=== PATIENT | male | born 1945 | race Caucasian/White ===

== ENCOUNTER 2023-03-10 12:08 | Outpatient (RCR) | payer MEDICARE, SELFPAY | END 2023-03-10 23:59 | disposition home or self-care (01) | LOC: RPT 12:08 | PROVIDERS: ATTENDING PHYSICIAN Psychiatry & Neurology Neurology; PRIMARYCARE PHYSICIAN Family Medicine | DX: R26.2 Difficulty in walking, not elsewhere classified (principal); E11.42 Type 2 diabetes mellitus with diabetic polyneuropathy; G95.9 Disease of spinal cord, unspecified | CPT/HCPCS: 97010; 97110; 97112; 97530 ==

== ENCOUNTER 2023-04-14 12:55 | Outpatient (RCR) | payer OTHER, SELFPAY | END 2023-04-14 23:59 | disposition home or self-care (01) | LOC: RPT 12:55 | PROVIDERS: ATTENDING PHYSICIAN Psychiatry & Neurology Neurology; PRIMARYCARE PHYSICIAN Family Medicine | DX: E11.42 Type 2 diabetes mellitus with diabetic polyneuropathy (principal); G95.9 Disease of spinal cord, unspecified; R26.2 Difficulty in walking, not elsewhere classified | CPT/HCPCS: 97110; 97112; 97162 ==

== ENCOUNTER 2023-05-05 12:49 | Outpatient (RCR) | payer OTHER, SELFPAY | END 2023-05-05 23:59 | disposition home or self-care (01) | LOC: RPT 12:49 | PROVIDERS: ATTENDING PHYSICIAN Psychiatry & Neurology Neurology; PRIMARYCARE PHYSICIAN Family Medicine | DX: E11.42 Type 2 diabetes mellitus with diabetic polyneuropathy (principal); G95.9 Disease of spinal cord, unspecified; R26.2 Difficulty in walking, not elsewhere classified; Z73.6 Limitation of activities due to disability; M62.81 Muscle weakness (generalized) | CPT/HCPCS: 97110; 97112 ==

== ENCOUNTER 2023-06-09 13:04 | Outpatient (RCR) | payer OTHER, SELFPAY | END 2023-06-09 23:59 | disposition home or self-care (01) | LOC: RPT 13:04 | PROVIDERS: ATTENDING PHYSICIAN Psychiatry & Neurology Neurology; PRIMARYCARE PHYSICIAN Family Medicine | DX: R26.2 Difficulty in walking, not elsewhere classified (principal); G95.9 Disease of spinal cord, unspecified; E11.42 Type 2 diabetes mellitus with diabetic polyneuropathy; Z73.6 Limitation of activities due to disability; M62.81 Muscle weakness (generalized) | CPT/HCPCS: 97010; 97110; 97112; 97530 ==

== ENCOUNTER 2023-07-07 13:05 | Outpatient (RCR) | payer OTHER, SELFPAY | END 2023-07-07 23:59 | disposition home or self-care (01) | LOC: RPT 13:05 | PROVIDERS: ATTENDING PHYSICIAN Psychiatry & Neurology Neurology; PRIMARYCARE PHYSICIAN Family Medicine | DX: R26.2 Difficulty in walking, not elsewhere classified (principal); G95.9 Disease of spinal cord, unspecified; E11.42 Type 2 diabetes mellitus with diabetic polyneuropathy; Z73.6 Limitation of activities due to disability; M62.81 Muscle weakness (generalized) | CPT/HCPCS: 97110; 97112 ==

== ENCOUNTER 2023-08-11 12:57 | Outpatient (RCR) | payer OTHER, SELFPAY | END 2023-08-11 23:59 | disposition home or self-care (01) | LOC: RPT 12:57 | PROVIDERS: ATTENDING PHYSICIAN Psychiatry & Neurology Neurology; PRIMARYCARE PHYSICIAN Family Medicine | DX: R26.2 Difficulty in walking, not elsewhere classified (principal); G95.9 Disease of spinal cord, unspecified; E11.42 Type 2 diabetes mellitus with diabetic polyneuropathy; Z73.6 Limitation of activities due to disability | CPT/HCPCS: 97110; 97112 ==

== ENCOUNTER 2023-09-10 11:55 | Outpatient (RCR) | payer OTHER, SELFPAY | END 2023-09-10 23:59 | disposition home or self-care (01) | LOC: RPT 11:55 | PROVIDERS: ATTENDING PHYSICIAN Psychiatry & Neurology Neurology; PRIMARYCARE PHYSICIAN Family Medicine | DX: R26.2 Difficulty in walking, not elsewhere classified (principal); G95.9 Disease of spinal cord, unspecified; E11.42 Type 2 diabetes mellitus with diabetic polyneuropathy; Z73.6 Limitation of activities due to disability | CPT/HCPCS: 97110; 97112; 97530 ==

== ENCOUNTER 2023-09-22 13:07 | Outpatient (RCR) | payer OTHER, SELFPAY | END 2023-09-22 23:59 | disposition home or self-care (01) | LOC: RPT 13:07 | PROVIDERS: ATTENDING PHYSICIAN Psychiatry & Neurology Neurology; PRIMARYCARE PHYSICIAN Family Medicine | DX: R26.2 Difficulty in walking, not elsewhere classified (principal); G95.9 Disease of spinal cord, unspecified; E11.42 Type 2 diabetes mellitus with diabetic polyneuropathy; Z73.6 Limitation of activities due to disability | CPT/HCPCS: 97110; 97530 ==

== ENCOUNTER 2023-12-11 05:09 | Inpatient (IN) | payer MEDICARE, SELFPAY ==
[2023-12-11] VITALS (38 sets, daily range): BP systolic 99–190; BP diastolic 51–101; BMI 29.5
[2023-12-11 01:28] LABS: Glucose - Point of Care 118 mg/dl (70-99)
[2023-12-11 01:58] LABS: % Basophils 0.2 % (0-2); % Eosinophils 0.5 % (0-6); % Immature Granulocytes 0.5 % (0-0.5); % Lymphocytes 17.3 % (20.5-51.1); % Monocytes 6.3 % (1.7-9.3); % Neutrophils 75.2 % (42.2-75.2); Absolute Lymphocytes 1.5 10^3/uL (1.2-3.4); Absolute Monocytes 0.6 10^3/uL (0.1-0.6); Absolute Neutrophils 6.5 10^3/uL (1.4-6.5); Hematocrit 41.8 % (39.0-52.0); Hemoglobin 15.2 g/dL (13.0-18.0); Mean Corp Hgb Conc. 36.4 g/dL (33.0-37.0); Mean Corpuscular Hgb 31.7 pg (27.0-31.0); Mean Corpuscular Volume 87.3 fL (80.0-94.0); Nucleated Red Blood Cells % 0 % (-); Platelet Count 241 10^3/uL (130-400); Red Blood Cell Count 4.79 10^6/uL (4.70-6.10); Red Cell Dist. Width 13.5 % (11.5-14.5); White Blood Cell Count 8.7 10^3/uL (4.8-10.8)
[2023-12-11 02:07] LABS: Glucose - Point of Care 30 mg/dl (70-99)
--- NOTE | 2023-12-11 02:10 | ED.GENMED ---
History of Present Illness
General
Chief Complaint: Weakness
Source: patient
Exam Limitations: none
Time Seen by Provider: 12/11/23 02:04
Nursing documentation reviewed up to this point in time: agreed with
History of Present Illness
History of Present Illness:
Pleasant 78-year-old male presents with confusion, weakness, and fatigue. Patient is diabetic and has a [employer] morales monitor that has been reading low all day. Patient took his usual dose of insulin today. He feels that he ate normally today.
He is accompanied by his who is present at the bedside. states that he is hard of hearing.
Past History
Past History
ED Past Medical History: GERD, Hypercholesterolemia, IDDM and Other (MS)
ED Past Surgical History: Appendectomy, Orthopedic and Urological
Social History
Tobacco: Non-smoker
Alcohol: Occasional
Drug: None
Personal:
Living: with family
Employment: Retired
Family History
Family History: Other (Noncontributory)
Review of Systems
Review of Systems
Allergies reviewed?: Yes
Other source history: family
Constitutional: Reports fatigue and sleep disturbance
Neurological: Reports dizzy and weakness
Psychiatric: Reports anxiety
Phy Exam
General Physical Exam
General Presentation: well appearing and mild distress
General age: appears stated age
General Habitus: elderly and frail
General Mental: alert, anxious and confused
General Hydration: appears well hydrated
Cardiovascular Exam
Cardiovascular Exam: regular rate/rhythm
Pulmonary Exam
Pulmonary Exam: lungs clear and no respiratory distress
Neurological Exam
Neurological Exam: confused
Musculoskeletal Exam
Musculoskeletal Exam: full ROM and no edema
Skin Exam
Skin Exam: normal color
Psychiatric Exam
Psychiatric Exam: normal mood/affect
Course
Orders/Labs/Results
Orders:
Orders
12/11/23 01:32
Electrocardiogram (*1) Urgent
Reason for Study: Fatigue / Weakness
EKG- Treatment ONCE
12/11/23 01:52
Complete Blood Count/With Diff Urgent
Comprehensive Metabolic Panel Urgent
12/11/23 02:02
Dextrose 50%-Water [Dextrose 50% Syringe] 25 grams .ROUTE .STK-MED ONE
12/11/23 02:21
Dextrose 50%-Water [Dextrose 50% Syringe] 25 grams IV NOW STA
12/11/23 03:00
Dextrose 5%/0.45%Sodchl 500 ml [D5/0.45%NaCl] 500 ml IV 250 mls/hr
12/11/23 03:28
UA Reflex to Culture [Urinalysis Reflex To Culture] Urgent
Date Specimen was Collected: 12/11/23
Time Specimen was Collected: 03:21
12/11/23 03:36
Dextrose 50%-Water [Dextrose 50% Syringe] 25 grams IV NOW STA
Abnormal Lab Results
12/11/23 12/11/23 12/11/23
01:27 01:52 02:01
MCH 31.7 H pg
(27.0-31.0)
Lymphocytes % 17.3 L %
(20.5-51.1)
BUN 21 H mg/dl
(9-20)
Glucose 34 L* mg/dl
(70-99)
POC Glucose 118 H mg/dl 30 L* mg/dl
(70-99) (70-99)
12/11/23 12/11/23
02:45 03:30
MCH
Lymphocytes %
BUN
Glucose
POC Glucose 64 L mg/dl 37 L* mg/dl
(70-99) (70-99)
12/11/23 01:52
12/11/23 01:52
Vital Signs
Initial and Last Documented VS:
Initial Vital Signs
Pulse Resp BP Pulse Ox
94 30 190/101 99
12/11/23 01:29 12/11/23 01:29 12/11/23 01:29 12/11/23 01:29
Last Documented Vital Signs
Temp Pulse Resp BP Pulse Ox
94.9 F L 72 15 160/77 100
12/11/23 01:40 12/11/23 03:30 12/11/23 03:30 12/11/23 03:00 12/11/23 03:30
*Critical Care Note
Total Time (30-74mins, 75-104mins- exclusive of procedures): 30 (Critical care statement: A total of 30 minutes of critical care time was provided for this patient. This time is separate from time utilized to perform the aforementioned documented
procedures. Aggregate critical care time includes only time during which I was engaged in work directl)
ED Attending Note
-
Portions of this chart may have been created with voice recognition software.� Occasional wrong word or��sound alike� substitutions may have occurred due to the inherent limitations of voice recognition software.
Discharge Plan
Departure
Patient Disposition: Admit
Date of Disposition: 12/11/23
Time of Disposition: 03:53
Admit to: ICU
Presentation/result/management discussed w/ accepting MD/DO: Hospitalist
Condition: Fair
Discharge Problem:
Persistent hypoglycemia, Generalized weakness
Prescriptions:
No Action
finasteride 5 MG tablet
5 mg PO DAILY
bupropion HCl 150 MG tablet extended release 24 hr
150 mg PO DAILY
Insulin Pump
0 units SC .CONTINUOUS
Patient Comments:
06/08/18: insulin pump with Humalog
continuous rate. Patient uses between 50-60 units daily
omeprazole 40 MG capsule,delayed release(DR/EC)
40 mg PO DAILY
cholecalciferol (vitamin D3) 1,000 UNITS tablet
6,000 units PO DAILY
atorvastatin 80 MG tablet
80 mg PO QPM
citalopram 20 MG tablet
20 mg PO DAILY
oxycodone-acetaminophen 5 MG/325 MG tablet
1 tab PO PRN PRN (Reason: pain)
losartan 50 MG tablet
50 mg PO DAILY 0RF
Referrals:
Patrick Kc MD [Family Provider] -
Interventions
Interventions:
*Risk Screen - Suicide Last Done: 12/11/23 01:29
*General Assessment Last Done: 12/11/23 01:29
*Neglect/Abuse Screening Last Done: 12/11/23 01:29
ED- Fall Risk Assessment Last Done: 12/11/23 03:38
*ED COVID-19 Vaccine History Last Done: 12/11/23 02:24
ED- Cardiac Assessment Last Done: 12/11/23 02:15
ED- Neurological Assessment Last Done: 12/11/23 02:15
ED- Pulmonary Assessment Last Done: 12/11/23 02:15
Discharge Date and Time
Print Language: MALTESE
[2023-12-11 02:20] LABS: ALT (SGPT) 20 U/L (0-50); AST (SGOT) 26 U/L (17-59); Albumin 4.4 g/dl (3.5-5.0); Alkaline Phosphatase 86 U/L (38-126); Blood Urea Nitrogen 21 mg/dl (9-20); Calcium 9.1 mg/dl (8.4-10.2); Carbon Dioxide 22 mmol/L (22-30); Chloride 104 mmol/L (98-107); Glucose 34 mg/dl (70-99); Potassium 3.6 mmol/L (3.5-5.1); Sodium 142 mmol/L (135-145); Total Bilirubin 0.7 mg/dl (0.2-1.3); Total Protein 7.6 g/dl (6.3-8.2); eGFR > 60.00
[2023-12-11] MEDS: DEXTROSE 50% SYRINGE 25 GRAMS IV ×2 (02:22→03:37)
[2023-12-11 02:47] LABS: Glucose - Point of Care 64 mg/dl (70-99)
[2023-12-11] MEDS: D5/0.45%NACL 500 IV (02:53)
[2023-12-11 03:31] LABS: Glucose - Point of Care 37 mg/dl (70-99)
[2023-12-11 03:52] LABS: Urine Albumin 2+ (Neg - Trace); Urine Bilirubin Negative (Negative); Urine Character Clear (Clear); Urine Color Yellow; Urine Glucose Trace (Negative); Urine Ketone Negative (Negative); Urine Leukocyte Negative (Negative); Urine Nitrite Negative (Negative); Urine Occult Blood Trace (Negative); Urine Urobilinogen Negative (Neg - 1+)
--- NOTE | 2023-12-11 04:33 | HPS.HSE ---
Family Physician
-
Family Physician: Patrick Kc
Chief Complaint
-
Hypoglycemia
History of Present Illness
This is a 78-year-old male with past medical history of insulin-dependent diabetes, prostate cancer status post TURP, hypertension, hyperlipidemia, chronic generalized weakness, KIM who presents to the emergency department with a hypoglycemic
episode where he was found to have a blood glucose of 34.
Patient reports that he has been having low glucose for over 1 week. He states that his glucose ranges from 50s to 60s at home. He denies any recent changes in diabetic medications. He reports about a 15 pound weight loss. Denies any other
changes in medications. Reports that his appetite is the same and his food intake is unchanged. He states that occasionally when he has low glucose if he takes glucose tabs.
He reports that today when he awoke his glucose was in the mid 50s. He did take 3 to 4 tablets of glucose and only had about 3 point increased. Despite this patient at regularly today. He stated that at around 5 PM he gave himself 40 units of
Humalog. He stated that before given himself Humalog his glucose was still in the 50s. He reports that he sometimes gives himself Humalog when the sugar is low. Patient appears to be confused about when and how much insulin to take. He was
previously on insulin pump but this was discontinued and returned. He denies fevers or chills. He denies any other symptoms.
In the emergency department he was hypothermic to 94, blood pressure was 133/80 with a pulse of 75. 100% on room air. His ECG shows atrial fibrillation at a rate of 107. Telemetry consistent with rate controlled A-fib in the 70s. His CBC was
unremarkable. Chemistries were notable for a glucose of 34. Despite boluses of dextrose and a D5 drip the patient continued to drop to the 30s. LFTs were within normal limits. UA showed trace blood but was otherwise unremarkable.
Medical History
Past Medical History
Past Medical History: Reports GERD, HTN and IDDM
Additional Past Medical History:
CKD
Past Surgical History: Reports Other
Additional Past Surgical History:
TURP
Social History
Tobacco: Non-smoker
Alcohol: Occasional
Drug: None
Personal:
Living: With Family
Employment: Retired
Family History
Family History: Not pertinent
Allergies / Home Medications
Allergies reflects when Allergies were last updated in [facility].
Home Medications with original date entered in [facility]
Allergy/Medication List:
Allergies
Allergy/AdvReac Type Severity Reaction Status Date / Time
pollen extracts Allergy Unknown Unknown Verified 08/02/20 01:05
environmental (pollen) Allergy rhinitis Uncoded 08/02/20 01:05
Home Medications
Citalopram Hydrobromide 20 MG TAKE 1 TABLET BY MOUTH ONCE DAILY for 90 days Nov, Active
Pantoprazole Sodium 40 MG TAKE ONE TABLET BY MOUTH TWICE A DAY for 90 days Nov, Active
HumaLOG 100 UNIT/ML to be used in the insulin pump 100 units daily Subcutaneous for 60 days Nov, Active
Lisinopril 30 MG 1 tablet Orally Once a day Nov, Active
Losartan Potassium 50 MG TAKE 1 TABLET BY MOUTH ONCE DAILY for 90 days Nov, Active
Myrbetriq 25 MG 1 tablet Orally Once a day for 90 days Begin Myrbetriq 25mg every other day x 1 week, then once daily while traveling away from home Nov, Active
Atorvastatin Calcium 80 MG 1 tablet Orally Once a day for 90 days Nov, Active
Finasteride 5 MG take 1 tablet by oral route every day Oral Once a day for 90 days Nov, Active
LORazepam 0.5 MG 1 tablet as needed for anxiety Orally up to Three Times a Day for 14 days Nov, Active
Review of Systems
-
History Source: Patient
Constitutional: Reports Fatigue
Respiratory: Reports No Symptoms
Abdomen/GI: Reports No Symptoms
: Reports No Symptoms
Musculoskeletal: Reports No Symptoms
Skin: Reports No Symptoms
Neurological: Reports No Symptoms
Endocrine: Reports No Symptoms
Hematologic/Lymphatic: Reports No Symptoms
Psych: Reports No Symptoms
Physical Exam
Vital Signs
Vital Signs
Temp Pulse Resp BP Pulse Ox
94.9 F L 72 15 160/77 100
12/11/23 01:40 12/11/23 03:30 12/11/23 03:30 12/11/23 03:00 12/11/23 03:30
Physical Exam
General: No Apparent Distress, Comfortable and Conversant
HEENT: NormoCephalic, Anicteric, Moist mucous membranes, Atraumatic and PERRLA
Respiratory: Clear
Cardiac: S1/S2 and Irregular Rhythm
Breast: Deferred by me
GI: Soft, Non Tender, Non Distended and Normal Bowel Sounds
Rectal: Deferred by Provider
Genito-urinary: Clear Urine
Musculoskeletal: No Clubbing, No Cyanosis, Edema, Left Lower Extremity (2+ pitting + non-pitting) and Edema, Right Lower Extremity (2+ pitting + non-pitting)
Skin: Warm
Neuro: AO x 3
Hematologic/Lymphatic: No Lymphadenopathy
Psych: Calm
Laboratory Results
-
12/11/23 01:52
12/11/23 01:52
Laboratory Results
Total Bilirubin 0.7 mg/dl (0.2-1.3) 12/11/23 01:52
AST 26 U/L (17-59) 12/11/23 01:52
ALT 20 U/L (0-50) 12/11/23 01:52
Alkaline Phosphatase 86 U/L (38-126) 12/11/23 01:52
Data Reviewed
-
Medical Tests (Nuc Med, Echo, EKG etc): Image Personally Visualized and interpreted
Lab Data: Labs Reviewed by me
Old Records: Reviewed
Impression/Plan
-
IMPRESSION:
Patient with type II insulin presenting with recurrent hyperglycemia
PLAN:
1. Hypoglycemia -patient has a Dexcom and was previously on insulin drip. Now he gives himself corrective Humalog dosing. He is unable to explain his regimen to me clearly. He appears to be mistakenly giving himself additional insulin when
glucose normal or low. For instance today with a glucose in the 50s is to give himself 40 units of Humalog. This will explain the persistent hypoglycemia to the 30s. His mental status is intact at this time. He is on D5 1/2 NS insulin drip.
Suspect iatrogenic hyperinsulinemia.
- admit to icu
- d10 gtt for now
- obtain serum c-peptide and pro-insulin to eval endogenous insulin though unlikley
- a1c in am
- holding off any insulin for now
- repeat glucose q 1 hour
- diet as tolerated.
2. AFIB - ECG with rate controlled atrial fibrillation. Patient denies h/o afib. No acute symptoms.
- check tsh, cortisol
- telemetry for now
- will parris need AC given age but to discuss further in am
- echo
3. HTN - Stable.
- continue losartan (records indicate lisinopril as well which I will hold)
4. Prostate Ca
- continue finesteride
5. Hypothermia - Likely secondary to hypoglycemia
- warming measures
- no signs of active infection
6. GERD -
- continue ppi bid
DVT PPX - lovenox sq for now
Full Code
[2023-12-11 04:37] LABS: Urine Amorphous Seen; Urine Bacteria Few (Negative); Urine White Cell 0-2 /HPF (0-5)
[2023-12-11 05:16] LABS: Glucose - Point of Care 76 mg/dl (70-99)
[2023-12-11] MEDS: D5/0.45%NACL IV (05:39)
[2023-12-11] MEDS: D10W 1000 IV (06:13)
[2023-12-11 06:19] LABS: Glucose - Point of Care 149 mg/dl (70-99)
[2023-12-11] MEDS: PROSCAR 5 MG PO (07:36)
[2023-12-11] MEDS: CELEXA 20 MG PO (07:36)
[2023-12-11] MEDS: COZAAR 50 MG PO (07:36)
[2023-12-11 07:37] LABS: Glucose - Point of Care 78 mg/dl (70-99)
[2023-12-11] MEDS: D5W 1000 IV (07:47)
--- NOTE | 2023-12-11 08:20 | CON.INTV ---
Consultation
Consultation Request
Date/Time Consultation Requested: 12/11/2023
Date/Time Consultation Performed: 12/11/2023
Requesting Provider: Dr. Jean Baptiste
Performing Provider: Dr. Garsia
Reason for Consultation: Hypoglycemia
Medical History
-
Chief Complaint: Disorientation and low blood sugar
History of Present Illness:
78-year-old male with a past medical history of DM type II, prostate cancer (Dx in 02/2006) s/p IMRT, anxiety, hypertension, GERD, KIM not on CPAP, MS and history of Vergara's esophagus who presents with altered mental status and having low blood
glucose levels at home. Fingerstick on arrival in the ER was 118. He reports that he has been having low sugars over the last week ranging from 50s to 60s. He denies any recent changes in his diabetic medications and he has continued to eat
normally. He says that yesterday before he had dinner that his sugars were in the 40s�50s and he took 10 units of aspart as prescribed, ate his dinner as usual and then went to bed. He also took his 25 units of degludec with sleep. He then woke
up in the middle of the night feeling confused and disoriented and called for his and then was brought here to the hospital. In the ER he was hypothermic to 94.9 �F (via rectal temperature), pulse rate 94, breathing at 30 breaths/min, BP
hypertensive to 190/101 and saturating 99% on room air. Initial labs showed normal WBC at 8.7, initial blood glucose 34, and UA negative for UTI. He was started on D5-1/2NS gtt after given a amp of D50, and admitted to the ICU where he required
D10W with q1hr fingersticks. Cylinder Sander Operator services consulted for additional management/recommendations.
Patient seen and evaluated this morning. He ate breakfast this morning. Currently on D5W at 75 cc an hour. Currently heart rate 90, saturating 98% on room air with BP 127/66. No insulin pump is found on the patient, although he previously was
using a pump. He is awake, alert and oriented x 3. He was found to be in A-fib this morning during rounds, with rate controlled in the 80s. He currently feels much better and is no longer confused. He denies chest pain, SOB, [place], abdominal pain,
nausea, fevers or chills.
Of note the patient had previously followed with us in the [facility] office with last visit on 07/17/2021 with KENJI King. At that time patient had a left-sided pleural effusion requiring thoracentesis x 2. He did have a left-sided rib
fracture after falling in June 2020 at [place]. Spirometry performed on 08/23/2020 showed severe restrictive lung disease (post-bronchodilator FVC: 46%). He had a history of sleep apnea but was recommended positional therapy and was not on
CPAP.
PMHx: Anxiety, hypertension, hyperlipidemia, GERD, KIM, MS, history of gallstones, Vergara's esophagus, diverticulosis, prostate cancer (diagnosed in February 2006) s/p IMRT, DM type II
PSHx: Hernia repair, appendectomy, TURP, left hip ORIF (June 2017)
Past Medical History
Past Medical History: Other (Negative unless mentioned above)
Past Surgical History: Other (Above as per HPI)
Social History
Tobacco: Non-smoker
Alcohol: Occasional
Drug: None
Family History
Family History: Cancer (Mother: Ovarian cancer) and Other (Father: Ruptured aortic aneurysm; Brother: IBS)
Allergies / Home Medications
Allergies
Allergy/AdvReac Type Severity Reaction Status Date / Time
pollen extracts Allergy Unknown Unknown Verified 08/02/20 01:05
environmental (pollen) Allergy rhinitis Uncoded 08/02/20 01:05
Home Medications
�Medication �Instructions �Recorded �Confirmed �Last Taken �Type
Insulin Pump 0 units SC .CONTINUOUS Diabetes 06/25/17 08/27/20 06/08/18 History
bupropion HCl 150 mg 24 hr tablet, 150 mg PO DAILY Depression 06/25/17 08/27/20 08/27/20 History
extended release
finasteride 5 mg tablet 5 mg PO DAILY prostate 06/25/17 08/27/20 08/27/20 History
losartan 50 mg tablet 50 mg PO DAILY 07/15/17 08/27/20 08/27/20 Rx
cholecalciferol (vitamin D3) 25 6,000 units PO DAILY Supplement 06/08/18 08/27/20 08/27/20 History
mcg (1,000 unit) tablet
omeprazole 40 mg capsule,delayed 40 mg PO DAILY Gastrointestinal 06/08/18 08/27/20 08/27/20 History
release issue
atorvastatin 80 mg tablet 80 mg PO QPM High cholesterol 08/02/20 08/27/20 08/26/20 History
citalopram 20 mg tablet 20 mg PO DAILY Depression 08/02/20 08/27/20 08/27/20 History
oxycodone-acetaminophen 5 mg-325 1 tab PO PRN PRN pain 08/27/20 08/27/20 Unknown History
mg tablet
Review of Systems
-
History Source: Patient
All other systems: Negative unless noted
Vitals / Labs / Diagnostic Testing
Vital Signs
Temp Pulse Resp BP Pulse Ox
97.9 F 92 12 127/66 97
12/11/23 08:15 12/11/23 08:45 12/11/23 08:45 12/11/23 08:45 12/11/23 09:21
Lab Data
12/11/23 01:52
12/11/23 07:45
Diagnostic Testing:
Physical Exam
-
HEENT: Normocephalic and Anicteric
Cardiovascular: Irregular Rhythm, Peripheral Edema (negative) and Other (normal rate)
Respiratory: Wheeze (negative), Rales (negative) and Rhonchi (negative)
GI: Soft, Non Distended, Non Tender and Normal Bowel Sounds
Neurology: AO x 3 and Tremors (negative)
Skin: Warm and Dry
General: Respiratory Distress (negative), Comfortable, Chills (negative) and Sweats (negative)
Assessment
-
Assessment: 78-year-old male with a past medical history of DM type II, prostate cancer (Dx in 02/2006) s/p IMRT, anxiety, hypertension, GERD, KIM not on CPAP, MS and history of Vergara's esophagus who presents with altered mental status and having
low blood glucose levels at home. Fingerstick on arrival in the ER was 118. He reports that he has been having low sugars over the last week ranging from 50s to 60s. He denies any recent changes in his diabetic medications and he has continued to
eat normally. He says that yesterday before he had dinner that his sugars were in the 40s�50s and he took 10 units of aspart as prescribed, ate his dinner as usual and then went to bed. He also took his 25 units of degludec with sleep. He then
woke up in the middle of the night feeling confused and disoriented and called for his and then was brought here to the hospital. In the ER he was hypothermic to 94.9 �F (via rectal temperature), pulse rate 94, breathing at 30 breaths/min, BP
hypertensive to 190/101 and saturating 99% on room air. Initial labs showed normal WBC at 8.7, initial blood glucose 34, and UA negative for UTI. He was started on D5-1/2NS gtt after given a amp of D50, and admitted to the ICU where he required
D10W with q1hr fingersticks. Cylinder Sander Operator services consulted for additional management/recommendations.
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
Impression:
#DM type II (A1C: 6.8 from 12/11/2023) dependent on insulin complicated by hypoglycemia
#New onset atrial fibrillation
#History of KIM (not currently on CPAP)
#History of prostate cancer (Dx 02/2006) s/p IMRT
#Hypertension
#Hyperlipidemia
Plan:
- Patient already transitioned off of D10W to D5W
- Given that blood sugars are now >120 with last value of 208, we can stop his dextrose containing IV fluids
- Maintain goal BG 140-180
- Encourage PO intake with ADA, and ensure he is eating >50-75% of his meals
- prn glucagon
- Change q1hr fingersticks --> q2hr until BG remains >140 for few more hours, then will confirm his home dosing of insulin and start AC/HS fingersticks
- Consult cardiology for recs and management about A-fib
- Given new onset A-fib and history of KIM, I will arrange for outpatient follow-up with our office to discuss sleep disordered breathing as he may require PAP therapy now
- HR control with goal HR<110
- Defer to cardiology about starting NOAC vs heparin gtt
- Continue with home statin + antihypertensives and antidepressants
- Maintain SpO2 >90-94%
- Maintain MAP>65
- Replete electrolytes with K>4, Mg>2
- prn nebulized bronchodilators - not currently bronchospastic
- Incentive spirometer encouraged 10x per hour for at least 4 hrs a day
- PT/OT
- DVT ppx: LMWH --> will likely be changed to Eliquis now that pt is in A-fib (defer to cardiology)
Patient's blood sugars are now >140, with his home insulin regimen confirmed and restarted with the assistance of the diabetic nurse practitioner. Patient is stable for downgrade out of ICU to telemetry. Cylinder Sander Operator/Pulmonary service will now sign
off. Thank you for allowing us to be involved in the care of this patient. Please reconsult if there are any additional questions/concerns, or if patient's respiratory status deteriorates.
Total time spent today was 75 minutes for this encounter. Time includes reviewing laboratory test/imaging results, reviewing pertinent medical records, obtaining and reviewing medical history, performing an appropriate exam, ordering medications,
tests and procedures. Time also includes documentation of this encounter, coordinating patient care and communicating with other healthcare professionals. Total time does not include separately billed tests performed on this date of service.
--- NOTE | 2023-12-11 08:30 | PTCARENOTE ---
Received report from night RN, pt AAO and makes his needs known, new onset of AFIB rate in the 80's, + radials doppler pedals, LLE edema +1, lungs clear on RA SATs 97%, BSx4 round soft non-tender, 16 F draining yellow urine, LLE reddened with
scabbed wounds one toes, pt has MS and is wheelchair bound @ baseline, OOB to the chair for breakfast assist x2 stand and pivot, Q1H blood sugars per order, call yuan within reach, otherwise refer to documentation.
[2023-12-11 08:43] LABS: Blood Urea Nitrogen 18 mg/dl (9-20); Calcium 8.2 mg/dl (8.4-10.2); Carbon Dioxide 27 mmol/L (22-30); Chloride 101 mmol/L (98-107); Estimated Creatinine Clearance 74 ml/min; Glucose 211 mg/dl (70-99); HDL Cholesterol 55 mg/dl; LDL Cholesterol, Calculated 77 mg/dl; Potassium 4.2 mmol/L (3.5-5.1); Sodium 139 mmol/L (135-145); Total Cholesterol 150 mg/dl (50-199); Triglyceride 91 mg/dl (10-149); Very Low Density Lipoprotein 18 mg/dl (0-30); eGFR > 60.00
[2023-12-11 08:46] LABS: Glucose - Point of Care 128 mg/dl (70-99)
[2023-12-11 08:51] LABS: Glycohemoglobin (HgbA1c) 6.8 % (4.0-5.6)
[2023-12-11 09:15] LABS: Cortisol, Random 6.3 ug/dl; TSH Reflex To Free T4 1.47 uIU/ml (0.47-4.68)
[2023-12-11 09:41] LABS: Glucose - Point of Care 208 mg/dl (70-99)
--- NOTE | 2023-12-11 11:11 | CM ---
Cm reviewed medical records. CM met with patient in room. Patient was pleasant and conversant during IA. Patient confirmed demographics. Patient stated that he lives with his and son Mata. Patient has been to [facility], and stated that he had a
good experience there. Patient uses a walker and wheelchair. Patient is active with his PCP. Patient stated he uses [facility] for medication services.
CM discussed home care options to assist with medication management. CM confirmed choice. [facility] power generation plant operator made aware of new referral.
PLAN: home with [facility].
--- NOTE | 2023-12-11 11:34 | CON.CAR ---
Addendum entered and electronically signed by Apollo Machado MD 12/11/23 15:26:
I saw and examined the patient.
The Cash Manager's note was reviewed and I agree with the note.
Comment:
GEN: No distress, awake, Ox3
HEENT: supple, anicteric, mmm
LUNGS: scatt rhonchi
CV: Irreg, S1/S2, 1/6 syst LSB, no gallop
ABD: soft, BS+, NT/ND
EXT: No edema
NEURO: Gross non-focal
SKIN: No rash
plan:
78-year-old male with past medical history of type 2 diabetes, hypertension, and hyperlipidemia with multiple sclerosis presented to [facility] with change in mental status and hypoglycemia. He was found have a blood sugar in the 30s but it
was also found to be in new onset atrial fibrillation. He had no previous A-fib history. He has no chest pains, shortness of breath, orthopnea or PND. He has no history of bleeding.
His atrial fibrillation remains rate controlled. [id number] score is 4. Start Eliquis 5 mg p.o. twice daily. We discussed the importance of avoiding falls.
Check echocardiogram. TSH is normal.
His current heart rates are minimally elevated. Will add low-dose Toprol 12.5 mg daily. Continue to follow his blood pressure.
Continue losartan.
Continue high-dose atorvastatin and sugar control.
For now I will continue a rate control strategy. Once he returns to see us as an outpatient we would then consider cardioversion and rhythm control if remains in A-fib.
Original Note:
Consultation
Consultation Request
Date/Time Consultation Performed: 12/11/23
Requesting Provider: Dr. Negrete
Performing Provider: Keke Olvera PA-C for Dr. Machado
Reason for Consultation: new afib
Medical History
-
Chief Complaint: altered mental status
History of Present Illness:
Patient is a 78-year-old male with past medical history of type 2 diabetes, hypertension, hyperlipidemia, Vergara's esophagus, multiple sclerosis who presented to [facility] due to altered mental status and disorientation noted by patient's
. He reports he follows his sugars pretty closely at home, however they have been up and down. Upon arrival to emergency room blood sugar was noted to be in 30s. He was also noted to be in new A-fib with heart rates initially in the 100s, now
well-controlled. He denies history of cardiac issues including A-fib to his knowledge in the past. He denies chest pain, shortness of breath, palpitations, lightheadedness. Denies thyroid dysfunction. Reports he had a fall over Labor Day,
however feels this was due to dehydration as his legs gave out on him on a hot day, otherwise states he has not had recent falls. Denies bleeding history. Cardiology consulted for evaluation.
PMH:
Type 2 diabetes
MS, mostly wheelchair bound
HLD
HTN
GERD/Vergara's esophagus
History of prostate cancer s/p TURP
Past Medical History
Past Medical History: Other (in HPI)
Social History
Tobacco: Non-Smoker
Alcohol: Occasional
Personal:
Living: With Family
Employment: Retired
Family History
Family History: Other (AAA)
Allergies / Home Medications
Allergy/AdvReac Type Severity Reaction Status Date / Time
pollen extracts Allergy Unknown Unknown Verified 08/02/20 01:05
environmental (pollen) Allergy rhinitis Uncoded 08/02/20 01:05
�Medication �Instructions �Recorded �Confirmed �Type
bupropion HCl 150 mg 24 hr tablet, 150 mg PO DAILY Depression 06/25/17 12/11/23 History
extended release
finasteride 5 mg tablet 5 mg PO DAILY prostate 06/25/17 12/11/23 History
losartan 50 mg tablet 50 mg PO DAILY 07/15/17 12/11/23 Rx
cholecalciferol (vitamin D3) 25 6,000 units PO DAILY Supplement 06/08/18 12/11/23 History
mcg (1,000 unit) tablet
omeprazole 40 mg capsule,delayed 40 mg PO DAILY Gastrointestinal 06/08/18 12/11/23 History
release issue
atorvastatin 80 mg tablet 80 mg PO QPM High cholesterol 08/02/20 12/11/23 History
citalopram 20 mg tablet 20 mg PO DAILY Depression 08/02/20 12/11/23 History
oxycodone-acetaminophen 5 mg-325 1 tab PO PRN PRN pain 08/27/20 12/11/23 History
mg tablet
Review of Systems
-
History Source: Patient
All other systems: Negative unless noted
Physical Exam
Vital Signs
Temp Pulse Resp BP Pulse Ox
98.7 F 92 12 127/66 97
12/11/23 11:13 12/11/23 08:45 12/11/23 08:45 12/11/23 08:45 12/11/23 09:21
Lab Results
12/11/23 01:52
12/11/23 07:45
Physical Exam
General: No Apparent Distress and Comfortable
HEENT: Normocephalic, Anicteric and Moist Mucous Membranes
Respiratory: Clear and Non Labored Respirations
Cardiac: S1/S2 and Irregular Rhythm
GI: Soft, Non Tender, Non Distended and Normal Bowel Sounds
Musculoskeletal: No Clubbing, No Cyanosis and No Edema
Skin: Warm and Dry
Neuro: AO x 3
Impression / Plan
-
Primary Credit Administrator: none prior to admission
Assessment:
Presentation with disorientation, AMS
Hypoglycemia
Atrial fibrillation, rate controlled, new diagnosis of unclear duration
Type 2 diabetes, hgbA1c 6.8%
MS, mostly wheelchair bound
HLD
HTN
GERD/Vergara's esophagus
History of prostate cancer s/p TURP
ECHO 12/11/23: pending
Plan:
-Patient presents with hypoglycemia, however found to have new diagnosis atrial fibrillation resulting in cardiology consultation
-He is asymptomatic
-Appears rate controlled on review of telemetry since admission
-[id number] score of 4 for age, HTN, DM. discussed OAC with patient. he denies history of bleeding issues. He does sit mostly in a wheelchair, however sometimes ambulates with a walker. He reports 1 recent fall episode which he believes was
provoked. He states he is normally very careful when ambulating. He is to continue PT as there is concern his ambulatory dysfunction is secondary to weak hip flexors which could be tied to his MS. He is agreeable to Eliquis, will start 5 mg twice
daily
-Echo pending
-TSH within normal limits
-No clear symptoms of underlying angina. EKG without acute ischemic changes
-Will arrange outpatient cardiac follow-up
-Continue management of blood sugar per primary team
-Discussed with nursing and hospitalist
Data Reviewed
-
EKG: Tracing Personally Visualized and interpreted
Labs: Labs Reviewed by me
Old Records: Reviewed
[2023-12-11 11:44] LABS: Glucose - Point of Care 315 mg/dl (70-99)
--- NOTE | 2023-12-11 12:03 | VNURNOTE ---
Home Health Liaison met with patient at bedside to discuss [facility] nurse/therapy, visits, schedule and homebound status. Patient is agreeable and understands that visits at home will be 2-3 x per week to assess and teach medical management. [facility]
brochure provided with contact information. Patient is aware that [facility] will contact them for start of care in 1-2 days after discharge from .
[facility] referral completed in [facility].
--- NOTE | 2023-12-11 12:06 | CM ---
CM called patient's pharmacy and confirmed that Eliquis is $47. CM updated provider.
--- NOTE | 2023-12-11 12:06 | PN.DE.MGMTRT ---
Insulin Management
- -
12/11/2023 Diabetes Management Consult
Patient admitted 12/10 with weakness and hypoglycemia, glucose 34 on admission. PMH GERD, HCL, diabetes, MS. Prior to admission patient states he was taking novolog 20 units AC and tresiba 25 units @ HS. A1C on admission 6.8%.
Patient is awake alert and oriented able to discuss diabetes management.
Patient received no long acting insulin last evening. Glucose trending up to 315. Will start lantus 20 units now and daily and AC novolog 6 units with moderate corrective insulin.
Instructed patient on reduced doses so that when he does home he does not resume high doses.
Discussed with nurse.
Diabetes History
- -
Type of Diabetes: 2 requiring insulin
Pre-Admission Diabetes Regimen
12/11/23 12/11/23
01:52 07:45
Creatinine 1.1 1.0
Lab Results
Hemoglobin A1c 6.8 % (4.0-5.6) H 12/11/23 07:45
Insulin Pump Settings
IP Diabetes Regimen
12/11/23 12/11/23 12/11/23
01:27 01:52 02:01
Glucose 34 L*
POC Glucose 118 H 30 L*
12/11/23 12/11/23 12/11/23
02:45 03:30 05:14
Glucose
POC Glucose 64 L 37 L* 76
12/11/23 12/11/23 12/11/23
06:08 07:26 07:45
Glucose 211 H
POC Glucose 149 H 78
12/11/23 12/11/23 12/11/23
08:34 09:30 11:33
Glucose
POC Glucose 128 H 208 H 315 H
Meal type: Breakfast
Amount consumed: 100%
Patient Education
--- NOTE | 2023-12-11 12:29 | PTCARENOTE ---
systems reviewed, pt spoke with diabetic management and insulin was ordered and given as documented, pt also spoke with cardiology about new onset AFIB and Eliquis was ordered and given as documented, olivia casanova'akil @ 1148 pt due to void, pt had a lg
BM on BSC, OOB to chair lunch ordered, otherwise refer to documentation.
[2023-12-11] MEDS: ELIQUIS 5 MG PO ×2 (12:38→22:17)
[2023-12-11] MEDS: LANTUS 0.2 UNITS SC (12:54)
[2023-12-11] MEDS: NOVOLOG FLEXPEN 6 UNITS SC ×2 (13:15→18:03)
[2023-12-11] MEDS: NOVOLOG FLEXPEN-MODERATE RESISTANCE 5 UNITS SC (13:20)
[2023-12-11 13:28] LABS: Glucose - Point of Care 278 mg/dl (70-99)
--- NOTE | 2023-12-11 13:31 | W.PN.HOSP.TC ---
Today's Communication/Plan
-
Monitor vital signs
see plan
Diabetes SEAM RUBBING MACHINE OPERATOR following
Started Eliquis
If sugars remain stable then likely can be transferred out of ICU
Nonbillable note
Assessment / Plan
Assessment / Plan
General: No Apparent Distress, Comfortable and Conversant
HEENT: NormoCephalic, Anicteric, Moist mucous membranes
Respiratory: Clear
Cardiac: S1/S2 and Irregular Rhythm
GI: Soft, Non Tender, Non Distended and Normal Bowel Sounds
Musculoskeletal: No Clubbing, No Cyanosis, Edema, Left Lower Extremity (2+ pitting + non-pitting) and Edema, Right Lower Extremity (2+ pitting + non-pitting)
Neuro: AO x 3
Psych: Calm
Hypoglycemia -patient has a Dexcom and was previously on insulin drip. Now he gives himself corrective Humalog dosing. He is unable to explain his regimen to me clearly. per patient he took 40units short acting 12/09 when his sugars was in 200s.
This explains his hyppglycemia. Suspect iatrogenic hyperinsulinemia.
Monitor in ICU
- a1c 6.8
Diabetes SEAM RUBBING MACHINE OPERATOR following, now started on Lantus, aspart
- diet as tolerated.
New onset AFIB - ECG with rate controlled atrial fibrillation. Patient denies h/o afib. No acute symptoms.
TSH normal, echo pending
[id number] 4, started Eliquis
Cardiology following
- telemetry for now
HTN - Stable.
- continue losartan
Prostate Ca
- continue finesteride
Hypothermia - Likely secondary to hypoglycemia
- warming measures
- no signs of active infection
GERD -
- continue ppi
DVT PPX - eliquis
Full Code
Anticipated Discharge: Within 24 hours
Subjective/Interval History
-
Date of Service: December 11, 2023
denies pain
Objective Data
-
Labs:
Laboratory Results
12/11/23 12/11/23
01:52 07:45
WBC 8.7
Hgb 15.2
Hct 41.8
Plt Count 241
Sodium 142 139
Potassium 3.6 4.2
Chloride 104 101
Carbon Dioxide 22 27
BUN 21 H 18
Creatinine 1.1 1.0
Glucose 34 L* 211 H
Calcium 9.1 8.2 L
Total Bilirubin 0.7
AST 26
ALT 20
Alkaline Phosphatase 86
Vital Signs:
Vital Signs
Temp Pulse Resp BP Pulse Ox
98.7 F 90 29 137/75 97
12/11/23 11:13 12/11/23 11:30 12/11/23 11:30 12/11/23 11:30 12/11/23 11:30
I&O
12/10/23 12/11/23 12/12/23
06:59 06:59 06:59
Output Total 500 / 500
Balance -500 / -500
[2023-12-11] MEDS: WELLBUTRIN XL (24 hour extended release) 150 MG PO (14:48)
[2023-12-11] MEDS: PROTONIX 40 MG PO (14:48)
--- NOTE | 2023-12-11 16:00 | PTCARENOTE ---
systems reviewed, AFIB info packet given to pt, pt called PCP and also received info for Eliquis, came to visit, pt OOB to chair for all meals, otherwise refer to documentation
--- NOTE | 2023-12-11 18:00 | PTCARENOTE ---
pt has not voided since dc'd baker, bladder scanned for 289, pt stood and used urinal x3 with only 50ml, post bladder scan 278 per protocol no straight cath, next bladder scan 1999
[2023-12-11] MEDS: NOVOLOG FLEXPEN-MODERATE RESISTANCE 7 UNITS SC (18:03)
[2023-12-11] MEDS: LIPITOR 80 MG PO (18:03)
[2023-12-11 18:13] LABS: Glucose - Point of Care 300 mg/dl (70-99)
[2023-12-11 21:48] LABS: Glucose - Point of Care 182 mg/dl (70-99)
[2023-12-12] VITALS (8 sets, daily range): BP systolic 116–148; BP diastolic 67–83; PULSE 75–81; BMI 29.4
[2023-12-12 04:14] LABS: % Basophils 0.4 % (0-2); % Eosinophils 1.2 % (0-6); % Immature Granulocytes 0.4 % (0-0.5); % Lymphocytes 30.4 % (20.5-51.1); % Monocytes 8.5 % (1.7-9.3); % Neutrophils 59.1 % (42.2-75.2); Absolute Eosinophils 0.1 10^3/uL (0-0.7); Absolute Lymphocytes 2.1 10^3/uL (1.2-3.4); Absolute Monocytes 0.6 10^3/uL (0.1-0.6); Hematocrit 36.5 % (39.0-52.0); Mean Corp Hgb Conc. 35.6 g/dL (33.0-37.0); Mean Corpuscular Hgb 33.2 pg (27.0-31.0); Mean Corpuscular Volume 93.4 fL (80.0-94.0); Mean Platelet Volume 9.6 fL (7.4-10.4); Nucleated Red Blood Cells % 0 % (-); Platelet Count 219 10^3/uL (130-400); Red Blood Cell Count 3.91 10^6/uL (4.70-6.10); Red Cell Dist. Width 14.3 % (11.5-14.5); White Blood Cell Count 6.7 10^3/uL (4.8-10.8)
[2023-12-12 04:39] LABS: Blood Urea Nitrogen 23 mg/dl (9-20); Calcium 8.1 mg/dl (8.4-10.2); Carbon Dioxide 26 mmol/L (22-30); Chloride 105 mmol/L (98-107); Estimated Creatinine Clearance 74 ml/min; Glucose 165 mg/dl (70-99); HDL Cholesterol 48 mg/dl; LDL Cholesterol, Calculated 81 mg/dl; Magnesium 2.2 mg/dl (1.6-2.3); Phosphorus 2.9 mg/dl (2.5-4.5); Potassium 4.4 mmol/L (3.5-5.1); Sodium 139 mmol/L (135-145); Total Cholesterol 149 mg/dl (50-199); Triglyceride 103 mg/dl (10-149); Very Low Density Lipoprotein 20 mg/dl (0-30); eGFR > 60.00
[2023-12-12 05:10] LABS: Cortisol, Random 3.7 ug/dl; TSH 2.14 uIU/ml (0.47-4.68)
[2023-12-12 07:47] LABS: Glucose - Point of Care 147 mg/dl (70-99)
[2023-12-12] MEDS: NOVOLOG FLEXPEN-MODERATE RESISTANCE SC (08:08)
[2023-12-12] MEDS: CELEXA 20 MG PO (08:09)
[2023-12-12] MEDS: COZAAR 50 MG PO (08:09)
[2023-12-12] MEDS: LANTUS 0.2 UNITS SC (08:09)
[2023-12-12] MEDS: PROSCAR 5 MG PO (08:09)
[2023-12-12] MEDS: WELLBUTRIN XL (24 hour extended release) 150 MG PO (08:09)
[2023-12-12] MEDS: TOPROL XL 12.5 MG PO (08:09)
[2023-12-12] MEDS: PROTONIX 40 MG PO (08:09)
[2023-12-12] MEDS: ELIQUIS 5 MG PO ×2 (08:10→20:29)
[2023-12-12] MEDS: NOVOLOG FLEXPEN 6 UNITS SC ×2 (08:18→13:10)
--- NOTE | 2023-12-12 12:21 | W.PN.HOSP.TC ---
Today's Communication/Plan
-
monitor vitals
see plan
titrate insulin
monitor urine output
eliquis
discussed with spouse over the phone
Assessment / Plan
Assessment / Plan
General: No Apparent Distress, Comfortable and Conversant
HEENT: NormoCephalic, Anicteric, Moist mucous membranes
Respiratory: Clear
Cardiac: S1/S2 and Irregular Rhythm
GI: Soft, Non Tender, Non Distended and Normal Bowel Sounds
Musculoskeletal: No Clubbing, No Cyanosis, Edema, Left Lower Extremity (2+ pitting + non-pitting) and Edema, Right Lower Extremity (2+ pitting + non-pitting)
Neuro: AO x 3
Psych: Calm
Hypoglycemia -patient has a Dexcom and was previously on insulin drip. Now he gives himself corrective Humalog dosing. He is unable to explain his regimen to me clearly. per patient he took 40units short acting 12/09 when his sugars was in 200s.
This explains his hypoglycemia. Suspect iatrogenic hyperinsulinemia.
- a1c 6.8
Diabetes BARREL TESTER AND DRAINER following, now started on Lantus, aspart. increase insulin. will dc on new regimen doses most likely tomorrow. Discussed with patient and spouse
- diet as tolerated.
New onset AFIB - ECG with rate controlled atrial fibrillation. Patient denies h/o afib. No acute symptoms.
TSH normal, echo with normal EF
[id number] 4, started Eliquis
Cardiology following
- telemetry for now
HTN - Stable.
- continue losartan
Prostate Ca
suspect BPH
- continue finasteride
Hypothermia - Likely secondary to hypoglycemia
- warming measures
- no signs of active infection
GERD -
- continue ppi
DVT PPX - eliquis
Full Code
Anticipated Discharge: Within 24 hours
Subjective/Interval History
-
Date of Service: December 12, 2023
denies pain
Objective Data
-
Labs:
Laboratory Results
12/12/23
03:42
WBC 6.7
Hgb 13.0
Hct 36.5 L
Plt Count 219
Sodium 139
Potassium 4.4
Chloride 105
Carbon Dioxide 26
BUN 23 H
Creatinine 1.0
Glucose 165 H
Calcium 8.1 L
Vital Signs:
Vital Signs
Temp Pulse Resp BP Pulse Ox
97.3 F 74 21 133/67 98
12/12/23 11:00 12/12/23 10:15 12/12/23 10:15 12/12/23 10:15 12/12/23 08:45
I&O
12/11/23 12/12/23 12/13/23
06:59 06:59 06:59
Output Total 700 / 700 125 / 125
Balance -700 / -700 -125 / -125
[2023-12-12 12:42] LABS: Glucose - Point of Care 369 mg/dl (70-99)
[2023-12-12] MEDS: NOVOLOG FLEXPEN-MODERATE RESISTANCE 9 UNITS SC (12:44)
[2023-12-12 18:02] LABS: Glucose - Point of Care 208 mg/dl (70-99)
[2023-12-12] MEDS: LIPITOR 80 MG PO (18:05)
[2023-12-12] MEDS: NOVOLOG FLEXPEN 7 UNITS SC (18:06)
[2023-12-12] MEDS: NOVOLOG FLEXPEN-MODERATE RESISTANCE 3 UNITS SC (18:06)
[2023-12-12 22:08] LABS: Glucose - Point of Care 167 mg/dl (70-99)
[2023-12-13 00:31] VITALS: BP 118/66
[2023-12-13] MEDS: TUMS EX (EXTRA STRENGTH) CHEWABLE TABLET 300 MG PO (00:47)
[2023-12-13 03:59] LABS: % Basophils 0.2 % (0-2); % Eosinophils 1.3 % (0-6); % Immature Granulocytes 0.6 % (0-0.5); % Lymphocytes 24.2 % (20.5-51.1); % Monocytes 10.2 % (1.7-9.3); % Neutrophils 63.5 % (42.2-75.2); Absolute Eosinophils 0.1 10^3/uL (0-0.7); Absolute Immature Granulocytes 0.1 10^3/uL (0-0.05); Absolute Monocytes 0.8 10^3/uL (0.1-0.6); Absolute Neutrophils 5.2 10^3/uL (1.4-6.5); Hematocrit 37.2 % (39.0-52.0); Hemoglobin 13.1 g/dL (13.0-18.0); Mean Corp Hgb Conc. 35.2 g/dL (33.0-37.0); Mean Corpuscular Volume 93.7 fL (80.0-94.0); Mean Platelet Volume 9.3 fL (7.4-10.4); Nucleated Red Blood Cells % 0 % (-); Platelet Count 204 10^3/uL (130-400); Red Blood Cell Count 3.97 10^6/uL (4.70-6.10); Red Cell Dist. Width 13.9 % (11.5-14.5); White Blood Cell Count 8.2 10^3/uL (4.8-10.8)
[2023-12-13 04:00] VITALS: BP 135/67
[2023-12-13 06:00] VITALS: BMI 29.6
[2023-12-13 07:47] VITALS: BP 130/90
[2023-12-13] MEDS: PROTONIX 40 MG PO (07:52)
[2023-12-13] MEDS: COZAAR 50 MG PO (07:52)
[2023-12-13] MEDS: TOPROL XL 12.5 MG PO (07:52)
[2023-12-13] MEDS: PROSCAR 5 MG PO (07:52)
[2023-12-13] MEDS: WELLBUTRIN XL (24 hour extended release) 150 MG PO (07:52)
[2023-12-13] MEDS: CELEXA 20 MG PO (07:52)
[2023-12-13] MEDS: ELIQUIS 5 MG PO (07:52)
[2023-12-13 07:54] LABS: Glucose - Point of Care 154 mg/dl (70-99)
[2023-12-13] MEDS: LANTUS 0.22 UNITS SC (07:54)
[2023-12-13 08:01] VITALS: BP 147/84
[2023-12-13] MEDS: NOVOLOG FLEXPEN-MODERATE RESISTANCE 1 UNITS SC (08:38)
[2023-12-13] MEDS: NOVOLOG FLEXPEN 7 UNITS SC (08:38)
--- NOTE | 2023-12-13 11:07 | W.PN.HOSP.TC ---
Today's Communication/Plan
-
Monitor vital signs see plan
Discharge today
cw insulin
cw eliquis
Time of discharge 37 minutes
Assessment / Plan
Assessment / Plan
General: No Apparent Distress, Comfortable and Conversant
HEENT: NormoCephalic, Anicteric, Moist mucous membranes
Respiratory: Clear
Cardiac: S1/S2 and Irregular Rhythm
GI: Soft, Non Tender, Non Distended and Normal Bowel Sounds
Musculoskeletal: No Clubbing, No Cyanosis, Edema, Left Lower Extremity (2+ pitting + non-pitting) and Edema, Right Lower Extremity (2+ pitting + non-pitting)
Neuro: AO x 3
Psych: Calm
Hypoglycemia -patient has a Dexcom and was previously on insulin drip. Now he gives himself corrective Humalog dosing. He is unable to explain his regimen to me clearly. per patient he took 40units short acting 12/09 when his sugars was in 200s.
This explains his hypoglycemia. Suspect iatrogenic hyperinsulinemia.
- a1c 6.8
Diabetes DIRECTOR CORRECTIONAL AGENCY following, now started on Lantus, aspart. increase insulin. dc today.. Discussed with patient
- diet as tolerated.
New onset AFIB - ECG with rate controlled atrial fibrillation. Patient denies h/o afib. No acute symptoms.
TSH normal, echo with normal EF
[id number] 4, started Eliquis
Cardiology following
- telemetry for now
HTN - Stable.
- continue losartan
Prostate Ca
suspect BPH
- continue finasteride
Hypothermia - Likely secondary to hypoglycemia
- warming measures
- no signs of active infection
GERD -
- continue ppi
DVT PPX - eliquis
Full Code
Anticipated Discharge: Today
Subjective/Interval History
-
Date of Service: December 13, 2023
denies pain
Objective Data
-
Labs:
Laboratory Results
12/13/23
03:48
WBC 8.2
Hgb 13.1
Hct 37.2 L
Plt Count 204
Vital Signs:
Vital Signs
Temp Pulse Resp BP Pulse Ox
97.6 F 65 10 147/84 98
12/13/23 08:24 12/13/23 09:00 12/13/23 09:00 12/13/23 08:01 12/13/23 08:18
I&O
12/12/23 12/13/23 12/14/23
06:59 06:59 06:59
Output Total 700 / 700 575 / 575
Balance -700 / -700 -575 / -575
--- NOTE | 2023-12-13 11:15 | W.DCSUMMARY ---
Discharge Summary
Discharge Data
Date of Admission: 12/11/23
Date of Discharge: 12/13/23
-
Pending Results: No
Hospital Course
78-year-old male with past medical history of prostate cancer, hypothermia, GERD, diabetes mellitus came to the hospital with hypoglycemia which was secondary to him taking higher dose of short acting insulin. Initially he was placed on D10 drip
along with dextrose infusions. He was admitted to ICU for further monitoring. Patient continues to start improving and then was eventually placed back on insulin with lower dosing. He was seen by diabetes nurse practitioner throughout
hospitalization. On this hospitalization he also had new onset atrial fibrillation for which he was started on Eliquis. Patient was seen by cardiology throughout hospitalization. Echocardiogram was done which showed normal EF. Once his symptoms
continue to improve he was then discharged home with instructions to follow-up with all the physicians outpatient.
Discharge Plan
-
Patient Disposition: Home (Routine Discharge)
Discharge Diagnosis/Procedures: Hypoglycemia secondary to higher Humalog dosing
New onset atrial fibrillation
Diet: As tolerated
Activity: As tolerated
Driving Restrictions: As prior to admission
Bathing Restrictions: None
Referrals:
Neal Garsia MD [Active] - in one to two months
Patrick Kc MD [Family Provider] - in less than 1 week
Kathleen Caro PA-C [Specified Professional Personl] - 01/07/24 10:40 am (You have a cardiology follow-up appointment at the [place] office with Dr. Machado's physician bilingual office assistant, Kathleen. Please call with questions)
Prescriptions:
New
Eliquis 5 mg Tablet
5 mg PO BID Qty: 60 0RF
metoprolol succinate 25 mg Tablet Extended Release 24 Hr
12.5 mg PO DAILY Qty: 30 0RF
Continued
finasteride 5 MG tablet
5 mg PO DAILY
bupropion HCl 150 MG tablet extended release 24 hr
150 mg PO DAILY
omeprazole 40 MG capsule,delayed release(DR/EC)
40 mg PO DAILY
cholecalciferol (vitamin D3) 1,000 UNITS tablet
6,000 units PO DAILY
atorvastatin 80 MG tablet
80 mg PO QPM
citalopram 20 MG tablet
20 mg PO DAILY
oxycodone-acetaminophen 5 MG/325 MG tablet
1 tab PO PRN PRN (Reason: pain)
losartan 50 MG tablet
50 mg PO DAILY 0RF
Changed
insulin aspart U-100 [Novolog FlexPen U-100 Insulin] 100 unit/mL (3 mL) Insulin Pen
7 unit SC AC Qty: 0 0RF
insulin degludec [Tresiba FlexTouch U-100] 100 unit/mL (3 mL) Insulin Pen
22 unit SC HS Qty: 0 0RF
Discharge Orders:
Discharge Patient (As Directed); Ordered 12/13/23
Ordered By: Mickey Negrete
Discharge Date and Time
Discharge Date/Time: 12/13/23 12:38
Print Language: [place] IRISH
[2023-12-13] MEDS: NOVOLOG FLEXPEN SC (12:20)
[2023-12-13] MEDS: NOVOLOG FLEXPEN-MODERATE RESISTANCE SC (12:20)
--- NOTE | 2023-12-13 12:31 | CM ---
Patient discharged with no needs. IMM signed. Copy given to patient. Original given to vulcanized fiber unit operator to sign.
[2023-12-13 12:36] VITALS: BP 136/74
== END 2023-12-13 12:38 | disposition home or self-care (01) | DRG 639 ==
LOC: ICU 05:09
PROVIDERS: ADMITTING PHYSICIAN Internal Medicine; ATTENDING PHYSICIAN Internal Medicine; CONSULT PHYSICIAN Internal Medicine Cardiovascular Disease; EMERGENCY PHYSICIAN Student in an Organized Health Care Education/Training Program; FAMILY PHYSICIAN Family Medicine; OTHER PHYSICIAN Internal Medicine Critical Care Medicine
DX: E11.649 Type 2 diabetes mellitus with hypoglycemia without coma (principal); E11.22 Type 2 diabetes mellitus with diabetic chronic kidney disease; E78.00 Pure hypercholesterolemia, unspecified; G35 Multiple sclerosis; T38.3X1A Poisoning by insulin and oral hypoglycemic [antidiabetic] drugs, accidental (unintentional), initial encounter; I12.9 Hypertensive chronic kidney disease with stage 1 through stage 4 chronic kidney disease, or unspecified chronic kidney disease; N18.9 Chronic kidney disease, unspecified; G47.33 Obstructive sleep apnea (adult) (pediatric); I48.91 Unspecified atrial fibrillation; R68.0 Hypothermia, not associated with low environmental temperature; K21.9 Gastro-esophageal reflux disease without esophagitis; Z79.4 Long term (current) use of insulin; Z79.899 Other long term (current) drug therapy; Z90.79 Acquired absence of other genital organ(s); Z85.46 Personal history of malignant neoplasm of prostate; Y92.009 Unspecified place in unspecified non-institutional (private) residence as the place of occurrence of the external cause
CPT/HCPCS: 80048; 80053; 80061; 81003; 81015; 82533; 82962; 83036; 83735; 84100; 84443; 85025; 93005; 93306; 96365; 96366; 97162; 97166; 99291

== ENCOUNTER → 2024-06-07 12:40 | Outpatient (REF) | payer OTHER, SELFPAY | LOC: WOUND 12:40 | PROVIDERS: ATTENDING PHYSICIAN Surgery; FAMILY PHYSICIAN Family Medicine | DX: L97.229 Non-pressure chronic ulcer of left calf with unspecified severity (principal); L97.519 Non-pressure chronic ulcer of other part of right foot with unspecified severity; L97.529 Non-pressure chronic ulcer of other part of left foot with unspecified severity; I73.9 Peripheral vascular disease, unspecified; I87.2 Venous insufficiency (chronic) (peripheral); E11.42 Type 2 diabetes mellitus with diabetic polyneuropathy; G35 Multiple sclerosis; K22.70 Barrett's esophagus without dysplasia; I70.0 Atherosclerosis of aorta; Z79.4 Long term (current) use of insulin | CPT/HCPCS: 99204 ==

== ENCOUNTER → 2024-06-07 13:29 | Outpatient (REF) | payer OTHER, SELFPAY | LOC: RAD 13:29 | PROVIDERS: ATTENDING PHYSICIAN Surgery; FAMILY PHYSICIAN Family Medicine | DX: L97.519 Non-pressure chronic ulcer of other part of right foot with unspecified severity (principal); L97.529 Non-pressure chronic ulcer of other part of left foot with unspecified severity | CPT/HCPCS: 73630 ==

== ENCOUNTER 2024-06-09 16:37 | Inpatient (IN) | payer OTHER, SELFPAY ==
[2024-06-09] VITALS (11 sets, daily range): BP systolic 111–160; BP diastolic 59–85; BMI 28.3; BMI 27.3
--- NOTE | 2024-06-09 14:21 | ED.GENMED ---
History of Present Illness
General
Chief Complaint: Skin Problem
Source: patient
Exam Limitations: none
Time Seen by Provider: 06/09/24 14:20
History of Present Illness
History of Present Illness:
See MDM
Past History
Past History
ED Past Medical History: GERD, Hypercholesterolemia, IDDM and Other (MS)
ED Past Surgical History: Appendectomy, Orthopedic and Urological
Social History
Tobacco: Non-smoker
Alcohol: Occasional
Drug: None
Personal:
Living: with family
Employment: Retired
Family History
Family History: Other (Noncontributory)
Phy Exam
Physical Exam
Physical Exam:
See MDM
Sepsis
Sepsis Screening
Sepsis Assessment: Sepsis Ruled Out
Sepsis Screen
Sepsis Screen: Sepsis Ruled Out
Date: 06/09/24
Time: 15:38
Course
Orders/Labs/Results
Orders:
Orders
06/09/24 14:20
Urinalysis Reflex To Culture Urgent
0.9% Sodium Chloride 1000 ml [Nss] 1,000 ml IV BOLUS
CeFAZolin 2 GRAM [Ancef] 2 grams in 10 ml IV NOW
06/09/24 14:23
B-Hydroxybutyrate Urgent
Complete Blood Count/With Diff Urgent
Comprehensive Metabolic Panel Urgent
Lactic Acid Q4H
Comment: CANCEL 2nd LACTIC ACID IF 1st LACTIC ACID IS LESS THAN 2
Venous Blood Gas Urgent
%Oxygen/Room Air: RA
Blood Culture Q30M
YORDAN Source: Blood/Venous
Specimen Description:
Blood Culture Q30M
YORDAN Source: Blood/Venous
Specimen Description:
06/09/24 15:20
Insulin Human Regular [Novolin R] 10 units IV NOW STA
06/09/24 15:38
Bedside Glucose- Treatment Q1H
IV Insert/Care/Rem.- Treatment PRN
Reg Insulin 100 Units/100 ml [Novolin R Insulin Infusion] 100 units in 100 ml IV NOW
06/09/24 15:45
Basic Metabolic Panel Q2H
06/09/24 17:45
Basic Metabolic Panel Q2H
06/09/24 19:45
Basic Metabolic Panel Q2H
Abnormal Lab Results
06/09/24
14:23
RBC 3.93 L 10^6/uL
(4.70-6.10)
Hgb 12.7 L g/dL
(13.0-18.0)
Hct 35.8 L %
(39.0-52.0)
MCH 32.3 H pg
(27.0-31.0)
RDW 15.1 H %
(11.5-14.5)
Neutrophils % 78.0 H %
(42.2-75.2)
Lymphocytes % 14.2 L %
(20.5-51.1)
VBG pCO2 54 H mmHg
(35-48)
VBG HCO3 29.1 H mmol/L
(22-27)
Sodium 130 L mmol/L
(135-145)
Potassium 5.2 H mmol/L
(3.5-5.1)
Chloride 93 L mmol/L
(98-107)
Carbon Dioxide 32 H mmol/L
(22-30)
Glucose 530 H* mg/dl
(70-99)
Total Bilirubin 1.7 H mg/dl
(0.2-1.3)
B-Hydroxybutyrate 1.68 H mmol/L
(0.02-0.27)
06/09/24 14:23
06/09/24 14:23
Vital Signs
Initial and Last Documented VS:
Initial Vital Signs
Temp Pulse Resp BP
97.9 F 95 28 160/84
06/09/24 14:19 06/09/24 14:19 06/09/24 14:19 06/09/24 14:19
Last Documented Vital Signs
Temp Pulse Resp BP Pulse Ox
97.9 F 91 15 158/85 98
06/09/24 14:19 06/09/24 15:04 06/09/24 14:45 06/09/24 15:00 06/09/24 15:15
MDM/Problems Addressed
Differential Diagnosis Includes:
HPI and MDM Narrative:
78-year-old male presenting by medics for evaluation of infections of his toes, infection of his penis and hyperglycemia. EMS were initially called out to his bed for shortness of breath. However, he is not short of breath. It ended up being a
lift assist. They helped him up and noted all of his abnormalities. Per EMS, blood sugar read 'high'. On exam, patient has cellulitic changes to all 10 toes. Patient states he goes to wound care was told he needs to use iodine and dressings.
Patient complains of infection of his penis. Patient has evidence of tinea in his inguinal area and on his penis consistent with balanoposthitis
Will rule out DKA, provide IV fluids and start IV antibiotics
Physical exam
General: Well appearing and non-toxic
HEENT: protecting airway. Dry mucous membranes
Neck: appears supple
CV: No evidence of cyanosis
Resp: No accessory muscle use
Abd: Non-distended
Extremities: Cellulitic changes to all 10 toes. Thready DP pulses bilaterally
: Balanoposthitis
Neuro: alert
Psych: Normal affect
Skin: Intact
Problems Addressed including Acute and Chronic Conditions affecting care:
1. Hyperglycemia
Acuity: acute
Prognosis: unstable
Details: Will rule out DKA
2. Dehydration
Acuity: acute
Prognosis: stable
Details: Will start IV fluids
3. Toe cellulitis
Acuity: acute
Prognosis: unstable
Details: Will start IV Ancef
4. Balanoposthitis
Acuity: acute
Prognosis: stable
Details: Will eventually need antifungal and better blood sugar control
Updates
Blood sugar in the 500s. Venous blood gas without evidence of acidosis but beta hydroxybutyrate is elevated. Will give IV bolus of insulin and admit
Case discussed with admitting hospitalist. Will start IV insulin infusion
Differential Diagnosis (but not limited to): Balanoposthitis, cellulitis, DKA, dehydration
Testing considered: Foot x-ray
Drug therapy (if applicable): OTC meds, please see d/c instruction regarding Rx drugs
Amount and/or Complexity of Data Reviewed
Clinical info obtained from: Patient
External data reviewed: N/A
Labs I independently reviewed (but not limited to): Hyperglycemia, hyperkalemia
Radiology: N/A
Pulse Ox: not hypoxic
EKG independently reviewed: N/A
Beef Ribber: N/A
Critical Care: The high probability of a clinically significant, sudden or life threatening deterioration of the endocrine system(s) required my full and direct attention, intervention and personal management. The aggregate critical care time was 33
minutes. This time is in addition to time spent performing reported procedures but includes the following:
[x] Data Review and interpretation
[x] Patient assessment and monitoring of vital signs
[x] Documentation
[x] Medication orders and management
Risk of Complication:
Social Determinants of health: Good social support
Discussed with other providers: Hospitalist
Escalation of Care includes Admit/Obs: Given the controlled blood sugar and current cellulitis, will admit
Occasional wrong word or 'sound a like' substitutions may have occurred due to the inherent limitations of voice recognition software. Read the chart carefully and recognize, using context, where substitutions have occurred.
*Critical Care Note
Total Time (30-74mins, 75-104mins- exclusive of procedures): 33 min
ED Attending Note
-
Portions of this chart may have been created with voice recognition software.� Occasional wrong word or��sound alike� substitutions may have occurred due to the inherent limitations of voice recognition software.
Discharge Plan
Departure
Patient Disposition: Admit
Date of Disposition: 06/09/24
Time of Disposition: 15:25
Admit to: Telemetry
Presentation/result/management discussed w/ accepting MD/DO: Hospitalist
Discharge Problem:
Acute hyperglycemia, Balanoposthitis, Acute hyperkalemia, Cellulitis
Prescriptions:
No Action
finasteride 5 MG tablet
5 mg PO DAILY
bupropion HCl 150 MG tablet extended release 24 hr
150 mg PO DAILY
atorvastatin 80 MG tablet
80 mg PO QPM
citalopram 20 MG tablet
20 mg PO DAILY
metoprolol succinate 25 mg Tablet Extended Release 24 Hr
12.5 mg PO DAILY Qty: 30 0RF
lorazepam 0.5 mg Tablet
0.5 mg PO DAILY
calcium carbonate [Tums] 200 mg calcium (500 mg) Tablet,Chewable
400 mg PO TIDPRN PRN (Reason: gerd)
insulin degludec [Tresiba FlexTouch U-100] 100 unit/mL (3 mL) insulin pen
25 unit SC HS
losartan 50 MG tablet
50 mg PO DAILY 0RF
Referrals:
Patrick Kc MD [Primary Care Provider] -
Interventions
Interventions:
*Risk Screen - Suicide Last Done: 06/09/24 14:19
*General Assessment Last Done: 06/09/24 14:19
*Neglect/Abuse Screening Last Done: 06/09/24 14:19
*ED- Fall Risk Assessment Last Done: 06/09/24 14:19
*ED COVID-19 Vaccine History Last Done: 06/09/24 14:19
ED-Skin Assessment Last Done: 06/09/24 14:19
Discharge Date and Time
Print Language: POLISH
[2024-06-09 14:38] LABS: Venous Blood Gas B.E. 2.2 mmol/L (-4 to +4); Venous Blood Gas HCO3 29.1 mmol/L (22-27); Venous Blood Gas O2 Sat % 56.3 %; Venous Blood Gas pCO2 54 mmHg (35-48); Venous Blood Gas pH 7.34 (7.32-7.43); Venous Blood Gas pO2 32 mmHg (30-50)
[2024-06-09 14:41] LABS: % Basophils 0.1 % (0-2); % Eosinophils 0.6 % (0-6); % Immature Granulocytes 0.4 % (0-0.5); % Lymphocytes 14.2 % (20.5-51.1); % Monocytes 6.7 % (1.7-9.3); Absolute Eosinophils 0.1 10^3/uL (0-0.7); Absolute Lymphocytes 1.2 10^3/uL (1.2-3.4); Absolute Monocytes 0.6 10^3/uL (0.1-0.6); Absolute Neutrophils 6.4 10^3/uL (1.4-6.5); Hematocrit 35.8 % (39.0-52.0); Hemoglobin 12.7 g/dL (13.0-18.0); Mean Corp Hgb Conc. 35.5 g/dL (33.0-37.0); Mean Corpuscular Hgb 32.3 pg (27.0-31.0); Mean Corpuscular Volume 91.1 fL (80.0-94.0); Mean Platelet Volume 9.5 fL (7.4-10.4); Nucleated Red Blood Cells % 0 % (-); Platelet Count 229 10^3/uL (130-400); Red Blood Cell Count 3.93 10^6/uL (4.70-6.10); Red Cell Dist. Width 15.1 % (11.5-14.5); White Blood Cell Count 8.2 10^3/uL (4.8-10.8)
[2024-06-09] MEDS: ANCEF 10 IV ×2 (14:45→21:18)
[2024-06-09] MEDS: NSS 1000 IV (14:45)
[2024-06-09 14:49] LABS: Lactic Acid 1.5 mmol/L (0.7-2.0)
[2024-06-09 14:59] LABS: ALT (SGPT) 21 U/L (0-50); AST (SGOT) 24 U/L (17-59); Albumin 3.5 g/dl (3.5-5.0); Alkaline Phosphatase 124 U/L (38-126); B-Hydroxybutyrate 1.68 mmol/L (0.02-0.27); Blood Urea Nitrogen 14 mg/dl (9-20); Calcium 8.9 mg/dl (8.4-10.2); Carbon Dioxide 32 mmol/L (22-30); Chloride 93 mmol/L (98-107); Estimated Creatinine Clearance 91 ml/min; Glucose 530 mg/dl (70-99); Potassium 5.2 mmol/L (3.5-5.1); Sodium 130 mmol/L (135-145); Total Bilirubin 1.7 mg/dl (0.2-1.3); Total Protein 6.7 g/dl (6.3-8.2); eGFR > 60.00
[2024-06-09] MEDS: NOVOLIN R 10 UNITS IV (15:29)
--- NOTE | 2024-06-09 15:53 | HPS.HSE ---
Family Physician
-
Family Physician: Patrick Kc
Chief Complaint
-
Per EMS -
- EMS were initially called out to his bed for shortness of breath.
History of Present Illness
HPI
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
toes, infection of his penis and hyperglycemia.
Per EMS -
- EMS were initially called out to his bed for shortness of breath. However, per EMS he is not short of breath.
- he is a lift assist. They helped him up and noted all of his abnormalities.
- blood sugar read 'high'.
- noted cellulitic changes to all 10 toes.
- Patient goes to wound care was told he needs to use iodine and dressings.
- Patient complains of infection of his penis.
- Patient has evidence of tinea in his inguinal area and on his penis consistent with balanoposthitis
Medical History
Past Medical History
Past Medical History: Reports GERD, HTN and IDDM
Additional Past Medical History:
CKD
Past Surgical History: Reports Other
Additional Past Surgical History:
TURP
Social History
Tobacco: Non-smoker
Alcohol: Occasional
Drug: None
Personal:
Living: With Family
Employment: Retired
Family History
Family History: Not pertinent
Allergies / Home Medications
Allergies reflects when Allergies were last updated in [facility].
Home Medications with original date entered in [facility]
Allergy/Medication List:
Allergies
Allergy/AdvReac Type Severity Reaction Status Date / Time
pollen extracts Allergy Unknown Unknown Verified 08/02/20 01:05
environmental (pollen) Allergy rhinitis Uncoded 08/02/20 01:05
Home Medications
Citalopram Hydrobromide 20 MG TAKE 1 TABLET BY MOUTH ONCE DAILY for 90 days Nov, Active
Pantoprazole Sodium 40 MG TAKE ONE TABLET BY MOUTH TWICE A DAY for 90 days Nov, Active
HumaLOG 100 UNIT/ML to be used in the insulin pump 100 units daily Subcutaneous for 60 days Nov, Active
Lisinopril 30 MG 1 tablet Orally Once a day Nov, Active
Losartan Potassium 50 MG TAKE 1 TABLET BY MOUTH ONCE DAILY for 90 days Nov, Active
Myrbetriq 25 MG 1 tablet Orally Once a day for 90 days Begin Myrbetriq 25mg every other day x 1 week, then once daily while traveling away from home Nov, Active
Atorvastatin Calcium 80 MG 1 tablet Orally Once a day for 90 days Nov, Active
Finasteride 5 MG take 1 tablet by oral route every day Oral Once a day for 90 days Nov, Active
LORazepam 0.5 MG 1 tablet as needed for anxiety Orally up to Three Times a Day for 14 days Nov, Active
Review of Systems
-
Constitutional: Reports No Symptoms
EENT: Reports No Symptoms
Respiratory: Reports See HPI
Cardiac: Reports No Symptoms
Abdomen/GI: Reports No Symptoms
: Reports No Symptoms
Musculoskeletal: Reports No Symptoms
Skin: Reports See HPI
Neurological: Reports No Symptoms
Endocrine: Reports See HPI
Hematologic/Lymphatic: Reports No Symptoms
Psych: Reports No Symptoms
Physical Exam
Vital Signs
Vital Signs
Temp Pulse Resp BP Pulse Ox
97.9 F 91 15 158/85 98
06/09/24 14:19 06/09/24 15:04 06/09/24 14:45 06/09/24 15:00 06/09/24 15:33
Physical Exam
General: No Apparent Distress, Comfortable and Conversant
HEENT: NormoCephalic, Anicteric, Moist mucous membranes, Atraumatic and PERRLA
Respiratory: Clear
Cardiac: S1/S2 and Irregular Rhythm
Breast: Deferred by me
GI: Soft, Non Tender, Non Distended and Normal Bowel Sounds
Rectal: Deferred by Provider
Genito-urinary: Clear Urine and Other ( Balanoposthitis )
Musculoskeletal: No Clubbing, No Cyanosis, Edema, Left Lower Extremity (2+ pitting + non-pitting) and Edema, Right Lower Extremity (2+ pitting + non-pitting)
Skin: Other (Cellulitic changes to all 10 toes. Thready DP pulses bilaterally)
Neuro: AO x 3
Hematologic/Lymphatic: No Lymphadenopathy
Psych: Calm
Laboratory Results
-
06/09/24 14:23
Laboratory Results
Lactic Acid Cancelled 06/09/24 18:30
Total Bilirubin 1.7 mg/dl (0.2-1.3) H 06/09/24 14:23
AST 24 U/L (17-59) 06/09/24 14:23
ALT 21 U/L (0-50) 06/09/24 14:23
Alkaline Phosphatase 124 U/L (38-126) 06/09/24 14:23
Data Reviewed
-
Medical Tests (Nuc Med, Echo, EKG etc): Report Reviewed by me
Lab Data: Labs Reviewed by me
Old Records: Reviewed
Impression/Plan
-
Selected Entries
06/09/24
14:18 06/09/24
14:19 06/09/24
15:15
Temp 97.9 F
Temp route: Oral
Pulse 95
Resp Rate 28
Blood pressure 160/84
SaO2 98
Actual Weight 102.8 kg
Body Mass Index (BMI) 28.3
Laboratory Tests
12/13/23 06/09/24
03:48 14:23
WBC 8.2
Hgb 13.1 12.7 L
MCV 91.1
Plt Count 229
VBG pH 7.34
VBG pCO2 54 H
VBG pO2 32
VBG HCO3 29.1 H
Sodium 130 L
Potassium 5.2 H
Chloride 93 L
Carbon Dioxide 32 H
Creatinine 0.8
eGFR > 60.00
Glucose 530 H*
Lactic Acid 1.5
Total Bilirubin 1.7 H
B-Hydroxybutyrate 1.68 H
Last hospitalist admission: 12/11/23 - 12/13/23
P DXs: Hypoglycemia secondary to higher Humalog dosing. New onset atrial fibrillation
ASSESSMENT & PLAN
DKA with POS BHB precipitated by sepsis due to infected toes and balanoposthitis
Hyperglycemia with BS 500
Hyperkalemia : mild
NAG MA 6.5 due to secondary metabolic alkalosis vs. contraction alkalosis plus compensated primary chr compensated Resp acidosis
Suspect FTT due to unable to care for himself and non adherence to OP Rx
- Per DKA protocol
- IV bolus of insulin follow by Insulin gtt
- IV NS @160/H
- Empiric IV Cefazolin for infected toes.
- Empiric PO Diflucan
- ID consult for ABx and antifungal Tx
- ICU consult
HX Prox AF
- on Metoprolol XL
Benign HTN
- Stable.
- c/w losartan
- c/w Metoprolol XL
HX Prostate Ca
- c/w finasteride
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
DVT PPX - LMWH
Full Code
ICU
Total Critical Care Time__60___ minutes.
I was immediately available to the patient and staff. I personally examined, reviewed labs, diagnostic images/reports, interpretations, treatment plans, discussed patient care with other providers and family or caregivers (if patient is unable to
make decisions), entered orders as appropriate and documented the medical record.
--- NOTE | 2024-06-09 16:01 | PHANOTE ---
med rec note- patient stated he has not been good with taking his insulin and yesterday he sugar was high and did not take his insulin even knowing if blood sugar levels.
[2024-06-09] MEDS: NOVOLIN R INSULIN INFUSION 100 IV (16:05)
[2024-06-09 16:42] LABS: Glucose - Point of Care 445 mg/dl (70-99)
[2024-06-09 17:11] LABS: Glucose 356 mg/dl (70-99)
[2024-06-09 18:15] LABS: Blood Urea Nitrogen 14 mg/dl (9-20); Calcium 8.5 mg/dl (8.4-10.2); Carbon Dioxide 31 mmol/L (22-30); Chloride 97 mmol/L (98-107); Estimated Creatinine Clearance 91 ml/min; Glucose 277 mg/dl (70-99); Potassium 3.8 mmol/L (3.5-5.1); Sodium 133 mmol/L (135-145); eGFR > 60.00
[2024-06-09 18:23] LABS: Glucose - Point of Care 260 mg/dl (70-99)
--- NOTE | 2024-06-09 18:50 | PTCARENOTE ---
Patient received from the ED, transferred to and admitted to ICU bed 3363. Received on Insulin gtt at 5Units/hr via Left AC #18, IV site WDL. Right AC SL #20 with good blood return, flushed. See admission assessment on worklist/flowsheet. He is
awake, alert and oriented. His in currently in [place] visiting her sister who has pancreatic cancer. Patient lives on ground floor of 3 story house and he says his son lives downstairs. Patient is wheelchair bound and has issues with
chronic incontinence and dribbling from past surgery from Prostate CA. He has significant MASD with yeast infection present on entirety of scrotum as well as bilateral inner thighs. Some mild MASD bilateral lower abdominal folds at groin. Skin care
given. ABD pads placed between scrotum and thighs. Left lateral calf wound cleansed with NS, placed Xeroform dressing and wrapped in Kerlix. Border foam dressings placed on Left buttock wounds x 2. BBS clear except left lung diminished. Afebrile.
VSS. S1 S2 irregular with positive murmur, Afib on CM. Abdomen soft with positive bowel sounds. Reports BM this morning. BLE very red, LLE from knee down and RLE foot. Pulses palpable x 4 extremities, BLE edema 2+. Bed in low and locked position,
call light within reach.
[2024-06-09 18:57] LABS: Glucose - Point of Care 313 mg/dl (70-99)
[2024-06-09 20:03] LABS: Glucose - Point of Care 166 mg/dl (70-99)
[2024-06-09] MEDS: D5/0.45%NSS with KCL 20 MEQ 1000 IV (20:25)
[2024-06-09] MEDS: DIFLUCAN 100 MG PO (20:26)
[2024-06-09] MEDS: LIPITOR 80 MG PO (20:26)
[2024-06-09] MEDS: MYCOSTATIN CREAM 1 APPLIC TOPICAL (20:26)
[2024-06-09] MEDS: LOVENOX 40 MG SC (20:26)
[2024-06-09 21:01] LABS: Glucose - Point of Care 169 mg/dl (70-99)
[2024-06-09 21:49] LABS: Blood Urea Nitrogen 13 mg/dl (9-20); Calcium 8.7 mg/dl (8.4-10.2); Carbon Dioxide 29 mmol/L (22-30); Chloride 98 mmol/L (98-107); Estimated Creatinine Clearance 91 ml/min; Glucose 188 mg/dl (70-99); Potassium 4.2 mmol/L (3.5-5.1); Sodium 134 mmol/L (135-145); eGFR > 60.00
[2024-06-09 22:08] LABS: Glucose - Point of Care 174 mg/dl (70-99)
[2024-06-09 22:57] LABS: Glucose - Point of Care 140 mg/dl (70-99)
[2024-06-09 23:53] LABS: Glucose - Point of Care 162 mg/dl (70-99)
[2024-06-10] VITALS (21 sets, daily range): BP systolic 94–153; BP diastolic 51–89; BMI 27.6
--- NOTE | 2024-06-10 | PTCARENOTE ---
Essentially no change in patient assessment. Stable blood sugars on Insulin gtt at 2Units/hr. C/o dry eyes and restless legs. Ativan and artificial tears given per order. VSS.
[2024-06-10 01:01] LABS: Glucose - Point of Care 162 mg/dl (70-99)
[2024-06-10] MEDS: TUMS EX (EXTRA STRENGTH) CHEWABLE TABLET 300 MG PO (01:31)
[2024-06-10] MEDS: ATIVAN 0.5 MG PO ×2 (01:31→07:34)
[2024-06-10 02:06] LABS: Glucose - Point of Care 170 mg/dl (70-99)
[2024-06-10] MEDS: REFRESH EYE DROPS (PF) 1 DROPS BOTH EYES (02:06)
[2024-06-10 03:01] LABS: Glucose - Point of Care 174 mg/dl (70-99)
[2024-06-10] MEDS: D5/0.45%NSS with KCL 20 MEQ 1000 IV (03:02)
[2024-06-10 03:21] LABS: Hematocrit 31.3 % (39.0-52.0); Hemoglobin 11.3 g/dL (13.0-18.0); Mean Corp Hgb Conc. 36.1 g/dL (33.0-37.0); Mean Corpuscular Hgb 32.2 pg (27.0-31.0); Mean Corpuscular Volume 89.2 fL (80.0-94.0); Mean Platelet Volume 9.5 fL (7.4-10.4); Platelet Count 195 10^3/uL (130-400); Red Blood Cell Count 3.51 10^6/uL (4.70-6.10); White Blood Cell Count 7.5 10^3/uL (4.8-10.8)
[2024-06-10 03:32] LABS: INR 1.08; PT 14.6 Sec (11.4-14.6)
[2024-06-10 03:33] LABS: APTT 34.4 Sec (23.4-35.0)
[2024-06-10 04:09] LABS: Glucose - Point of Care 150 mg/dl (70-99)
[2024-06-10 04:40] LABS: Blood Urea Nitrogen 12 mg/dl (9-20); Calcium 8.3 mg/dl (8.4-10.2); Carbon Dioxide 28 mmol/L (22-30); Chloride 101 mmol/L (98-107); Estimated Creatinine Clearance 91 ml/min; Glucose 148 mg/dl (70-99); Potassium 3.9 mmol/L (3.5-5.1); Sodium 134 mmol/L (135-145); eGFR > 60.00
[2024-06-10 05:05] LABS: Glucose - Point of Care 166 mg/dl (70-99)
[2024-06-10 06:07] LABS: Glucose - Point of Care 230 mg/dl (70-99)
[2024-06-10] MEDS: ANCEF 10 IV ×3 (06:07→22:48)
[2024-06-10 06:31] LABS: Urine Albumin 3+ (Neg - Trace); Urine Bilirubin Negative (Negative); Urine Character Clear (Clear); Urine Color Yellow; Urine Glucose 4+ (Negative); Urine Ketone 2+ (Negative); Urine Leukocyte 3+ (Negative); Urine Nitrite Negative (Negative); Urine Occult Blood 3+ (Negative); Urine Specific Gravity 1.015 (<1.030); Urine Urobilinogen Negative (Neg - 1+); Urine pH 6.5 (5.0-9.0)
[2024-06-10 06:51] LABS: Urine Bacteria Few (Negative)
[2024-06-10 07:02] LABS: Glucose - Point of Care 145 mg/dl (70-99)
--- NOTE | 2024-06-10 07:16 | PTCARENOTE ---
Report given verbally to Diogenes pineda RN. Questions answered.
[2024-06-10] MEDS: WELLBUTRIN XL (24 hour extended release) 150 MG PO (07:34)
[2024-06-10] MEDS: MYCOSTATIN CREAM 1 APPLIC TOPICAL ×2 (07:34→20:07)
[2024-06-10] MEDS: PROSCAR 5 MG PO (07:34)
[2024-06-10] MEDS: DIFLUCAN 100 MG PO (07:34)
[2024-06-10] MEDS: CELEXA 20 MG PO (07:34)
[2024-06-10 07:55] LABS: Glucose - Point of Care 121 mg/dl (70-99)
--- NOTE | 2024-06-10 08:19 | CON.INTV ---
Consultation
Consultation Request
Date/Time Consultation Requested: 06/09/20241947
Date/Time Consultation Performed: 06/10/2024813
Requesting Provider: KENJI Hogan
Performing Provider: Dr. Garsia
Reason for Consultation: Hyperglycemia on insulin gtt
Medical History
-
Chief Complaint: Weakness
History of Present Illness:
78-year-old male non-smoker with a past medical history of chronic A-fib not on AC, chronic wounds on toes, chronic venous insufficiency, anxiety, hypertension, mixed hyperlipidemia, GERD, history of KIM advised to use positional therapy, multiple
sclerosis, Vergara's esophagus, diverticulosis and DM type II on insulin who presented with weakness. He was having trouble getting from the wheelchair to the sofa (he is chronically wheelchair-bound). Initially his blood glucose was elevated at
530 on chemistry, beta-hydroxybutyrate was elevated at 1.68, with Hb 12.7 and venous pH 7.34. Blood cultures were collected. CXR showed no acute cardiopulmonary process. In the ER, he was given 1 L NS 0.9%, started on Ancef as well as insulin
drip and admitted to the ICU for further care. [employer] S[employer] Tender services consulted for additional management/recommendations.
Pt was seen and evaluated this AM. This morning patient is sleeping in bed. He ate breakfast this morning. Currently on insulin drip at 4 units/hr. Prior to him eating breakfast he was on 1-2 units/h of insulin. Currently, heart rate 70, BP
130/81 saturating 98% on room air. He says that he currently feels well. He has been eating well prior to this admission, usually has hard-boiled eggs with thousand island dressing and bread for lunch, and a muffin with hot tea for breakfast.
Of note, patient previously saw us in the [facility] office in July 2021 (last office visit). He had seen us due to a left-sided pleural effusion with pleuritic chest pain, restrictive lung disease, and history of KIM. He was recommended to use
positional therapy for his KIM. His last thoracentesis on the left side was in August 2020 removing 2000 cc of blood-tinged pleural exudative fluid (fluid cultures: NGTD; cytopathology: Negative for malignancy). He was told to follow-up with us in 3
weeks but he never had followed up with us again.
PMHx: Chronic atrial fibrillation not on AC, chronic wounds on toes, chronic venous insufficiency, anxiety, hypertension, mixed hyperlipidemia, GERD, history of KIM, asymptomatic gallstones, history of MS, Vergara's esophagus, diverticulosis,
history of prostate cancer (diagnosed 02/2006) s/p TURP, DM type II on insulin
PSHx: Hernia repair, appendectomy, TURP, left hip ORIF (06/25/2017)
Past Medical History
Past Medical History: Other (Above as per HPI)
Past Surgical History: Other (Above as per HPI)
Social History
Tobacco: Non-smoker
Alcohol: None
Drug: None
Personal:
Living: With Family
Family History
Family History: Cancer (Mother: Ovarian cancer) and Other (Father: Ruptured aortic aneurysm; Brother: IBS)
Allergies / Home Medications
Allergies
Allergy/AdvReac Type Severity Reaction Status Date / Time
pollen extracts Allergy RHINITIS-EN Verified 06/09/24 18:54
VIRONMENTAL
Home Medications
�Medication �Instructions �Recorded �Confirmed �Last Taken �Type
bupropion HCl 150 mg 24 hr tablet, 150 mg PO DAILY Depression 06/25/17 06/09/24 06/08/24 History
extended release
finasteride 5 mg tablet 5 mg PO DAILY prostate 06/25/17 06/09/24 06/08/24 History
losartan 50 mg tablet 50 mg PO DAILY 07/15/17 06/09/24 06/08/24 Rx
atorvastatin 80 mg tablet 80 mg PO QPM High cholesterol 08/02/20 06/09/24 06/08/24 History
citalopram 20 mg tablet 20 mg PO DAILY Depression 08/02/20 06/09/24 06/08/24 History
metoprolol succinate 25 mg 12.5 mg (1/2 x 25 mg) PO DAILY #30 12/13/23 06/09/24 06/08/24 Rx
tablet,extended release 24 hr tabs
calcium carbonate (Tums) 400 mg PO TIDPRN PRN gerd 06/09/24 06/09/24 Unknown History
insulin degludec 100 unit/mL (3 25 unit SC DAILY 06/09/24 06/09/24 06/08/24 History
mL) subcutaneous pen (Tresiba
FlexTouch U-100 insulin)
lorazepam 0.5 mg tablet 0.5 mg PO DAILY 06/09/24 06/09/24 06/08/24 History
Review of Systems
-
History Source: Patient
All other systems: Negative unless noted
Vitals / Labs / Diagnostic Testing
Vital Signs
Temp Pulse Resp BP Pulse Ox
98.5 F 85 16 106/54 97
06/10/24 08:00 06/10/24 09:00 06/10/24 09:00 06/10/24 09:00 06/10/24 08:00
Lab Data
06/10/24 03:12
Laboratory Results
06/10/24
03:12
PT 14.6
INR 1.08
APTT 34.4
Diagnostic Testing:
Physical Exam
-
HEENT: Normocephalic and Anicteric
Cardiovascular: Irregular Rhythm (Irregularly irregular) and Peripheral Edema (+2 lower extremity edema bilaterally)
Respiratory: Clear, Wheeze (negative), Rales (negative), Rhonchi (negative) and Non-Labored Respirations
GI: Soft, Non Distended, Non Tender and Normal Bowel Sounds
Neurology: AO x 3 and Tremors (negative)
Skin: Warm, Dry and Other (Chronic wounds on toes bilaterally)
General: Respiratory Distress (negative), Comfortable, Chills (negative) and Sweats (negative)
Assessment
-
Assessment: 78-year-old male non-smoker with a past medical history of chronic A-fib not on AC, chronic wounds on toes, chronic venous insufficiency, anxiety, hypertension, mixed hyperlipidemia, GERD, history of KIM advised to use positional
therapy, multiple sclerosis, Vergara's esophagus, diverticulosis and DM type II on insulin who presented with weakness. He was having trouble getting from the wheelchair to the sofa (he is chronically wheelchair-bound). Initially his blood glucose
was elevated at 530 on chemistry, beta-hydroxybutyrate was elevated at 1.68, with Hb 12.7 and venous pH 7.34. Blood cultures were collected. CXR showed no acute cardiopulmonary process. In the ER, he was given 1 L NS 0.9%, started on Ancef as
well as insulin drip and admitted to the ICU for further care. [employer] Tender services consulted for additional management/recommendations.
Chronic conditions SENIOR HRIS ANALYST: Chronic atrial fibrillation not on AC, chronic wounds on toes, chronic venous insufficiency, anxiety, hypertension, mixed hyperlipidemia, GERD, history of KIM, asymptomatic gallstones, history of MS, Vergara's esophagus,
diverticulosis, history of prostate cancer (diagnosed 02/2006) s/p TURP, DM type II on insulin
Impression:
#DM type II (uncontrolled: HbA1c 11.1 on 06/10/2024) complicated by hyperglycemia with impending DKA
#Penile infection with balanoposthitis + fungal groin breath rash
#Acute anemia
#Hyponatremia
#Abnormal urinalysis with +3 leukocyte esterase and 11�15 urine WBC concerning for UTI (although he is asymptomatic)
#Ambulatory dysfunction (partially wheelchair-bound)
#Chronic A fib (previously intolerant to Eliquis)
#Chronic venous insufficiency with chronic venous stasis dermatitis
#Chronic wounds on toes (goes to wound care center)
#History of prostate cancer s/p TURP
Plan:
- Pt had hyperglycemia with normal AG and elevated ketones in the UA --> this is not consistent with DKA although it could have been impending
- He is currently on an insulin gtt and we will wean this off --> will give his long-acting insulin now and stop insulin drip as well as dextrose fluids
- Diabetic CONFERENCE CENTER MANAGER consulted
- No need for q4hr BMP given that he is not in DKA
- Continue ADA
- Check A1C --> 11.1
- Regarding his groin rash + suspected penile infection --> ID consulted. Already on Ancef, and Diflucan added by ID
- Follow-up blood cultures + urine culture
- Defer ABx to ID
- Maintain SpO2 >90-94% with aspiration precaution
- Maintain MAP>65
- Replete electrolytes with K>4, Mg>2
- Maintain euglycemia with goal BG 140-180
- Trend H/H and transfuse if needed to keep Hb>7g/dL; keep plt>20k, unless there is concern for bleeding then keep plt>50k
- prn nebulized bronchodilators - not currently bronchospastic
- Incentive spirometer encouraged 10x per hour for at least 4 hrs a day
- PT/OT
- DVT ppx: LMWH
Patient should follow-up with us in the office as last visit was in July 2021 with Jessica Dupont.
Patient being weaned off insulin drip. No longer requires ICU level care. Downgrade to telemetry. No additional recommendations at this time. [employer] Tender/Pulmonary service will now sign off. Thank you for allowing us to be involved in the care
of this patient. Please reconsult if there are any additional questions/concerns, or if patient's respiratory status deteriorates.
Total time spent today was 58 minutes for this encounter. Time includes reviewing laboratory test/imaging results, reviewing pertinent medical records, obtaining and reviewing medical history, performing an appropriate exam, ordering medications,
tests and procedures. Time also includes documentation of this encounter, coordinating patient care and communicating with other healthcare professionals. Total time does not include separately billed tests performed on this date of service.
--- NOTE | 2024-06-10 09:15 | PTCARENOTE ---
Assumed care. VSS with rate controlled afib. A&O, MAR with BLE weakness. Room air, SpO2 97%. Tolerating diet while on insulin gtt and IVF as ordered. Incontinent urine with considerable leakage from condom cath, removed, skin cleaned around
groin and new coating of antifungal cream applied. ABD pads to significant MAST at groin. Chux pad with hole for genitalia applied to protect from urine dribbling. Wound RN consulted for skin issues. AM meds given without issue. No complaints of
pain. Call yuan within reach.
[2024-06-10 09:16] LABS: Glucose - Point of Care 189 mg/dl (70-99)
[2024-06-10 10:02] LABS: Glucose - Point of Care 268 mg/dl (70-99)
--- NOTE | 2024-06-10 10:35 | W.PN.HOSP.TC ---
Today's Communication/Plan
-
see outlined plan
Assessment / Plan
Assessment / Plan
Assessment:
Sepsis evaluated - ruled out
balanoposthitis
fungal groin rash
- appears fungal in origin, moist environment beneath foreskin
- air out to dry
- Desenex
- PO Diflucan
- ID to evaluate
Possible bilateral LE cellulitis vs venous insufficiency
- on empiric Ancef pending ID review; low threshold to stop Abx given chronic changes
- ID to evaluate
- follows with wound care center
- venous Doppler pending
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
Ketosis without acidosis
- s/p insulin drip
- continue SSI
- consult DM HIGHWAY PATROL COMMANDER for insulin management recs
- A1c: pending
Pseudohyponatremia in setting of hyperglycemia
Hyperkalemia - resolved
Hx of Parox A. Fib
- continue rate control with Metoprolol
- not on AC; will review with patient nearer to discharge; per previously intolerant to Eliquis
Essential HTN
- continue BB/ARB
Hx of prostate cancer s/p Finasteride
Functional status; partially wheelchair bound to due to chronic contractures with hip flexion
- PT/OT
DVT ppx: Lovenox
Code: Full
Anticipated Discharge: 24 - 48 hours
Subjective/Interval History
-
Date of Service: June 10, 2024
feels better, more energy
denies pain
no cp or sob
no fevers
Objective Data
-
Labs:
Laboratory Results
06/10/24 06/10/24 06/10/24
03:12 08:00 12:00
WBC 7.5
Hgb 11.3 L
Hct 31.3 L
Plt Count 195
PT 14.6
INR 1.08
APTT 34.4
Sodium 134 L Cancelled Cancelled
Potassium 3.9 Cancelled Cancelled
Chloride 101 Cancelled Cancelled
Carbon Dioxide 28 Cancelled Cancelled
BUN 12 Cancelled Cancelled
Creatinine 0.8 Cancelled Cancelled
Glucose 148 H Cancelled Cancelled
Calcium 8.3 L Cancelled Cancelled
Vital Signs:
Vital Signs
Temp Pulse Resp BP Pulse Ox
98.5 F 87 23 130/82 100
06/10/24 08:00 06/10/24 10:00 06/10/24 10:00 06/10/24 10:00 06/10/24 10:00
I&O
06/09/24 06/10/24 06/11/24
06:59 06:59 06:59
Intake Total 1696 / 1847 845 / 845
Output Total 200 / 200
Balance 1496 / 1647 845 / 845
Physical Exam
-
General: No Apparent Distress
HEENT: Normocephalic and Atraumatic
Respiratory: Negative Wheezes
Cardiac: Regular Rhythm and S1/S2
GI: Soft
Genito-urinary: No Costovertebral Tender
Skin: Other (fungal infection glans penis and groin. bilateral foot redness tracking to mcnamara)
Neuro: AO x 3
Psych: Calm
Data Reviewed
-
Total Time Spent with Patient (in minutes): 45
Labs: Labs Reviewed by me
[2024-06-10 10:59] LABS: Glucose - Point of Care 258 mg/dl (70-99)
--- NOTE | 2024-06-10 11:07 | PN.DE.MGMTRT ---
Insulin Management
- -
06/10/2024 Diabetes Management Consult
Patient admitted 06/09 with SOB, elevated glucose, metabolic alkalosis, no DKA. PMH wheelchair bound due to hip contracture, prostate CA, HTN, HLD, KIM. Prior to admission was taking tresiba 25 units daily. No current A1C available, ordered, last
vaailable 6.8% from November 2023.
Patient is sleeping soundly, nurse reports he had a difficult night. All information obtained from chart and nurse.
Was started on DKA insulin infusion required 2 to 4 units of insulin per hour. Patient to transition to 25 units lantus now (placed by Associate Professor Plant Pathology) will add 3 units novolog AC with low corrective.
Discussed with nurse and Associate Professor Plant Pathology team.
Diabetes History
- -
Type of Diabetes: 2 requiring insulin
Pre-Admission Diabetes Regimen
06/09/24 06/09/24 06/09/24
14:23 15:45 17:48
Creatinine 0.8 Cancelled 0.8
06/09/24 06/10/24 06/10/24
21:16 03:12 08:00
Creatinine 0.8 0.8 Cancelled
06/10/24
12:00
Creatinine Cancelled
Insulin Pump Settings
IP Diabetes Regimen
06/09/24 06/09/24 06/09/24
14:23 15:45 16:40
Glucose 530 H* Cancelled
POC Glucose 445 H
06/09/24 06/09/24 06/09/24
16:47 17:48 18:22
Glucose 356 H 277 H
POC Glucose 260 H
06/09/24 06/09/24 06/09/24
18:56 20:01 21:00
Glucose
POC Glucose 313 H 166 H 169 H
06/09/24 06/09/24 06/09/24
21:16 22:07 22:56
Glucose 188 H
POC Glucose 174 H 140 H
06/09/24 06/10/24 06/10/24
23:52 00:59 02:04
Glucose
POC Glucose 162 H 162 H 170 H
06/10/24 06/10/24 06/10/24
03:00 03:12 04:08
Glucose 148 H
POC Glucose 174 H 150 H
06/10/24 06/10/24 06/10/24
05:04 06:06 07:02
Glucose
POC Glucose 166 H 230 H 145 H
06/10/24 06/10/24 06/10/24
07:53 08:00 09:10
Glucose Cancelled
POC Glucose 121 H 189 H
06/10/24 06/10/24 06/10/24
10:01 10:58 12:00
Glucose Cancelled
POC Glucose 268 H 258 H
Meal type: Breakfast
Amount consumed: 90%
Patient Education
--- NOTE | 2024-06-10 11:16 | CON.ID ---
Consultation
-
Date/Time Consultation Requested: June 09, 2024 2210
Date/Time Consultation Performed: June 10, 2024 1115
Requesting Provider: Dr. Danilo Hinds
Performing Provider: Dr. Rahda Calderon
Reason for Consultation: Infected toes and balanitis
Chief Complaint / Past History
Chief Complaint
Weakness
History of Present Illness
78-year-old male with history of diabetes, hypertension who was brought to ED yesterday due to generalized weakness. Patient noted to be in DKA with glucose 530. He was also noted to have significant fungal rash bilateral groin and crown of the
penis as well as the wounds on his toes. Patient goes to wound care center for the chronic wounds. Patient reports wounds are stable. No new erythema of his legs. He denies itching on his groin or penis. He reports he is incontinent of urine.
No fevers or chills.
Past History
Additional Past Medical History:
Hypertension
Diabetes mellitus
Paroxysmal atrial fibrillation
HLD
Chronic BLE toe wounds - goes to [facility]
History of prostate cancer status post TURP
Allergy History:
pollen extracts Allergy (Verified 06/09/24 18:54)
RHINITIS-ENVIRONMENTAL
Medications Reviewed: Yes
Current Antibiotics:
Cefazolin
Social History
Tobacco: Non-Smoker
Alcohol: Occasional
Personal:
Living: With Family ()
Family History
Family History: Not Pertinent
Review of Systems
Review of Systems
General: Change in Appetite; Negative Fever or Chills
HEENT: Negative Sinus Problems, Headache or Pharyngitis
Cardiovascular: Negative Chest Pain or Dyspnea
Respiratory: Negative Dyspnea or Cough
Gasteroenterology: Negative Nausea, Vomiting or Diarrhea
Genital / Urological: Negative Dysuria or Flank Pain
Endocrine: Weakness
All systems: All other systems were reviewed and were negative
Vital Signs
Temp Pulse Resp BP Pulse Ox
98.5 F 77 16 105/62 96
06/10/24 08:00 06/10/24 11:00 06/10/24 11:00 06/10/24 11:00 06/10/24 11:00
Physical Exam
Physical Exam
Constitutional: Non-toxic
Eyes: Sclera Anicteric
Cardiovascular: Irregular Rate and S1/S2
Pulmonary: Clear
Gastrointestinal: Soft, Non Tender, Non Distended and Normal Bowel Sounds
Extremities: Edema (BLE), Erythema (BLE erythema resolves with leg elevation), Pulses (weak dorsal pulses) and Venous Insufficiency (BLE)
Skin: Rash (Extensive erythematous rash with satellite lesion bilateral groin to medial thighs)
Wound: Other (Scattered black scabs, excoriation on bilateral shins; Dorsal toes with dry necrotic wounds)
Neurological: AO x 3
Lab / Diagnostic Study Results
06/10/24 03:12
06/10/24 12:00
Abs Immat Gran (auto) 0.0 10^3/uL (0-0.05) 06/09/24 14:23
Absolute Neuts (auto) 6.4 10^3/uL (1.4-6.5) 06/09/24 14:23
Absolute Lymphs (auto) 1.2 10^3/uL (1.2-3.4) 06/09/24 14:23
Absolute Monos (auto) 0.6 10^3/uL (0.1-0.6) 06/09/24 14:23
Absolute Basos (auto) 0.0 10^3/uL (0-0.2) 06/09/24 14:23
Immature Gran % 0.4 % (0-0.5) 06/09/24 14:23
Neutrophils % 78.0 % (42.2-75.2) H 06/09/24 14:23
Lymphocytes % 14.2 % (20.5-51.1) L 06/09/24 14:23
Monocytes % 6.7 % (1.7-9.3) 06/09/24 14:23
Eosinophils % 0.6 % (0-6) 06/09/24 14:23
Basophils % 0.1 % (0-2) 06/09/24 14:23
PT 14.6 Sec (11.4-14.6) 06/10/24 03:12
INR 1.08 06/10/24 03:12
Lactic Acid Cancelled 06/09/24 18:30
Ur Squamous Epith Cells 3-5 /LPF (Few) 06/10/24 06:17
Microbiology Results
Micro:
06/10/24 06:17 Urine Culture - Pending
Urine
06/09/24 21:08 MRSA Screen - Pending
Nose
06/09/24 14:23 Blood Culture - Pending
Blood/Venous
06/09/24 14:23 Blood Culture - Pending
Blood/Venous
06/10/24 CXR: Pulmonary emphysema. No acute radiographic abnormality in the chest.
06/07/24 L Foot XRAY: Soft tissue swelling. No radiographically demonstrable acute osseous or articular abnormality. Specifically, no definite radiographic evidence of osteomyelitis.
06/07/24 R Foot XRAY: Moderate diffuse soft tissue swelling throughout the right foot suggesting SEVERE CELLULITIS. No radiographic evidence for acute osteomyelitis.
Assessment / Plan
# Extensive madelaine intertrigo of bilateral groin
- Appreciate wound care recs - topical antifungal. keep area dry.
- Will treat with po fluconazole 200mg daily x 7d.
# Chronic bilateral necrotic toe wounds
-no cellulitis. DC cefazolin.
- Ordered arterial duplex with BAMBI
# DM with DKA
Care Review
Plan reviewed with: Nurse (ICU nurse and elementary secretary)
[2024-06-10] MEDS: D5/0.45%NSS with KCL 20 MEQ IV (11:24)
[2024-06-10 11:43] LABS: Glycohemoglobin (HgbA1c) 11.1 % (4.0-5.6)
[2024-06-10] MEDS: LANTUS 0.25 UNITS SC (12:24)
[2024-06-10] MEDS: TOPROL XL 12.5 MG PO (12:28)
[2024-06-10] MEDS: COZAAR 50 MG PO (12:29)
--- NOTE | 2024-06-10 13:20 | WOUNDNOTE ---
RIGHT SECOND TOE
[2024-06-10] MEDS: NOVOLOG FLEXPEN 3 UNITS SC ×2 (13:21→17:23)
[2024-06-10] MEDS: DESENEX/MITRAZOL/ZEASORB 1 APPLIC TOPICAL ×2 (13:21→20:07)
--- NOTE | 2024-06-10 13:21 | WOUNDNOTE ---
RIGHT DORSAL FOOT
[2024-06-10] MEDS: NOVOLOG FLEXPEN-LOW RESISTANCE 2 UNITS SC (13:22)
--- NOTE | 2024-06-10 13:22 | WOUNDNOTE ---
LEFT LATERAL LEG
--- NOTE | 2024-06-10 13:22 | WOUNDNOTE ---
LEFT LATERAL LEG AND LEFT LATERAL FOOT
--- NOTE | 2024-06-10 13:22 | WOUNDNOTE ---
RIGHT HEEL SCAB
--- NOTE | 2024-06-10 13:23 | WOUNDNOTE ---
LEFT POSTERIOR THIGH
--- NOTE | 2024-06-10 13:23 | WOUNDNOTE ---
LEFT POSTERIOR THIGH
--- NOTE | 2024-06-10 13:23 | WOUNDNOTE ---
RIGHT UPPER BACK
--- NOTE | 2024-06-10 13:35 | WOUNDNOTE ---
[facility] RN note: Patient admitted with weakness, sepsis r/o
See H&P for complete history.
PMH: MS, HTN, diabetes, BPH, dribbling/incontinence, tight bilateral hip flexors and difficulty with ambulation, prostate CA, diabetes (A1c 11.1).
Wound Location and type/assessment: Patient admitted with multiple scabbed traumatic wounds of bilateral toes, left lateral leg and left lateral foot. Patient follows at [facility] and per Physician notes these wound occurred several months ago when he
was crawling on the ground to transfer. He was also admitted with a healed stage 2 PI of left buttock and unstageable vs full thickness wound of left posterior thigh. Patient reports that he has had the posterior thigh wound for 'years' and was told
he would need surgery to allow healing. On assessment this wound is tender to touch and covered with adherent slough. Also noted upon assessment is a blister to the right anterior foot. Heels intact with some scatted scabs bilaterally. Patient has
MASD of groin related to his frequent urinary incontinence. Sacrum is intact. Patient can turn in bed with assistance.
Appetite: Fair
Pressure redistribution devices in place: Centrella Max Air, heels off-loaded on pillows, turning schedule
Plan: Local wound care with Betadine to scabbed areas on LE toes and legs. Antifungal powder and ointment have already been ordered for groin. Penis is retracted and patient is not a candidate for a condom cath. Will try Honey Gel to posterior
thigh wound. No-sting barrier and adhesive foam applied to heels.
Will confirm orders with hospitalist and update nurse.
Updated care plan and will follow as needed.
Note to case management of equipment requested for discharge:
Recommend follow up at wound care center upon discharge.
[2024-06-10 13:40] LABS: Glucose - Point of Care 216 mg/dl (70-99)
[2024-06-10 17:07] LABS: Glucose - Point of Care 343 mg/dl (70-99)
[2024-06-10] MEDS: NOVOLOG FLEXPEN-LOW RESISTANCE 4 UNITS SC (17:22)
[2024-06-10] MEDS: LIPITOR 80 MG PO (17:23)
[2024-06-10] MEDS: LOVENOX 40 MG SC (17:23)
--- NOTE | 2024-06-10 18:21 | PTCARENOTE ---
Report given to CORY Henry. Pt pulled to new bed and escorted to [id number] with in-person handoff.
[2024-06-10 21:54] LABS: Glucose - Point of Care 337 mg/dl (70-99)
[2024-06-11 00:58] LABS: Glucose - Point of Care 311 mg/dl (70-99)
[2024-06-11 03:29] VITALS: BP 121/74
[2024-06-11] MEDS: ANCEF 10 IV (05:36)
[2024-06-11 06:59] LABS: Hematocrit 30.5 % (39.0-52.0); Hemoglobin 10.8 g/dL (13.0-18.0); Mean Corp Hgb Conc. 35.4 g/dL (33.0-37.0); Mean Corpuscular Hgb 32.4 pg (27.0-31.0); Mean Corpuscular Volume 91.6 fL (80.0-94.0); Mean Platelet Volume 9.9 fL (7.4-10.4); Platelet Count 178 10^3/uL (130-400); Red Blood Cell Count 3.33 10^6/uL (4.70-6.10); Red Cell Dist. Width 15.3 % (11.5-14.5); White Blood Cell Count 7.2 10^3/uL (4.8-10.8)
[2024-06-11 07:00] VITALS: BP 158/76
[2024-06-11 07:15] LABS: Blood Urea Nitrogen 13 mg/dl (9-20); Carbon Dioxide 27 mmol/L (22-30); Chloride 101 mmol/L (98-107); Estimated Creatinine Clearance 91 ml/min; Glucose 267 mg/dl (70-99); Potassium 4.4 mmol/L (3.5-5.1); Sodium 133 mmol/L (135-145); eGFR > 60.00
[2024-06-11 07:59] LABS: Glucose - Point of Care 316 mg/dl (70-99)
[2024-06-11] MEDS: NOVOLOG FLEXPEN-LOW RESISTANCE 4 UNITS SC (08:24)
[2024-06-11] MEDS: NOVOLOG FLEXPEN 3 UNITS SC ×3 (08:25→18:40)
[2024-06-11] MEDS: DIFLUCAN 200 MG PO (08:26)
[2024-06-11] MEDS: WELLBUTRIN XL (24 hour extended release) 150 MG PO (08:26)
[2024-06-11] MEDS: TOPROL XL 12.5 MG PO (08:26)
[2024-06-11] MEDS: CELEXA 20 MG PO (08:27)
[2024-06-11] MEDS: COZAAR 50 MG PO (08:27)
[2024-06-11] MEDS: ATIVAN 0.5 MG PO (08:28)
[2024-06-11] MEDS: PROSCAR 5 MG PO (08:28)
[2024-06-11] MEDS: LANTUS 0.25 UNITS SC (08:29)
--- NOTE | 2024-06-11 09:16 | W.PN.ID1 ---
Date of Service
Date of Service: June 11, 2024
Today's Communication
Continue fluconazole through 06/17.
ID will sign off.
Assessment / Plan
# Extensive madelaine intertrigo of bilateral groin
- Appreciate wound care recs - topical antifungal. keep area dry.
- Continue po fluconazole 200mg daily x 7d. through 06/17
# Chronic bilateral necrotic toe wounds
-No need for abx; no cellulitis.
- Arterial duplex with BAMBI: RLE normal; LLE BAMBI mild decreased, no stenosis
# DM s/p DKA
ID will sign off.
Chief Complaint
-: Other (Candidiasis)
Subjective / Review of Systems
No complaints today.
Vital Signs / Physical Exam
Vital Signs
Vital Signs
Temp Pulse Resp BP Pulse Ox
97.2 F 81 18 158/76 98
06/11/24 07:00 06/11/24 07:00 06/11/24 07:00 06/11/24 07:00 06/11/24 07:00
Physical Exam
Constitutional: No Acute Distress
Pulmonary: Clear
Gastrointestinal: Soft, Non Tender, Non Distended and Normal Bowel Sounds
Extremities: Edema (BLE)
Skin: Rash (bilateral groin to medial thigh erythema)
Objective Data
Lab Data
Lab Results
06/11/24 06:26
06/11/24 06:26
PT 14.6 Sec (11.4-14.6) 06/10/24 03:12
INR 1.08 06/10/24 03:12
APTT 34.4 Sec (23.4-35.0) 06/10/24 03:12
Estimated Creat Clear 91 ml/min 06/11/24 06:26
Lactic Acid Cancelled 06/09/24 18:30
Total Bilirubin 1.7 mg/dl (0.2-1.3) H 06/09/24 14:23
AST 24 U/L (17-59) 06/09/24 14:23
ALT 21 U/L (0-50) 06/09/24 14:23
Alkaline Phosphatase 124 U/L (38-126) 06/09/24 14:23
Most recent labs reviewed.
Micro Results:
06/10/24 06:17 Urine Culture - Final
Urine NO GROWTH
06/09/24 21:08 MRSA Screen - Final
Nose Staph aureus MRSA
06/09/24 14:23 Blood Culture - Preliminary
Blood/Venous No Growth in 24 hours- Final report to follow
06/09/24 14:23 Blood Culture - Preliminary
Blood/Venous No Growth in 24 hours- Final report to follow
06/10/24 CXR: Pulmonary emphysema. No acute radiographic abnormality in the chest.
06/07/24 L Foot XRAY: Soft tissue swelling. No radiographically demonstrable acute osseous or articular abnormality. Specifically, no definite radiographic evidence of osteomyelitis.
06/07/24 R Foot XRAY: Moderate diffuse soft tissue swelling throughout the right foot suggesting SEVERE CELLULITIS. No radiographic evidence for acute osteomyelitis.
[2024-06-11 10:50] VITALS: BP 155/72; PULSE 80; O2SAT 98
[2024-06-11] MEDS: MYCOSTATIN CREAM 1 APPLIC TOPICAL ×2 (11:06→19:56)
[2024-06-11] MEDS: DESENEX/MITRAZOL/ZEASORB 1 APPLIC TOPICAL ×2 (11:07→19:56)
[2024-06-11 11:25] LABS: Glucose - Point of Care 393 mg/dl (70-99)
[2024-06-11] MEDS: NOVOLOG FLEXPEN-LOW RESISTANCE 5 UNITS SC (12:00)
--- NOTE | 2024-06-11 12:58 | W.PN.HOSP.TC ---
Today's Communication/Plan
-
Physical therapy recommending rehab
Wound consult
Assessment / Plan
Assessment / Plan
Assessment/plan
balanoposthitis
fungal groin rash
- appears fungal in origin, moist environment beneath foreskin
- air out to dry
- Desenex
- PO Diflucan
- ID to evaluate
06/11
Infectious disease signed off, continue Diflucan.Infectious disease signed off.
Patient had MRSA screen positive, discussed with infectious disease, no change on treatment plan.
Bilateral venous insufficiency (cellulitis ruled out)
-Initially was on empiric Ancef seen by infectious disease, recommended to stop antibiotic
Currently no leukocytosis or fever
Wound care consult
- venous Doppler 06/10
No evidence for deep venous thrombosis in either lower extremity
Arterial study bilateral lower extremity done on 06/10 showed
Right leg: BAMBI within normal limits measuring 1.14. TBI 0.64. Multiphasic flow throughout the leg with no focal or flow-limiting stenosis appreciated.
Left leg: BAMBI mildly decreased measuring 0.89. TBI 0.71. Multiphasic flow within the common femoral to popliteal arteries with no focal stenosis appreciated. Pedal flow also appears to multiphasic.
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
Ketosis without acidosis
Insulin sliding scale
Diabetic diet
Hemoglobin A1c 11.1
Initially started on insulin drip
Appreciate DM STREAMING MEDIA SPECIALIST for insulin management recs
Pseudohyponatremia in setting of hyperglycemia
Hyperkalemia
resolved
Hx of Parox A. Fib
- continue rate control with Metoprolol
- not on AC; will review with patient nearer to discharge; per previously intolerant to Eliquis
Essential HTN
- continue BB/ARB
Hx of prostate cancer
Finasteride
Functional status; partially wheelchair bound to due to chronic contractures with hip flexion
- PT/OT recommended rehab
CODE STATUS: Full code
DVT prophylaxis: Lovenox
Diet: Diabetic diet
Anticipated Discharge: 24 - 48 hours
Subjective/Interval History
-
Date of Service: June 11, 2024
Patient seen and examined at bedside, denies any chest pain or shortness of breath, overall feeling better.
Infectious disease signed off.
Patient had MRSA screen positive, discussed with infectious disease, no change on treatment plan.
Isolation room ordered.
Patient denies abdominal pain, no nausea, no vomiting, no diarrhea or constipation.
Patient was seen by physical therapy recommended this SNF.
Objective Data
-
Labs:
Laboratory Results
06/11/24
06:26
WBC 7.2
Hgb 10.8 L
Hct 30.5 L
Plt Count 178
Sodium 133 L
Potassium 4.4
Chloride 101
Carbon Dioxide 27
BUN 13
Creatinine 0.8
Glucose 267 H
Calcium 8.0 L
Vital Signs:
Vital Signs
Temp Pulse Resp BP Pulse Ox
97.2 F 81 18 158/76 98
06/11/24 07:00 06/11/24 07:00 06/11/24 07:00 06/11/24 07:00 06/11/24 07:00
I&O
06/10/24 06/11/24 06/12/24
06:59 06:59 06:59
Intake Total 1696 / 1847 1155 / 1155
Output Total 200 / 200
Balance 1496 / 1647 1155 / 1155
Physical Exam
-
General: Well Developed, Well Nourished, No Apparent Distress and Comfortable
HEENT: Normocephalic, Atraumatic, Moist Mucous Membranes, No Ptosis, PERRLA and Nose Appears Normal
Respiratory: Clear to Auscultation and Non Labored Respirations
Cardiac: Regular Rhythm and S1/S2
Breast: Deferred by me
GI: Soft, Nontender, Nondistended and Normal Bowel Sounds
Genito-urinary: No Costovertebral Tender
Musculoskeletal: No Clubbing, No Cyanosis and No Edema
Skin: Other (Bilateral groin rash, bilateral lower extremity wounds)
Neuro: Awake, Alert, Oriented, AO x 3 and No Motor Deficits
Psych: Calm
Data Reviewed
-
Diagnostic Radiology: Image personally visualized and interpreted and Report Reviewed by me
CT Scan: Image personally visualized and interpreted and Report Reviewed by me
Ultrasound: Image personally visualized and interpreted and Report Reviewed by me
MRI: Image personally visualized and interpreted and Report Reviewed by me
Medical Tests (Nuc Med, Echo etc): Image personally visualized and interpreted and Report Reviewed by me
Labs: Labs Reviewed by me
Old Records: Reviewed
[2024-06-11 15:00] VITALS: BP 104/63
--- NOTE | 2024-06-11 16:04 | CM ---
plant maintenance manager reviewed patient's chart and met with patient, and patient states he lives with his spouse and son, in a 2 story town home with 1 step to enter, patient was able to walk a little, has walker and cane along with w/c in home. case repairer
reviewed with patient possible discharge options at first patient was only agreeable to home with [facility] but patient is also agreeable to skilled placement at [facility]. Referrals sent to both in [facility].
Plan; Home with [facility] or skilled placement at [facility].
[2024-06-11 16:23] VITALS: BMI 27.6
[2024-06-11 17:53] LABS: Glucose - Point of Care 401 mg/dl (70-99)
[2024-06-11 18:29] LABS: Glucose 405 mg/dl (70-99)
[2024-06-11] MEDS: NOVOLOG FLEXPEN-LOW RESISTANCE 6 UNITS SC (18:39)
[2024-06-11] MEDS: LOVENOX 40 MG SC (18:41)
[2024-06-11] MEDS: LIPITOR 80 MG PO (18:41)
[2024-06-11 20:09] VITALS: BP 119/59
[2024-06-11 20:55] LABS: Glucose - Point of Care 456 mg/dl (70-99)
[2024-06-11 21:39] LABS: Glucose 417 mg/dl (70-99)
[2024-06-11] MEDS: NOVOLOG FLEXPEN 10 UNITS SC (22:02)
--- NOTE | 2024-06-11 22:09 | W.PN.UPDATE ---
Update Note
Progress Note Update
HS accucheck RR high, stat venous glucose result 417. Ordered Novolog 10 units SC x 1, repeat glucose in 2 hours.
Repeat glucose at midnight result 323. Ordered additional Novolog 5 units SC x 1, repeat glucose in 2 hours.
(Total additional 15 units Novolog given)
Repeat glucose at 3 am result 239. Repeat am labs ordered. Continue w/protocol.
[2024-06-11 23:44] VITALS: BP 135/73
[2024-06-12 00:02] LABS: Glucose - Point of Care 323 mg/dl (70-99)
[2024-06-12] MEDS: NOVOLOG FLEXPEN 5 UNITS SC (00:30)
[2024-06-12 02:48] LABS: Glucose - Point of Care 239 mg/dl (70-99)
[2024-06-12 03:29] VITALS: BP 102/68
[2024-06-12 03:30] VITALS: BMI 28.3
[2024-06-12 06:00] VITALS: BMI 28.3
[2024-06-12 07:20] VITALS: BP 147/76
[2024-06-12 07:47] LABS: Glucose - Point of Care 292 mg/dl (70-99)
[2024-06-12 07:49] LABS: Hemoglobin 10.7 g/dL (13.0-18.0); Mean Corp Hgb Conc. 35.7 g/dL (33.0-37.0); Mean Corpuscular Hgb 32.6 pg (27.0-31.0); Mean Corpuscular Volume 91.5 fL (80.0-94.0); Mean Platelet Volume 9.9 fL (7.4-10.4); Platelet Count 169 10^3/uL (130-400); Red Blood Cell Count 3.28 10^6/uL (4.70-6.10); Red Cell Dist. Width 15.2 % (11.5-14.5); White Blood Cell Count 5.9 10^3/uL (4.8-10.8)
[2024-06-12] MEDS: NOVOLOG FLEXPEN 3 UNITS SC (07:55)
[2024-06-12] MEDS: NOVOLOG FLEXPEN-MODERATE RESISTANCE 5 UNITS SC (07:56)
[2024-06-12] MEDS: TOPROL XL 12.5 MG PO (07:58)
[2024-06-12] MEDS: DIFLUCAN 200 MG PO (07:59)
[2024-06-12] MEDS: CELEXA 20 MG PO (07:59)
[2024-06-12] MEDS: ATIVAN 0.5 MG PO (07:59)
[2024-06-12] MEDS: WELLBUTRIN XL (24 hour extended release) 150 MG PO (07:59)
[2024-06-12] MEDS: PROSCAR 5 MG PO (07:59)
[2024-06-12] MEDS: COZAAR 50 MG PO (07:59)
[2024-06-12] MEDS: LANTUS 0.25 UNITS SC (08:05)
[2024-06-12] MEDS: MYCOSTATIN CREAM TOPICAL (08:06)
[2024-06-12] MEDS: DESENEX/MITRAZOL/ZEASORB TOPICAL (08:06)
[2024-06-12 08:07] LABS: Blood Urea Nitrogen 15 mg/dl (9-20); Carbon Dioxide 27 mmol/L (22-30); Chloride 102 mmol/L (98-107); Estimated Creatinine Clearance 91 ml/min; Glucose 222 mg/dl (70-99); Potassium 4.2 mmol/L (3.5-5.1); Sodium 133 mmol/L (135-145); eGFR > 60.00
[2024-06-12 11:24] LABS: Glucose - Point of Care 320 mg/dl (70-99)
[2024-06-12] MEDS: NOVOLOG FLEXPEN 7 UNITS SC ×2 (11:27→17:03)
[2024-06-12] MEDS: NEURONTIN 300 MG PO ×3 (11:27→21:17)
[2024-06-12] MEDS: NOVOLOG FLEXPEN-MODERATE RESISTANCE 7 UNITS SC (11:28)
[2024-06-12 11:58] VITALS: BP 115/64
--- NOTE | 2024-06-12 12:50 | W.PN.HOSP.TC ---
Today's Communication/Plan
-
Adjust insulin and add gabapentin
Assessment / Plan
Assessment / Plan
Assessment/plan
balanoposthitis
fungal groin rash
- appears fungal in origin, moist environment beneath foreskin
- air out to dry
- Desenex
- PO Diflucan
- ID to evaluate
06/11
Infectious disease signed off, continue Diflucan.Infectious disease signed off.
Patient had MRSA screen positive, discussed with infectious disease, no change on treatment plan.
Bilateral venous insufficiency (cellulitis ruled out)
-Initially was on empiric Ancef seen by infectious disease, recommended to stop antibiotic
Currently no leukocytosis or fever
Wound care consult
- venous Doppler 06/10
No evidence for deep venous thrombosis in either lower extremity
Arterial study bilateral lower extremity done on 06/10 showed
Right leg: BAMBI within normal limits measuring 1.14. TBI 0.64. Multiphasic flow throughout the leg with no focal or flow-limiting stenosis appreciated.
Left leg: BAMBI mildly decreased measuring 0.89. TBI 0.71. Multiphasic flow within the common femoral to popliteal arteries with no focal stenosis appreciated. Pedal flow also appears to multiphasic.
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
Ketosis without acidosis
Insulin sliding scale
Diabetic diet
Hemoglobin A1c 11.1
Initially started on insulin drip
Appreciate DM BACK SEWER for insulin management recs
06/12
Hyperglycemia overnight
Increased Lantus to 30 units at night and NovoLog to 7 units before addition of sliding scale
Pseudohyponatremia in setting of hyperglycemia
Hyperkalemia
resolved
Hx of Parox A. Fib
- continue rate control with Metoprolol
- not on AC; will review with patient nearer to discharge; per previously intolerant to Eliquis
Essential HTN
- continue BB/ARB
Hx of prostate cancer
Finasteride
Functional status; partially wheelchair bound to due to chronic contractures with hip flexion
- PT/OT recommended rehab
CODE STATUS: Full code
DVT prophylaxis: Lovenox
Diet: Diabetic diet
Total time spent on today's encounter was 55 minutes which included time spent in counseling the patient/family regarding diagnosis and treatment plan as listed above, goals of care, and symptom management. Case was discussed with nursing staff,
specialists, and care coordinators/case management. All labs and imaging personally reviewed by me. Remainder the time spent in detailed review of previous records, lab data, imaging, and other medical provider documentation.
Anticipated Discharge: Within 24 hours
Subjective/Interval History
-
Date of Service: June 12, 2024
Patient seen and examined at bedside, patient had issues with elevated blood sugar overnight.
Increased bolus Lantus and Premeal insulin.
Was complaining of left leg pain, added gabapentin.
Otherwise denies any chest pain or shortness of breath, no abdominal pain, no nausea, no vomiting, no diarrhea or constipation.
Objective Data
-
Labs:
Laboratory Results
06/12/24
07:19
WBC 5.9
Hgb 10.7 L
Hct 30.0 L
Plt Count 169
Sodium 133 L
Potassium 4.2
Chloride 102
Carbon Dioxide 27
BUN 15
Creatinine 0.8
Glucose 222 H
Calcium 8.0 L
Vital Signs:
Vital Signs
Temp Pulse Resp BP Pulse Ox
99.3 F 76 20 115/64 96
06/12/24 11:58 06/12/24 11:58 06/12/24 11:58 06/12/24 11:58 06/12/24 11:58
I&O
06/11/24 06/12/24 06/13/24
06:59 06:59 06:59
Intake Total 1155 / 1155 1440 / 1440
Output Total 400 / 400
Balance 1155 / 1155 1040 / 1040
Physical Exam
-
General: Well Developed, Well Nourished, No Apparent Distress and Comfortable
HEENT: Normocephalic, Atraumatic, Moist Mucous Membranes, No Ptosis, PERRLA and Nose Appears Normal
Respiratory: Clear to Auscultation and Non Labored Respirations
Cardiac: Regular Rhythm and S1/S2
Breast: Deferred by me
GI: Soft, Nontender, Nondistended and Normal Bowel Sounds
Genito-urinary: No Costovertebral Tender
Musculoskeletal: No Clubbing, No Cyanosis and No Edema
Skin: Other (Bilateral groin rash, bilateral lower extremity wounds)
Neuro: Awake, Alert, Oriented, AO x 3 and No Motor Deficits
Psych: Calm
[2024-06-12 15:00] VITALS: BP 116/56
[2024-06-12 16:44] LABS: Glucose - Point of Care 123 mg/dl (70-99)
[2024-06-12] MEDS: NOVOLOG FLEXPEN-MODERATE RESISTANCE SC (16:45)
[2024-06-12] MEDS: LOVENOX 40 MG SC (17:02)
[2024-06-12] MEDS: LIPITOR 80 MG PO (17:02)
[2024-06-12 19:55] VITALS: BP 129/67
[2024-06-12] MEDS: DESENEX/MITRAZOL/ZEASORB 1 APPLIC TOPICAL (21:18)
[2024-06-12] MEDS: MYCOSTATIN CREAM 1 APPLIC TOPICAL (21:18)
[2024-06-12 22:58] LABS: Glucose - Point of Care 215 mg/dl (70-99)
[2024-06-12 23:45] VITALS: BP 141/69
[2024-06-13] VITALS (7 sets, daily range): BP systolic 105–142; BP diastolic 57–81; BMI 28.3
[2024-06-13 04:17] LABS: Glucose - Point of Care 299 mg/dl (70-99)
--- NOTE | 2024-06-13 05:32 | W.PN.UPDATE ---
Update Note
Progress Note Update
~HS accu�check 215.��Repeated accucheck @ 3 am, result 299
~23:00 Notified by RN that IV in left AC was removed. Red above insertion site and hard to touch. Concern for DVT? Ordered U/S to rule out DVT.�
[2024-06-13 07:28] LABS: Glucose - Point of Care 255 mg/dl (70-99)
[2024-06-13 08:04] LABS: Hematocrit 29.8 % (39.0-52.0); Hemoglobin 10.3 g/dL (13.0-18.0); Mean Corp Hgb Conc. 34.6 g/dL (33.0-37.0); Mean Corpuscular Hgb 32.7 pg (27.0-31.0); Mean Corpuscular Volume 94.6 fL (80.0-94.0); Mean Platelet Volume 10.1 fL (7.4-10.4); Platelet Count 149 10^3/uL (130-400); Red Blood Cell Count 3.15 10^6/uL (4.70-6.10); Red Cell Dist. Width 15.6 % (11.5-14.5); White Blood Cell Count 6.1 10^3/uL (4.8-10.8)
[2024-06-13] MEDS: LANTUS 0.3 UNITS SC (08:05)
[2024-06-13] MEDS: NOVOLOG FLEXPEN-MODERATE RESISTANCE 5 UNITS SC (08:06)
[2024-06-13] MEDS: CELEXA 20 MG PO (08:07)
[2024-06-13] MEDS: ATIVAN 0.5 MG PO (08:07)
[2024-06-13] MEDS: NOVOLOG FLEXPEN 7 UNITS SC (08:07)
[2024-06-13] MEDS: DESENEX/MITRAZOL/ZEASORB 1 APPLIC TOPICAL ×2 (08:08→20:28)
[2024-06-13] MEDS: COZAAR 50 MG PO (08:08)
[2024-06-13] MEDS: DIFLUCAN 200 MG PO (08:09)
[2024-06-13] MEDS: TOPROL XL 12.5 MG PO (08:09)
[2024-06-13] MEDS: NEURONTIN 300 MG PO ×3 (08:09→21:59)
[2024-06-13] MEDS: MYCOSTATIN CREAM 1 APPLIC TOPICAL ×2 (08:09→20:30)
[2024-06-13] MEDS: PROSCAR 5 MG PO (08:09)
[2024-06-13] MEDS: WELLBUTRIN XL (24 hour extended release) 150 MG PO (08:10)
[2024-06-13 08:45] LABS: Blood Urea Nitrogen 18 mg/dl (9-20); Carbon Dioxide 28 mmol/L (22-30); Chloride 103 mmol/L (98-107); Estimated Creatinine Clearance 73 ml/min; Glucose 195 mg/dl (70-99); Potassium 4.7 mmol/L (3.5-5.1); Sodium 136 mmol/L (135-145); eGFR > 60.00
--- NOTE | 2024-06-13 10:40 | PN.DE.MGMTRT ---
Insulin Management
- -
06/13/2024 Diabetes Management follow up
Patient admitted 06/09 with SOB, elevated glucose, metabolic alkalosis, no DKA. PMH: wheelchair bound due to hip contracture, prostate CA, HTN, HLD, KIM. Prior to admission was taking Tresiba 25 units daily, current A1C 11.1%, last was 6.8% in
November 2023. Cr 1.0, eGFR >60
Patient was started on DKA insulin infusion and transitioned off on 06/12 to Lantus 25 units and AC NovoLog
Pt awake, alert, sitting up in chair, offers no complaints, able to discuss diabetes care plan. States he routinely see Endocrine Dr. Rogres for diabetes care.
He reports taking 10-12 units of Humalog with meals at home
06/12 premeal glucose range 123 to 320, requiring 5-7 additional corrective insulin
Will increase AC NovoLog to 10 units. FBG 299(V), 255 POC this AM, will increase Lantus to 35 units
Discussed with nurse. Will cont to follow and make further insulin adjustments if necessary
Pt has CGM- Meghan in place.
Diabetes History
- -
Type of Diabetes: 2 requiring insulin
Pre-Admission Diabetes Regimen
06/13/24
07:22
Creatinine 1.0
Lab Results
Hemoglobin A1c 11.1 % (4.0-5.6) H 06/10/24 03:12
Insulin Pump Settings
IP Diabetes Regimen
06/12/24 06/12/24 06/12/24
11:24 16:43 22:57
Glucose
POC Glucose 320 H 123 H 215 H
06/13/24 06/13/24 06/13/24
04:16 07:22 07:27
Glucose 195 H
POC Glucose 299 H 255 H
Meal type: Dinner
Meal type: Lunch
Meal type: Breakfast
Amount consumed: 100%
Amount consumed: 100%
Amount consumed: 100%
Patient Education
--- NOTE | 2024-06-13 10:52 | WOUNDNOTE ---
MIGUELANGEL RAY NOTE: Confirmed with nurse Jeannette, no new wounds on sacrum. Patient last seen by wound care last Thursday, no changes with other wounds. Continue same wound care and will follow as needed.
[2024-06-13 11:33] LABS: Glucose - Point of Care 230 mg/dl (70-99)
--- NOTE | 2024-06-13 11:36 | PN.CDI ---
CDI
- -
CDI:
Physician Documentation Request
Admit Date: 06/09/24 16:37
Dear Doctor Mahesh,
Please review the following and provide your response in the progress notes.
Clinical Indicators:
Pt admitted with diabetes with Ketosis without acidosis
Documented per [facility] note 06/10, ' He was also admitted with a healed stage 2 PI of left buttock and unstageable vs full thickness wound of left posterior thigh. ...'
Physician documentation of the type and location of wounds is required for compliant documentation. Based on the above clinical findings and your assessment, please provide the following in your progress note:
1. Location of the ulcer/wound, including laterality.
2. Type (etiology) of ulcer/wound:
- Pressure (decubitus) ulcer
- Non-pressure ulcer
- Other ( please specify)
Use of terms such as suspected, likely, concern for, or probable (associated with a specific diagnosis that is being evaluated, monitored, or treated as if it exists) are acceptable and can be coded in the inpatient setting, when documented at the
time of discharge.
Thank you,
Luz Elena Aquino RN
CDI Specialist
[facility]
Please use your independent medical judgment in providing your response.
*Source: National Pressure Ulcer Advisory Panel (NPUAP)
[2024-06-13] MEDS: NOVOLOG FLEXPEN-MODERATE RESISTANCE 3 UNITS SC ×2 (11:41→17:02)
[2024-06-13] MEDS: NOVOLOG FLEXPEN 10 UNITS SC ×2 (11:41→17:03)
--- NOTE | 2024-06-13 11:43 | CM ---
Addendum entered by Benita Blanchard 06/13/24 14:43:
[facility] out of network, no beds at [place], patient seen bedside, agreeable to referral to [facility].
Original Note:
CM reviewed chart, patient seen in chair, discussed PT recommendations of STR. Patient agreeable, requesting referral to [facility], discussed [facility] does not accept patients insurance. Patient agreeable to referral to [facility] and [facility].
Patient will require insurance auth. CM will continue to follow for all discharge planning needs.
Plan; SNF pending accepting facility, additional referrals placed. Will need auth.
--- NOTE | 2024-06-13 13:03 | W.PN.HOSP.TC ---
Today's Communication/Plan
-
Discharge to SNF today
Assessment / Plan
Assessment / Plan
Assessment/plan
balanoposthitis
fungal groin rash
- appears fungal in origin, moist environment beneath foreskin
- air out to dry
- Desenex
- PO Diflucan
- ID to evaluate
06/11
Infectious disease signed off, continue Diflucan.Infectious disease signed off.
Patient had MRSA screen positive, discussed with infectious disease, no change on treatment plan.
Bilateral venous insufficiency (cellulitis ruled out)
-Initially was on empiric Ancef seen by infectious disease, recommended to stop antibiotic
Currently no leukocytosis or fever
Wound care consult
- venous Doppler 06/10
No evidence for deep venous thrombosis in either lower extremity
Arterial study bilateral lower extremity done on 06/10 showed
Right leg: BAMBI within normal limits measuring 1.14. TBI 0.64. Multiphasic flow throughout the leg with no focal or flow-limiting stenosis appreciated.
Left leg: BAMBI mildly decreased measuring 0.89. TBI 0.71. Multiphasic flow within the common femoral to popliteal arteries with no focal stenosis appreciated. Pedal flow also appears to multiphasic.
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
Ketosis without acidosis
Insulin sliding scale
Diabetic diet
Hemoglobin A1c 11.1
Initially started on insulin drip
Appreciate DM INDUSTRY SEGMENT SPECIALIST for insulin management recs
06/12
Hyperglycemia overnight
Increased Lantus to 30 units at night and NovoLog to 7 units before addition of sliding scale
06/13
Improved blood sugar
Nonocclusive superficial left basilic vein thrombosis
Ultrasound showed small volume nonocclusive thrombus in the left basilic vein (superficial venous system).
No findings to suggest deep venous thrombosis of the left upper extremit
No need for anticoagulation, will give NSAIDs as needed
Pseudohyponatremia in setting of hyperglycemia
Hyperkalemia
resolved
Hx of Parox A. Fib
- continue rate control with Metoprolol
- not on AC; will review with patient nearer to discharge; per previously intolerant to Eliquis
Essential HTN
- continue BB/ARB
Hx of prostate cancer
Finasteride
Functional status; partially wheelchair bound to due to chronic contractures with hip flexion
- PT/OT recommended rehab : patient cleared for discharge
CODE STATUS: Full code
DVT prophylaxis: Lovenox
Diet: Diabetic diet
Total time spent on today's encounter was 55 minutes which included time spent in counseling the patient/family regarding diagnosis and treatment plan as listed above, goals of care, and symptom management. Case was discussed with nursing staff,
specialists, and care coordinators/case management. All labs and imaging personally reviewed by me. Remainder the time spent in detailed review of previous records, lab data, imaging, and other medical provider documentation.
Anticipated Discharge: Today
Subjective/Interval History
-
Date of Service: June 13, 2024
Patient seen and examined at bedside, denies any chest pain or shortness of breath, no abdominal pain, no nausea, no vomiting, no diarrhea or constipation.
Left upper extremity ultrasound done showed:
Small volume nonocclusive thrombus in the left basilic vein (superficial venous system).
No findings to suggest deep venous thrombosis of the left upper extremit
Objective Data
-
Labs:
Laboratory Results
06/13/24
07:22
WBC 6.1
Hgb 10.3 L
Hct 29.8 L
Plt Count 149
Sodium 136
Potassium 4.7
Chloride 103
Carbon Dioxide 28
BUN 18
Creatinine 1.0
Glucose 195 H
Calcium 8.0 L
Vital Signs:
Vital Signs
Temp Pulse Resp BP Pulse Ox
97.3 F 69 20 120/66 95
03/31/25 11:00 06/13/24 11:00 06/13/24 11:00 06/13/24 11:00 06/13/24 11:00
I&O
06/12/24 06/13/24 06/14/24
06:59 06:59 06:59
Intake Total 1440 / 1440 690 / 690
Output Total 400 / 400 800 / 800
Balance 1040 / 1040 -110 / -110
Physical Exam
-
General: Well Developed, Well Nourished, No Apparent Distress and Comfortable
HEENT: Normocephalic, Atraumatic, Moist Mucous Membranes, No Ptosis, PERRLA and Nose Appears Normal
Respiratory: Clear to Auscultation and Non Labored Respirations
Cardiac: Regular Rhythm and S1/S2
Breast: Deferred by me
GI: Soft, Nontender, Nondistended and Normal Bowel Sounds
Genito-urinary: No Costovertebral Tender
Musculoskeletal: No Clubbing, No Cyanosis and No Edema
Skin: Other (Bilateral groin rash, bilateral lower extremity wounds)
Neuro: Awake, Alert, Oriented, AO x 3 and No Motor Deficits
Psych: Calm
Data Reviewed
-
Diagnostic Radiology: Image personally visualized and interpreted and Report Reviewed by me
CT Scan: Image personally visualized and interpreted and Report Reviewed by me
Ultrasound: Image personally visualized and interpreted and Report Reviewed by me
MRI: Image personally visualized and interpreted and Report Reviewed by me
Medical Tests (Nuc Med, Echo etc): Image personally visualized and interpreted and Report Reviewed by me
Labs: Labs Reviewed by me
Old Records: Reviewed
--- NOTE | 2024-06-13 14:10 | W.DCSUMMARY ---
Addendum entered and electronically signed by Miguel Aragon MD 06/16/24 10:47:
Patient was cleared for discharge on June 13, 2024.
Was bending SNF bed availability.
Patient will be discharged today June 16, 2024.
Original Note:
Discharge Summary
Discharge Data
Date of Admission: 06/09/24
Date of Discharge: 06/13/24
-
Pending Results: No
Hospital Course
Assessment/plan
balanoposthitis
fungal groin rash
- appears fungal in origin, moist environment beneath foreskin
- air out to dry
- Desenex
- PO Diflucan
- ID to evaluate
06/11
Infectious disease signed off, continue Diflucan.Infectious disease signed off.
Patient had MRSA screen positive, discussed with infectious disease, no change on treatment plan.
Bilateral venous insufficiency (cellulitis ruled out)
-Initially was on empiric Ancef seen by infectious disease, recommended to stop antibiotic
Currently no leukocytosis or fever
Wound care consult
- venous Doppler 06/10
No evidence for deep venous thrombosis in either lower extremity
Arterial study bilateral lower extremity done on 06/10 showed
Right leg: BAMBI within normal limits measuring 1.14. TBI 0.64. Multiphasic flow throughout the leg with no focal or flow-limiting stenosis appreciated.
Left leg: BAMBI mildly decreased measuring 0.89. TBI 0.71. Multiphasic flow within the common femoral to popliteal arteries with no focal stenosis appreciated. Pedal flow also appears to multiphasic.
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
Ketosis without acidosis
Insulin sliding scale
Diabetic diet
Hemoglobin A1c 11.1
Initially started on insulin drip
Appreciate DM SUPERVISOR GROVE for insulin management recs
06/12
Hyperglycemia overnight
Increased Lantus to 30 units at night and NovoLog to 7 units before addition of sliding scale
06/13
Improved blood sugar
Nonocclusive superficial left basilic vein thrombosis
Ultrasound showed small volume nonocclusive thrombus in the left basilic vein (superficial venous system).
No findings to suggest deep venous thrombosis of the left upper extremit
No need for anticoagulation, will give NSAIDs as needed
Pseudohyponatremia in setting of hyperglycemia
Hyperkalemia
resolved
Hx of Parox A. Fib
- continue rate control with Metoprolol
- not on AC; will review with patient nearer to discharge; per previously intolerant to Eliquis
Essential HTN
- continue BB/ARB
Hx of prostate cancer
Finasteride
Stage II pressure ulcer
Patient admitted with a healed stage 2 PI of left buttock and unstageable vs full thickness wound of left posterior thigh.
1. Location of the ulcer/wound, left buttocks
2. Type (etiology) of ulcer/wound: Pressure (decubitus) ulcer
Functional status;
partially wheelchair bound to due to chronic contractures with hip flexion
- PT/OT recommended rehab : patient cleared for discharge
CODE STATUS: Full code
DVT prophylaxis: Lovenox
Diet: Diabetic diet
Total time spent on today's encounter was 40 minutes which included time spent in counseling the patient/family regarding diagnosis and treatment plan as listed above, goals of care, and symptom management. Case was discussed with nursing staff,
specialists, and care coordinators/case management. All labs and imaging personally reviewed by me. Remainder the time spent in detailed review of previous records, lab data, imaging, and other medical provider documentation.
Anticipated Discharge: Today
Discharge Plan
-
Patient Disposition: Half-Way/SNF
Discharge Diagnosis/Procedures: Fungal groin rash, uncontrolled diabetes, superficial venous thrombosis
Diet: Diabetic, Carb Controlled
Activity: With assistance
Driving Restrictions: As prior to admission
Other Services: PT and OT
Wound Care: Back wound and bilateral lower extremity wound
Activity Restrictions/Additional Instructions:
Wound Care Instructions Multiple traumatic scabbed wound on toes, left lateral leg and foot- Clean gently daily with saline or soap and water and apply Betadine to scabbed areas. Cover any draining areas with non-adherent dressing and art
or silicone border foam. Change daily.
Bilateral Heels- No sting barrier and silicone border foam. Change Q 72 hours and PRN.
Left posterior thigh- Clean daily with soap and water or saline an apply small amount of Honey Gel and cover with silicone border foam. Change daily and PRN if soiled.
Left Buttock- Apply barrier cream BID. May cover with silicone border foam daily and PRN for drainage.
Right anterior foot (blister) apply no-sting barrier and cover with silicone border foam. Change Q 72 hours and PRN if soiled.
MASD to groin/thighs- Apply Barrier ointment and powder as ordered by your Physician.
Follow up at wound care center call for an appointment.
Referrals:
Apollo Machado MD [Active] - in three to four weeks
Patrick Kc MD [Primary Care Provider] -
Jessica Dupont CRNP [Specified Professional Personl] - in four to six weeks
Prescriptions:
New
fluconazole 200 mg Tablet
200 mg PO DAILY Qty: 4 0RF
miconazole nitrate [Miconazorb AF] 2 % Powder
1 applic topical BID Qty: 0 0RF
nystatin 100,000 unit/gram Cream
1 applic topical BID Qty: 0 0RF
gabapentin 300 mg Capsule
300 mg PO TID Qty: 0 0RF
insulin aspart U-100 100 unit/mL (3 mL) Insulin Pen
10 unit SC AC Qty: 0 0RF
insulin lispro [Humalog U-100 Insulin] 100 unit/mL solution
1 sliding scale dose SC DIRECTED Qty: 0 0RF
Continued
finasteride 5 MG tablet
5 mg PO DAILY
bupropion HCl 150 MG tablet extended release 24 hr
150 mg PO DAILY
atorvastatin 80 MG tablet
80 mg PO QPM
citalopram 20 MG tablet
20 mg PO DAILY
metoprolol succinate 25 mg Tablet Extended Release 24 Hr
12.5 mg PO DAILY Qty: 30 0RF
lorazepam 0.5 mg Tablet
0.5 mg PO DAILY
calcium carbonate [Tums] 200 mg calcium (500 mg) Tablet,Chewable
400 mg PO TIDPRN PRN (Reason: gerd)
losartan 50 MG tablet
50 mg PO DAILY 0RF
Changed
insulin degludec [Tresiba FlexTouch U-100] 100 unit/mL (3 mL) insulin pen
35 unit SC DAILY Qty: 0 0RF
Discharge Orders:
Discharge Patient (As Directed); Ordered 06/13/24
Ordered By: Miguel Aragon
Discharge Date and Time
Print Language: MAURITIAN
[2024-06-13 16:40] LABS: Glucose - Point of Care 243 mg/dl (70-99)
[2024-06-13] MEDS: LOVENOX 40 MG SC (17:07)
[2024-06-13] MEDS: LIPITOR 80 MG PO (17:07)
[2024-06-13] MEDS: ULTRAM 50 MG PO (17:34)
[2024-06-13] MEDS: FLEXERIL 5 MG PO (17:34)
[2024-06-13 22:04] LABS: Glucose - Point of Care 261 mg/dl (70-99)
[2024-06-14 03:34] VITALS: BP 129/72
[2024-06-14 06:00] VITALS: BMI 28.5
[2024-06-14 07:57] VITALS: BP 147/79
[2024-06-14] MEDS: TOPROL XL 12.5 MG PO (08:03)
[2024-06-14] MEDS: DIFLUCAN 200 MG PO (08:03)
[2024-06-14] MEDS: COZAAR 50 MG PO (08:03)
[2024-06-14] MEDS: NEURONTIN 300 MG PO ×3 (08:03→21:05)
[2024-06-14] MEDS: WELLBUTRIN XL (24 hour extended release) 150 MG PO (08:03)
[2024-06-14] MEDS: PROSCAR 5 MG PO (08:03)
[2024-06-14] MEDS: CELEXA 20 MG PO (08:03)
[2024-06-14] MEDS: ATIVAN 0.5 MG PO (08:03)
[2024-06-14] MEDS: DESENEX/MITRAZOL/ZEASORB 1 APPLIC TOPICAL ×2 (08:04→19:58)
[2024-06-14 08:11] LABS: Glucose - Point of Care 151 mg/dl (70-99)
[2024-06-14 08:13] LABS: Hemoglobin 10.5 g/dL (13.0-18.0); Mean Corp Hgb Conc. 33.9 g/dL (33.0-37.0); Mean Corpuscular Hgb 32.3 pg (27.0-31.0); Mean Corpuscular Volume 95.4 fL (80.0-94.0); Mean Platelet Volume 9.9 fL (7.4-10.4); Platelet Count 153 10^3/uL (130-400); Red Blood Cell Count 3.25 10^6/uL (4.70-6.10); Red Cell Dist. Width 15.9 % (11.5-14.5); White Blood Cell Count 5.3 10^3/uL (4.8-10.8)
[2024-06-14] MEDS: MYCOSTATIN CREAM 1 APPLIC TOPICAL ×2 (08:13→19:58)
[2024-06-14] MEDS: LANTUS 0.35 UNITS SC (08:13)
[2024-06-14] MEDS: NOVOLOG FLEXPEN 10 UNITS SC (08:14)
[2024-06-14] MEDS: NOVOLOG FLEXPEN-MODERATE RESISTANCE 1 UNITS SC (08:14)
--- NOTE | 2024-06-14 08:14 | PN.DE.MGMTRT ---
Insulin Management
- -
06/14/2024 Diabetes Management follow up
Patient admitted 06/09 with SOB, elevated glucose, metabolic alkalosis, no DKA. PMH: wheelchair bound due to hip contracture, prostate CA, HTN, HLD, KIM. Prior to admission was taking Tresiba 25 units daily, current A1C 11.1%, last was 6.8% in
November 2023. Cr 1.0, eGFR >60
Patient was started on DKA insulin infusion and transitioned off on 06/12 to Lantus 25 units and AC NovoLog
Pt awake, alert, sitting up in chair, offers no complaints, able to discuss diabetes care plan. States he routinely see Endocrine Dr. Rogers for diabetes care.
He reports taking 10-12 units of Humalog with meals at home
06/13 premeal glucose range 195 to 261, requiring 3 units additional corrective insulin
06/14 Will increase AC NovoLog to 12 units. FBG 151 this AM, first dose increased lantus 35 units for this AM.
Discussed with nurse. Will cont to follow and make further insulin adjustments if necessary
Pt has CGM- Meghan in place.
Diabetes History
- -
Type of Diabetes: 2 requiring insulin
Pre-Admission Diabetes Regimen
06/13/24
07:22
Creatinine 1.0
Lab Results
Hemoglobin A1c 11.1 % (4.0-5.6) H 06/10/24 03:12
Insulin Pump Settings
IP Diabetes Regimen
06/13/24 06/13/24 06/13/24
07:22 11:32 16:39
Glucose 195 H
POC Glucose 230 H 243 H
06/13/24 06/14/24
22:03 08:10
Glucose
POC Glucose 261 H 151 H
Meal type: Lunch
Amount consumed: 100%
Patient Education
[2024-06-14 08:45] LABS: Blood Urea Nitrogen 20 mg/dl (9-20); Carbon Dioxide 30 mmol/L (22-30); Chloride 102 mmol/L (98-107); Estimated Creatinine Clearance 81 ml/min; Glucose 149 mg/dl (70-99); Potassium 4.2 mmol/L (3.5-5.1); Sodium 136 mmol/L (135-145); eGFR > 60.00
[2024-06-14 11:50] LABS: Glucose - Point of Care 241 mg/dl (70-99)
[2024-06-14] MEDS: NOVOLOG FLEXPEN 12 UNITS SC ×2 (11:54→16:48)
[2024-06-14] MEDS: NOVOLOG FLEXPEN-MODERATE RESISTANCE 3 UNITS SC (11:57)
--- NOTE | 2024-06-14 12:33 | W.PN.HOSP.TC ---
Today's Communication/Plan
-
Pending placement
Assessment / Plan
Assessment / Plan
Assessment/plan
balanoposthitis
fungal groin rash
- appears fungal in origin, moist environment beneath foreskin
- air out to dry
- Desenex
- PO Diflucan
- ID to evaluate
06/11
Infectious disease signed off, continue Diflucan.Infectious disease signed off.
Patient had MRSA screen positive, discussed with infectious disease, no change on treatment plan.
Bilateral venous insufficiency (cellulitis ruled out)
-Initially was on empiric Ancef seen by infectious disease, recommended to stop antibiotic
Currently no leukocytosis or fever
Wound care consult
- venous Doppler 06/10
No evidence for deep venous thrombosis in either lower extremity
Arterial study bilateral lower extremity done on 06/10 showed
Right leg: BAMBI within normal limits measuring 1.14. TBI 0.64. Multiphasic flow throughout the leg with no focal or flow-limiting stenosis appreciated.
Left leg: BAMBI mildly decreased measuring 0.89. TBI 0.71. Multiphasic flow within the common femoral to popliteal arteries with no focal stenosis appreciated. Pedal flow also appears to multiphasic.
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
Ketosis without acidosis
Insulin sliding scale
Diabetic diet
Hemoglobin A1c 11.1
Initially started on insulin drip
Appreciate DM CUT OFF SAWYER for insulin management recs
06/12
Hyperglycemia overnight
Increased Lantus to 30 units at night and NovoLog to 7 units before addition of sliding scale
06/13
Improved blood sugar
06/14
Blood sugar improved, adjusted Premeal insulin to 12 units AC
Nonocclusive superficial left basilic vein thrombosis
Ultrasound showed small volume nonocclusive thrombus in the left basilic vein (superficial venous system).
No findings to suggest deep venous thrombosis of the left upper extremit
No need for anticoagulation, will give NSAIDs as needed
Pseudohyponatremia in setting of hyperglycemia
Hyperkalemia
resolved
Hx of Parox A. Fib
- continue rate control with Metoprolol
- not on AC; will review with patient nearer to discharge; per previously intolerant to Eliquis
Essential HTN
- continue BB/ARB
Hx of prostate cancer
Finasteride
Functional status; partially wheelchair bound to due to chronic contractures with hip flexion
- PT/OT recommended rehab : patient cleared for discharge
CODE STATUS: Full code
DVT prophylaxis: Lovenox
Diet: Diabetic diet
Total time spent on today's encounter was 55 minutes which included time spent in counseling the patient/family regarding diagnosis and treatment plan as listed above, goals of care, and symptom management. Case was discussed with nursing staff,
specialists, and care coordinators/case management. All labs and imaging personally reviewed by me. Remainder the time spent in detailed review of previous records, lab data, imaging, and other medical provider documentation.
Anticipated Discharge: Today
Subjective/Interval History
-
Date of Service: June 14, 2024
Patient seen and examined at bedside, denies any chest pain or shortness of breath, no abdominal pain, no nausea, no vomiting, no diarrhea or constipation.
Feeling much better after muscle relaxant, still pending placement.
Objective Data
-
Labs:
Laboratory Results
06/14/24
06:32
WBC 5.3
Hgb 10.5 L
Hct 31.0 L
Plt Count 153
Sodium 136
Potassium 4.2
Chloride 102
Carbon Dioxide 30
BUN 20
Creatinine 0.9
Glucose 149 H
Calcium 8.0 L
Vital Signs:
Vital Signs
Temp Pulse Resp BP Pulse Ox
97.4 F 71 18 147/79 95
06/14/24 07:57 06/14/24 08:03 06/14/24 07:57 06/14/24 08:03 06/14/24 07:57
I&O
06/13/24 06/14/24 06/15/24
06:59 06:59 06:59
Intake Total 690 / 690 1260 / 1260
Output Total 800 / 800 1800 / 1800 150 / 150
Balance -110 / -110 -540 / -540 -150 / -150
Physical Exam
-
General: Well Developed, Well Nourished, No Apparent Distress and Comfortable
HEENT: Normocephalic, Atraumatic, Moist Mucous Membranes, No Ptosis, PERRLA and Nose Appears Normal
Respiratory: Clear to Auscultation and Non Labored Respirations
Cardiac: Regular Rhythm and S1/S2
Breast: Deferred by me
GI: Soft, Nontender, Nondistended and Normal Bowel Sounds
Genito-urinary: No Costovertebral Tender
Musculoskeletal: No Clubbing, No Cyanosis and No Edema
Skin: Other (Bilateral groin rash, bilateral lower extremity wounds)
Neuro: Awake, Alert, Oriented, AO x 3 and No Motor Deficits
Psych: Calm
Data Reviewed
-
Diagnostic Radiology: Image personally visualized and interpreted and Report Reviewed by me
CT Scan: Image personally visualized and interpreted and Report Reviewed by me
Ultrasound: Image personally visualized and interpreted and Report Reviewed by me
MRI: Image personally visualized and interpreted and Report Reviewed by me
Medical Tests (Nuc Med, Echo etc): Image personally visualized and interpreted and Report Reviewed by me
Labs: Labs Reviewed by me
Old Records: Reviewed
--- NOTE | 2024-06-14 13:25 | CM ---
CM reviewed chart, patient seen bedside with liaison from [facility], able to offer patient a bed. Patient agreeable, referral faxed to [facility], reference number [id number]. Patient will require ambulance transport, forms on chart. CM will
continue to follow for all discharge planing needs.
Plan; await auth from [facility] for [facility]
[2024-06-14 15:36] VITALS: BP 124/57
[2024-06-14 16:45] LABS: Glucose - Point of Care 336 mg/dl (70-99)
[2024-06-14] MEDS: NOVOLOG FLEXPEN-MODERATE RESISTANCE 7 UNITS SC (16:50)
[2024-06-14] MEDS: LOVENOX 40 MG SC (17:02)
[2024-06-14] MEDS: LIPITOR 80 MG PO (17:02)
[2024-06-14 21:26] LABS: Glucose - Point of Care 103 mg/dl (70-99)
[2024-06-14 23:51] VITALS: BP 123/63
[2024-06-15 04:44] VITALS: BMI 29.0
[2024-06-15 06:00] VITALS: BMI 29.0
[2024-06-15 07:16] LABS: Glucose - Point of Care 70 mg/dl (70-99)
[2024-06-15 07:30] VITALS: BP 148/84
[2024-06-15] MEDS: NOVOLOG FLEXPEN-MODERATE RESISTANCE SC (07:36)
[2024-06-15] MEDS: ATIVAN 0.5 MG PO (07:41)
[2024-06-15] MEDS: WELLBUTRIN XL (24 hour extended release) 150 MG PO (07:41)
[2024-06-15] MEDS: NEURONTIN 300 MG PO ×3 (07:41→21:00)
[2024-06-15] MEDS: COZAAR 50 MG PO (07:41)
[2024-06-15] MEDS: DIFLUCAN 200 MG PO (07:42)
[2024-06-15] MEDS: TOPROL XL 12.5 MG PO (07:42)
[2024-06-15] MEDS: PROSCAR 5 MG PO (07:42)
[2024-06-15] MEDS: CELEXA 20 MG PO (07:42)
[2024-06-15] MEDS: DESENEX/MITRAZOL/ZEASORB 1 APPLIC TOPICAL ×2 (07:43→19:46)
[2024-06-15] MEDS: MYCOSTATIN CREAM 1 APPLIC TOPICAL ×2 (07:44→19:47)
--- NOTE | 2024-06-15 08:02 | PN.DE.MGMTRT ---
Insulin Management
- -
06/15/2024 Diabetes Management follow up
Patient admitted 06/09 with SOB, elevated glucose, metabolic alkalosis, no DKA. PMH: wheelchair bound due to hip contracture, prostate CA, HTN, HLD, KIM. Prior to admission was taking Tresiba 25 units daily, current A1C 11.1%, last was 6.8% in
November 2023. Cr 1.0, eGFR >60
Patient was started on DKA insulin infusion and transitioned off on 06/12 to Lantus 25 units and AC NovoLog
Pt awake, alert, sitting up in chair, offers no complaints, able to discuss diabetes care plan. States he routinely see Endocrine Dr. Rogers for diabetes care.
He reports taking 10-12 units of Humalog with meals at home
06/14 premeal glucose range 151 to 336 pre dinner. Lantus dose was increased to 35 units in AM and novolog AC was increased to 12. Received 7 units additional insulin with dinner. HS glucose 103
06/15 FBG 70 this AM. Will reduce AM lantus to home dose 25 units, and for AM meal AC novolog to 7 units with moderate corrective.
Pre lunch glucose 205, will increase ac novolog from 7 to 10 units.
Discussed with nurse. Will cont to follow and make further insulin adjustments if necessary
Pt has CGM- Meghan in place.
Diabetes History
- -
Type of Diabetes: 2 requiring insulin
Pre-Admission Diabetes Regimen
06/14/24
06:32
Creatinine 0.9
Lab Results
Hemoglobin A1c 11.1 % (4.0-5.6) H 06/10/24 03:12
Insulin Pump Settings
IP Diabetes Regimen
06/14/24 06/14/24 06/14/24
06:32 08:10 11:49
Glucose 149 H
POC Glucose 151 H 241 H
06/14/24 06/14/24 06/15/24
16:43 21:25 07:08
Glucose
POC Glucose 336 H 103 H 70
Patient Education
[2024-06-15] MEDS: LANTUS 0.25 UNITS SC (08:58)
[2024-06-15] MEDS: NOVOLOG FLEXPEN 7 UNITS SC ×3 (08:59→14:03)
[2024-06-15] MEDS: NOVOLOG FLEXPEN SC (09:01)
[2024-06-15] MEDS: LANTUS SC (09:02)
[2024-06-15 11:07] VITALS: BP 121/58
--- NOTE | 2024-06-15 11:26 | CM ---
CM reviewed chart, call to [facility] to check julia altamirano ([phone]), spoke with Blayne, informed auth is pending, confirmed clinicals have been received. CM will continue to follow for all discharge planning needs.
Plan; awaiting auth, discharge to [facility] once approved, will require ambulance transport.
[2024-06-15 11:38] LABS: Glucose - Point of Care 205 mg/dl (70-99)
--- NOTE | 2024-06-15 13:26 | W.PN.HOSP.TC ---
Today's Communication/Plan
-
Cleared for discharge
Assessment / Plan
Assessment / Plan
Impression:
Patient admitted to the hospital with elevated blood sugar and groin rash, adjusted insulin regimen and started on Diflucan by infectious disease.
No evidence of cellulitis, currently off antibiotic.
Seen by physical therapy recommended rehab.
Assessment/plan
balanoposthitis fungal groin rash
- appears fungal in origin, moist environment beneath foreskin
- air out to dry
- Desenex
- PO Diflucan
- ID to evaluate
06/11
Infectious disease signed off, continue Diflucan.Infectious disease signed off.
Patient had MRSA screen positive, discussed with infectious disease, no change on treatment plan.
Bilateral venous insufficiency (cellulitis ruled out)
-Initially was on empiric Ancef seen by infectious disease, recommended to stop antibiotic
Currently no leukocytosis or fever
Wound care consult
- venous Doppler 06/10
No evidence for deep venous thrombosis in either lower extremity
Arterial study bilateral lower extremity done on 06/10 showed
Right leg: BAMBI within normal limits measuring 1.14. TBI 0.64. Multiphasic flow throughout the leg with no focal or flow-limiting stenosis appreciated.
Left leg: BAMBI mildly decreased measuring 0.89. TBI 0.71. Multiphasic flow within the common femoral to popliteal arteries with no focal stenosis appreciated. Pedal flow also appears to multiphasic.
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
Ketosis without acidosis
Insulin sliding scale
Diabetic diet
Hemoglobin A1c 11.1
Initially started on insulin drip
Appreciate DM MARBLE CARVER for insulin management recs
06/12
Hyperglycemia overnight
Increased Lantus to 30 units at night and NovoLog to 7 units before addition of sliding scale
06/13
Improved blood sugar
06/14
Blood sugar improved, adjusted Premeal insulin to 12 units AC
06/15
Episode of hypoglycemia, insulin regimen adjusted.
Nonocclusive superficial left basilic vein thrombosis
Ultrasound showed small volume nonocclusive thrombus in the left basilic vein (superficial venous system).
No findings to suggest deep venous thrombosis of the left upper extremit
No need for anticoagulation, will give NSAIDs as needed
Pseudohyponatremia in setting of hyperglycemia
Hyperkalemia
resolved
Hx of Parox A. Fib
- continue rate control with Metoprolol
- not on AC; will review with patient nearer to discharge; per previously intolerant to Eliquis
Essential HTN
- continue BB/ARB
Hx of prostate cancer
Finasteride
Functional status; partially wheelchair bound to due to chronic contractures with hip flexion
- PT/OT recommended rehab : patient cleared for discharge
CODE STATUS: Full code
DVT prophylaxis: Lovenox
Diet: Diabetic diet
Total time spent on today's encounter was 55 minutes which included time spent in counseling the patient/family regarding diagnosis and treatment plan as listed above, goals of care, and symptom management. Case was discussed with nursing staff,
specialists, and care coordinators/case management. All labs and imaging personally reviewed by me. Remainder the time spent in detailed review of previous records, lab data, imaging, and other medical provider documentation.
Anticipated Discharge: Today
Subjective/Interval History
-
Date of Service: June 15, 2024
Patient seen and examined at bedside, denies any chest pain or shortness of breath, no abdominal pain, no nausea, no vomiting, no diarrhea or constipation.
Still pending placement.
Objective Data
-
Vital Signs:
Vital Signs
Temp Pulse Resp BP Pulse Ox
97.5 F 63 22 121/58 98
06/15/24 11:07 06/15/24 11:07 06/15/24 11:07 06/15/24 11:07 06/15/24 11:07
I&O
06/14/24 06/15/24 06/16/24
06:59 06:59 06:59
Intake Total 1260 / 1260 480 / 480
Output Total 1800 / 1800 150 / 150
Balance -540 / -540 330 / 330
Physical Exam
-
General: Well Developed, Well Nourished, No Apparent Distress and Comfortable
HEENT: Normocephalic, Atraumatic, Moist Mucous Membranes, No Ptosis, PERRLA and Nose Appears Normal
Respiratory: Clear to Auscultation and Non Labored Respirations
Cardiac: Regular Rhythm and S1/S2
Breast: Deferred by me
GI: Soft, Nontender, Nondistended and Normal Bowel Sounds
Genito-urinary: No Costovertebral Tender
Musculoskeletal: No Clubbing, No Cyanosis and No Edema
Skin: Other (Bilateral groin rash, bilateral lower extremity wounds)
Neuro: Awake, Alert, Oriented, AO x 3 and No Motor Deficits
Psych: Calm
Data Reviewed
-
Diagnostic Radiology: Image personally visualized and interpreted and Report Reviewed by me
CT Scan: Image personally visualized and interpreted and Report Reviewed by me
Ultrasound: Image personally visualized and interpreted and Report Reviewed by me
MRI: Image personally visualized and interpreted and Report Reviewed by me
Medical Tests (Nuc Med, Echo etc): Image personally visualized and interpreted and Report Reviewed by me
Labs: Labs Reviewed by me
Old Records: Reviewed
[2024-06-15] MEDS: NOVOLOG FLEXPEN-MODERATE RESISTANCE 3 UNITS SC (13:51)
[2024-06-15 15:00] VITALS: BP 122/71
[2024-06-15 17:08] LABS: Glucose - Point of Care 291 mg/dl (70-99)
[2024-06-15] MEDS: LIPITOR 80 MG PO (17:24)
[2024-06-15] MEDS: NOVOLOG FLEXPEN 10 UNITS SC (17:24)
[2024-06-15] MEDS: NOVOLOG FLEXPEN-MODERATE RESISTANCE 5 UNITS SC (17:25)
[2024-06-15] MEDS: LOVENOX 40 MG SC (17:25)
[2024-06-15 22:05] LABS: Glucose - Point of Care 257 mg/dl (70-99)
[2024-06-15 23:54] VITALS: BP 142/77
[2024-06-16 06:00] VITALS: BMI 28.5
[2024-06-16 07:30] VITALS: BP 149/74
[2024-06-16 07:39] LABS: Glucose - Point of Care 208 mg/dl (70-99)
[2024-06-16] MEDS: NOVOLOG FLEXPEN 10 UNITS SC (07:58)
[2024-06-16] MEDS: LANTUS 0.25 UNITS SC (07:59)
[2024-06-16] MEDS: NOVOLOG FLEXPEN-MODERATE RESISTANCE 3 UNITS SC (07:59)
[2024-06-16] MEDS: PROSCAR 5 MG PO (08:26)
[2024-06-16] MEDS: CELEXA 20 MG PO (08:26)
[2024-06-16] MEDS: ATIVAN 0.5 MG PO (08:26)
[2024-06-16] MEDS: NEURONTIN 300 MG PO (08:26)
[2024-06-16] MEDS: WELLBUTRIN XL (24 hour extended release) 150 MG PO (08:27)
[2024-06-16] MEDS: DIFLUCAN 200 MG PO (08:27)
[2024-06-16] MEDS: COZAAR 50 MG PO (08:28)
[2024-06-16] MEDS: TOPROL XL 12.5 MG PO (08:28)
--- NOTE | 2024-06-16 09:02 | PN.DE.MGMTRT ---
Insulin Management
- -
06/16/2024 Diabetes Management follow up
Patient admitted 06/09 with SOB, elevated glucose, metabolic alkalosis, no DKA. PMH: wheelchair bound due to hip contracture, prostate CA, HTN, HLD, KIM. Prior to admission was taking Tresiba 25 units daily, current A1C 11.1%, last was 6.8% in
November 2023. Cr 1.0, eGFR >60
Patient was started on DKA insulin infusion and transitioned off on 06/12 to Lantus 25 units and AC NovoLog
Pt awake, alert, sitting up in chair, offers no complaints, able to discuss diabetes care plan. States he routinely see Endocrine Dr. Rogers for diabetes care.
He reports taking 10-12 units of Humalog with meals at home
06/15 premeal glucose range 70 fasting to 291 pre dinner. Lantus dose was decreased to 25 units in AM and novolog AC was decreased to 10. Received 7 units additional insulin with dinner. HS glucose 257.
06/16 FBG 208 this AM. Will increase AM lantus to 35 units, (25 units already given, will give one time dose of 10 units now), and increase AC novolog to 12 units with low corrective.
Discussed with nurse. Will cont to follow and make further insulin adjustments if necessary
Pt has CGM- Meghan in place.
Diabetes History
- -
Type of Diabetes: 2 requiring insulin
Pre-Admission Diabetes Regimen
Lab Results
Hemoglobin A1c 11.1 % (4.0-5.6) H 06/10/24 03:12
Insulin Pump Settings
IP Diabetes Regimen
06/15/24 06/15/24 06/15/24
11:36 17:05 22:04
POC Glucose 205 H 291 H 257 H
06/16/24
07:29
POC Glucose 208 H
Meal type: Lunch
Amount consumed: 45%
Patient Education
[2024-06-16] MEDS: LANTUS 0.1 UNITS SC (09:58)
[2024-06-16] MEDS: MYCOSTATIN CREAM 1 APPLIC TOPICAL (09:59)
[2024-06-16] MEDS: DESENEX/MITRAZOL/ZEASORB 1 APPLIC TOPICAL (09:59)
--- NOTE | 2024-06-16 10:33 | CM ---
Patient has been approved by insurance 5 days Auth [id number], for 5 days skilled level 1. Auth provided to admissions at [facility], and patient's spouse made aware of cost of w/c transport to [facility], physician also made aware.
[facility]
Report [phone]

Plan; Patient to transfer to [facility] to at 2pm.
--- NOTE | 2024-06-16 10:44 | W.PN.HOSP.TC ---
Today's Communication/Plan
-
Discharge to SNF
Assessment / Plan
Assessment / Plan
Impression:
Patient admitted to the hospital with elevated blood sugar and groin rash, adjusted insulin regimen and started on Diflucan by infectious disease.
No evidence of cellulitis, currently off antibiotic.
Seen by physical therapy recommended rehab.
Assessment/plan
balanoposthitis fungal groin rash
- appears fungal in origin, moist environment beneath foreskin
- air out to dry
- Desenex
- PO Diflucan
- ID to evaluate
06/11
Infectious disease signed off, continue Diflucan.Infectious disease signed off.
Patient had MRSA screen positive, discussed with infectious disease, no change on treatment plan.
06/16
Discharge to SNF today
Bilateral venous insufficiency (cellulitis ruled out)
-Initially was on empiric Ancef seen by infectious disease, recommended to stop antibiotic
Currently no leukocytosis or fever
Wound care consult
- venous Doppler 06/10
No evidence for deep venous thrombosis in either lower extremity
Arterial study bilateral lower extremity done on 06/10 showed
Right leg: BAMBI within normal limits measuring 1.14. TBI 0.64. Multiphasic flow throughout the leg with no focal or flow-limiting stenosis appreciated.
Left leg: BAMBI mildly decreased measuring 0.89. TBI 0.71. Multiphasic flow within the common femoral to popliteal arteries with no focal stenosis appreciated. Pedal flow also appears to multiphasic.
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
Ketosis without acidosis
Insulin sliding scale
Diabetic diet
Hemoglobin A1c 11.1
Initially started on insulin drip
Appreciate DM [employer]PER[employer] for insulin management recs
06/12
Hyperglycemia overnight
Increased Lantus to 30 units at night and NovoLog to 7 units before addition of sliding scale
06/13
Improved blood sugar
06/14
Blood sugar improved, adjusted Premeal insulin to 12 units AC
4/2
Episode of hypoglycemia, insulin regimen adjusted.
4/3
Discharge to SNF today
Nonocclusive superficial left basilic vein thrombosis
Ultrasound showed small volume nonocclusive thrombus in the left basilic vein (superficial venous system).
No findings to suggest deep venous thrombosis of the left upper extremit
No need for anticoagulation, will give NSAIDs as needed
Pseudohyponatremia in setting of hyperglycemia
Hyperkalemia
resolved
Hx of Parox A. Fib
- continue rate control with Metoprolol
- not on AC; will review with patient nearer to discharge; per previously intolerant to Eliquis
Essential HTN
- continue BB/ARB
Hx of prostate cancer
Finasteride
Functional status; partially wheelchair bound to due to chronic contractures with hip flexion
- PT/OT recommended rehab : patient cleared for discharge
CODE STATUS: Full code
DVT prophylaxis: Lovenox
Diet: Diabetic diet
Total time spent on today's encounter was 55 minutes which included time spent in counseling the patient/family regarding diagnosis and treatment plan as listed above, goals of care, and symptom management. Case was discussed with nursing staff,
specialists, and care coordinators/case management. All labs and imaging personally reviewed by me. Remainder the time spent in detailed review of previous records, lab data, imaging, and other medical provider documentation.
Anticipated Discharge: Today
Subjective/Interval History
-
Date of Service: June 16, 2024
Patient seen and examined at bedside, denies any chest pain or shortness of breath, no abdominal pain, no nausea, no vomiting, no diarrhea or constipation.
For discharge to SNF today.
Objective Data
-
Vital Signs:
Vital Signs
Temp Pulse Resp BP Pulse Ox
97.5 F 76 20 149/74 97
06/16/24 07:30 06/16/24 08:28 06/16/24 07:30 06/16/24 08:28 06/16/24 07:30
I&O
06/15/24 06/16/24 06/17/24
06:59 06:59 06:59
Intake Total 480 / 480 1200 / 1200
Output Total 150 / 150 200 / 200
Balance 330 / 330 1000 / 1000
Physical Exam
-
General: Well Developed, Well Nourished, No Apparent Distress and Comfortable
HEENT: Normocephalic, Atraumatic, Moist Mucous Membranes, No Ptosis, PERRLA and Nose Appears Normal
Respiratory: Clear to Auscultation and Non Labored Respirations
Cardiac: Regular Rhythm and S1/S2
Breast: Deferred by me
GI: Soft, Nontender, Nondistended and Normal Bowel Sounds
Genito-urinary: No Costovertebral Tender
Musculoskeletal: No Clubbing, No Cyanosis and No Edema
Skin: Other (Bilateral groin rash, bilateral lower extremity wounds)
Neuro: Awake, Alert, Oriented, AO x 3 and No Motor Deficits
Psych: Calm
Data Reviewed
-
Diagnostic Radiology: Image personally visualized and interpreted and Report Reviewed by me
CT Scan: Image personally visualized and interpreted and Report Reviewed by me
Ultrasound: Image personally visualized and interpreted and Report Reviewed by me
MRI: Image personally visualized and interpreted and Report Reviewed by me
Medical Tests (Nuc Med, Echo etc): Image personally visualized and interpreted and Report Reviewed by me
Labs: Labs Reviewed by me
Old Records: Reviewed
[2024-06-16 12:00] VITALS: BP 145/81
[2024-06-16 12:01] LABS: Glucose - Point of Care 222 mg/dl (70-99)
[2024-06-16] MEDS: NOVOLOG FLEXPEN 12 UNITS SC (12:57)
[2024-06-16] MEDS: NOVOLOG FLEXPEN-LOW RESISTANCE 2 UNITS SC (12:58)
== END 2024-06-16 15:18 | DRG 638 ==
LOC: 4 WEST ACU 16:37
PROVIDERS: Internal Medicine; Nurse Practitioner Primary Care; ADMITTING PHYSICIAN Internal Medicine; ATTENDING PHYSICIAN General Practice; CONSULT PHYSICIAN Internal Medicine Critical Care Medicine; EMERGENCY PHYSICIAN Student in an Organized Health Care Education/Training Program; OTHER PHYSICIAN Internal Medicine Infectious Disease; PRIMARYCARE PHYSICIAN Family Medicine
DX: E11.65 Type 2 diabetes mellitus with hyperglycemia (principal); I82.612 Acute embolism and thrombosis of superficial veins of left upper extremity; N47.6 Balanoposthitis; G47.33 Obstructive sleep apnea (adult) (pediatric); G35 Multiple sclerosis; F41.9 Anxiety disorder, unspecified; E87.5 Hyperkalemia; E86.0 Dehydration; E78.2 Mixed hyperlipidemia; I87.2 Venous insufficiency (chronic) (peripheral); B35.6 Tinea cruris; L89.42 Pressure ulcer of contiguous site of back, buttock and hip, stage 2; I48.0 Paroxysmal atrial fibrillation; I10 Essential (primary) hypertension; K21.9 Gastro-esophageal reflux disease without esophagitis; Z79.4 Long term (current) use of insulin; Z99.3 Dependence on wheelchair; Z90.79 Acquired absence of other genital organ(s); Z85.46 Personal history of malignant neoplasm of prostate
CPT/HCPCS: 71045; 80048; 80053; 81003; 81015; 82010; 82805; 82947; 82962; 83036; 83605; 85025; 85027; 85610; 85730; 87040; 87070; 87086; 87147; 93005; 93922; 93925; 93970; 93971; 96361; 96374; 96375; 97163; 97167; 97530; 97535; 99291

== ENCOUNTER 2024-08-03 10:17 | Emergency (ER) | payer OTHER, SELFPAY ==
[2024-08-03 10:20] VITALS: BP 152/80; BMI 27.9
[2024-08-03 10:21] VITALS: BP 152/80
[2024-08-03 10:24] LABS: Glucose - Point of Care 120 mg/dl (70-99)
[2024-08-03 10:36] LABS: % Basophils 0.3 % (0-2); % Eosinophils 0.7 % (0-6); % Immature Granulocytes 0.5 % (0-0.5); % Lymphocytes 7.7 % (20.5-51.1); % Monocytes 8.9 % (1.7-9.3); % Neutrophils 81.9 % (42.2-75.2); Absolute Eosinophils 0.1 10^3/uL (0-0.7); Absolute Immature Granulocytes 0.1 10^3/uL (0-0.05); Absolute Lymphocytes 0.8 10^3/uL (1.2-3.4); Absolute Monocytes 0.9 10^3/uL (0.1-0.6); Hematocrit 35.6 % (39.0-52.0); Hemoglobin 12.2 g/dL (13.0-18.0); Mean Corp Hgb Conc. 34.3 g/dL (33.0-37.0); Mean Corpuscular Hgb 31.9 pg (27.0-31.0); Mean Corpuscular Volume 93.2 fL (80.0-94.0); Mean Platelet Volume 9.2 fL (7.4-10.4); Nucleated Red Blood Cells % 0 % (-); Platelet Count 295 10^3/uL (130-400); Red Blood Cell Count 3.82 10^6/uL (4.70-6.10); Red Cell Dist. Width 13.7 % (11.5-14.5); White Blood Cell Count 9.8 10^3/uL (4.8-10.8)
--- NOTE | 2024-08-03 10:44 | ED.GENMED ---
History of Present Illness
General
Chief Complaint: Blood Sugar Problem
Source: patient and ambulance crew
Time Seen by Provider: 08/03/24 10:19
History of Present Illness
History of Present Illness:
78-year-old male presents to the emergency room [facility] where he was noted to be confused. Patient found to be hypoglycemic by paramedics. He was given D10 with improvement of his mental status. His Accu-Chek here is 120s.
It was apparently in the 30s prehospital. Patient states he did eat breakfast but it was not to his liking and probably did not eat much of it. Currently patient has no complaints.
Past History
Past History
ED Past Medical History: GERD, Hypercholesterolemia, IDDM and Other (MS)
ED Past Surgical History: Appendectomy, Orthopedic and Urological
Social History
Tobacco: Non-smoker
Alcohol: Occasional
Drug: None
Personal:
Living: with family
Employment: Retired
Family History
Family History: Other (Noncontributory)
Phy Exam
Physical Exam
Physical Exam:
General: Awake, Alert, Oriented X3. No acute distress. Appears stated age
Vitals: unremarkable
Head: Atraumatic
Eyes: Pupils equal, EOMI
Throat: Airway intact, no exudates
Neck: Trachea midline
Lungs: Clear and equal b/l
Heart: Regular rate, no murmurs
Abd: Soft, Nontender, No pulsatile mass
Neuro: Nonfocal
Skin: Warm, dry, no rash
Extremities: pulses equal b/l, no edema
Course
Orders/Labs/Results
Orders:
Orders
08/03/24 10:18
IV Insert/Care/Rem.- Treatment PRN
08/03/24 10:25
Complete Blood Count/With Diff Urgent
Comprehensive Metabolic Panel Urgent
08/03/24 14:08
Acetaminophen [Tylenol] 1,000 mg .ROUTE .STK-MED ONE
08/03/24 14:10
Acetaminophen [Tylenol] 1,000 mg PO NOW STA
Abnormal Lab Results
08/03/24 08/03/24 08/03/24
10:22 10: 11:22
RBC 3.82 L 10^6/uL
(4.70-6.10)
Hgb 12.2 L g/dL
(13.0-18.0)
Hct 35.6 L %
(39.0-52.0)
MCH 31.9 H pg
(27.0-31.0)
Abs Immat Gran (auto) 0.1 H 10^3/uL
(0-0.05)
Absolute Neuts (auto) 8.0 H 10^3/uL
(1.4-6.5)
Absolute Lymphs (auto) 0.8 L 10^3/uL
(1.2-3.4)
Absolute Monos (auto) 0.9 H 10^3/uL
(0.1-0.6)
Neutrophils % 81.9 H %
(42.2-75.2)
Lymphocytes % 7.7 L %
(20.5-51.1)
BUN 29 H mg/dl
(9-20)
Glucose 144 H mg/dl
(70-99)
Albumin 3.2 L g/dl
(3.5-5.0)
POC Glucose 120 H mg/dl 116 H mg/dl
(70-99) (70-99)
08/03/24
12:23
RBC
Hgb
Hct
MCH
Abs Immat Gran (auto)
Absolute Neuts (auto)
Absolute Lymphs (auto)
Absolute Monos (auto)
Neutrophils %
Lymphocytes %
BUN
Glucose
Albumin
POC Glucose 132 H mg/dl
(70-99)
08/03/24 10:25
08/03/24 10:25
Vital Signs
Initial and Last Documented VS:
Initial Vital Signs
Temp Pulse Resp BP Pulse Ox
97.5 F 72 24 152/80 95
08/03/24 10:20 08/03/24 10:20 08/03/24 10:20 08/03/24 10:20 08/03/24 10:20
Last Documented Vital Signs
Temp Pulse Resp BP Pulse Ox
97.5 F 71 22 152/77 98
08/03/24 10:20 08/03/24 14:00 08/03/24 14:00 08/03/24 14:00 08/03/24 11:00
MDM/Problems Addressed
Differential Diagnosis Includes:
Hypoglycemia from inadequate calorie intake, hypoglycemia from therapeutic misadventure,
MDM/Problems Addressed:
Patient presents after being found with an altered mental status at his facility. Glucose measurement was quite low. He improved with D10 provided by paramedics. Patient arrives to the emergency room here awake and alert. He was given a meal and
his glucose was measured several times and found to be stable. Patient did develop some low back pain from laying in bed for which she was given Tylenol. Patient stable for discharge back to his facility
*Pulse Oximetry
Patient hypoxic: no
*Critical Care Note
Total Time (30-74mins, 75-104mins- exclusive of procedures): Not Applicable
ED Attending Note
-
Portions of this chart may have been created with voice recognition software.� Occasional wrong word or��sound alike� substitutions may have occurred due to the inherent limitations of voice recognition software.
Discharge Plan
Departure
Patient Disposition: Fdc/SNF
Date of Disposition: 08/03/24
Time of Disposition: 12:18
Patient with high blood pressure during this ER visit?: No
Condition: Good
Discharge Problem:
Hypoglycemia
Instructions: Low Blood Sugar, Adult (DC)
Prescriptions:
No Action
finasteride 5 MG tablet
5 mg PO DAILY
bupropion HCl 150 MG tablet extended release 24 hr
150 mg PO DAILY
atorvastatin 80 MG tablet
80 mg PO QPM
citalopram 20 MG tablet
20 mg PO DAILY
metoprolol succinate 25 mg Tablet Extended Release 24 Hr
12.5 mg PO DAILY Qty: 30 0RF
lorazepam 0.5 mg Tablet
0.5 mg PO DAILY
calcium carbonate [Tums] 200 mg calcium (500 mg) Tablet,Chewable
400 mg PO TIDPRN PRN (Reason: gerd)
fluconazole 200 mg Tablet
200 mg PO DAILY Qty: 4 0RF
miconazole nitrate [Miconazorb AF] 2 % Powder
1 applic topical BID Qty: 0 0RF
nystatin 100,000 unit/gram Cream
1 applic topical BID Qty: 0 0RF
gabapentin 300 mg Capsule
300 mg PO TID Qty: 0 0RF
insulin lispro [Humalog U-100 Insulin] 100 unit/mL solution
1 sliding scale dose SC DIRECTED Qty: 0 0RF
insulin degludec [Tresiba FlexTouch U-100] 100 unit/mL (3 mL) insulin pen
35 unit SC DAILY Qty: 0 0RF
cyclobenzaprine 10 mg Tablet
5 mg PO Q8HPRN PRN (Reason: muscle spasm) Qty: 0 0RF
insulin aspart U-100 100 unit/mL (3 mL) Insulin Pen
12 unit SC AC Qty: 0 0RF
losartan 50 MG tablet
50 mg PO DAILY 0RF
Referrals:
Daren Durant DO [Family Provider] -
Interventions
Interventions:
*Risk Screen - Suicide Last Done: 08/03/24 10:20
*General Assessment Last Done: 08/03/24 10:20
*Neglect/Abuse Screening Last Done: 08/03/24 10:20
*ED- Fall Risk Assessment Last Done: 08/03/24 10:20
*ED COVID-19 Vaccine History Last Done: 08/03/24 10:20
*Nursing Disposition Last Done: 08/03/24 14:49
ED- Neurological Assessment Last Done: 08/03/24 11:06
Discharge Date and Time
Discharge Date/Time: 08/03/24 14:49
Print Language: EAST [place]
[2024-08-03 10:49] LABS: ALT (SGPT) 13 U/L (0-50); AST (SGOT) 23 U/L (17-59); Albumin 3.2 g/dl (3.5-5.0); Alkaline Phosphatase 83 U/L (38-126); Blood Urea Nitrogen 29 mg/dl (9-20); Calcium 8.6 mg/dl (8.4-10.2); Carbon Dioxide 29 mmol/L (22-30); Chloride 105 mmol/L (98-107); Estimated Creatinine Clearance 75 ml/min; Glucose 144 mg/dl (70-99); Potassium 4.3 mmol/L (3.5-5.1); Sodium 138 mmol/L (135-145); Total Bilirubin 0.8 mg/dl (0.2-1.3); Total Protein 6.9 g/dl (6.3-8.2); eGFR > 60.00
[2024-08-03 11:00] VITALS: BP 127/74
--- NOTE | 2024-08-03 11:06 | EDRN ---
Patient is eating animal crackers and orange juice, will re-check blood sugar in a bit
[2024-08-03 11:23] LABS: Glucose - Point of Care 116 mg/dl (70-99)
[2024-08-03 12:00] VITALS: BP 112/60
[2024-08-03 12:24] LABS: Glucose - Point of Care 132 mg/dl (70-99)
[2024-08-03 13:00] VITALS: BP 142/83
[2024-08-03 14:00] VITALS: BP 152/77
--- NOTE | 2024-08-03 14:00 | EDRN ---
Transport ready to pick patient up, patient states his back is sore, spoke with Dr. Sher, Tylenol ordered to be given prior to being transport
[2024-08-03] MEDS: TYLENOL 1000 MG PO (14:10)
== END 2024-08-03 14:49 ==
LOC: EMR 10:17
PROVIDERS: EMERGENCY PHYSICIAN Emergency Medicine; FAMILY PHYSICIAN Internal Medicine
DX: E11.649 Type 2 diabetes mellitus with hypoglycemia without coma (principal); M54.50 Low back pain, unspecified; G35 Multiple sclerosis; E78.00 Pure hypercholesterolemia, unspecified; K21.9 Gastro-esophageal reflux disease without esophagitis; Z91.048 Other nonmedicinal substance allergy status
CPT/HCPCS: 99283; 80053; 82962; 85025

== ENCOUNTER 2024-08-25 17:07 | Inpatient (IN) | payer MEDICARE, SELFPAY ==
[2024-08-25] VITALS (18 sets, daily range): BP systolic 86–121; BP diastolic 49–98; BMI 25.5; BMI 24.1
[2024-08-25 14:02] LABS: Glucose - Point of Care 164 mg/dl (70-99)
[2024-08-25 14:29] LABS: % Basophils 0.3 % (0-2); % Eosinophils 0.3 % (0-6); % Immature Granulocytes 0.6 % (0-0.5); % Lymphocytes 11.1 % (20.5-51.1); % Monocytes 7.6 % (1.7-9.3); % Neutrophils 80.1 % (42.2-75.2); Absolute Immature Granulocytes 0.1 10^3/uL (0-0.05); Absolute Lymphocytes 1.7 10^3/uL (1.2-3.4); Absolute Monocytes 1.2 10^3/uL (0.1-0.6); Absolute Neutrophils 12.5 10^3/uL (1.4-6.5); Hematocrit 33.1 % (39.0-52.0); Hemoglobin 11.6 g/dL (13.0-18.0); Lactic Acid 1.6 mmol/L (0.7-2.0); Mean Corpuscular Hgb 30.3 pg (27.0-31.0); Mean Corpuscular Volume 86.4 fL (80.0-94.0); Mean Platelet Volume 10.2 fL (7.4-10.4); Nucleated Red Blood Cells % 0 % (-); Platelet Count 260 10^3/uL (130-400); Red Blood Cell Count 3.83 10^6/uL (4.70-6.10); Red Cell Dist. Width 14.3 % (11.5-14.5); White Blood Cell Count 15.6 10^3/uL (4.8-10.8)
[2024-08-25 14:33] LABS: INR 1.03
[2024-08-25 14:47] LABS: ALT (SGPT) 16 U/L (0-50); AST (SGOT) 28 U/L (17-59); Albumin 2.7 g/dl (3.5-5.0); Alkaline Phosphatase 130 U/L (38-126); Blood Urea Nitrogen 37 mg/dl (9-20); Calcium 8.6 mg/dl (8.4-10.2); Carbon Dioxide 30 mmol/L (22-30); Chloride 103 mmol/L (98-107); Estimated Creatinine Clearance 57 ml/min; Glucose 148 mg/dl (70-99); Potassium 3.6 mmol/L (3.5-5.1); Sodium 137 mmol/L (135-145); Total Bilirubin 0.8 mg/dl (0.2-1.3); Total Protein 6.2 g/dl (6.3-8.2); eGFR 55.88
--- NOTE | 2024-08-25 14:48 | ED.GENMED ---
History of Present Illness
General
Chief Complaint: Change in Mental Status
Time Seen by Provider: 08/25/24 14:36
History of Present Illness
History of Present Illness:
79-year-old male sent to the emergency room from [facility] for evaluation of of decreased mental status. Patient found to be febrile here 1-1.3. He admits to being forgetful recently and in fact does not really appear to know why
he is here. He denies any chest pain, shortness of breath, nausea.
Past History
Past History
ED Past Medical History: GERD, Hypercholesterolemia, IDDM and Other (MS)
ED Past Surgical History: Appendectomy, Orthopedic and Urological
Social History
Tobacco: Non-smoker
Alcohol: Occasional
Drug: None
Personal:
Living: with family
Employment: Retired
Family History
Family History: Other (Noncontributory)
Phy Exam
Physical Exam
Physical Exam:
General: Awake, Alert, confused, appears chronically ill
Vitals: Febrile
Head: Atraumatic
Eyes: Pupils equal, EOMI
Throat: Airway intact, no exudates, dry mucosa
Neck: Trachea midline
Lungs: Clear and equal b/l
Heart: Regular rate, no murmurs
Abd: Soft, Nontender, No pulsatile mass
Neuro: Cranial nerves intact, muscle strength equal bilaterally, cerebellar exam normal
Skin: Warm, dry, no rash
Extremities: pulses equal b/l, no edema, cold somewhat cyanotic digits bilateral upper extremities
Sepsis
Sepsis Screening
Sepsis Assessment: Sepsis
Sepsis Screen
Sepsis Screen: Sepsis
Date: 08/25/24
Time: 16:03
Course
Orders/Labs/Results
Orders:
Orders
08/25/24 14:08
Comprehensive Metabolic Panel Urgent
Prothrombin Time Urgent
Blood Culture Q20M
YORDAN Source: Blood/Venous
Specimen Description:
Comment: Urgent from separate sites. If patient screens positive for possible sepsis
08/25/24 14:09
Complete Blood Count/With Diff Urgent
Lactic Acid Q4H
Comment: ON ICE, CANCEL 2ND ORDER IF FIRST LACTIC ACID LEVEL <2
08/25/24 14:10
Blood Culture Q20M
YORDAN Source: Blood/Venous
Specimen Description:
Comment: Urgent from separate sites. If patient screens positive for possible sepsis
08/25/24 14:25
Urinalysis Reflex To Culture Urgent
Date Specimen was Collected: 08/25/24
Time Specimen was Collected: 14:12
Urine Microscopic Reflex Cult Urgent
Urine Culture Urgent
YORDAN Source: U
Specimen Description:
Date Specimen was Collected: 08/25/24
Time Specimen was Collected: 14:12
08/25/24 14:43
CR Chest - 2 Views Urgent
Comment:
Reason For Exam: fever
08/25/24 14:44
Acetaminophen [Tylenol] 650 mg PO NOW STA
08/25/24 14:50
0.9% Sodium Chloride 1000 ml [Nss] 1,000 ml IV BOLUS
08/25/24 15:10
COVID-19 Antigen Urgent
Source: Nasal Swab
08/25/24 15:54
CT Abd/pel Without Iv Or Oral Urgent
Comment:
Reason For Exam: eval for stone/hydronephrosis
CefTRIAXone [Rocephin] 1,000 mg IV NOW STA
08/25/24 18:15
Lactic Acid Q4H
Comment: ON ICE, CANCEL 2ND ORDER IF FIRST LACTIC ACID LEVEL <2
Abnormal Lab Results
08/25/24 08/25/24 08/25/24
14:00 14:08 14:09
WBC 15.6 H 10^3/uL
(4.8-10.8)
RBC 3.83 L 10^6/uL
(4.70-6.10)
Hgb 11.6 L g/dL
(13.0-18.0)
Hct 33.1 L %
(39.0-52.0)
Abs Immat Gran (auto) 0.1 H 10^3/uL
(0-0.05)
Absolute Neuts (auto) 12.5 H 10^3/uL
(1.4-6.5)
Absolute Monos (auto) 1.2 H 10^3/uL
(0.1-0.6)
Immature Gran % 0.6 H %
(0-0.5)
Neutrophils % 80.1 H %
(42.2-75.2)
Lymphocytes % 11.1 L %
(20.5-51.1)
BUN 37 H mg/dl
(9-20)
Glucose 148 H mg/dl
(70-99)
Alkaline Phosphatase 130 H U/L
(38-126)
Total Protein 6.2 L g/dl
(6.3-8.2)
Albumin 2.7 L g/dl
(3.5-5.0)
Ur Occult Blood Reflex
Leukocyte Esterase Rfl
Urine RBC
Urine WBC (Reflex)
Urine Bacteria (Reflex)
Urine Glucose
Urine Albumin (Reflex)
POC Glucose 164 H mg/dl
(70-99)
08/25/24
14:25
WBC
RBC
Hgb
Hct
Abs Immat Gran (auto)
Absolute Neuts (auto)
Absolute Monos (auto)
Immature Gran %
Neutrophils %
Lymphocytes %
BUN
Glucose
Alkaline Phosphatase
Total Protein
Albumin
Ur Occult Blood Reflex 4+ A
(Negative)
Leukocyte Esterase Rfl 3+ A
(Negative)
Urine RBC 30-40 A /HPF
(0-2)
Urine WBC (Reflex) 60-70 A /HPF
(0-5)
Urine Bacteria (Reflex) Many A
(Negative)
Urine Glucose 2+ A
(Negative)
Urine Albumin (Reflex) 2+ A
(Neg - Trace)
POC Glucose
08/25/24 14:09
08/25/24 14:08
Vital Signs
Initial and Last Documented VS:
Initial Vital Signs
Pulse Resp BP
90 25 120/58
08/25/24 13:54 08/25/24 13:54 08/25/24 13:54
Last Documented Vital Signs
Temp Pulse Resp BP Pulse Ox
101.3 F H 84 21 101/60 93
08/25/24 13:57 08/25/24 15:00 08/25/24 15:00 08/25/24 15:00 08/25/24 15:00
MDM/Problems Addressed
Differential Diagnosis Includes:
UTI, influenza, pneumonia, COVID
MDM/Problems Addressed:
Patient presents with fever, confusion, generalized weakness. Patient found have a temperature here 1-1.3. Labs show a elevated white count at 15.6. His BUN is a bit elevated. Creatinine appears to be at baseline. Patient's urinalysis is
concerning for urinary tract infection. He has 3+ leukocyte esterase, 6-70 WBCs per high-power field. There are also RBCs 30-40 per high-power field. Chest x-ray pending but clinically seems to be at low risk for pneumonia.
*Pulse Oximetry
Patient hypoxic: no
Comment: 98
*Critical Care Note
Total Time (30-74mins, 75-104mins- exclusive of procedures): Not Applicable
ED Attending Note
-
Portions of this chart may have been created with voice recognition software.� Occasional wrong word or��sound alike� substitutions may have occurred due to the inherent limitations of voice recognition software.
Discharge Plan
Departure
Patient Disposition: Admit
Date of Disposition: 08/25/24
Time of Disposition: 16:00
Admit to: Med/Surg
Presentation/result/management discussed w/ accepting MD/DO: Hospitalist
Condition: Fair
Discharge Problem:
Fever, Acute UTI, Sepsis
Prescriptions:
No Action
finasteride 5 MG tablet
5 mg PO DAILY
bupropion HCl 150 MG tablet extended release 24 hr
150 mg PO DAILY
atorvastatin 80 MG tablet
80 mg PO QPM
citalopram 20 MG tablet
20 mg PO DAILY
metoprolol succinate 25 mg Tablet Extended Release 24 Hr
12.5 mg PO DAILY Qty: 30 0RF
lorazepam 0.5 mg Tablet
0.5 mg PO DAILY
calcium carbonate [Tums] 200 mg calcium (500 mg) Tablet,Chewable
400 mg PO TIDPRN PRN (Reason: gerd)
fluconazole 200 mg Tablet
200 mg PO DAILY Qty: 4 0RF
miconazole nitrate [Miconazorb AF] 2 % Powder
1 applic topical BID Qty: 0 0RF
nystatin 100,000 unit/gram Cream
1 applic topical BID Qty: 0 0RF
gabapentin 300 mg Capsule
300 mg PO TID Qty: 0 0RF
insulin lispro [Humalog U-100 Insulin] 100 unit/mL solution
1 sliding scale dose SC DIRECTED Qty: 0 0RF
insulin degludec [Tresiba FlexTouch U-100] 100 unit/mL (3 mL) insulin pen
35 unit SC DAILY Qty: 0 0RF
cyclobenzaprine 10 mg Tablet
5 mg PO Q8HPRN PRN (Reason: muscle spasm) Qty: 0 0RF
insulin aspart U-100 100 unit/mL (3 mL) Insulin Pen
12 unit SC AC Qty: 0 0RF
losartan 50 MG tablet
50 mg PO DAILY 0RF
Referrals:
Daren Durant I., DO [Family Provider, Internal Medicine]
Interventions
Interventions:
*Risk Screen - Suicide Last Done: 08/25/24 13:57
*General Assessment Last Done: 08/25/24 13:57
*Neglect/Abuse Screening Last Done: 08/25/24 14:08
*ED- Fall Risk Assessment Last Done: 08/25/24 14:08
*ED COVID-19 Vaccine History Last Done: 08/25/24 14:08
ED- Pulmonary Assessment Last Done: 08/25/24 14:09
ED- Neurological Assessment Last Done: 08/25/24 14:09
ED- Cardiac Assessment Last Done: 08/25/24 14:09
ED Swallowing Screen Last Done: 08/25/24 15:00
Discharge Date and Time
Print Language: MALTESE
[2024-08-25 14:52] LABS: Urine Albumin 2+ (Neg - Trace); Urine Bilirubin Negative (Negative); Urine Character Clear (Clear); Urine Color Yellow; Urine Glucose 2+ (Negative); Urine Ketone Negative (Negative); Urine Leukocyte 3+ (Negative); Urine Nitrite Negative (Negative); Urine Occult Blood 4+ (Negative); Urine Specific Gravity 1.025 (<1.030); Urine Urobilinogen Negative (Neg - 1+)
[2024-08-25] MEDS: NSS 1000 IV ×3 (15:03→20:57)
[2024-08-25] MEDS: TYLENOL 650 MG PO (15:03)
[2024-08-25 15:13] LABS: Urine Squamous Cell 0-2 /LPF (Few)
[2024-08-25 15:14] LABS: Urine Mucus Few; Urine Red Blood Cell 30-40 /HPF (0-2); Urine White Cell 60-70 /HPF (0-5)
[2024-08-25 15:15] LABS: Urine Bacteria Many (Negative)
[2024-08-25 15:40] LABS: COVID-19 Antigen Negative (Negative)
[2024-08-25] MEDS: ROCEPHIN 1000 MG IV (16:06)
--- NOTE | 2024-08-25 16:24 | HPS.HSE ---
Family Physician
-
Family Physician: Daren Durant
Chief Complaint
-
Fever and vomiting
History of Present Illness
79-year-old male with past medical history for hypertension, hyperlipidemia, type 2 diabetes, GERD, prostate cancer, restrictive lung disease A-fib sent to the emergency room from [facility] for evaluation of of decreased mental
status. Patient was noted to have a fever of 101.3. Patient stated he vomited multiple times and had an episode of diarrhea. Patient denied any abdominal pain. Patient denied dysuria hematuria. Patient denied chest pain or short of breath.
Patient denied headache or dizzy. Patient denied congestion, cough.
Upon arrival he was noted to have a temp of 101, WBC 15. Positive UA.. Patient received a dose of ceftriaxone in ER. Admitting for further management
Medical History
Past Medical History
Past Medical History: Reports Other
Additional Past Medical History:
Multiple sclerosis
Hyperlipidemia
Hypertension
Type 2 diabetes
Atherosclerosis of aorta
GERD
Vergara's esophagus
Prostate cancer
Lumbar radiculopathy
Obstructive sleep apnea
Restrictive lung disease
A-fib
Depression
Past Surgical History: Reports Other
Additional Past Surgical History:
Hernia repair
Date appendectomy
TURP
Left hip ORIF
Social History
Tobacco: Non-smoker
Alcohol: None
Drug: None
Living: Jail
Family History
Family History: Not pertinent
Allergies / Home Medications
Allergies reflects when Allergies were last updated in [employer].
Home Medications with original date entered in [employer]
Allergy/Medication List:
Allergies
Allergy/AdvReac Type Severity Reaction Status Date / Time
pollen extracts Allergy RHINITIS-EN Verified 08/25/24 14:03
VIRONMENTAL
Home Medications
bupropion HCl 150 mg 24 hr tablet, extended release 150 mg PO DAILY Depression 06/25/17
finasteride 5 mg tablet 5 mg PO DAILY prostate 06/25/17
losartan 50 mg tablet 50 mg PO DAILY 07/15/17
atorvastatin 80 mg tablet 80 mg PO QPM High cholesterol 08/02/20
citalopram 20 mg tablet 20 mg PO DAILY Depression 08/02/20
metoprolol succinate 25 mg tablet,extended release 24 hr 12.5 mg (1/2 x 25 mg) PO DAILY #30 tabs 12/13/23
lorazepam 0.5 mg tablet 0.5 mg PO DAILY ANXIETY 06/09/24
acetaminophen 325 mg tablet (Tylenol) 650 mg PO Q4H PRN PAIN 08/25/24
gabapentin 300 mg capsule 300 mg PO TID NEUROPATHIC PAIN 08/25/24
insulin degludec 100 unit/mL (3 mL) subcutaneous pen (Tresiba FlexTouch U-100 insulin) 35 unit SC QHS 08/25/24
insulin lispro 100 unit/mL subcutaneous solution (Humalog U-100 Insulin) 12 unit SC TID 08/25/24
multivitamin 1 tab PO DAILY 08/25/24
Review of Systems
-
Constitutional: Reports Fever
EENT: Reports No Symptoms
Respiratory: Reports No Symptoms
Cardiac: Reports No Symptoms
Abdomen/GI: Reports Nausea, Vomiting and Diarrhea
: Reports No Symptoms
Musculoskeletal: Reports No Symptoms
Skin: Reports No Symptoms
Neurological: Reports No Symptoms
Endocrine: Reports No Symptoms
Hematologic/Lymphatic: Reports No Symptoms
Psych: Reports No Symptoms
Physical Exam
Vital Signs
Vital Signs
Temp Pulse Resp BP Pulse Ox
101.3 F H 84 21 101/60 93
08/25/24 13:57 08/25/24 15:00 08/25/24 15:00 08/25/24 15:00 08/25/24 15:00
Physical Exam
General: Well Developed, Well Nourished and No Apparent Distress
HEENT: NormoCephalic, Moist mucous membranes and Atraumatic
Respiratory: Clear
Cardiac: S1/S2 and Regular Rhythm; No Murmur or Rub
GI: Soft, Non Tender, Non Distended and Normal Bowel Sounds; No Organomegaly
Rectal: Deferred by Provider
Musculoskeletal: No Clubbing, No Cyanosis and No Edema
Skin: No Rash
Neuro: AO x 3 and Nonfocal/grossly intact
Psych: Calm
Laboratory Results
-
08/25/24 14:09
08/25/24 14:08
Laboratory Results
PT 14.0 Sec (11.4-14.6) 08/25/24 14:08
INR 1.03 08/25/24 14:08
Lactic Acid 1.6 mmol/L (0.7-2.0) 08/25/24 14:09
Total Bilirubin 0.8 mg/dl (0.2-1.3) 08/25/24 14:08
AST 28 U/L (17-59) 08/25/24 14:08
ALT 16 U/L (0-50) 08/25/24 14:08
Alkaline Phosphatase 130 U/L (38-126) H 08/25/24 14:08
Data Reviewed
-
Lab Data: Labs Reviewed by me
Impression/Plan
-
# Sepsis secondary to urinary tract infection
- WBC 15.7, temp 101.3
- Blood culture sent from ER
- CT abdomen pelvis pending
- Chest x-ray pending
- Ceftriaxone continued
- Tylenol as needed for fever or pain
# Nausea/vomiting/diarrhea likely gastroenteritis
- Zofran as needed for nausea
- Clear liquid diet advance as tolerated
- Obtain stool cultures continue to have diarrhea
-CT abdomen pelvis pending
# Anemia of chronic disease
- Hemoglobin stable at 11.6
- Not active bleeding
- Continue to monitor
#Hx of Parox A. Fib
- continue rate control with Metoprolol
-EKG with atrial fib with controlled rate
#Essential HTN
- continue BB
-hold losartan due to hypotension
#Hx of prostate cancer
Finasteride
# History of hyperlipidemia
- Atorvastatin continued
# Depression
- Bupropion, citalopram and lorazepam continued
# Type 2 diabetes
- tresiba 17units at hs
- Sliding scale
# Essential hypertension
- Losartan with hold parameters
# DVT prophylaxis
- Lovenox
#CODE STATUS
- Full code
[2024-08-25] MEDS: ZOFRAN 4 MG IV (17:05)
--- NOTE | 2024-08-25 17:15 | W.PN.UPDATE ---
Update Note
Progress Note Update
This is an addendum to H&P written by Priscila Pearson on 08/25/2024. �Patient seen and examined independently with DOUGHNUT ICER.
79-year-old male past medical history of atrial fibrillation, hypertension, prostate cancer, hyperlipidemia, depression, anxiety, type 2 diabetes, here with fever, multiple episodes of vomiting and diarrhea today.
Patient with fever of 101.3. �Labs show leukocytosis.
Urinalysis shows 60-70 WBC, +3 leukocyte esterase, urine bacteria.
CT abdomen pelvis pending.
Patient with sepsis likely secondary to acute gastroenteritis.
NPO. �IV fluids. �Blood cultures. �Check stool studies. �Doubt UTI but will treat with ceftriaxone for now.
Reduce insulin dosage while NPO.
--- NOTE | 2024-08-25 20:02 | PTCARENOTE ---
Pt arrived 1945 from ED. 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 Pt only oriented to time and self. VSS. no complaints of pain. IVF initiated. oriented to room and call yuan. bed locked and in lowest position. care ongoing.
[2024-08-25] MEDS: LOVENOX 40 MG SC (20:57)
[2024-08-25] MEDS: LIPITOR 80 MG PO (20:57)
[2024-08-25] MEDS: NEURONTIN 300 MG PO (21:30)
[2024-08-25 21:34] LABS: Glucose - Point of Care 16 mg/dl (70-99)
[2024-08-25 21:34] LABS: Glucose - Point of Care 16 mg/dl (70-99)
[2024-08-25 21:42] LABS: Glucose - Point of Care 30 mg/dl (70-99)
[2024-08-25] MEDS: GlucaGen 1 MG IM (21:47)
[2024-08-25 22:04] LABS: Glucose - Point of Care 28 mg/dl (70-99)
[2024-08-25] MEDS: DEXTROSE 50% SYRINGE 12.5 GRAMS IV (22:05)
--- NOTE | 2024-08-25 22:17 | W.PN.UPDATE ---
Update Note
Progress Note Update
-Patient is hypoglycemic BS is 16, and was confirmed by the staff with a different glucometer.
-Patient asymptomatic and was able to drink some juice. Repeated bs is 30.
-Glycogen and IV dextrose given
-Will Change IVF to D5% in NSS @ rate 80cc/hr, and hold Lantus tonight. Discussed with the admitting physician
[2024-08-25] MEDS: LANTUS SC (22:18)
--- NOTE | 2024-08-25 22:30 | PTCARENOTE ---
2129 Pt Blood sugar 16. Pt asymptomatic. House HAND STONECUTTER notified. Ordered to give IV glucagen. Rechecked 15 mins BS 28. Ordered to give IV dextrose. Pt BS 10. Ordered to draw stat glucose and IVF fluids switched to D5 NSS. Pt continuing to be
asymptomatic. result 215. Accu check at 0100 211. Care ongoing at this time.
[2024-08-25 22:31] LABS: Glucose - Point of Care 10 mg/dl (70-99)
[2024-08-25 22:31] LABS: Glucose - Point of Care < 10 mg/dl (70-99)
[2024-08-25] MEDS: D5/0.9% SODIUM CHLORIDE 1000 IV (22:31)
[2024-08-25 22:59] LABS: Glucose 215 mg/dl (70-99)
[2024-08-25 23:03] LABS: Glucose - Point of Care 240 mg/dl (70-99)
[2024-08-26] VITALS (7 sets, daily range): BP systolic 111–131; BP diastolic 55–72
[2024-08-26 01:00] LABS: Glucose - Point of Care 211 mg/dl (70-99)
[2024-08-26 03:07] LABS: Glucose - Point of Care 196 mg/dl (70-99)
[2024-08-26 07:50] LABS: Glucose - Point of Care 262 mg/dl (70-99)
--- NOTE | 2024-08-26 08:33 | W.PN.HOSP.TC ---
Today's Communication/Plan
-
Assessment
79-year-old male with past medical history for hypertension, hyperlipidemia, type 2 diabetes, GERD, prostate cancer, restrictive lung disease A-fib sent to the emergency room from [facility] for evaluation of of decreased mental
status. Patient was noted to have a fever of 101.3.
Plan
#Acute metabolic encephalopathy
Likely secondary to sepsis from UTI
WBC 15.6, temp 101.3 at admission
WBC trended up 17.1
CT abdomen pelvis�mild pancolitis, intravesical gas suggesting acute cystitis VS recent instrumentation
Moderate to severe T12 compression fracture.
Chest x-ray�no evidence of pneumonia
Blood culture pending
U/A�evidence of UTI
Started on ceftriaxone�continue
Continue IV fluids
Monitor fever curve, monitor WBC
#Nausea/vomiting/diarrhea
Stool culture pending
IV fluids
CT evidence of pancolitis, moderate diffuse colonic stool burden
Bisacodyl suppository
Zofran as needed
Diet advance as tolerated after cleared by speech
#DM type II
Fluctuating blood sugars overnight
Lantus reduced to 17 units, patient n.p.o. until now
SSI
Diabetic consult
#Paroxysmal A-fib
Rate controlled with metoprolol
#Essential hypertension
Continue metoprolol
# History of prostate cancer
Finasteride
# Hyperlipidemia
Atorvastatin
# Depression
Bupropion, citalopram and lorazepam
# DVT prophylaxis
Lovenox
CODE STATUS
Full code
Assessment / Plan
Assessment / Plan
Anticipated Discharge: 24 - 48 hours
Subjective/Interval History
-
Date of Service: August 26, 2024
Cannot elicit any history from the patient. He is AO X2
Objective Data
-
Labs:
Laboratory Results
06/12/25 06/13/25
22:34 06:52
WBC Pending
Hgb Pending
Hct Pending
Plt Count Pending
Sodium Pending
Potassium Pending
Chloride Pending
Carbon Dioxide Pending
BUN Pending
Creatinine Pending
Glucose 215 H Pending
Calcium Pending
Vital Signs:
Vital Signs
Temp Pulse Resp BP Pulse Ox
99.6 F 78 20 131/65 95
08/26/24 07:00 08/26/24 07:00 08/26/24 07:00 08/26/24 07:00 08/26/24 07:00
I&O
08/25/24 08/26/24 08/27/24
06:59 06:59 06:59
Intake Total 1460 / 1460
Balance 1460 / 1460
Physical Exam
-
General: Well Developed and Well Nourished
HEENT: Normocephalic and Atraumatic
Respiratory: Clear to Auscultation
Cardiac: Regular Rhythm and S1/S2
GI: Soft, Nontender, Nondistended and Normal Bowel Sounds
Skin: Warm and Dry
Neuro: Awake and Alert
Psych: Calm
[2024-08-26 08:57] LABS: Hematocrit 29.7 % (39.0-52.0); Hemoglobin 10.1 g/dL (13.0-18.0); Mean Corpuscular Hgb 30.1 pg (27.0-31.0); Mean Corpuscular Volume 88.4 fL (80.0-94.0); Mean Platelet Volume 10.9 fL (7.4-10.4); Platelet Count 185 10^3/uL (130-400); Red Blood Cell Count 3.36 10^6/uL (4.70-6.10); Red Cell Dist. Width 14.5 % (11.5-14.5); White Blood Cell Count 17.1 10^3/uL (4.8-10.8)
[2024-08-26] MEDS: NOVOLOG FLEXPEN-LOW RESISTANCE SC ×2 (08:59→17:45)
[2024-08-26 09:01] LABS: Blood Urea Nitrogen 42 mg/dl (9-20); Calcium 7.6 mg/dl (8.4-10.2); Carbon Dioxide 24 mmol/L (22-30); Chloride 105 mmol/L (98-107); Estimated Creatinine Clearance 53 ml/min; Glucose 266 mg/dl (70-99); Potassium 4.2 mmol/L (3.5-5.1); Sodium 134 mmol/L (135-145); eGFR 51.13
[2024-08-26] MEDS: CELEXA 20 MG PO (09:01)
[2024-08-26] MEDS: TOPROL XL 12.5 MG PO (09:01)
[2024-08-26] MEDS: WELLBUTRIN XL (24 hour extended release) 150 MG PO (09:01)
[2024-08-26] MEDS: NEURONTIN 300 MG PO ×3 (09:01→21:40)
[2024-08-26] MEDS: ATIVAN 0.5 MG PO (09:01)
[2024-08-26] MEDS: PROSCAR 5 MG PO (09:01)
[2024-08-26 09:22] LABS: Glycohemoglobin (HgbA1c) 6.5 % (4.0-5.6)
--- NOTE | 2024-08-26 10:35 | CM ---
Pio was admitted last night from ED. Chart reviewed and met with Pio to complete IA. He advised that he lives with his spouse and son in a 2 story town home with 1 entry step, patient has walker and cane as well as a w/c in the home.
Pt has been at [facility] in the past for SNF. Pt has traditional Medicare; previously had a [employer] Plan which did not cover facilities that pt/family preferred. [facility] [place], [facility], and [place] [facility] are facilities of choice for SNF. No Prior
authorization required if pt meets 3 day inpatient stay.
Plan: CM to follow for discharge, likely to SNF; [facility] [place], [facility], and [place] [facility] are facilities of choice for SNF; Referrals not entered due to new admission and need for PT/OT evals when pt is medically ready for same.
[2024-08-26] MEDS: D5/0.9% SODIUM CHLORIDE 1000 IV (11:02)
[2024-08-26 12:35] LABS: Glucose - Point of Care 285 mg/dl (70-99)
[2024-08-26] MEDS: NSS 1000 IV (13:41)
[2024-08-26] MEDS: NOVOLOG FLEXPEN-LOW RESISTANCE 3 UNITS SC (13:42)
--- NOTE | 2024-08-26 14:15 | PTOTSP ---
Speech Language Pathology
Pt seen for clinical bedside swallow evaluation. P.O. trials of puree, regular solids, and thin liquids provided. Adequate mastication, bolus formation, and A-P transit noted with no oral residue. No overt signs of aspiration. Pt noted to have L
lean, slight L facial droop, and 2 episodes of expressive aphasia (jargon) during evaluation. Resident and RN notified.
Recommend:
(1) Regular solids/thin liquids
(2) General aspiration precautions
(3) Meds as tolerated
(4) Consider neuro workup
(5) PUPPY SITTER to continue to follow pending POC
--- NOTE | 2024-08-26 14:30 | PTCARENOTE ---
pt aaxox2 for this RN.pt able to state name, , and the year. unable to state place, thinks he is in [place]. bed bath complete, sacral foam and b/l heel foams applied. static air overlay placed for skin breakdown prevention. pt receiving 100ml/hr
of NSS. speech to follow pt today. currently npo. calazine cream applied to buttocks an sacral area. pt inc of urine and stool, large soft bm this afternoon for RN during bed bath. documentation in worklist.
--- NOTE | 2024-08-26 14:50 | WOUNDNOTE ---
SACRUM (photo taken by CORY Stark).
--- NOTE | 2024-08-26 15:16 | WOUNDNOTE ---
WO RN NOTE: Reviewed chart and met with patient. WO RN consulted for toe wounds. At time of assessment no open wounds noted. Patient resides at [place] and is a poor historian. Will recommend patient sees bath design sales consultant at [place]. Per CORY Frances stage 1 to
sacrum. Static air overlay ordered as patient demonstrates poor mobility. Heels intact and off-loaded with pillow under calves. Will sign off.
[2024-08-26] MEDS: ROCEPHIN 1000 MG IV (16:21)
[2024-08-26] MEDS: STERILE WATER FOR INJECTION 10 ML IV (16:21)
--- NOTE | 2024-08-26 17:43 | PN.DE.MGMTRT ---
Insulin Management
- -
Patient admitted 08/25 with change in mental status. PMH GERD, HCL diabetes, frequent falls. Prior to admission was in [facility]. Received 35 units Tresiba @ HS with 12 units humalog AC. A1C is 6.5%.
Patient is not on the unit at the time of my visit, in radiology for MRI of brain. I did speak to the nurse who states his mental status is improved and he is quite anxious to eat. He has been cleared by speech.
Low cholesterol diet has been ordered, added 2000 calorie.
08/25 @ 2131 patient glucose was 16, @ 22:23 glucose was 10, patient was treated and glucose did go up to 215. He received no lantus @ hs last evening.
08/26 Fasting glucose 262.
Will start AC novolog 4 units with dinner with low corrective. Lantus has been reduced to 17 units for tonight. I did order a 3AM glucose.
Discussed with nurse.
Diabetes History
- -
Type of Diabetes: 2 requiring insulin
Pre-Admission Diabetes Regimen
08/26/24
06:52
Creatinine 1.4 H
Lab Results
Hemoglobin A1c 6.5 % (4.0-5.6) H 08/26/24 06:52
Insulin Pump Settings
IP Diabetes Regimen
08/25/24 08/25/24 08/25/24
21:31 21:33 21:39
Glucose
POC Glucose 16 L* 16 L* 30 L*
08/25/24 08/25/24 08/25/24
22:02 22:23 22:25
Glucose
POC Glucose 28 L* < 10 L* 10 L*
08/25/24 08/25/24 08/26/24
22:34 23:02 00:59
Glucose 215 H
POC Glucose 240 H 211 H
08/26/24 08/26/24 08/26/24
03:03 06:52 07:49
Glucose 266 H
POC Glucose 196 H 262 H
08/26/24
12:34
Glucose
POC Glucose 285 H
Patient Education
[2024-08-26] MEDS: LIPITOR 80 MG PO (18:48)
[2024-08-26] MEDS: NOVOLOG FLEXPEN-LOW RESISTANCE 1 UNITS SC (18:48)
[2024-08-26] MEDS: NOVOLOG FLEXPEN 4 UNITS SC (18:48)
[2024-08-26] MEDS: LOVENOX 40 MG SC (18:48)
[2024-08-26 18:49] LABS: Glucose - Point of Care 168 mg/dl (70-99)
[2024-08-26] MEDS: D5/0.9% SODIUM CHLORIDE IV (19:03)
[2024-08-26 21:02] LABS: Glucose - Point of Care 303 mg/dl (70-99)
[2024-08-26] MEDS: LANTUS 0.17 UNITS SC (21:40)
--- NOTE | 2024-08-26 22:53 | PTCARENOTE ---
Addendum entered by Kit Ace RN 08/26/24 23:00:
MRI was completed and no results have been reported to this RN as a concern.
Original Note:
Patient has no facial droop and is speaking clearly without aphasia and has no apparent lean. He is at baseline. CT was competed. Amador RN said the Attending physician did not want to start NIH protocol. Will only initiate NIH if a change is
perceived.
--- NOTE | 2024-08-26 23:45 | PTCARENOTE ---
Patient had pulled all linens off and was cold. Placed warm blankets on patient.
[2024-08-27 00:04] LABS: Glucose - Point of Care 365 mg/dl (70-99)
[2024-08-27] MEDS: NOVOLOG FLEXPEN 10 UNITS SC (01:00)
[2024-08-27] MEDS: NSS 1000 IV ×3 (01:04→22:18)
[2024-08-27 03:02] LABS: Glucose - Point of Care 249 mg/dl (70-99)
[2024-08-27 03:04] VITALS: BP 105/56
[2024-08-27 06:55] LABS: Hematocrit 27.8 % (39.0-52.0); Hemoglobin 9.4 g/dL (13.0-18.0); Mean Corp Hgb Conc. 33.8 g/dL (33.0-37.0); Mean Corpuscular Hgb 30.2 pg (27.0-31.0); Mean Corpuscular Volume 89.4 fL (80.0-94.0); Platelet Count 134 10^3/uL (130-400); Red Blood Cell Count 3.11 10^6/uL (4.70-6.10); Red Cell Dist. Width 14.8 % (11.5-14.5); White Blood Cell Count 11.3 10^3/uL (4.8-10.8)
[2024-08-27 07:02] LABS: ALT (SGPT) 13 U/L (0-50); AST (SGOT) 20 U/L (17-59); Albumin 2.2 g/dl (3.5-5.0); Alkaline Phosphatase 136 U/L (38-126); Blood Urea Nitrogen 41 mg/dl (9-20); Calcium 7.7 mg/dl (8.4-10.2); Carbon Dioxide 26 mmol/L (22-30); Chloride 108 mmol/L (98-107); Estimated Creatinine Clearance 67 ml/min; Glucose 168 mg/dl (70-99); Potassium 3.9 mmol/L (3.5-5.1); Sodium 137 mmol/L (135-145); Total Bilirubin 0.5 mg/dl (0.2-1.3); Total Protein 5.3 g/dl (6.3-8.2); eGFR > 60.00
[2024-08-27 07:27] VITALS: BP 132/75
[2024-08-27 08:05] LABS: Glucose - Point of Care 144 mg/dl (70-99)
[2024-08-27] MEDS: NOVOLOG FLEXPEN-LOW RESISTANCE SC ×2 (08:41→12:54)
[2024-08-27] MEDS: WELLBUTRIN XL (24 hour extended release) 150 MG PO (08:42)
[2024-08-27] MEDS: NEURONTIN 300 MG PO ×3 (08:42→22:19)
[2024-08-27] MEDS: NOVOLOG FLEXPEN 4 UNITS SC ×3 (08:42→18:03)
[2024-08-27] MEDS: PROSCAR 5 MG PO (08:42)
[2024-08-27] MEDS: CELEXA 20 MG PO (08:42)
[2024-08-27] MEDS: TOPROL XL 12.5 MG PO (08:49)
[2024-08-27] MEDS: ATIVAN 0.5 MG PO (08:49)
--- NOTE | 2024-08-27 09:54 | W.PN.HOSP.TC ---
Today's Communication/Plan
-
Continue ceftriaxone
Assessment / Plan
Assessment / Plan
Assessment
79-year-old male with past medical history for hypertension, hyperlipidemia, type 2 diabetes, GERD, prostate cancer, restrictive lung disease A-fib sent to the emergency room from [facility] for evaluation of of decreased mental
status. Patient was noted to have a fever of 101.3.
Plan
#Acute metabolic encephalopathy
Likely secondary to sepsis from UTI versus delirium
WBC 15.6, temp 101.3 at admission
WBC trended down to 11.3
CT abdomen pelvis�mild pancolitis, intravesical gas suggesting acute cystitis VS recent instrumentation
Moderate to severe T12 compression fracture.
Chest x-ray�no evidence of pneumonia
Blood culture NGTD
U/A�evidence of UTI, urine culture�no growth
Continue ceftriaxone
Continue IV fluids
Monitor fever curve, monitor WBC
Frequent reorientation
Delirium precautions
#Nausea/vomiting/diarrhea
Stool culture pending
CT evidence of pancolitis, moderate diffuse colonic stool burden
Bisacodyl suppository
Zofran as needed
Regular diet
#DM type II
Fluctuating blood sugars overnight
Lantus reduced to 17 units
Diabetic consult�4 units aspart, AC
SSI low resistance
#Paroxysmal A-fib
Rate controlled with metoprolol
#Essential hypertension
Continue metoprolol
# History of prostate cancer
Finasteride
# Hyperlipidemia
Atorvastatin
# Depression
Bupropion, citalopram and lorazepam
# DVT prophylaxis
Lovenox
CODE STATUS
Full code
Anticipated Discharge: 24 - 48 hours
Subjective/Interval History
-
Date of Service: August 27, 2024
Patient is sleepy, but arousable and responds to questions. As per nursing patient has been eating only 50% of his meals.
Yesterday�received a text from speech eval�symptoms concerning for stroke�since slight left facial droop, episodes of expressive aphasia. Ordered CT, MRI�negative for stroke.
Patient's at bedside yesterday. Updated her. She reports that the patient's mental status is not at baseline. Patient was diagnosed with UTI a week earlier, was started on antibiotics. Also happened to have a Cantor placed for 2 days.
Patient is scheduled for cystoscopy during the last week of August.
Also called [facility] point-nurse reports that the patient was not at his baseline mental status from the past 2 days.
Objective Data
-
Labs:
Laboratory Results
08/27/24
05:34
WBC 11.3 H
Hgb 9.4 L
Hct 27.8 L
Plt Count 134 D
Sodium 137
Potassium 3.9
Chloride 108 H
Carbon Dioxide 26
BUN 41 H
Creatinine 1.1
Glucose 168 H
Calcium 7.7 L
Total Bilirubin 0.5
AST 20
ALT 13
Alkaline Phosphatase 136 H
Vital Signs:
Vital Signs
Temp Pulse Resp BP Pulse Ox
98.6 F 85 18 132/75 100
08/27/24 07:27 08/27/24 07:27 08/27/24 07:27 08/27/24 07:27 08/27/24 07:27
I&O
08/26/24 08/27/24 08/28/24
06:59 06:59 06:59
Intake Total 1460 / 1460 2340 / 2340
Balance 1460 / 1460 2340 / 2340
Physical Exam
-
General: No Apparent Distress and Other (Is sleepy, but arousable)
HEENT: Normocephalic and Atraumatic
Respiratory: Clear to Auscultation
Cardiac: Regular Rhythm and S1/S2
GI: Soft, Nontender, Nondistended and Normal Bowel Sounds
Skin: Warm and Dry
Neuro: Other (Patient is sleepy)
[2024-08-27 11:24] VITALS: BP 142/75
[2024-08-27 12:11] LABS: Glucose - Point of Care 133 mg/dl (70-99)
[2024-08-27 15:36] VITALS: BP 136/66
--- NOTE | 2024-08-27 16:25 | W.PN.UPDATE ---
Update Note
Progress Note Update
Called and updated his spouse about the plan today, his imaging and blood work.
[2024-08-27] MEDS: STERILE WATER FOR INJECTION 10 ML IV (16:27)
[2024-08-27] MEDS: ROCEPHIN 1000 MG IV (16:27)
[2024-08-27] MEDS: LIPITOR 80 MG PO (16:27)
[2024-08-27] MEDS: LOVENOX 40 MG SC (16:28)
[2024-08-27 17:41] LABS: Glucose - Point of Care 214 mg/dl (70-99)
[2024-08-27] MEDS: NOVOLOG FLEXPEN-LOW RESISTANCE 2 UNITS SC (18:03)
[2024-08-27 19:22] VITALS: BP 114/75
--- NOTE | 2024-08-27 22:11 | PTCARENOTE ---
patient crying in pain and wanted the OCCUPATIONAL THERAPIST AIDE to consider a medication. One time dose of dilaudid given.
[2024-08-27] MEDS: LANTUS 0.17 UNITS SC (22:20)
[2024-08-27 22:24] LABS: Glucose - Point of Care 275 mg/dl (70-99)
[2024-08-27 23:25] VITALS: BP 116/55
[2024-08-28] VITALS (7 sets, daily range): BP systolic 130–156; BP diastolic 69–85
[2024-08-28 06:10] LABS: Hematocrit 25.5 % (39.0-52.0); Hemoglobin 8.8 g/dL (13.0-18.0); Mean Corp Hgb Conc. 34.5 g/dL (33.0-37.0); Mean Corpuscular Hgb 30.3 pg (27.0-31.0); Mean Corpuscular Volume 87.9 fL (80.0-94.0); Mean Platelet Volume 11.2 fL (7.4-10.4); Platelet Count 120 10^3/uL (130-400); Red Cell Dist. Width 14.6 % (11.5-14.5); White Blood Cell Count 9.4 10^3/uL (4.8-10.8)
[2024-08-28 07:20] LABS: Glucose - Point of Care 173 mg/dl (70-99)
[2024-08-28] MEDS: ATIVAN 0.5 MG PO (08:36)
[2024-08-28] MEDS: NEURONTIN 300 MG PO ×3 (08:36→22:11)
[2024-08-28] MEDS: PROSCAR 5 MG PO (08:36)
[2024-08-28] MEDS: WELLBUTRIN XL (24 hour extended release) 150 MG PO (08:36)
[2024-08-28] MEDS: TOPROL XL 12.5 MG PO (08:36)
[2024-08-28] MEDS: CELEXA 20 MG PO (08:36)
[2024-08-28] MEDS: NOVOLOG FLEXPEN-LOW RESISTANCE 1 UNITS SC ×3 (08:37→17:45)
[2024-08-28] MEDS: NOVOLOG FLEXPEN 4 UNITS SC ×3 (08:37→17:45)
[2024-08-28 08:56] LABS: ALT (SGPT) 14 U/L (0-50); AST (SGOT) 22 U/L (17-59); Alkaline Phosphatase 145 U/L (38-126); Blood Urea Nitrogen 25 mg/dl (9-20); Calcium 7.3 mg/dl (8.4-10.2); Carbon Dioxide 24 mmol/L (22-30); Chloride 110 mmol/L (98-107); Direct Bilirubin 0.4 mg/dl (0.0-0.4); Estimated Creatinine Clearance 92 ml/min; Glucose 187 mg/dl (70-99); Phosphorus 2.7 mg/dl (2.5-4.5); Potassium 3.7 mmol/L (3.5-5.1); Sodium 135 mmol/L (135-145); Total Bilirubin 0.5 mg/dl (0.2-1.3); Total Protein 5.1 g/dl (6.3-8.2); eGFR > 60.00
[2024-08-28 12:07] LABS: Glucose - Point of Care 166 mg/dl (70-99)
--- NOTE | 2024-08-28 12:44 | W.PN.HOSP.TC ---
Today's Communication/Plan
-
Escalate antibiotics
Check RUQ US
Trend LFTs
Monitor MSE
Assessment / Plan
Assessment / Plan
#Sepsis secondary to cholecystitis (?)
#Acute metabolic encephalopathy
#Nausea and vomiting
-Presented with SIRS positivity, AMS; initial concern for UTI was enterocolitis
-Initial CT A/P did show calcified gallbladder stones though no signs of cholecystitis at that time
-Initially was started on IV ceftriaxone; blood cultures NGTD, urine culture negative, stool studies negative
-Encephalopathy improved, as of morning 08/28 he mentions RUQ abdomen pain with positive More
-Leukocytosis has resolved, as mentioned encephalopathy improving as well
-Will escalate antibiotics to IV Zosyn for improved intra-abdominal coverage
-Check RUQ ultrasound to assess for cholecystitis
-Trend CBC, temperature curve, LFTs
-Consider HIDA
-Consider surgical consult if testing (+)
#IDDM 2 with hyperglycemia
-Well-controlled with A1c 6.5%; presented with hyperglycemia BG as low as 16
-Lantus reduced to 17 units in diabetes team started 4 units aspart with meals
-Continue with insulin per DM team and ISS with Accu-Cheks
-Avoid hypoglycemia, BG goal 140-180
#Paroxysmal AF
-Home regimen includes metoprolol succinate, not currently on AC
-Heart rate here in NSR as of this morning
-Continue to monitor
#Essential hypertension
-No known history of hypertensive systemic disease
-Home meds include metoprolol succinate and losartan
-Losartan initially held with sepsis on arrival, likely BP
-BP is improved, will resume losartan tomorrow
#Hyperlipidemia
-No known history of ASCVD
-Home meds include atorvastatin 80 mg due to IDDM 2
#Multiple sclerosis
-Not currently on any maintenance regimen per our records
-No signs of FND or other acute neurologic findings
#History of prostate cancer s/p TURP
-Remains on finasteride
#Dementia
-Per family, not formally diagnosed patient know presumed with recent forgetfulness
-Mental status has improved since admission
-Delirium precautions
#Depression
-Bupropion, citalopram and lorazepam
Diet: Carbohydrate controlled, NPO @ MN for RUQ US
CODE STATUS: Full code
Anticipated Discharge: > 48 hours
Subjective/Interval History
-
Date of Service: August 28, 2024
Seen and examined at the bedside. No acute events reported overnight. AFVSS this morning, blood pressure improved
Leukocytosis resolved, likely mildly low today
Patient able to answer questions, complains of some RUQ abdomen pain
Objective Data
-
Labs:
Laboratory Results
08/28/24
04:43
WBC 9.4
Hgb 8.8 L
Hct 25.5 L
Plt Count 120 L
Sodium 135
Potassium 3.7
Chloride 110 H
Carbon Dioxide 24
BUN 25 H
Creatinine 0.8
Glucose 187 H
Calcium 7.3 L
Total Bilirubin 0.5
AST 22
ALT 14
Alkaline Phosphatase 145 H
Vital Signs:
Vital Signs
Temp Pulse Resp BP Pulse Ox
97.6 F 84 18 152/81 100
08/28/24 11:00 08/28/24 11:00 08/28/24 11:00 08/28/24 11:00 08/28/24 11:00
I&O
08/27/24 08/28/24 08/29/24
06:59 06:59 06:59
Intake Total 2340 / 2340 3260 / 3260
Balance 2340 / 2340 3260 / 3260
Review of Systems
-
History Source: Patient
All other systems: Reviewed and negative
Physical Exam
-
General: Well Developed, Well Nourished, No Apparent Distress and Appears Chronically Ill
HEENT: Normocephalic, Atraumatic, Moist Mucous Membranes and Anicteric
Respiratory: Clear to Auscultation and Non Labored Respirations; Negative Accessory Resp Muscle Use
Cardiac: Regular Rhythm and S1/S2; Negative Murmur, Rub, Gallop or Tachycardic
GI: Soft, Nondistended, Normal Bowel Sounds and Tender (RUQ, More's sign (+))
Musculoskeletal: No Clubbing, No Cyanosis and No Edema
Skin: Warm and Dry; Negative Rash or Jaundice
Neuro: Awake, Alert, Oriented, Nonfocal/Grossly Intact and Central Nerve's Intact; Negative Tremors
Psych: Calm
Data Reviewed
-
Labs: Labs Reviewed by me, Discussed with Nurse and Discussed with Patient
[2024-08-28] MEDS: ZOSYN 50 IV ×2 (13:23→20:59)
[2024-08-28 17:05] LABS: Glucose - Point of Care 182 mg/dl (70-99)
[2024-08-28] MEDS: LOVENOX 40 MG SC (17:44)
[2024-08-28] MEDS: LIPITOR 80 MG PO (17:44)
[2024-08-28 21:51] LABS: Glucose - Point of Care 223 mg/dl (70-99)
[2024-08-28] MEDS: LANTUS 0.08 UNITS SC (22:08)
[2024-08-29] MEDS: ZOSYN 50 IV ×4 (01:39→19:58)
[2024-08-29 03:17] VITALS: BP 131/77
[2024-08-29 05:33] LABS: Glucose - Point of Care 178 mg/dl (70-99)
[2024-08-29 05:51] LABS: % Basophils 0.1 % (0-2); % Immature Granulocytes 0.4 % (0-0.5); % Lymphocytes 20.4 % (20.5-51.1); % Monocytes 7.4 % (1.7-9.3); % Neutrophils 68.7 % (42.2-75.2); Absolute Eosinophils 0.2 10^3/uL (0-0.7); Absolute Lymphocytes 1.5 10^3/uL (1.2-3.4); Absolute Monocytes 0.6 10^3/uL (0.1-0.6); Absolute Neutrophils 5.1 10^3/uL (1.4-6.5); Hematocrit 29.1 % (39.0-52.0); Mean Corp Hgb Conc. 34.4 g/dL (33.0-37.0); Mean Corpuscular Hgb 30.1 pg (27.0-31.0); Mean Corpuscular Volume 87.7 fL (80.0-94.0); Mean Platelet Volume 10.4 fL (7.4-10.4); Nucleated Red Blood Cells % 0 % (-); Platelet Count 168 10^3/uL (130-400); Red Blood Cell Count 3.32 10^6/uL (4.70-6.10); Red Cell Dist. Width 14.6 % (11.5-14.5); White Blood Cell Count 7.4 10^3/uL (4.8-10.8)
[2024-08-29 06:11] LABS: ALT (SGPT) 14 U/L (0-50); AST (SGOT) 22 U/L (17-59); Albumin 2.3 g/dl (3.5-5.0); Alkaline Phosphatase 158 U/L (38-126); Blood Urea Nitrogen 19 mg/dl (9-20); Calcium 7.7 mg/dl (8.4-10.2); Carbon Dioxide 26 mmol/L (22-30); Chloride 108 mmol/L (98-107); Direct Bilirubin 0.3 mg/dl (0.0-0.4); Estimated Creatinine Clearance 92 ml/min; Glucose 187 mg/dl (70-99); Potassium 3.7 mmol/L (3.5-5.1); Sodium 137 mmol/L (135-145); Total Bilirubin 0.6 mg/dl (0.2-1.3); Total Protein 5.5 g/dl (6.3-8.2); eGFR > 60.00
--- NOTE | 2024-08-29 07:26 | PN.DE.MGMTRT ---
Insulin Management
- -
08/29/2024 Diabetes Management Consult Follow up
Patient admitted 08/25 with change in mental status. PMH GERD, HCL diabetes, frequent falls. Prior to admission was in [facility]. Received 35 units Tresiba @ HS with 12 units humalog AC. A1C is 6.5%.
Patient is awake alert and oriented able to discuss diabetes care.
Has been tolerating diet. CR .8, eGFR > 60.
08/28 Due to significant hypoglycemia insulin doses had been reduced. Glucose range 166 to 223. 3AM glucose 249. Lantus dose changed by overnight TAX ECONOMIST to 8 units.
08/29 Fasting glucose 183. Patient is NPO for testing.
When diet resumes will continue AC novolog 4 units with low corrective. Will reduce Lantus from 17 units to 12 units for tonight.
Discussed with nurse.
Will follow
Diabetes History
- -
Type of Diabetes: 2 requiring insulin
Pre-Admission Diabetes Regimen
08/28/24 08/29/24
04:43 05:21
Creatinine 0.8 0.8
Lab Results
Hemoglobin A1c 6.5 % (4.0-5.6) H 08/26/24 06:52
Insulin Pump Settings
IP Diabetes Regimen
08/28/24 08/28/24 08/28/24
04:43 12:06 17:04
Glucose 187 H
POC Glucose 166 H 182 H
08/28/24 08/29/24 08/29/24
21:50 05:21 05:30
Glucose 187 H
POC Glucose 223 H 178 H
Meal type: Dinner
Meal type: Lunch
Meal type: Breakfast
Amount consumed: 50%
Amount consumed: 100%
Amount consumed: 90%
Patient Education
[2024-08-29 07:46] VITALS: BP 149/87
[2024-08-29] MEDS: NOVOLOG FLEXPEN-LOW RESISTANCE SC ×2 (09:19→12:26)
[2024-08-29] MEDS: NEURONTIN 300 MG PO ×2 (09:29→17:45)
[2024-08-29] MEDS: WELLBUTRIN XL (24 hour extended release) 150 MG PO (09:29)
[2024-08-29] MEDS: COZAAR 50 MG PO (09:29)
[2024-08-29] MEDS: TOPROL XL 12.5 MG PO (09:29)
[2024-08-29] MEDS: ATIVAN 0.5 MG PO (09:30)
[2024-08-29] MEDS: CELEXA 20 MG PO (09:30)
[2024-08-29] MEDS: PROSCAR 5 MG PO (09:30)
[2024-08-29] MEDS: NOVOLOG FLEXPEN SC ×3 (09:32→18:04)
[2024-08-29 11:16] VITALS: BP 135/77
[2024-08-29 12:24] LABS: Glucose - Point of Care 146 mg/dl (70-99)
--- NOTE | 2024-08-29 14:03 | W.PN.HOSP.TC ---
Addendum entered and electronically signed by Steph Alejandro MD 08/29/24 16:19:
I saw and evaluated the patient independently. I reviewed the resident�s note and agree with findings and plan as documented by Dr. Pandya.
GENERAL: well developed, well nourished, male in no apparent distress
HEENT: NC/AT
HEART: regular rate and rhythm, +S1, +S2
LUNGS : clear to auscultation bilaterally
ABDOM: soft, right upper quadrant tenderness, nondistended, + bowel sounds
EXT: no cyanosis, clubbing, or edema
NEUROLOGIC: grossly intact
Acute metabolic encephalopathy due to sepsis--likely from gallbladder issue--urine culture and blood cultures negative--improved WBC count--Initial CT showed calcified gallbladder with stones, no signs of cholecystitis--cont IV zosyn--await
abdominal US--may need MRCP vs surgical consult
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
Nausea/vomiting/diarrhea--Resolved--Stool culture negative--CT evidence of pancolitis (perhaps that is sight of infection?), moderate diffuse colonic stool burden
Paroxysmal A-fib--Rate controlled with metoprolol--Not currently on anticoagulants
Essential hypertension--Continue metoprolol--Restart losartan
History of prostate cancer--S/p TURP--Continue finasteride
Hyperlipidemia--Atorvastatin
Depression--Bupropion, citalopram and lorazepam
DVT prophylaxis-- Lovenox
CODE STATUS-- Full code
Original Note:
Today's Communication/Plan
-
Ultrasound of right upper quadrant
Continue IV Zosyn
Assessment / Plan
Assessment / Plan
Assessment
79-year-old male with past medical history for hypertension, hyperlipidemia, type 2 diabetes, GERD, prostate cancer, restrictive lung disease A-fib sent to the emergency room from [facility] for evaluation of of decreased mental
status. Patient was noted to have a fever of 101.3.
Plan
#Acute metabolic encephalopathy
#Sepsis
Mental status improved
Likely secondary to cholecystitis
WBC 15.6, temp 101.3 at admission
WBC trended down to 7.4
Earlier concern was for UTI causing sepsis, but urine culture negative
Initial CT showed calcified gallbladder with stones, no signs of cholecystitis
Over the weekend patient complained of right upper quadrant pain, positive More
Blood culture NGTD
ALT, AST�WNL, ALP mildly elevated at 158
Antibiotics escalated to IV Zosyn
Check right upper quadrant ultrasound for cholecystitis
Consult surgery if positive for cholecystitis
If negative ultrasound, consider HIDA
Monitor fever curve, monitor WBC
#DM type II
Fluctuating blood sugars
Diabetic consult in place
Lantus reduced to 12 units
Patient is n.p.o. for ultrasound, when diet resumes continue NovoLog 4 units
SSI low resistance
Blood glucose goal 140�180
#Nausea/vomiting/diarrhea
Resolved
Stool culture negative
CT evidence of pancolitis, moderate diffuse colonic stool burden
Bisacodyl suppository
Zofran as needed
Regular diet (n.p.o. for RUQ ultrasound)
#Paroxysmal A-fib
Rate controlled with metoprolol
Not currently on anticoagulants
#Essential hypertension
Continue metoprolol
Restart losartan
# History of prostate cancer
S/p TURP
Continue finasteride
# Hyperlipidemia
Atorvastatin
# Depression
Bupropion, citalopram and lorazepam
# DVT prophylaxis
Lovenox
CODE STATUS
Full code
Anticipated Discharge: 24 - 48 hours
Subjective/Interval History
-
Date of Service: August 29, 2024
Patient reports having right upper quadrant pain.
Objective Data
-
Labs:
Laboratory Results
08/29/24
05:21
WBC 7.4
Hgb 10.0 L
Hct 29.1 L
Plt Count 168 D
Sodium 137
Potassium 3.7
Chloride 108 H
Carbon Dioxide 26
BUN 19
Creatinine 0.8
Glucose 187 H
Calcium 7.7 L
Total Bilirubin 0.6
AST 22
ALT 14
Alkaline Phosphatase 158 H
Vital Signs:
Vital Signs
Temp Pulse Resp BP Pulse Ox
97.9 F 90 16 135/77 100
08/29/24 11:16 08/29/24 11:16 08/29/24 11:16 08/29/24 11:16 08/29/24 11:16
I&O
08/28/24 08/29/24 08/30/24
06:59 06:59 06:59
Intake Total 3260 / 3260 770 / 770
Balance 3260 / 3260 770 / 770
Physical Exam
-
General: Well Developed, Well Nourished and No Apparent Distress
HEENT: Normocephalic and Atraumatic
Respiratory: Clear to Auscultation
Cardiac: Regular Rhythm and S1/S2
GI: Soft, Nondistended, Normal Bowel Sounds, Tender (Right upper quadrant with positive More sign.) and Other (No CVAT, suprapubic tenderness)
Skin: Warm and Dry
Neuro: Awake, Alert, Oriented and AO x 3
Psych: Calm
[2024-08-29 15:58] VITALS: BP 141/80
--- NOTE | 2024-08-29 16:38 | CM ---
Patient seen at bedside. Patient is from [facility] and CM left requesting updated confirmation about LTC status with SNF. Patient stated that he he was LTC at facility. CM will continue to follow for discharge planning needs.
PLan;return to SNF; [facility]
[2024-08-29] MEDS: LIPITOR 80 MG PO (17:45)
[2024-08-29] MEDS: LOVENOX 40 MG SC (17:45)
[2024-08-29 18:04] LABS: Glucose - Point of Care 201 mg/dl (70-99)
[2024-08-29] MEDS: NOVOLOG FLEXPEN-LOW RESISTANCE 2 UNITS SC (18:04)
[2024-08-29] MEDS: D5/0.9% SODIUM CHLORIDE 1000 IV (18:42)
[2024-08-29 22:23] LABS: Glucose - Point of Care 249 mg/dl (70-99)
[2024-08-29] MEDS: NEURONTIN PO (22:23)
[2024-08-29] MEDS: LANTUS 0.08 UNITS SC (23:03)
[2024-08-29 23:30] VITALS: BP 119/71
[2024-08-30] VITALS (10 sets, daily range): BP systolic 141–172; BP diastolic 81–92
[2024-08-30 00:32] LABS: Glucose - Point of Care 255 mg/dl (70-99)
[2024-08-30] MEDS: ZOSYN 50 IV ×3 (01:28→20:37)
[2024-08-30] MEDS: D5/0.9% SODIUM CHLORIDE 1000 IV (04:54)
[2024-08-30 05:55] LABS: % Basophils 0.2 % (0-2); % Eosinophils 2.9 % (0-6); % Immature Granulocytes 0.4 % (0-0.5); % Lymphocytes 24.3 % (20.5-51.1); % Monocytes 6.8 % (1.7-9.3); % Neutrophils 65.4 % (42.2-75.2); Absolute Eosinophils 0.2 10^3/uL (0-0.7); Absolute Lymphocytes 1.3 10^3/uL (1.2-3.4); Absolute Monocytes 0.4 10^3/uL (0.1-0.6); Absolute Neutrophils 3.6 10^3/uL (1.4-6.5); Hematocrit 27.7 % (39.0-52.0); Hemoglobin 9.3 g/dL (13.0-18.0); Mean Corp Hgb Conc. 33.6 g/dL (33.0-37.0); Mean Corpuscular Hgb 29.2 pg (27.0-31.0); Mean Corpuscular Volume 86.8 fL (80.0-94.0); Mean Platelet Volume 10.3 fL (7.4-10.4); Nucleated Red Blood Cells % 0 % (-); Platelet Count 162 10^3/uL (130-400); Red Blood Cell Count 3.19 10^6/uL (4.70-6.10); Red Cell Dist. Width 14.3 % (11.5-14.5); White Blood Cell Count 5.5 10^3/uL (4.8-10.8)
[2024-08-30 06:17] LABS: ALT (SGPT) 12 U/L (0-50); AST (SGOT) 18 U/L (17-59); Albumin 2.1 g/dl (3.5-5.0); Alkaline Phosphatase 147 U/L (38-126); Blood Urea Nitrogen 12 mg/dl (9-20); Calcium 7.5 mg/dl (8.4-10.2); Carbon Dioxide 24 mmol/L (22-30); Chloride 110 mmol/L (98-107); Estimated Creatinine Clearance 92 ml/min; Glucose 251 mg/dl (70-99); Potassium 3.4 mmol/L (3.5-5.1); Sodium 136 mmol/L (135-145); Total Bilirubin 0.6 mg/dl (0.2-1.3); eGFR > 60.00
--- NOTE | 2024-08-30 07:00 | W.PN.HOSP.TC ---
Addendum entered and electronically signed by Steph Alejandro MD 08/30/24 14:49:
I saw and evaluated the patient independently. I reviewed the resident�s note and agree with findings and plan as documented by Dr. Pandya.
GENERAL: well developed, well nourished, male in no apparent distress-- at bedside
HEENT: NC/AT
HEART: regular rate and rhythm, +S1, +S2
LUNGS : clear to auscultation bilaterally
ABDOM: soft, right upper quadrant tenderness, nondistended, + bowel sounds
EXT: no cyanosis, clubbing, or edema
NEUROLOGIC: grossly intact
Acute metabolic encephalopathy (resolved) due to sepsis--likely from gallbladder issue--urine culture and blood cultures negative--improved WBC count--Initial CT showed calcified gallbladder with stones, no signs of cholecystitis--cont IV
zosyn--abdominal US consistent with acute cholecystitis--apprec surgery--for lap merle today
JUDITH--likely due to sepsis/infection--creat peaked at 1.4 improved to 0.8 with IVF
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
Nausea/vomiting/diarrhea--Resolved--Stool culture negative--CT evidence of pancolitis-- moderate diffuse colonic stool burden
Paroxysmal A-fib--Rate controlled with metoprolol--Not currently on anticoagulants
Essential hypertension--Continue metoprolol--Restart losartan
History of prostate cancer--S/p TURP--Continue finasteride
wound--POA--sacrum pressure injury stage 1
Hyperlipidemia--Atorvastatin
Depression--Bupropion, citalopram and lorazepam
DVT prophylaxis-- Lovenox
CODE STATUS-- Full code
Original Note:
Today's Communication/Plan
-
Laparoscopic cholecystectomy
Assessment / Plan
Assessment / Plan
Assessment
79-year-old male with past medical history for hypertension, hyperlipidemia, type 2 diabetes, GERD, prostate cancer, restrictive lung disease A-fib sent to the emergency room from [facility] for evaluation of of decreased mental
status. Patient was noted to have a fever of 101.3.
Plan
#Acute metabolic encephalopathy
#Sepsis (on admission)
Mental status improved
AFVSS
Sepsis secondary to cholecystitis
WBC improved, 5.5 today
Earlier concern was for UTI causing sepsis, but urine culture negative
Initial CT showed calcified gallbladder with stones, no signs of cholecystitis
Over the weekend patient complained of right upper quadrant pain, positive More
Blood culture negative
ALT, AST�WNL, ALP mildly elevated
Antibiotics escalated to IV Zosyn, continue
Right upper quadrant ultrasound -evidence of cholecystitis
Surgery consulted
Plan for laparoscopic cholecystectomy today
NPO since midnight
Continue IV fluids
#Hypokalemia
Potassium�3.4
Repleted
Monitor BMP
#DM type II
Fluctuating blood sugars
Diabetic consult in place, adjust insulin as per the recommendation
SSI low resistance
Blood glucose goal 140�180
#Nausea/vomiting/diarrhea
Resolved
Stool culture negative
CT evidence of pancolitis, moderate diffuse colonic stool burden
Bisacodyl suppository
Zofran as needed
Regular diet (n.p.o. for RUQ ultrasound)
#Paroxysmal A-fib
Rate controlled with metoprolol
Not currently on anticoagulants
#Essential hypertension
Continue metoprolol
Restart losartan
# History of prostate cancer
S/p TURP
Continue finasteride
# Hyperlipidemia
Atorvastatin
# Depression
Bupropion, citalopram and lorazepam
# DVT prophylaxis
Lovenox
CODE STATUS
Full code
Anticipated Discharge: 24 - 48 hours
Subjective/Interval History
-
Date of Service: August 30, 2024
Patient reports having ongoing mild abdominal pain.
Objective Data
-
Labs:
Laboratory Results
08/30/24
05:24
WBC 5.5
Hgb 9.3 L
Hct 27.7 L
Plt Count 162
Sodium 136
Potassium 3.4 L
Chloride 110 H
Carbon Dioxide 24
BUN 12
Creatinine 0.8
Glucose 251 H
Calcium 7.5 L
Total Bilirubin 0.6
AST 18
ALT 12
Alkaline Phosphatase 147 H
Vital Signs:
Vital Signs
Temp Pulse Resp BP Pulse Ox
98.2 F 88 16 119/71 99
08/29/24 23:30 08/29/24 23:30 08/29/24 23:30 08/29/24 23:30 08/29/24 23:30
I&O
08/29/24 08/30/24 08/31/24
06:59 06:59 06:59
Intake Total 770 / 770 120 / 120
Balance 770 / 770 120 / 120
Physical Exam
-
General: Well Developed, Well Nourished and No Apparent Distress
HEENT: Normocephalic and Atraumatic
Respiratory: Clear to Auscultation
Cardiac: Regular Rhythm and S1/S2
GI: Soft, Nondistended and Tender (Right upper quadrant with positive More sign.)
Skin: Warm and Dry
Neuro: Awake, Alert, Oriented, AO x 3 and Nonfocal/Grossly Intact
Psych: Calm
--- NOTE | 2024-08-30 07:10 | CON.GS ---
Consultation
-
Date/Time Consultation Requested: 08/29
Date/Time Consultation Performed: 08/30
Medical History
-
History of Present Illness:
Patient is a 79 yo M with a PMH of GERD c/b Vergara's esophagus, HTN, HLD, A-fib (no anticoagulation) IDDM, KIM, prostate cancer s/p TURP and XRT, s/p appendectomy, s/p RIGHT inguinal hernia repair, and s/p LEFT hip ORIF. Mr. Damon presented to
on 08/25/2004 from his group home at [facility] with reports of fevers and decreased mental status. Multiple episodes of nausea and vomiting as well as an episode of diarrhea. Per report, he had no abdominal pain or discomfort. Over the
course of his hospitalization he has been managed with antibiotics and bowel rest. During the course of his workup and management he reported RUQ abdominal pain prompting a RUQ ultrasound which demonstrated gallbladder wall distention, wall
thickening, and a positive sonographic More sign. Mr. Damon states that he has had a constant RUQ discomfort for weeks now. No clear association with oral intake. Of note, he is currently oriented and able to answer questions appropriately.
Past Medical History
Past Medical History: Arrhythmias (Afib), Cancer (Prostate s/p XRT), GERD, HTN, Hypercholesterolemia, IDDM and Other (KIM)
Past Surgical History: Appendectomy, Hernia Repair (Open RIH), Orthopedic (LEFT hip ORIF) and Urological (TURP)
Social History
Tobacco: Non-Smoker
Alcohol: None
Drug: None
Living: Fpc
Family History
Family History: Reviewed & Noncontributory
Allergies / Home Medications
Allergy/AdvReac Type Severity Reaction Status Date / Time
pollen extracts Allergy RHINITIS-EN Verified 08/25/24 14:03
VIRONMENTAL
�Medication �Instructions �Recorded �Confirmed �Type
bupropion HCl 150 mg 24 hr tablet, 150 mg PO DAILY Depression 06/25/17 08/25/24 History
extended release
finasteride 5 mg tablet 5 mg PO DAILY prostate 06/25/17 08/25/24 History
losartan 50 mg tablet 50 mg PO DAILY 07/15/17 08/25/24 Rx
atorvastatin 80 mg tablet 80 mg PO QPM High cholesterol 08/02/20 08/25/24 History
citalopram 20 mg tablet 20 mg PO DAILY Depression 08/02/20 08/25/24 History
metoprolol succinate 25 mg 12.5 mg (1/2 x 25 mg) PO DAILY #30 12/13/23 08/25/24 Rx
tablet,extended release 24 hr tabs
lorazepam 0.5 mg tablet 0.5 mg PO DAILY ANXIETY 06/09/24 08/25/24 History
acetaminophen 325 mg tablet 650 mg PO Q4H PRN PAIN 08/25/24 08/25/24 History
(Tylenol)
gabapentin 300 mg capsule 300 mg PO TID NEUROPATHIC PAIN 08/25/24 08/25/24 History
insulin degludec 100 unit/mL (3 35 unit SC QHS Diabetes 08/25/24 08/25/24 History
mL) subcutaneous pen (Tresiba
FlexTouch U-100 insulin)
insulin lispro 100 unit/mL 12 unit SC TID Diabetes 08/25/24 08/25/24 History
subcutaneous solution (Humalog
U-100 Insulin)
multivitamin 1 tab PO DAILY Supplement 08/25/24 08/25/24 History
Review of Systems
-
A 10 point review of systems was completed, and was negative except as per HPI.
Physical Exam
Vital Signs
Temp Pulse Resp BP Pulse Ox
98.2 F 88 16 119/71 99
08/29/24 23:30 08/29/24 23:30 08/29/24 23:30 08/29/24 23:30 08/29/24 23:30
Body Mass Index (BMI) 24.1
Lab Results
08/30/24 05:24
08/30/24 05:24
WBC 5.5 10^3/uL (4.8-10.8) 08/30/24 05:24
Hgb 9.3 g/dL (13.0-18.0) L 08/30/24 05:24
Hct 27.7 % (39.0-52.0) L 08/30/24 05:24
Plt Count 162 10^3/uL (130-400) 08/30/24 05:24
Abs Immat Gran (auto) 0.0 10^3/uL (0-0.05) 08/30/24 05:24
Neutrophils % 65.4 % (42.2-75.2) 08/30/24 05:24
Physical Exam
General: Well Developed, Well Nourished and No Apparent Distress
HEENT: Normocephalic and Anicteric
Respiratory: Non Labored Respirations
Cardiac: Irregular Rhythm
GI: Soft, Non Distended, Tender (Mild RUQ > supra-pubic (Lovenox shot overlying area of discomfort)), Incisions (Well healed) and Other (Non-peritoneal)
Skin: Warm and Dry
Neuro: AO x 3
Data Reviewed
-
CT Scan: Image Personally Visualized and interpreted and Report Reviewed by me
Ultrasound: Image Personally Visualized and interpreted and Report Reviewed by me
Labs: Labs Reviewed by me
Assessment / Plan
-
Patient is a 79 yo M p/w fevers and altered mental status
During the course of his workup, and as his mental status has cleared, he has been able to report a longstanding history of RUQ discomfort. Ultrasound demonstrates signs of cholecystitis including gallbladder wall thickening, pericholecystic edema,
and positive sonographic More sign. Labs notable for a normalized WBC, normal bilirubin, LFTs and a mildly elevated ALP (lipase added on for completeness). Currently most of his discomfort is in the RUQ consistent with a diagnosis of
cholecystitis. We did discuss his CT scan findings of colitis, which on review of imaging does appear to be real with thickening, diverticuli, and mild standing. His colon is in close approximation to his bladder with some air rasing the question
of fistulization. Currently his symptoms are more in line with GB pathology, however, his colonic issues should be monitored closely and would recommend at the very least GI follow-up and possible colonoscopy.
The natural history and pathophysiology of biliary and stone disease was briefly reviewed. Options for management including medical management with antibiotics and a low-fat diet as well as further workup with a HIDA scan versus surgical management
with cholecystectomy were considered and discussed. The pros and cons of all approaches was discussed.
Plan for a laparoscopic cholecystectomy with possible cholangiogram. The procedure itself, as well as the risks, benefits, and alternatives was discussed. Specifically, we discussed the risk of bleeding, infection, injury to surrounding structures
(bowel, bile ducts), CBD injury, need for procedure. Typical postprocedural recovery including activity restrictions and the 10 to 20% risks of fluctuations in GI function was discussed. All questions answered. Consent signed. Of note, patient
appears oriented and able to make medical decisions. His was updated by phone and agrees with proceeding with surgery as well.
-- Laparoscopic cholecystectomy with IOC
-- NPO, IVF
-- Abx: Zosyn
[2024-08-30 07:11] LABS: Glucose - Point of Care 265 mg/dl (70-99)
--- NOTE | 2024-08-30 07:47 | W.SUR.PREOP ---
Pre-Operative Surgical Note
-
I have examined this patient prior to the performance of the scheduled procedure.
The patient's condition is unchanged from the time of the current History and
Physical and the patient is able to undergo the scheduled procedure.
[2024-08-30] MEDS: CELEXA PO (07:50)
[2024-08-30] MEDS: ATIVAN PO (07:50)
[2024-08-30] MEDS: NOVOLOG FLEXPEN SC ×3 (07:50→18:05)
[2024-08-30] MEDS: KCL 270 MEQ IV (07:50)
[2024-08-30] MEDS: NOVOLOG FLEXPEN-LOW RESISTANCE 3 UNITS SC ×2 (07:50→18:13)
[2024-08-30] MEDS: WELLBUTRIN XL (24 hour extended release) PO (07:51)
[2024-08-30] MEDS: TOPROL XL PO (07:51)
[2024-08-30] MEDS: NEURONTIN PO (07:51)
[2024-08-30] MEDS: PROSCAR PO (07:51)
[2024-08-30] MEDS: COZAAR PO (07:51)
--- NOTE | 2024-08-30 08:00 | PN.DE.MGMTRT ---
Insulin Management
- -
08/30/2024 Diabetes Management Consult Follow up
Patient admitted 08/25 with change in mental status. PMH GERD, HCL diabetes, frequent falls. Prior to admission was in [facility]. Received 35 units Tresiba @ HS with 12 units humalog AC. A1C is 6.5%.
Patient is awake alert and oriented able to discuss diabetes care.
Has been tolerating diet, now NPO. CR .8, eGFR > 60.
08/29 Glucose range 146 to 255. Lantus dose again changed by overnight MANUFACTURER AGENT to 8 units.
08/29 Fasting glucose 265. Patient is NPO for OR today for lap/merle.
When diet resumes will continue AC novolog 4 units with low corrective. With Lantus from 12 units.
Discussed with nurse.
Will follow
Diabetes History
- -
Type of Diabetes: 2 requiring insulin
Pre-Admission Diabetes Regimen
08/30/24
05:24
Creatinine 0.8
Lab Results
Hemoglobin A1c 6.5 % (4.0-5.6) H 08/26/24 06:52
Insulin Pump Settings
IP Diabetes Regimen
08/29/24 08/29/24 08/29/24
12:23 18:02 22:22
Glucose
POC Glucose 146 H 201 H 249 H
08/30/24 08/30/24 08/30/24
00:29 05:24 07:09
Glucose 251 H
POC Glucose 255 H 265 H
Meal type: Breakfast
Patient Education
[2024-08-30 08:02] LABS: Lipase 20 U/L (23-300)
--- NOTE | 2024-08-30 10:49 | PTCARENOTE ---
Patient strict NPO for lap merle this AM per general surgery, PO AM meds held. IVF, scheduled Zosyn, and K-rider administered and infusing - see MAR. CHG bath and hygiene provided.
--- NOTE | 2024-08-30 11:42 | PN.CDI ---
CDI
- -
CDI:
Physician Documentation Request
Admit Date: 08/25/24 17:07
Dear Doctor Flavia/Resident,
Please review the following and provide your response in the progress notes.
Clinical Indicators:
Pt admitted with Sepsis possibly now due to cholecystitis
Documented per WOCN note 08/26 Present on admission sacrum pressure injury stage 1 ...silicone border placed...'
Physician documentation of the type and location of wounds is required for compliant documentation. Based on the above clinical findings and your assessment, please provide the following in your progress note:
1. Location of the ulcer/wound, including laterality.
2. Type (etiology) of ulcer/wound:
- Pressure (decubitus) ulcer
- Non-pressure ulcer
- Other ( please specify)
Use of terms such as suspected, likely, concern for, or probable (associated with a specific diagnosis that is being evaluated, monitored, or treated as if it exists) are acceptable and can be coded in the inpatient setting, when documented at the
time of discharge.
Thank you,
Luz Elena Aquino RN
CDI Specialist
[place] [facility]
Please use your independent medical judgment in providing your response.
*Source: National Pressure Ulcer Advisory Panel (NPUAP)
--- NOTE | 2024-08-30 11:49 | PN.CDI ---
CDI
- -
CDI:
Physician Documentation Request
Admit Date: 08/25/24 17:07
Dear Doctor Flavia/Resident,
Please review the following and provide your response in the progress notes.
Clinical Indicators:
Pt admitted with Sepsis possibly now due to cholecystitis
Renal functions are as below/ Pt did get IVFs
08/25/24 08/26/24 08/27/24
14:08 06:52 05:34
Creatinine 1.3 1.4 H 1.1
08/30/24
05:24
Creatinine 0.8
Clarify which of the following accurately represents the patient's renal status:
JUDITH -resolved
Elevated creatinine only
Other ( please specify)
Criteria for JUDITH*
1 Increase in serum creatinine by > or = to 0.3 mg/dL (> or = to 26.5 micromol/L) within 48 hours, OR
2 Increase in serum creatinine to > or = to 1.5 times baseline, which is known or presumed to have occurred within 7 days, OR
3 Urine volume < 0.5 nL/kg/hour for six hours
Use of terms such as suspected, likely, concern for, or probable (associated with a specific diagnosis that is being evaluated, monitored, or treated as if it exists) are acceptable and can be coded in the inpatient setting, when documented at the
time of discharge.
Thank you,
Luz Elena Aquino RN
CDI Specialist
[place] [facility]
Please use your independent medical judgment in providing your response.
*Source: Kidney Disease: Improving Global Outcomes (KDIGO) 2012
[2024-08-30 12:14] LABS: Glucose - Point of Care 241 mg/dl (70-99)
[2024-08-30] MEDS: NOVOLOG FLEXPEN-LOW RESISTANCE 2 UNITS SC (12:15)
--- NOTE | 2024-08-30 13:55 | PTCARENOTE ---
Patient to OR for lap merle, report given to Marcia in OR. Patient transported in bed with chart. IVF capped, 1400 dose of Zosyn tubed to OR. Patient changed, second CHG bath given prior to transport.
--- NOTE | 2024-08-30 17:08 | W.IMMPOSTOP ---
Surgical Immed Post Op Note
-
Primary Surgeon: Clau
Assisting Surgeon: BILLY Villalobos
Pre-op Diagnosis: Acute on chronic cholecystitis
Post-op Diagnosis: Acute on chronic cholecystitis
Procedure Performed: Laparoscopic cholecystectomy
Anesthesia Type: General
Specimen / Cultures:
1. Gallbladder
Estimated Blood Loss: 199 cc
Complications: None
Operative Findings:
1. Chronically inflamed GB, thickened wall, omental adhesions, cyst aspiration needle used
2. Artery identified and firmly adherent to GB wall
3. Critical view with duct identified and inferior 50% of GB taken off the liver
4. Duct and artery taken with montesinos load stapler
--- NOTE | 2024-08-30 17:11 | CM ---
Patient seen earlier today and plan is for return to [facility] when medically appropriate. CM will continue to follow for discharge planning needs.
Plan; return to [facility]
[2024-08-30 17:26] LABS: Glucose - Point of Care 269 mg/dl (70-99)
[2024-08-30] MEDS: D5/0.9% SODIUM CHLORIDE IV (17:29)
[2024-08-30] MEDS: ZOSYN IV (17:29)
[2024-08-30] MEDS: NEURONTIN 300 MG PO ×2 (18:05→22:08)
[2024-08-30] MEDS: LIPITOR 80 MG PO (18:05)
[2024-08-30 18:08] LABS: Glucose - Point of Care 290 mg/dl (70-99)
--- NOTE | 2024-08-30 18:15 | PTCARENOTE ---
Addendum entered by Benita Corado RN 08/30/24 18:21:
4 lap sites on abdomen intact, surgical glue present, patient denies pain and nausea at this time.
Original Note:
Received patient from PACU s/p gem bloom. Vitals taken by tech stable, patient AAOX3, drowsy, asking to sleep. Blood sugar 290, patient refusing clear liquid dinner, covered with sliding scale insulin. SCDs and IVF in place.
[2024-08-30 19:07] LABS: Hematocrit 29.7 % (39.0-52.0); Hemoglobin 10.3 g/dL (13.0-18.0); Mean Corp Hgb Conc. 34.7 g/dL (33.0-37.0); Mean Corpuscular Hgb 29.9 pg (27.0-31.0); Mean Corpuscular Volume 86.3 fL (80.0-94.0); Mean Platelet Volume 9.6 fL (7.4-10.4); Platelet Count 239 10^3/uL (130-400); Red Blood Cell Count 3.44 10^6/uL (4.70-6.10); Red Cell Dist. Width 14.4 % (11.5-14.5); White Blood Cell Count 10.4 10^3/uL (4.8-10.8)
[2024-08-30] MEDS: LANTUS 0.12 UNITS SC (22:08)
[2024-08-30 22:34] LABS: Glucose - Point of Care 319 mg/dl (70-99)
[2024-08-31] MEDS: NOVOLOG FLEXPEN 4 UNITS SC ×2 (00:26→07:50)
[2024-08-31] MEDS: D5/0.9% SODIUM CHLORIDE 1000 IV (00:29)
[2024-08-31] MEDS: ZOSYN 50 IV ×4 (02:45→19:44)
[2024-08-31 03:26] VITALS: BP 163/88
[2024-08-31] MEDS: NOVOLOG FLEXPEN-LOW RESISTANCE 4 UNITS SC ×3 (04:37→12:19)
--- NOTE | 2024-08-31 04:40 | DOWNTIME ---
Addendum entered by Narayan Landaverde RN 08/31/24 14:19:
Correction: There was a [employer] Client Field Marketer Downtime on 08/31/2024 from 0100 to 08/31/2024 at 0415.
Original Note:
There was a [employer] Client Field Marketer Downtime on 08/30/2024 from 0100 to 08/31/2024 at 0415. Downtime documentation of patient's care, including medication administrations, has been reconciled in the electronic record per guidelines. Refer to the
patient's paper chart under the miscellaneous tab to see printed paper medication records and downtime forms.
[2024-08-31 05:27] LABS: Glucose - Point of Care 274 mg/dl (70-99)
[2024-08-31] MEDS: TYLENOL 650 MG PO ×3 (05:29→21:35)
--- NOTE | 2024-08-31 06:00 | PTCARENOTE ---
HS Accucheck 319, INDUSTRIAL HYGIENE TECHNICIAN notified and orders for 4 units novolog, see MAR for administration. Recheck accucheck 339 during downtime hours, INDUSTRIAL HYGIENE TECHNICIAN notified and 4 units novolog ordered, see MAR for administration. D5NS d/c'd at this time. Follow up
accucheck 274 this AM.
--- NOTE | 2024-08-31 06:50 | W.PN.HOSP.TC ---
Addendum entered and electronically signed by Steph Alejandro MD 08/31/24 17:53:
I saw and evaluated the patient independently. I reviewed the resident�s note and agree with findings and plan as documented by Dr. Pandya.
GENERAL: well developed, well nourished, male in no apparent distress-- at bedside
HEENT: NC/AT
HEART: regular rate and rhythm, +S1, +S2
LUNGS : clear to auscultation bilaterally
ABDOM: soft, nontender, nondistended, + bowel sounds
EXT: no cyanosis, clubbing, or edema
NEUROLOGIC: grossly intact
Acute metabolic encephalopathy (resolved) due to sepsis--likely from gallbladder issue--urine and blood cultures negative--improved WBC count--Initial CT showed calcified gallbladder with stones, no signs of cholecystitis--cont IV zosyn, can stop at
d/c--abdominal US consistent with acute cholecystitis--apprec surgery--s/p lap merle 08/30/24 and tolerating diet advancement--likely d/c tomorrow
JUDITH--likely due to sepsis/infection--creat peaked at 1.4 improved to 0.8 with IVF which are now stopped
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
Nausea/vomiting/diarrhea--Resolved--Stool culture negative--CT evidence of pancolitis-- moderate diffuse colonic stool burden
Paroxysmal A-fib--Rate controlled with metoprolol--Not currently on anticoagulants
Essential hypertension--Continue metoprolol--Restart losartan
History of prostate cancer--S/p TURP--Continue finasteride
wound--POA--sacrum pressure injury stage 1
Hyperlipidemia--Atorvastatin
Depression--Bupropion, citalopram and lorazepam
DVT prophylaxis-- Lovenox
CODE STATUS-- Full code
Original Note:
Today's Communication/Plan
-
Advance diet as tolerated
DC IV fluids
Assessment / Plan
Assessment / Plan
Assessment
79-year-old male with past medical history for hypertension, hyperlipidemia, type 2 diabetes, GERD, prostate cancer, restrictive lung disease A-fib sent to the emergency room from [facility] for evaluation of of decreased mental
status. Patient was noted to have a fever of 101.3.
Plan
#Acute cholecystitis, status post laparoscopic cholecystectomy
#Postoperative day #1
#Sepsis (on admission)
Sepsis secondary to cholecystitis
Patient underwent laparoscopic cholecystectomy on 08/30/2024
No postoperative complications
Patient is tolerating clears well, advance diet as tolerated
Adequate pain control
DC IV fluids
Discharge as per surgery recommendation
No indication for antibiotics at discharge
WBC improved, monitor fever curve
Will plan on discharge once patient tolerates solid diet well
PT/OT consulted,�recommend skilled rehab
Discharge to [facility] when able
#Hypokalemia
Potassium�3.4 >>4.0
Resolved
Monitor BMP
#DM type II
Fluctuating blood sugars
Diabetic consult in place, adjust insulin as per the recommendation
SSI low resistance
Blood glucose goal 140�180
#Nausea/vomiting/diarrhea
Resolved
Stool culture negative
CT evidence of pancolitis, moderate diffuse colonic stool burden
Zofran as needed
#Paroxysmal A-fib
Rate controlled with metoprolol
Not currently on anticoagulants
#Essential hypertension
Continue metoprolol
Continue losartan
# History of prostate cancer
S/p TURP
Continue finasteride
# Hyperlipidemia
Atorvastatin
# Depression
Bupropion, citalopram and lorazepam
# DVT prophylaxis
Lovenox
CODE STATUS
Full code
Anticipated Discharge: Within 24 hours
Subjective/Interval History
-
Date of Service: August 31, 2024
Patient reports feeling better. No nausea/vomiting. No bowel movement, but passing flatus. Tolerating clears well.
Objective Data
-
Labs:
Laboratory Results
08/30/24 08/31/24
17:50 06:13
WBC 10.4 Pending
Hgb 10.3 L Pending
Hct 29.7 L Pending
Plt Count 239 D Pending
Sodium Pending
Potassium Pending
Chloride Pending
Carbon Dioxide Pending
BUN Pending
Creatinine Pending
Glucose Pending
Calcium Pending
Total Bilirubin Pending
AST Pending
ALT Pending
Alkaline Phosphatase Pending
Vital Signs:
Vital Signs
Temp Pulse Resp BP Pulse Ox
98.2 F 113 18 163/88 94
08/31/24 03:26 08/31/24 03:26 08/31/24 03:26 08/31/24 03:26 08/31/24 03:26
I&O
08/29/24 08/30/24 08/31/24
06:59 06:59 06:59
Intake Total 770 / 770 120 / 120 1050 / 1050
Balance 770 / 770 120 / 120 1050 / 1050
Review of Systems
-
All other systems: Reviewed and negative (Except as mentioned above)
Physical Exam
-
General: Well Developed, Well Nourished and No Apparent Distress
HEENT: Normocephalic and Atraumatic
Respiratory: Clear to Auscultation
Cardiac: Regular Rhythm and S1/S2
GI: Soft, Nontender, Normal Bowel Sounds and Tender (Mildly tender, laparoscopic port site incisions intact with glue.)
Skin: Warm and Dry
Neuro: Awake, Alert, Oriented, AO x 3 and Nonfocal/Grossly Intact
Psych: Calm
--- NOTE | 2024-08-31 07:11 | PN.DE.MGMTRT ---
Insulin Management
- -
08/31/2024 Diabetes Management Consult Follow up
Patient admitted 08/25 with change in mental status. PMH GERD, HCL diabetes, frequent falls. Prior to admission was in [facility]. Received 35 units Tresiba @ HS with 12 units humalog AC. A1C is 6.5%.
POD 1 s/p lap/merle. Patient is awake alert and oriented able to discuss diabetes care.
08/30 Patient NPO most of day for OR. Glucose range 241 to 319. Patient received lantus 12 units @ hs.
08/31 Fasting glucose 274. Will increase HS lantus to 16 units, diet has advanced, patient appetite excellent. Will increase AC novolog to 8 units with low corrective.
Discussed with nurse.
Will follow
Diabetes History
- -
Type of Diabetes: 2 requiring insulin
Pre-Admission Diabetes Regimen
Lab Results
Hemoglobin A1c 6.5 % (4.0-5.6) H 08/26/24 06:52
Insulin Pump Settings
IP Diabetes Regimen
08/30/24 08/30/24 08/30/24
07:09 12:12 17:23
POC Glucose 265 H 241 H 269 H
08/30/24 08/30/24 08/31/24
18:07 22:27 05:26
POC Glucose 290 H 319 H 274 H
Meal type: Breakfast
Meal type: Lunch
Meal type: Breakfast
Amount consumed: 85%
Patient Education
[2024-08-31 07:49] LABS: Glucose - Point of Care 310 mg/dl (70-99)
[2024-08-31] MEDS: ATIVAN 0.5 MG PO (07:49)
[2024-08-31] MEDS: TOPROL XL 12.5 MG PO (07:50)
[2024-08-31] MEDS: COZAAR 50 MG PO (07:50)
[2024-08-31] MEDS: WELLBUTRIN XL (24 hour extended release) 150 MG PO (07:50)
[2024-08-31] MEDS: CELEXA 20 MG PO (07:50)
[2024-08-31] MEDS: PROSCAR 5 MG PO (07:50)
[2024-08-31] MEDS: NEURONTIN 300 MG PO ×3 (07:50→21:36)
[2024-08-31 08:02] LABS: ALT (SGPT) 28 U/L (0-50); AST (SGOT) 51 U/L (17-59); Albumin 2.3 g/dl (3.5-5.0); Alkaline Phosphatase 162 U/L (38-126); Blood Urea Nitrogen 11 mg/dl (9-20); Calcium 7.6 mg/dl (8.4-10.2); Carbon Dioxide 25 mmol/L (22-30); Chloride 106 mmol/L (98-107); Estimated Creatinine Clearance 82 ml/min; Glucose 292 mg/dl (70-99); Sodium 136 mmol/L (135-145); Total Bilirubin 0.6 mg/dl (0.2-1.3); Total Protein 5.4 g/dl (6.3-8.2); eGFR > 60.00
[2024-08-31 08:19] LABS: Glucose - Point of Care 339 mg/dl (70-99)
--- NOTE | 2024-08-31 08:29 | W.PN.GS2 ---
Today's Communication / Plan
-
Dispo planning
Assessment / Plan
-
This is a 79-year-old male postoperative day 1 from a laparoscopic cholecystectomy for acute cholecystitis. Doing well, expected postoperative course.
Advance to a diabetic diet.
Discharge instructions updated, patient to follow-up with Dr. Olguin in 2 to 3 weeks.
Dispo per primary
Time Spent
Total Time Spent with Patient (in minutes): 20
Subjective Data
-
Date of Service: August 31, 2024
Interval Events:
No acute events overnight. Slept well. Pain Controlled. Denies Nausea/Vomiting, +bowel function. Tolerating diet.
Objective Data
-
Intake and Output
08/30/24 08/31/24 09/01/24
06:59 06:59 06:59
Intake Total 120 / 120 1050 / 1050
Balance 120 / 120 1050 / 1050
Intake:
Oral fluids 40 / 40 0 / 0
Amount of oral supplement(s) 50 / 50
consumed
IV fluids (Total) 30 / 30 950 / 950
Normosol 200 / 200
IV piggybacks 100 / 100
Other:
How many times incontinent 1
MODERATE amount urine
How many times incontinent 5 4
SATURATED amount urine
Vital Signs
Temp Pulse Resp BP Pulse Ox
98.2 F 102 18 135/80 94
08/31/24 03:26 08/31/24 07:50 08/31/24 03:26 08/31/24 07:50 08/31/24 03:26
Lab Results
08/31/24 06:13
Calcium 7.6 mg/dl (8.4-10.2) L 08/31/24 06:13
Phosphorus 2.7 mg/dl (2.5-4.5) 08/28/24 04:43
Magnesium 2.0 mg/dl (1.6-2.3) 08/28/24 04:43
Total Bilirubin 0.6 mg/dl (0.2-1.3) 08/31/24 06:13
Direct Bilirubin 0.3 mg/dl (0.0-0.4) 08/29/24 05:21
AST 51 U/L (17-59) 08/31/24 06:13
ALT 28 U/L (0-50) 08/31/24 06:13
Alkaline Phosphatase 162 U/L (38-126) H 08/31/24 06:13
Total Protein 5.4 g/dl (6.3-8.2) L 08/31/24 06:13
Albumin 2.3 g/dl (3.5-5.0) L 08/31/24 06:13
Physical Exam
-
GENERAL/NEURO: Awake, Alert, no distress
CHEST: Unlabored breathing on RA
ABDOMEN: Soft, Non-Tender, Non-Distended, incisions clean dry and intact
Patient has a baker catheter: No
Patient has a central line: No
[2024-08-31 08:35] LABS: % Basophils 0.1 % (0-2); % Immature Granulocytes 0.3 % (0-0.5); % Lymphocytes 13.4 % (20.5-51.1); % Monocytes 6.7 % (1.7-9.3); % Neutrophils 79.5 % (42.2-75.2); Absolute Lymphocytes 1.2 10^3/uL (1.2-3.4); Absolute Monocytes 0.6 10^3/uL (0.1-0.6); Absolute Neutrophils 7.2 10^3/uL (1.4-6.5); Hematocrit 29.6 % (39.0-52.0); Hemoglobin 9.9 g/dL (13.0-18.0); Mean Corp Hgb Conc. 33.4 g/dL (33.0-37.0); Mean Corpuscular Hgb 29.4 pg (27.0-31.0); Mean Corpuscular Volume 87.8 fL (80.0-94.0); Mean Platelet Volume 10.8 fL (7.4-10.4); Nucleated Red Blood Cells % 0 % (-); Platelet Count 167 10^3/uL (130-400); Red Blood Cell Count 3.37 10^6/uL (4.70-6.10); Red Cell Dist. Width 14.6 % (11.5-14.5); White Blood Cell Count 9.1 10^3/uL (4.8-10.8)
[2024-08-31 08:46] VITALS: BP 135/80
[2024-08-31 10:05] VITALS: BP 140/73; PULSE 101
[2024-08-31 11:05] VITALS: BP 115/68
[2024-08-31 12:00] LABS: Glucose - Point of Care 338 mg/dl (70-99)
[2024-08-31] MEDS: NOVOLOG FLEXPEN SC (12:18)
[2024-08-31] MEDS: NOVOLOG FLEXPEN 8 UNITS SC ×2 (12:19→16:51)
[2024-08-31 14:00] VITALS: BMI 24.1
[2024-08-31] MEDS: ULTRAM 25 MG PO (15:00)
[2024-08-31 15:09] VITALS: BP 117/65
[2024-08-31 16:46] LABS: Glucose - Point of Care 279 mg/dl (70-99)
[2024-08-31] MEDS: NOVOLOG FLEXPEN-LOW RESISTANCE 3 UNITS SC (16:52)
[2024-08-31] MEDS: LIPITOR 80 MG PO (17:00)
--- NOTE | 2024-08-31 17:13 | CM ---
Patient and seen at bedside with physicians on 2 north. Patient completed IMM and signed form placed on chart. Patient for transfer to [facility] pending physician assessment tomorrow. CM will continue to follow for discharge planning
needs.
Plan; return to [facility] for Short term care.
[2024-08-31] MEDS: LOVENOX 40 MG SC (18:02)
--- NOTE | 2024-08-31 19:40 | PTCARENOTE ---
Patient tolerating 2000 juani diabetic diet, + bowel sounds and large incontinent brown BM this shift. Patient states abd discomfort especially with deep breathing rated 4-5/10, MD and resident aware, patient states partial relief in pain after PRN PO
tramadol - see MAY. CAILIN stockings in place, patient ringing appropriately.
--- NOTE | 2024-08-31 20:44 | W.DCSUMMARY ---
Addendum entered and electronically signed by Steph Alejandro MD 09/01/24 20:20:
Read, reviewed, and agree. See same day progress note for additional details. Time spent coordinating care, DC planning, review of DC plan of care with resident, transition of care, review of records in EMR, med rec, consults, notes, d/w
consultants, nursing, family, and CM = 33 minutes
Original Note:
Discharge Summary
Discharge Data
Date of Admission: 08/25/24
Date of Discharge: 09/01/24
-
Pending Results: No
Hospital Course
Discharging Physician : Dr. Alejandro, Dr. Jansen
Disposition : SNF
Principal Discharge diagnosis : Acute cholecystitis
Hospital Course : 79-year-old male with past medical history for hypertension, hyperlipidemia, type 2 diabetes, GERD, prostate cancer, restrictive lung disease A-fib presented to the ER from [facility] for evaluation of of altered
mental status. Patient was noted to have a fever of 101.3. Report from the custodial�patient had UTI a week prior to admission for which she was on oral antibiotics. Patient stated he vomited multiple times and had an episode of diarrhea.
In the ER- temp of 101 point, WBC 15.6. UA�evidence of UTI. Patient meets sepsis criteria secondary to UTI, received a dose of ceftriaxone and admitted to [facility] for further management. Patient continued on IV ceftriaxone. CT abdomen pelvis with
evidence of�mild pancolitis, intravesical gas suggesting acute cystitis. Due to his AMS, diet advanced as tolerated after cleared by speech. Blood cultures and urine cultures came back negative. During evaluation by the speech, patient was noted
to have expressive aphasia and left facial droop. Head CT and brain MRI with no evidence of acute infarct. Patient's mental status has improved, was complaining of pain in the right upper quadrant. His antibiotics escalated to IV Zosyn. White
count and fever curve monitored regularly. Ultrasound of the right upper quadrant showed evidence of acute cholecystitis. Surgery was consulted. Patient underwent laparoscopic cholecystectomy without any complications. Patient's condition has
clinically improved, diet advanced as tolerated. Rest of his chronic medical conditions have been managed as below
Diabetes mellitus type 2�patient on home Lantus 35, Humalog 12. At admission his Lantus reduced to 17 due to his n.p.o. status. Patient had fluctuating blood glucose levels, Diabetic consult was placed and his insulin dose adjusted as
recommended. Patient was hemodynamically stable and clinically improved at the time of discharge.
Hypokalemia�repleted as needed, BMP monitored regularly.
Paroxysmal A-fib�rate controlled with metoprolol, not anticoagulated.
Essential hypertension�continued on metoprolol, losartan
History of prostate cancer�continued on finasteride
Hyperlipidemia�continued on atorvastatin
Depression�continued on bupropion, citalopram, lorazepam
Important imaging findings :
Chest x-ray�08/25/2024�no acute cardiopulmonary process.
CT abdomen pelvis�08/25/2024�
1. Intravesical gas suggesting acute cystitis versus recent instrumentation.
2. Suspect mild uncomplicated pancolitis, likely of infectious/inflammatory etiology.
3. Moderate diffuse colonic stool burden may reflect constipation.
4. Moderate to severe T12 compression fracture with mild osseous retropulsion, age indeterminate. Recommend correlation for any point tenderness in this region.
CT head�08/26/2024�no acute intracranial abnormalities, findings compatible with diffuse cortical atrophy with nonspecific white matter changes.
Brain MRI�08/26/2024. Moderate diffuse cerebral and cerebellar volume loss.
2. Severe white matter disease in the frontal and parietal lobes
Ultrasound abdomen�08/29/2024�sonographic findings consistent with acute cholecystitis.
Discharge Plan
-
Patient Disposition: Half-Way/SNF
Discharge Diagnosis/Procedures: Acute cholecystitis. Laparoscopic cholecystectomy
Type II DM
JUDITH
Condition: Good
Diet: Low Fat
Activity: No strenuous activity
Driving Restrictions: As prior to admission
Bathing Restrictions: OK to Shower
Other Services: PT and OT
Activity Restrictions/Additional Instructions:
Instructions following Laparoscopic Cholecystectomy
Please call [phone] if you have any questions or concerns after your surgery.
Wound Care:
Your incisions are covered with skin glue which will come off on its own in 5-10 days.
It is ok to shower the day after your surgery. Do not scrub the incisions, let soap and water wash over them and pat dry.
� Bruising around your incisions is normal.
� Using ice packs will help minimize this swelling.
� No swimming or soaking incisions for 1 week.
� Your stitches will dissolve and do not need to be removed.
Urinary retention:
If you are unable to urinate 6-8 hours after your surgery, please call [phone] to discuss further management.
Activity:
No heavy lifting more than 15 pounds for the next 3 weeks, then you may gradually lift heavier objects as tolerated by discomfort. Otherwise activity as tolerated by your comfort level.
Pain Management:
Use Tylenol, ibuprofen and ice packs to treat your pain.
� You may take 650 milligrams of Tylenol (Max 3 grams per day) every 6 hours, and 600 mg of ibuprofen also every 6 hours. (you can alternate them every 3 hours)
� You may use an ice pack to your incision as needed.
� If you still have pain not controlled by these measures, take your prescription pain medication as prescribed.
Medications:
You may resume your home medications.
Bowel Medications:
Prescription pain medication can make you constipated. If you take this medication, also take colace 100 mg twice daily (this is over the counter). If this is not sufficient, you may take Miralax (polyethylene glycol) to help move your bowels.
Diet:
After your procedure, there are no dietary restrictions. However, you may notice some loose stools with fatty meals for up to 4 weeks after surgery. If this is the case, please adjust to a low fat diet as needed.
Driving restrictions:
No driving if you are taking prescription pain medication or if you think your normal reaction time and attentiveness has been slowed by your surgery.
Things to Look out for:
Worsening Abdominal pain, fever, jaundice, redness or drainage from incision
Call Doctor for:
Please call if you notice worsening redness or drainage from incision(s) lasting longer than 5 days after your surgery, any foul-smelling drainage from the incision, pain not controlled by pain medications, persistent nausea and vomiting, or for any
fevers greater than 101.3 F. The number for questions/concerns is [phone]
Follow-up:
A follow-up appointment will be scheduled with your surgeon in 3-4 weeks. Please call prior to your appointment if you have any questions or concerns. [phone]
Referrals:
Daren Durant DO [Family Provider, Internal Medicine] - in one to two weeks
Neal Olguin MD [Active, Surgical] - in two to four weeks
Prescriptions:
Continued
finasteride 5 MG tablet
5 mg PO DAILY
bupropion HCl 150 MG tablet extended release 24 hr
150 mg PO DAILY
atorvastatin 80 MG tablet
80 mg PO QPM
citalopram 20 MG tablet
20 mg PO DAILY
metoprolol succinate 25 mg Tablet Extended Release 24 Hr
12.5 mg PO DAILY Qty: 30 0RF
lorazepam 0.5 mg Tablet
0.5 mg PO DAILY
multivitamin Tablet
1 tab PO DAILY
acetaminophen [Tylenol] 325 mg Tablet
650 mg PO Q4H PRN (Reason: PAIN)
gabapentin 300 mg capsule
300 mg PO TID
losartan 50 MG tablet
50 mg PO DAILY 0RF
Changed
insulin lispro [Humalog U-100 Insulin] 100 unit/mL solution
10 unit SC TID Qty: 0 0RF
insulin degludec [Tresiba FlexTouch U-100] 100 unit/mL (3 mL) insulin pen
18 unit SC QHS Qty: 0 0RF
Discharge Orders:
Discharge Patient (As Directed); Ordered 09/01/24
Ordered By: Inderjit Pandya
Discharge Date and Time
Discharge Date/Time: 09/01/24 16:56
Print Language: SALVADOREAN
[2024-08-31 21:53] LABS: Glucose - Point of Care 250 mg/dl (70-99)
[2024-08-31] MEDS: LANTUS 0.16 UNITS SC (21:59)
[2024-08-31 23:16] VITALS: BP 125/72
[2024-09-01] MEDS: ZOSYN 50 IV ×3 (01:57→15:50)
[2024-09-01 07:05] LABS: % Basophils 0.3 % (0-2); % Eosinophils 2.3 % (0-6); % Immature Granulocytes 0.3 % (0-0.5); % Lymphocytes 22.6 % (20.5-51.1); % Monocytes 6.9 % (1.7-9.3); % Neutrophils 67.6 % (42.2-75.2); Absolute Eosinophils 0.2 10^3/uL (0-0.7); Absolute Lymphocytes 1.6 10^3/uL (1.2-3.4); Absolute Monocytes 0.5 10^3/uL (0.1-0.6); Absolute Neutrophils 4.7 10^3/uL (1.4-6.5); Hematocrit 27.2 % (39.0-52.0); Hemoglobin 9.1 g/dL (13.0-18.0); Mean Corp Hgb Conc. 33.5 g/dL (33.0-37.0); Mean Corpuscular Hgb 29.4 pg (27.0-31.0); Mean Platelet Volume 10.3 fL (7.4-10.4); Nucleated Red Blood Cells % 0 % (-); Platelet Count 201 10^3/uL (130-400); Red Blood Cell Count 3.09 10^6/uL (4.70-6.10)
--- NOTE | 2024-09-01 07:13 | PN.DE.MGMTRT ---
Insulin Management
- -
09/01/2024 Diabetes Management Consult Follow up
Patient admitted 08/25 with change in mental status. PMH GERD, HCL diabetes, frequent falls. Prior to admission was in [facility]. Received 35 units Tresiba @ HS with 12 units humalog AC. A1C is 6.5%.
POD 2 s/p lap/merle. Patient is awake alert and oriented able to discuss diabetes care.
08/31 Fasting glucose 274. HS lantus increased to 16 units, diet has advanced to 2000 calorie, patient appetite excellent. AC novolog increased to 8 units with low corrective.
09/01 Fasting glucose 192. Will increase HS lantus to 18 units. Glucose range 250 to 338, AC novolog increased to 8 units yesterday at lunch, glucose remained > 200. Will further increase AC novolog to 10 units.
Discussed with nurse.
Will follow
Diabetes History
- -
Type of Diabetes: 2 requiring insulin
Pre-Admission Diabetes Regimen
08/31/24
06:13
Creatinine 0.9
Lab Results
Hemoglobin A1c 6.5 % (4.0-5.6) H 08/26/24 06:52
Insulin Pump Settings
IP Diabetes Regimen
08/31/24 08/31/24 08/31/24
03:01 06:13 07:48
Glucose 292 H
POC Glucose 339 H 310 H
08/31/24 08/31/24 08/31/24
11:59 16:45 21:52
Glucose
POC Glucose 338 H 279 H 250 H
Meal type: Dinner
Meal type: Lunch
Meal type: Dinner
Meal type: Breakfast
Amount consumed: 65%
Amount consumed: 50%
Amount consumed: 25%
Amount consumed: 100%
Patient Education
[2024-09-01 07:16] LABS: ALT (SGPT) 29 U/L (0-50); AST (SGOT) 46 U/L (17-59); Albumin 2.2 g/dl (3.5-5.0); Alkaline Phosphatase 150 U/L (38-126); Blood Urea Nitrogen 13 mg/dl (9-20); Calcium 7.6 mg/dl (8.4-10.2); Carbon Dioxide 26 mmol/L (22-30); Chloride 108 mmol/L (98-107); Estimated Creatinine Clearance 82 ml/min; Glucose 181 mg/dl (70-99); Potassium 3.5 mmol/L (3.5-5.1); Sodium 136 mmol/L (135-145); Total Bilirubin 0.6 mg/dl (0.2-1.3); Total Protein 5.3 g/dl (6.3-8.2); eGFR > 60.00
--- NOTE | 2024-09-01 07:26 | W.PN.HOSP.TC ---
Addendum entered and electronically signed by Steph Alejandro MD 09/01/24 16:29:
I saw and evaluated the patient independently. I reviewed the resident�s note and agree with findings and plan as documented by Dr. Pandya.
GENERAL: well developed, well nourished, male in no apparent distress-- at bedside
HEENT: NC/AT
HEART: regular rate and rhythm, +S1, +S2
LUNGS : clear to auscultation bilaterally
ABDOM: soft, nontender, nondistended, + bowel sounds
EXT: no cyanosis, clubbing, or edema
NEUROLOGIC: grossly intact
Acute metabolic encephalopathy (resolved) due to sepsis--likely from gallbladder issue--urine and blood cultures negative--improved WBC count--Initial CT showed calcified gallbladder with stones, no signs of cholecystitis--cont IV zosyn, can stop at
d/c--abdominal US consistent with acute cholecystitis--apprec surgery--s/p lap merle 08/30/24 and tolerating diet advancement--OK for D/C
JUDITH--likely due to sepsis/infection--creat peaked at 1.4 improved to 0.8 with IVF which are now stopped
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
Nausea/vomiting/diarrhea--Resolved--Stool culture negative--CT evidence of pancolitis-- moderate diffuse colonic stool burden
Paroxysmal A-fib--Rate controlled with metoprolol--Not currently on anticoagulants
Essential hypertension--Continue metoprolol--Restart losartan
History of prostate cancer--S/p TURP--Continue finasteride
wound--POA--sacrum pressure injury stage 1
Hyperlipidemia--Atorvastatin
Depression--Bupropion, citalopram and lorazepam
DVT prophylaxis-- Lovenox
CODE STATUS-- Full code
Original Note:
Today's Communication/Plan
-
Discharge to [facility]
Assessment / Plan
Assessment / Plan
Assessment
79-year-old male with past medical history for hypertension, hyperlipidemia, type 2 diabetes, GERD, prostate cancer, restrictive lung disease A-fib sent to the emergency room from [facility] for evaluation of of decreased mental
status. Patient was noted to have a fever of 101.3.
Plan
#Acute cholecystitis, status post laparoscopic cholecystectomy
#Postoperative day #2
#Sepsis (on admission)
Sepsis secondary to cholecystitis
Patient is tolerating solid diet well.
Pain adequately controlled
No indication for antibiotics at discharge
WBC improved, monitor fever curve
PT/OT consulted �recommend skilled rehab
Discharge to [facility] today
Follow-up with surgery in 2 to 3 weeks as outpatient
#DM type II
Fluctuating blood sugars
Diabetic consult in place, adjust insulin as per the recommendation
SSI low resistance
Blood glucose goal 140�180
#Hypokalemia
Resolved
Monitor BMP
#Nausea/vomiting/diarrhea
Resolved
Stool culture negative
CT evidence of pancolitis, moderate diffuse colonic stool burden
Zofran as needed
#Paroxysmal A-fib
Rate controlled with metoprolol
Not currently on anticoagulants
Follow-up with cardiology after discharge
#Essential hypertension
Continue metoprolol
Continue losartan
# History of prostate cancer
S/p TURP
Continue finasteride
# Hyperlipidemia
Atorvastatin
# Depression
Bupropion, citalopram and lorazepam
# DVT prophylaxis
Lovenox
CODE STATUS
Full code
Anticipated Discharge: Within 24 hours
Subjective/Interval History
-
Date of Service: September 01, 2024
Patient reports having intermittent mild abdominal pain, radiating to right shoulder. No nausea/vomiting. He is tolerating solids well. Patient is passing gas and having bowel movements.
Objective Data
-
Labs:
Laboratory Results
09/01/24
06:08
WBC 7.0
Hgb 9.1 L
Hct 27.2 L
Plt Count 201 D
Sodium 136
Potassium 3.5
Chloride 108 H
Carbon Dioxide 26
BUN 13
Creatinine 0.9
Glucose 181 H
Calcium 7.6 L
Total Bilirubin 0.6
AST 46
ALT 29
Alkaline Phosphatase 150 H
Vital Signs:
Vital Signs
Temp Pulse Resp BP Pulse Ox
98.1 F 104 18 125/72 98
08/31/24 23:16 08/31/24 23:16 08/31/24 23:16 08/31/24 23:16 08/31/24 23:16
I&O
08/31/24 09/01/24 09/02/24
06:59 06:59 06:59
Intake Total 1050 / 1050 1040 / 1040
Balance 1050 / 1050 1040 / 1040
Review of Systems
-
All other systems: Reviewed and negative (Except as mentioned)
Physical Exam
-
General: Well Developed, Well Nourished and No Apparent Distress
HEENT: Normocephalic and Atraumatic
Respiratory: Clear to Auscultation
Cardiac: Regular Rhythm and S1/S2
GI: Soft, Normal Bowel Sounds and Tender (Tenderness at incision site, laparoscopic port site incisions with intact glue.)
Skin: Warm and Dry
Neuro: Awake, Alert, Oriented, AO x 3 and Nonfocal/Grossly Intact
Psych: Calm
[2024-09-01 07:47] VITALS: BP 145/94
[2024-09-01] MEDS: PROSCAR 5 MG PO (08:18)
[2024-09-01] MEDS: CELEXA 20 MG PO (08:18)
[2024-09-01] MEDS: WELLBUTRIN XL (24 hour extended release) 150 MG PO (08:18)
[2024-09-01] MEDS: TOPROL XL 12.5 MG PO (08:18)
[2024-09-01] MEDS: ATIVAN 0.5 MG PO (08:18)
[2024-09-01] MEDS: NEURONTIN 300 MG PO ×2 (08:19→15:50)
[2024-09-01] MEDS: ULTRAM 25 MG PO (08:19)
[2024-09-01] MEDS: COZAAR 50 MG PO (08:19)
[2024-09-01 08:25] LABS: Glucose - Point of Care 192 mg/dl (70-99)
[2024-09-01] MEDS: NOVOLOG FLEXPEN 10 UNITS SC ×2 (09:12→11:58)
[2024-09-01] MEDS: NOVOLOG FLEXPEN-LOW RESISTANCE 1 UNITS SC (09:12)
--- NOTE | 2024-09-01 09:37 | W.PN.GS2 ---
Addendum entered and electronically signed by Tony Bhandari MD 09/01/24 09:45:
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 Agree with documented progress note.
Patient tolerating dietary advancement.
Postoperative incisional pain controlled.
AFVSS
ABD: Soft, nondistended, mild tenderness palpation at incision sites. Incisions with glue dressings.
A/P: POD #2 status post lap merle
Doing well postop
Discharge per primary service
Outpatient surgical follow-up with Dr. Olguin ~2 weeks
Signing off
Original Note:
Today's Communication / Plan
-
Dispo planning
Assessment / Plan
-
This is a 79-year-old male POD #2 laparoscopic cholecystectomy for acute cholecystitis.
Afebrile. VSS. Mild tachycardia
Doing well, expected postoperative course
Labs stable
Plan:
Continue diabetic diet
Ok for discharge from surgical standpoint when medically ready
Dispo per primary
Subjective Data
-
Date of Service: September 01, 2024
Patient seen and examined at bedside with Dr. Bhandari. Denies n/v. Toleraing diet. Denies pain.
Objective Data
-
Intake and Output
08/31/24 09/01/24 09/02/24
06:59 06:59 06:59
Intake Total 1050 / 1050 1040 / 1040
Balance 1050 / 1050 1040 / 1040
Intake:
Oral fluids 0 / 0 840 / 840
IV fluids (Total) 950 / 950
Normosol 200 / 200
IV piggybacks 100 / 100 200 / 200
Other:
How many times incontinent 1
MODERATE amount urine
How many times incontinent 4 2
SATURATED amount urine
Vital Signs
Temp Pulse Resp BP Pulse Ox
98.4 F 101 18 145/94 96
09/01/24 07:47 09/01/24 07:47 09/01/24 07:47 09/01/24 08:18 09/01/24 07:47
Lab Results
09/01/24 06:08
09/01/24 06:08
Calcium 7.6 mg/dl (8.4-10.2) L 09/01/24 06:08
Phosphorus 2.7 mg/dl (2.5-4.5) 08/28/24 04:43
Magnesium 2.0 mg/dl (1.6-2.3) 08/28/24 04:43
Total Bilirubin 0.6 mg/dl (0.2-1.3) 09/01/24 06:08
Direct Bilirubin 0.3 mg/dl (0.0-0.4) 08/29/24 05:21
AST 46 U/L (17-59) 09/01/24 06:08
ALT 29 U/L (0-50) 09/01/24 06:08
Alkaline Phosphatase 150 U/L (38-126) H 09/01/24 06:08
Total Protein 5.3 g/dl (6.3-8.2) L 09/01/24 06:08
Albumin 2.2 g/dl (3.5-5.0) L 09/01/24 06:08
Physical Exam
-
GENERAL/NEURO: Awake, Alert, no distress
CHEST: Unlabored breathing on RA
ABDOMEN: Soft, Non-Tender, Non-Distended, incisions clean dry and intact
[2024-09-01 11:16] LABS: Glucose - Point of Care 222 mg/dl (70-99)
[2024-09-01] MEDS: NOVOLOG FLEXPEN-LOW RESISTANCE 2 UNITS SC (11:58)
--- NOTE | 2024-09-01 14:11 | CM ---
Patient seen at bedside with physician on . Patient stated that he would like to be transferred to another [facility] other than [facility] and that he had already discussed it with the social services aide at that SNF. Patient agreed that he would
discuss with his and the facility and that he would return to [facility] and discuss options from the facility. Patient nurse aware and heard conversation. CM will continue to follow for discharge planning needs.
Plan; return to [facility]
please call report to [phone]/fax [phone]
[2024-09-01 15:37] VITALS: BP 129/76
== END 2024-09-01 16:56 | DRG 853 ==
LOC: 2 NORTH 17:07
PROVIDERS: Internal Medicine; Nurse Practitioner Family; Registered Nurse; Student in an Organized Health Care Education/Training Program; ADMITTING PHYSICIAN Hospitalist; ATTENDING PHYSICIAN Internal Medicine; EMERGENCY PHYSICIAN Emergency Medicine; FAMILY PHYSICIAN Internal Medicine; OTHER PHYSICIAN Surgery
PROC: 0FT44ZZ Resection of Gallbladder, Percutaneous Endoscopic Approach (ICD-10-PCS; 2024-09-01)
DX: A41.9 Sepsis, unspecified organism (principal); G93.41 Metabolic encephalopathy; K81.2 Acute cholecystitis with chronic cholecystitis; N39.0 Urinary tract infection, site not specified; N17.9 Acute kidney failure, unspecified; Z11.52 Encounter for screening for COVID-19; E11.9 Type 2 diabetes mellitus without complications; I10 Essential (primary) hypertension; I48.0 Paroxysmal atrial fibrillation; Z79.01 Long term (current) use of anticoagulants; E78.00 Pure hypercholesterolemia, unspecified; F32.A Depression, unspecified; L89.151 Pressure ulcer of sacral region, stage 1; G35 Multiple sclerosis
CPT/HCPCS: 88304; 70450; 70551; 71046; 74176; 76705; 80048; 80053; 81003; 81015; 82248; 82947; 82962; 83036; 83605; 83690; 83735; 84100; 85025; 85027; 85610; 87040; 87045; 87046; 87070; 87086; 87147; 87427; 87811; 92526; 92610; 93005; 96361; 96374; 97163; 97167; 97530; 97535; 99285; A4300; J1610

== ENCOUNTER 2024-10-04 13:36 | Emergency (ER) | payer MEDICARE, SELFPAY ==
[2024-10-04 13:40] VITALS: BP 107/61
[2024-10-04 13:56] LABS: Hematocrit 36.0 % (39.0-52.0); Hemoglobin 11.8 g/dL (13.0-18.0); Mean Corp Hgb Conc. 32.8 g/dL (33.0-37.0); Mean Corpuscular Volume 91.6 fL (80.0-94.0); Nucleated Red Blood Cells % 0 % (-); Platelet Count 338 10^3/uL (130-400); Red Cell Dist. Width 16.8 % (11.5-14.5)
[2024-10-04 14:23] LABS: Albumin 3.0 g/dl (3.5-5.0); Carbon Dioxide 26 mmol/L (22-30)
[2024-10-04 14:35] LABS: ALT (SGPT) 17 U/L (0-50); AST (SGOT) 24 U/L (17-59); Alkaline Phosphatase 128 U/L (38-126); Blood Urea Nitrogen 32 mg/dl (9-20); Calcium 8.3 mg/dl (8.4-10.2); Chloride 105 mmol/L (98-107); Glucose 181 mg/dl (70-99); Potassium 4.4 mmol/L (3.5-5.1); Sodium 134 mmol/L (135-145); Total Protein 6.6 g/dl (6.3-8.2); eGFR > 60.00
--- NOTE | 2024-10-04 17:19 | ED.GENMED ---
Addendum entered and electronically signed by Jordy Russell PA-C 10/06/24 08:35:
Preliminary culture reviewed but pending sensitivities. Patient on antibiotics.
Original Note:
History of Present Illness
General
Chief Complaint: Male Genito-Urinary Symptoms
Source: patient and spouse
Exam Limitations: none
Time Seen by Provider: 10/04/24 16:28
Nursing documentation reviewed up to this point in time: agreed with
History of Present Illness
History of Present Illness:
79 yo male here for hematuria. noted pink in depends earlier this a.m. then red blood in depends at 11 a.m. and noted blood from tip of penis. Pt denies pain, fever, chills.
Pt DC'd home from rehab 09/27, after sepsis, acute metabolic encephalopathy, due to cholecystitis, had cholecystectomy. Has O/T twice weekly, was supposed to have P/T eval today but missed it to come here.
Hx of afib on Metoprolol, not anticoagulated, HTN, HLD, IDDM, BPH. Non ambulatory, wheelchair bound.
Past History
Past History
ED Past Medical History: GERD, Hypercholesterolemia, IDDM and Other (MS diagnosed 50 yrs ago while in the service, has had no symptoms, but with recent weakening, has appt with Neuro Dr. Mi Nov 10 to re assess. )
ED Past Surgical History: Appendectomy, Cholecystectomy, Orthopedic and Urological
Social History
Tobacco: Non-smoker
Alcohol: Occasional
Drug: None
Personal:
Living: with family
Employment: Retired
Family History
Family History: Other (Noncontributory)
Review of Systems
Review of Systems
Allergies reviewed?: Yes
All Other Systems: ROS reviewed and negative except as documented in HPI and ROS
Constitutional: Denies fever or chills
Cardiac: Denies chest pain
ABD/GI: Denies abdominal pain, nausea, vomiting, diarrhea or constipated
: Reports incontinence and bleeding; Denies dysuria, frequency or difficulty voiding
Musculoskeletal: Reports other (non ambulatory since previous admissions, to get P/T at home after recent DC from Rehab); Denies edema
Skin: Reports no symptoms
Neurological: Reports weakness (generalized)
Phy Exam
Physical Exam
Physical Exam:
GENERAL: No acute distress. A&Ox3.
CONSTITUTIONAL: Afebrile.
EYES: clear, conjunctivae normal
ENMT: moist mucus membranes, Pharynx nl
RESPIRATORY: Regular respirations, nonlabored, lungs clear.
CARDIOVASCULAR: Regular rate and rhythm, no murmurs, no rubs.
GI: Soft, nontender, normal BS
MUSCULOSKELETAL: Moves with ease. Well perfused.
SKIN: Warm, dry, pink
PSYCH: Normal mood and affect. Well kept, interactive and appropriate
NEUROLOGIC: Awake, alert and oriented. No focal neurological deficits
Course
Orders/Labs/Results
Orders:
Orders
10/04/24 13:48
Complete Blood Count/With Diff Urgent
Comprehensive Metabolic Panel Urgent
10/04/24 17:14
Urinalysis Reflex To Culture Urgent
Date Specimen was Collected: 10/04/24
Time Specimen was Collected: 16:44
Urine Microscopic Reflex Cult Urgent
Urine Culture Urgent
YORDAN Source: U
Specimen Description:
Date Specimen was Collected: 10/04/24
Time Specimen was Collected: 16:44
10/04/24 18:13
CefTRIAXone [Rocephin] 1,000 mg IV NOW STA
Abnormal Lab Results
10/04/24 10/04/24
13:48 17:14
WBC 12.9 H 10^3/uL
(4.8-10.8)
RBC 3.93 L 10^6/uL
(4.70-6.10)
Hgb 11.8 L g/dL
(13.0-18.0)
Hct 36.0 L %
(39.0-52.0)
MCHC 32.8 L g/dL
(33.0-37.0)
RDW 16.8 H %
(11.5-14.5)
Abs Immat Gran (auto) 0.1 H 10^3/uL
(0-0.05)
Absolute Neuts (auto) 9.4 H 10^3/uL
(1.4-6.5)
Absolute Monos (auto) 1.0 H 10^3/uL
(0.1-0.6)
Lymphocytes % 18.5 L %
(20.5-51.1)
Sodium 134 L mmol/L
(135-145)
BUN 32 H mg/dl
(9-20)
Glucose 181 H mg/dl
(70-99)
Calcium 8.3 L mg/dl
(8.4-10.2)
Alkaline Phosphatase 128 H U/L
(38-126)
Albumin 3.0 L g/dl
(3.5-5.0)
Ur Occult Blood Reflex 4+ A
(Negative)
Leukocyte Esterase Rfl 3+ A
(Negative)
Urine RBC >100 A /HPF
(0-2)
Urine WBC (Reflex) >100 A /HPF
(0-5)
Urine Bacteria (Reflex) Many A
(Negative)
Urine Albumin (Reflex) 4+ A
(Neg - Trace)
10/04/24 13:48
10/04/24 13:48
Vital Signs
Initial and Last Documented VS:
Initial Vital Signs
Temp Pulse Resp BP Pulse Ox
98.5 F 86 16 107/61 95
10/04/24 13:40 10/04/24 13:40 10/04/24 13:40 10/04/24 13:40 10/04/24 13:40
Last Documented Vital Signs
Temp Pulse Resp BP Pulse Ox
98.5 F 91 18 127/78 95
10/04/24 13:40 10/04/24 18:26 10/04/24 18:26 10/04/24 18:26 10/04/24 17:27
MDM/Problems Addressed
Differential Diagnosis Includes:
UTI, cystitis, malignancy
MDM/Problems Addressed:
79 yo male here for hematuria. noted pink in depends earlier this a.m. then red blood in depends at 11 a.m. and noted blood from tip of penis. Pt denies pain, fever, chills.
Pt DC'd home from rehab 09/27, after sepsis, acute metabolic encephalopathy, due to cholecystitis, had cholecystectomy. Has O/T twice weekly, was supposed to have P/T eval today but missed it to come here.
Hx of afib on Metoprolol, not anticoagulated, HTN, HLD, IDDM, BPH. Non ambulatory, wheelchair bound.
CBC: WBC 12.9, Hemoglobin 11.8 (improving)
CMP: no clinically significant abnormality
Straight cath urine: 100 ml, pink
U/A: RBC >100, WBC >100 +3 Leuk esterase, Neg Nitrites, many bacteria
Record reviewed: Urine culture from 08/25/24: No growth
Dx: UTI
Plan: Rocephin IV and Cefdinir rx sent to pt pharmacy
Urine culture pending.
Due to pt unable to ambulate, concern for frequent ambulance bills recently, transport problems, given out pt slip for urinalyisis in 7-10 days along with urinal and urine container she will drop off sample to our out pt lab. She knows to
call PCP for results.
Pt afebrile, non toxic, comfortable, stable for discharge
*Pulse Oximetry
SaO2: 95
Oxygen Mode of Delivery: Room air
Patient hypoxic: not evaluated
*Critical Care Note
Total Time (30-74mins, 75-104mins- exclusive of procedures): Not Applicable
ED Attending Note
-
Portions of this chart may have been created with voice recognition software.� Occasional wrong word or��sound alike� substitutions may have occurred due to the inherent limitations of voice recognition software.
Discharge Plan
Departure
Patient Disposition: Home (Routine Discharge)
Date of Disposition: 10/04/24
Time of Disposition: 18:15
Patient with high blood pressure during this ER visit?: No
Condition: Fair
Discharge Problem:
Acute UTI
Instructions: Blood in the Urine (Hematuria), Adult (DC), Urinary tract infection - Discharge instructions
Prescriptions:
New
cefdinir 300 mg capsule
300 mg PO BID Qty: 14 0RF
No Action
finasteride 5 MG tablet
5 mg PO DAILY
bupropion HCl 150 MG tablet extended release 24 hr
150 mg PO DAILY
atorvastatin 80 MG tablet
80 mg PO QPM
citalopram 20 MG tablet
20 mg PO DAILY
metoprolol succinate 25 mg Tablet Extended Release 24 Hr
12.5 mg PO DAILY Qty: 30 0RF
lorazepam 0.5 mg Tablet
0.5 mg PO DAILY
multivitamin Tablet
1 tab PO DAILY
acetaminophen [Tylenol] 325 mg Tablet
650 mg PO Q4H PRN (Reason: PAIN)
gabapentin 300 mg capsule
300 mg PO TID
insulin lispro [Humalog U-100 Insulin] 100 unit/mL solution
10 unit SC TID Qty: 0 0RF
insulin degludec [Tresiba FlexTouch U-100] 100 unit/mL (3 mL) insulin pen
18 unit SC QHS Qty: 0 0RF
losartan 50 MG tablet
50 mg PO DAILY 0RF
Referrals:
Patrick Kc MD [Family Provider, Family Practice]
Activity Restrictions/Additional Instructions:
As we discussed, I sent a prescription to your pharmacy for Cefdinir 300 mg twice a day for 7 days.
In 7-10 days, obtain a urine sample with the urinal we provided, put it into the cup we provided and bring it to the out patient lab at this hospital.
Call your doctor the next day and ask about the results.
Return here immediately for fever above 100.5 not relieved with Tylenol, chills, vomiting, or feeling sicker in any way.
Interventions
Interventions:
*Risk Screen - Suicide Last Done: 10/04/24 13:40
*Neglect/Abuse Screening Last Done: 10/04/24 13:40
*Nursing Disposition Last Done: 10/04/24 19:32
ED-Male Genitourinary Assessment Last Done: 10/04/24 16:45
Discharge Date and Time
Discharge Date/Time: 10/04/24 19:32
Print Language: CROATIAN
[2024-10-04 17:21] LABS: Urine Character Slightly Cloudy (Clear)
[2024-10-04 17:47] LABS: Urine Red Blood Cell >100 /HPF (0-2); Urine Squamous Cell 0-2 /LPF (Few); Urine White Cell >100 /HPF (0-5)
[2024-10-04] MEDS: ROCEPHIN 1000 MG IV (18:23)
[2024-10-04 18:26] VITALS: BP 127/78
== END 2024-10-04 19:32 | disposition home or self-care (01) ==
LOC: EMR 13:36
PROVIDERS: Emergency Medicine; Registered Nurse; EMERGENCY PHYSICIAN Emergency Medicine; FAMILY PHYSICIAN Family Medicine
DX: N39.0 Urinary tract infection, site not specified (principal); E11.9 Type 2 diabetes mellitus without complications; E78.00 Pure hypercholesterolemia, unspecified; G35 Multiple sclerosis; I48.91 Unspecified atrial fibrillation; Z79.899 Other long term (current) drug therapy; Z90.49 Acquired absence of other specified parts of digestive tract; Z99.3 Dependence on wheelchair; Z79.4 Long term (current) use of insulin
CPT/HCPCS: 96374; 99284; 80053; 81003; 81015; 85025; 87077; 87086; 87186

== ENCOUNTER → 2024-10-13 13:10 | Outpatient (REF) | payer MEDICARE, SELFPAY ==
[2024-10-13 14:37] LABS: Urine Character Clear (Clear)
[2024-10-13 14:38] LABS: Urine White Cell 50-60 /HPF (0-5)
== END ==
LOC: REG 13:10
PROVIDERS: ATTENDING PHYSICIAN Registered Nurse; FAMILY PHYSICIAN Family Medicine
DX: R31.9 Hematuria, unspecified (principal); N39.0 Urinary tract infection, site not specified
CPT/HCPCS: 36415; 81003; 81015; 87086

== ENCOUNTER → 2024-10-25 08:53 | Outpatient (REF) | payer MEDICARE, SELFPAY ==
[2024-10-25 09:44] LABS: Urine Character Bloody (Clear)
[2024-10-25 09:50] LABS: Urine Red Blood Cell >100 /HPF (0-2)
== END ==
LOC: REG 08:53
PROVIDERS: ATTENDING PHYSICIAN Specialist; FAMILY PHYSICIAN Family Medicine
DX: N39.0 Urinary tract infection, site not specified (principal)
CPT/HCPCS: 81003; 81015; 87077; 87086; 87186

== ENCOUNTER 2024-10-25 18:45 | Inpatient (IN) | payer MEDICARE, SELFPAY ==
[2024-10-25 13:30] VITALS: BP 140/73
[2024-10-25 13:44] LABS: Hematocrit 30.3 % (39.0-52.0); Hemoglobin 10.0 g/dL (13.0-18.0); Mean Corp Hgb Conc. 33.0 g/dL (33.0-37.0); Mean Corpuscular Volume 88.6 fL (80.0-94.0); Nucleated Red Blood Cells % 0 % (-); Platelet Count 246 10^3/uL (130-400); Red Cell Dist. Width 15.7 % (11.5-14.5)
[2024-10-25 13:57] LABS: ALT (SGPT) 13 U/L (0-50); AST (SGOT) 21 U/L (17-59); Albumin 2.8 g/dl (3.5-5.0); Alkaline Phosphatase 101 U/L (38-126); Blood Urea Nitrogen 39 mg/dl (9-20); Calcium 8.2 mg/dl (8.4-10.2); Carbon Dioxide 25 mmol/L (22-30); Chloride 104 mmol/L (98-107); Glucose 338 mg/dl (70-99); Potassium 5.0 mmol/L (3.5-5.1); Sodium 132 mmol/L (135-145); Total Protein 6.3 g/dl (6.3-8.2); eGFR > 60.00
[2024-10-25 16:37] VITALS: BMI 25.6
[2024-10-25 16:42] VITALS: BP 129/67
--- NOTE | 2024-10-25 17:17 | ED.GENMED ---
History of Present Illness
General
Chief Complaint: Urinary Symptoms
Source: patient
Exam Limitations: none
Time Seen by Provider: 10/25/24 16:52
Nursing documentation reviewed up to this point in time: agreed with
History of Present Illness
History of Present Illness:
Patient with history of prostate cancer and radiation therapy, presents to ED secondary to persistent hematuria and incomplete voiding sensation since yesterday. Denies fever or chills. Denies nausea or vomiting. Denies abdominal pain. Denies
trauma. Patient does not take any blood thinning medications.
Past History
Past History
ED Past Medical History: GERD, Hypercholesterolemia, IDDM and Other (MS)
ED Past Surgical History: Appendectomy, Orthopedic and Urological
Social History
Tobacco: Non-smoker
Alcohol: Occasional
Drug: None
Personal:
Living: with family
Employment: Retired
Family History
Family History: Other (Noncontributory)
Review of Systems
Review of Systems
Allergies reviewed?: Yes
All Other Systems: ROS reviewed and negative except as documented in HPI and ROS
Constitutional: Reports no symptoms
Respiratory: Reports no symptoms
Cardiac: Reports no symptoms
ABD/GI: Reports no symptoms
: Reports difficulty voiding and bleeding
Musculoskeletal: Reports no symptoms
Skin: Reports no symptoms
Neurological: Reports no symptoms
Phy Exam
Physical Exam
Physical Exam:
Physical Exam
General: mild distress, not acutely ill. afebrile
Head: nc/at. eomi
Neck: supple. no meningeal signs.
Abdomen: normal bowel sounds. not tender.
Neuro: alert and oriented x 3. no focal neurological deficits
Skin: no rash
Psychiatric: well kept. interactive and cooperative
Extremities: no edema. no calf tenderness.
Course
Orders/Labs/Results
Orders:
Orders
10/25/24 13:35
Type+Screen Urgent
Complete Blood Count/With Diff Urgent
Comprehensive Metabolic Panel Urgent
10/25/24 Dinner
2200 calorie (18 carb) Diabetic
10/25/24 17:17
0.9% Sodium Chloride 500 ml [Nss] 500 ml IV BOLUS
10/25/24 17:24
diazePAM [Valium Injection] 2.5 mg IV Q4HPRN PRN
Catheter- Indwelling As Directed
Reason for insertion: Urology Determination
Catheter-Hand Irrigation As Directed
Solution:: Sterile 0.9% NaCl
Amount: 100-200cc
Frequency: prn
Reason for hand irrigation: clots/obstruction
Irrigate via:: Catheter directly
10/25/24 17:25
Continous Bladder Irrigation As Directed
Solution: Normal Saline
Keep urine: Clear
10/25/24 17:42
Urinalysis Reflex To Culture Urgent
Date Specimen was Collected: 10/25/24
Time Specimen was Collected: 17:17
Urine Microscopic Reflex Cult Urgent
Urine Culture Urgent
YORDAN Source: U
Specimen Description:
Date Specimen was Collected: 10/25/24
Time Specimen was Collected: 17:17
10/25/24 17:53
CefTRIAXone [Rocephin] 1,000 mg IV NOW STA
10/25/24 18:13
Sterile Water [Sterile Water For Injection] 10 ml .ROUTE .STK-MED ONE
10/25/24 18:30
Admit/Transfer Patient As Directed
Co-Sign Provider:
Level of Care: Inpatient admission
Assign to:: Medical/Surgical
Physician / Group: Daria Peace
Diagnosis: hematuria
Reason for Hospitalization: hematuria
Expected length of stay greater than two midnights?: Yes
ELOS- Estimated Length of Stay in days: 3
I certify the patient meets the requirements for IP care: Yes
10/25/24 18:31
PRN Pain Medication Management As Directed
May give lesser potent ordered pain med per pt: Yes
preference::
Protocol:: Medication orders for pain may be administered in a
manner that supports deferring to patient preference
when the pt is:
- Requesting an ordered lesser potent pain medication.
Least to most potent pain medications are defined
as: acetaminophen < NSAID < tramadol < opioids
(morphine, oxycodone, hydromorphone).
- Requesting a lesser dose of the same medication IF
ORDERED.
- Requesting a less intrusive route of administration
if both routes are prescribed by the provider (PO <
IV).
10/25/24 18:32
Code Status As Directed
Resuscitation Status: Do not resuscitate
Reached after discussion with pt or family/Healthcare POA: Yes
Decision communicated with: patient and
DNR Bracelet Application ONCE
10/25/24 19:07
Acetaminophen [Tylenol] 650 mg PO Q4HPRN PRN
10/25/24 20:24
Dextrose 50%-Water [Dextrose 50% Syringe] 12.5 grams IV [id number] PRN
Glucagon [GlucaGen] 1 mg IM PRN PRN
insulin degludec [Tresiba FlexTouch U-100] 10 unit SC QHS
10/25/24 20:24
UROLOGY CONSULT Routine
Consulting Provider: Grady Fields Jr.
Was physician already notified: Yes
Activity As Directed
Activity Level: As Tolerated
Bedside Glucose Monitoring As Directed
Frequency: AC&HS
Additional Instructions:: Change to q6h if pt on TPN, tube feeding or not eating
Intake/ Output As Directed
Frequency: Per unit guidelines
Pneumatic Compression Sleeves As Directed
Type: Knee high
Vital Signs As Directed
Frequency: Per unit guidelines
Weight As Directed
Frequency: Once
Comment: on admission
DX Deep Vein Thrombosis Video Routine
10/25/24 22:00
Gabapentin [Neurontin] 300 mg PO TID
insulin lispro [Humalog U-100 Insulin] 10 unit SC TID
10/26/24 Breakfast
NPO
Allow oral meds: Yes
Allow clear liquids: No
Basic Metabolic Panel IN AM
Complete Blood Count/No Diff IN AM
Glycohemoglobin (HgbA1c) IN AM
10/26/24 07:30
Insulin Aspart Corrective Low [Novolog Flexpen-Low Resistance] See Protocol SC AC
10/26/24 08:00
Finasteride [Proscar] 5 mg PO DAILY
Losartan [Cozaar] 50 mg PO DAILY
Metoprolol Xl [Toprol Xl] 12.5 mg PO DAILY
10/26/24 16:00
CefTRIAXone [Rocephin] 1,000 mg IV Q24H
10/26/24 18:00
Atorvastatin [Lipitor] 80 mg PO QPM
Abnormal Lab Results
10/25/24 10/25/24
13:35 17:42
RBC 3.42 L 10^6/uL
(4.70-6.10)
Hgb 10.0 L g/dL
(13.0-18.0)
Hct 30.3 L %
(39.0-52.0)
RDW 15.7 H %
(11.5-14.5)
Absolute Monos (auto) 0.7 H 10^3/uL
(0.1-0.6)
Sodium 132 L mmol/L
(135-145)
BUN 39 H mg/dl
(9-20)
Glucose 338 H mg/dl
(70-99)
Calcium 8.2 L mg/dl
(8.4-10.2)
Albumin 2.8 L g/dl
(3.5-5.0)
Ur Occult Blood Reflex 4+ A
(Negative)
Leukocyte Esterase Rfl 3+ A
(Negative)
Urine RBC >100 A /HPF
(0-2)
Urine Glucose 3+ A
(Negative)
Urine Albumin (Reflex) 3+ A
(Neg - Trace)
10/25/24 13:35
10/25/24 13:35
Vital Signs
Initial and Last Documented VS:
Initial Vital Signs
Temp Pulse Resp BP Pulse Ox
97.7 F 84 16 140/73 98
10/25/24 13:30 10/25/24 13:30 10/25/24 13:30 10/25/24 13:30 10/25/24 13:30
Last Documented Vital Signs
Temp Pulse Resp BP Pulse Ox
97.6 F 90 18 128/78 99
10/25/24 16:42 10/25/24 18:08 10/25/24 18:08 10/25/24 18:08 10/25/24 18:08
MDM/Problems Addressed
MDM/Problems Addressed:
CBI started in ED by Dr. Fields, urology, after placement of 22 English Cantor catheter. Request hospitalist admission for CBI along with possibility of OR intervention tomorrow
*Pulse Oximetry
SaO2: 99
Oxygen Mode of Delivery: Room air
Patient hypoxic: no
*Critical Care Note
Total Time (30-74mins, 75-104mins- exclusive of procedures): Not Applicable
ED Attending Note
-
Portions of this chart may have been created with voice recognition software.� Occasional wrong word or��sound alike� substitutions may have occurred due to the inherent limitations of voice recognition software.
Discharge Plan
Departure
Patient Disposition: Admit
Date of Disposition: 10/25/24
Time of Disposition: 17:22
Admit to: Med/Surg
Presentation/result/management discussed w/ accepting MD/DO: Hospitalist
Discharge Problem:
Hematuria, Acute urinary retention
Interventions
Interventions:
*Risk Screen - Suicide Last Done: 10/25/24 13:31
*General Assessment Last Done: 10/25/24 16:38
*Neglect/Abuse Screening Last Done: 10/25/24 13:31
*ED- Fall Risk Assessment Last Done: 10/25/24 16:38
*ED COVID-19 Vaccine History Last Done: 10/25/24 16:38
*Nursing Disposition Last Done: 10/25/24 20:21
ED-Male Genitourinary Assessment Last Done: 10/25/24 16:46
Discharge Date and Time
Discharge Date/Time: 10/25/24 20:21
--- NOTE | 2024-10-25 17:26 | CON.MD ---
Consultation - Medical
-
see dictated note
pt with MS- essentially bed bound
hx of TURP and NGB
did have xrt for prostate cancer
has had both recurrent hematuria and UTI- most recent pseudomonas in september 2024
was encouraged to have cysto due to recurrent bleeding- but cancelled appointments
recent admit for cholecystitis- CT 09/07- no stones/hydro/upper tract dz- small prostate- no obvious bladder mass
now presents with overflow leak- sig hematuria and clots
22 maldivian baker placed in ER- 400cc of bloody/malodorous urine obtained
hand irrigated a moderate amount of clot/cbi started at high rate- urine remains bloody- but pt comfortable
plan
med admit
send urine for cx from baker- empiric antibx
CBI/hand irrigation
npo after midnight in case cysto is needed
reviewed with pt and
Consultation
-
Date/Time Consultation Requested: 10/25/24 at 4:30pm
Date/Time Consultation Performed: 10/25/24 at 4:30pm
Requesting Provider: ER
Performing Provider: Dr Fields
Reason for Consultation: hematuria
--- NOTE | 2024-10-25 17:44 | HPS.HSE ---
Family Physician
-
Family Physician:
Chief Complaint
-
hematuria
History of Present Illness
Patient is a 79-year-old male with past medical history significant for multiple sclerosis, hyperlipidemia, hypertension, type 2 diabetes, GERD, paroxysmal atrial fibrillation, depression and prostate cancer who presented to [facility] ED for evaluation
of hematuria and sensation of incomplete voiding. Patient reports hematuria started on Thursday and gradually got worse and last night he had blood everywhere when he woke this morning that was coming from urethra. Patient reports 'stinging' with
urinartion over the past few days. Denies any other symptoms, no fever, chills, cough, shortness of breath, chest pain, nausea, vomting, constipation, diarrhea or urniary symtpoms.
Medical History
Past Medical History
Past Medical History: Reports Other
Additional Past Medical History:
multiple sclerosis
hyperlipidemia
hypertension
type 2 diabetes
atherosclerosis of aorta
GERD
Vergara's esophagus
prostate cancer
lumbar radiculopathy
obstructive sleep apnea
restrictive lung disease
paroxysmal atrial fibrillation
depression
Past Surgical History: Reports Other
Additional Past Surgical History:
Hernia repair
appendectomy
TURP
Left hip ORIF
Social History
Tobacco: Non-smoker
Alcohol: None
Drug: None
Personal:
Living: With Family
Employment: Retired
Family History
Family History: Not pertinent
Allergies / Home Medications
Allergies reflects when Allergies were last updated in [facility].
Home Medications with original date entered in [facility]
Allergy/Medication List:
Allergies
Allergy/AdvReac Type Severity Reaction Status Date / Time
pollen extracts Allergy RHINITIS-EN Verified 10/25/24 16:37
VIRONMENTAL
Home Medications
finasteride 5 mg tablet 5 mg PO DAILY prostate 06/25/17
atorvastatin 80 mg tablet 80 mg PO QPM High cholesterol 08/02/20
acetaminophen 325 mg tablet (Tylenol) 650 mg PO Q4H PRN PAIN 08/25/24
gabapentin 300 mg capsule 300 mg PO TID NEUROPATHIC PAIN 08/25/24
insulin lispro 100 unit/mL subcutaneous solution (Humalog U-100 Insulin) 10 unit (0.1 mL) SC TID Diabetes #0 mL 09/01/24
insulin degludec 100 unit/mL (3 mL) subcutaneous pen (Tresiba FlexTouch U-100 insulin) 10 unit SC QHS Diabetes 10/25/24
losartan 50 mg tablet 50 mg PO DAILY 10/25/24
metoprolol succinate 25 mg tablet,extended release 24 hr 12.5 mg PO DAILY 10/25/24
naproxen 250 mg tablet 250 mg PO BID PRN pain 10/25/24
Review of Systems
-
History Source: Patient
Constitutional: Reports No Symptoms
EENT: Reports No Symptoms
Respiratory: Reports No Symptoms
Cardiac: Reports No Symptoms
Abdomen/GI: Reports No Symptoms
: Reports Dysuria, Bleeding and Cantor
Musculoskeletal: Reports No Symptoms
Skin: Reports No Symptoms
Neurological: Reports No Symptoms
Endocrine: Reports No Symptoms
Hematologic/Lymphatic: Reports No Symptoms
Psych: Reports No Symptoms
Physical Exam
Vital Signs
Vital Signs
Temp Pulse Resp BP Pulse Ox
97.6 F 98 18 129/67 99
10/25/24 16:42 10/25/24 16:42 10/25/24 16:42 10/25/24 16:42 10/25/24 17:18
Physical Exam
General: Well Developed, No Apparent Distress and Conversant
HEENT: NormoCephalic, Moist mucous membranes and Atraumatic
Respiratory: Clear and Non Labored Respirations
Cardiac: S1/S2 and Regular Rhythm; No Murmur, Rub or Gallop
GI: Soft, Non Tender, Non Distended and Normal Bowel Sounds; No Organomegaly
Rectal: Deferred by Provider
Genito-urinary: Bloody Urine and Cantor (CBI in place )
Musculoskeletal: No Clubbing, No Cyanosis and No Edema
Skin: Warm and IV/Catheter Site
Neuro: Awake, AO x 3 and Nonfocal/grossly intact
Psych: Calm
Laboratory Results
-
10/25/24 13:35
10/25/24 13:35
Laboratory Results
Total Bilirubin 0.9 mg/dl (0.2-1.3) 10/25/24 13:35
AST 21 U/L (17-59) 10/25/24 13:35
ALT 13 U/L (0-50) 10/25/24 13:35
Alkaline Phosphatase 101 U/L (38-126) 10/25/24 13:35
Data Reviewed
-
Lab Data: Labs Reviewed by me (hgb 10.0, hct 30.3)
Impression/Plan
-
IMPRESSION/PLAN:
#hematuria
hgb 10.0, hct 30.3
CBI placed by Urology in ED
- Admit to med/surg
- Consult Urology
- empiric antibiotics
- CBI/hand irrigation
- NPO after midnight in case cysto is needed
#hyperlipidemia
- continue atorvastatin
#type 2 diabetes
- AccuCheck AC & HS
- SSI
- continue Tresiba and insulin Lispro
#Hx prostate cancer
s/p TURP
Code status: DNR
DVT prophylaxis: SCDs
[2024-10-25] MEDS: NSS 500 IV (17:54)
[2024-10-25 18:08] VITALS: BP 128/78
[2024-10-25] MEDS: ROCEPHIN 1000 MG IV (18:16)
[2024-10-25 18:31] LABS: Urine Character Slightly Cloudy (Clear)
--- NOTE | 2024-10-25 18:34 | W.PN.UPDATE ---
Update Note
Progress Note Update
This is an addendum to H&P written by Jonna Linares on 10/25/2024. �Patient seen and examined independently with MARKETING SALES CONSULTANT.
79-year-old male past medical history of prostate cancer status post radiation/TURP, paroxysmal atrial fibrillation not on anticoagulation, restrictive lung disease, obstructive sleep apnea, hypercholesteremia, GERD, diabetes, multiple sclerosis,
anxiety/depression, presenting with hematuria with urinary stinging.
Three-way catheter placed for CBI.
Vital signs normal.
Hemoglobin stable at 10. �Blood sugar 338.
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 �Patient undergoing CBI. �N.p.o. past midnight for potential cystoscopy tomorrow. Ceftriaxone.�Patient with hyperglycemia, continue 10 units
long-acting insulin, 10 units Humalog with meals,� sliding scale.
[2024-10-25 19:15] LABS: Urine Red Blood Cell >100 /HPF (0-2)
[2024-10-25] MEDS: TYLENOL 650 MG PO (19:15)
[2024-10-25 20:50] VITALS: BP 150/72; BMI 25.2
[2024-10-25 21:01] LABS: Glucose - Point of Care 389 mg/dl (70-99)
[2024-10-25] MEDS: LANTUS 0.1 UNITS SC (21:48)
[2024-10-25] MEDS: NOVOLOG FLEXPEN 10 UNITS SC (21:49)
[2024-10-25] MEDS: NEURONTIN 300 MG PO (23:00)
[2024-10-26 00:09] VITALS: BP 125/58
[2024-10-26 02:52] VITALS: BMI 25.2
[2024-10-26 06:21] LABS: Hematocrit 29.0 % (39.0-52.0); Hemoglobin 9.6 g/dL (13.0-18.0); Mean Corp Hgb Conc. 33.1 g/dL (33.0-37.0); Mean Corpuscular Volume 90.6 fL (80.0-94.0); Platelet Count 274 10^3/uL (130-400); Red Cell Dist. Width 15.8 % (11.5-14.5)
[2024-10-26 06:47] LABS: Blood Urea Nitrogen 31 mg/dl (9-20); Calcium 8.0 mg/dl (8.4-10.2); Carbon Dioxide 25 mmol/L (22-30); Chloride 105 mmol/L (98-107); Estimated Creatinine Clearance 82 ml/min; Glucose 252 mg/dl (70-99); Potassium 4.5 mmol/L (3.5-5.1); Sodium 135 mmol/L (135-145); eGFR > 60.00
[2024-10-26 07:00] VITALS: BP 108/57
--- NOTE | 2024-10-26 08:30 | W.PN.HOSP.TC ---
Today's Communication/Plan
-
Continue CBI
monitor H&H
Adjust insulin for better glycemic control.
Assessment / Plan
Assessment / Plan
Impression:
patient is a 79-year-old male with past medical history significant for multiple sclerosis, hyperlipidemia, hypertension, type 2 diabetes, GERD, paroxysmal atrial fibrillation, depression and prostate cancer who presented to [facility] ED for evaluation
of hematuria and sensation of incomplete voiding. Patient reports hematuria started on Thursday and gradually got worse and last night he had blood everywhere when he woke this morning that was coming from urethra.
CBI placed by urology in the ER.
Assessment/plan:
Acute hematuria
hgb 10.0, hct 30.3
CBI placed by Urology in ED
Continue empiric antibiotic
Pending PSA
Acute blood loss anemia
Continue monitoring hemoglobin
hyperlipidemia
- continue atorvastatin
type 2 diabetes uncontrolled
- AccuCheck AC & HS
- SSI
- continue Tresiba and insulin Lispro
#Hx prostate cancer
s/p TURP
CODE STATUS: DNR
DVT prophylaxis: SCDs
Diet: Diabetic diet
Disposition: Continue CBI, monitor H&H
Adjust insulin for better glycemic control.
Total time spent on today's encounter was 65 minutes which included time spent in counseling the patient/family regarding diagnosis and treatment plan as listed above, goals of care, and symptom management. Case was discussed with nursing staff,
specialists, and care coordinators/case management. All labs and imaging personally reviewed by me. Remainder the time spent in detailed review of previous records, lab data, imaging, and other medical provider documentation.
Anticipated Discharge: 24 - 48 hours
Subjective/Interval History
-
Date of Service: October 26, 2024
Patient seen and examined at bedside, denies any chest pain or shortness of breath, no abdominal pain, no nausea, no vomiting, no diarrhea or constipation.
Continue CBI.
Objective Data
-
Labs:
Laboratory Results
10/26/24
05:47
WBC 8.9
Hgb 9.6 L
Hct 29.0 L
Plt Count 274
Sodium 135
Potassium 4.5
Chloride 105
Carbon Dioxide 25
BUN 31 H
Creatinine 0.9
Glucose 252 H
Calcium 8.0 L
Vital Signs:
Vital Signs
Temp Pulse Resp BP Pulse Ox
98.1 F 107 19 108/57 97
10/26/24 07:00 10/26/24 07:00 10/26/24 07:00 10/26/24 07:00 10/26/24 07:00
I&O
10/25/24 10/26/24 10/27/24
06:59 06:59 06:59
Intake Total 240 / 240
Output Total 3025 / 3025 -100 / -100
Balance -2785 / -2785 100 / 100
Physical Exam
-
General: Well Developed, Well Nourished, No Apparent Distress and Comfortable
HEENT: Normocephalic, Atraumatic, Moist Mucous Membranes, No Ptosis, PERRLA and Nose Appears Normal
Respiratory: Clear to Auscultation and Non Labored Respirations
Cardiac: Regular Rhythm and S1/S2
Breast: Deferred by me
GI: Soft, Nontender, Nondistended and Normal Bowel Sounds
Genito-urinary: No Costovertebral Tender
Musculoskeletal: No Clubbing, No Cyanosis and No Edema
Skin: Warm
Neuro: Awake, Alert, Oriented, AO x 3 and No Motor Deficits
Psych: Calm
Data Reviewed
-
Diagnostic Radiology: Image personally visualized and interpreted and Report Reviewed by me
CT Scan: Image personally visualized and interpreted and Report Reviewed by me
Ultrasound: Image personally visualized and interpreted and Report Reviewed by me
MRI: Image personally visualized and interpreted and Report Reviewed by me
Medical Tests (Nuc Med, Echo etc): Image personally visualized and interpreted and Report Reviewed by me
Labs: Labs Reviewed by me
Old Records: Reviewed
--- NOTE | 2024-10-26 08:33 | VNURNOTE ---
Chart reviewed. Patient is current with [facility]. Will continue to follow hospital course and DC plans.
--- NOTE | 2024-10-26 09:55 | W.PN.URO.CBU ---
Today's Communication / Plan
-
No plans for OR today
OK to resume diet
Await PSA
Continue CBI
Assessment / Plan
-
Gross hematuria
History of prostate cancer s/p pelvic irradiation
Possible infectious v. radiation cystitis
Diagnosis
-
Date of Service: October 26, 2024
-
Patient Diagnosis:
Gross hematuria
Possible hemorrhagic cystitis v. hemorrhagic radiation cystitis
Subjective
-
Comfortable
Reports no catheter bother
No SP discomfort or CVAT
Hungry
Objective
-
Vital Signs
Temp Pulse Resp BP Pulse Ox
98.1 F 107 19 108/57 97
10/26/24 07:00 10/26/24 07:00 10/26/24 07:00 10/26/24 07:00 10/26/24 07:00
Intake and Output
10/25/24 10/26/24 10/27/24
06:59 06:59 06:59
Intake Total 240 / 240
Output Total 3025 / 3025 -100 / -100
Balance -2785 / -2785 100 / 100
Intake:
Oral fluids 240 / 240
Output:
True Urine Output from CBI 3025 / 3025 -100 / -100
Laboratory Results
10/26/24 05:47
10/26/24 05:47
Review of Systems
-
Constitutional: No Symptoms
Respiratory: No Symptoms
Cardiac: No Symptoms
Abdomen/GI: No Symptoms
: Bleeding
Physical Exam
-
General - no acute distress
Abdomen - soft, non-tender
Genitalia - normal with Cantor draining peach urine on moderate drip CBI
Skin - warm & dry with no rash
Counseling
-
Continue CBI
[2024-10-26 10:14] LABS: PSA, Total - Diagnostic 0.09 ng/ml (0.0-4.0)
[2024-10-26 10:23] LABS: Glucose - Point of Care 396 mg/dl (70-99)
[2024-10-26] MEDS: COZAAR 50 MG PO (10:43)
[2024-10-26] MEDS: NEURONTIN 300 MG PO ×3 (10:43→21:27)
[2024-10-26] MEDS: TOPROL XL 12.5 MG PO (10:44)
[2024-10-26] MEDS: NOVOLOG FLEXPEN 10 UNITS SC (10:44)
[2024-10-26] MEDS: PROSCAR 5 MG PO (10:44)
[2024-10-26] MEDS: NOVOLOG FLEXPEN-LOW RESISTANCE 5 UNITS SC (10:45)
[2024-10-26 11:06] LABS: Glycohemoglobin (HgbA1c) 6.0 % (4.0-5.6)
[2024-10-26] MEDS: NOVOLOG FLEXPEN-LOW RESISTANCE SC (12:13)
[2024-10-26] MEDS: NOVOLOG FLEXPEN SC (12:14)
--- NOTE | 2024-10-26 12:20 | PTCARENOTE ---
pt wakes to name oriented to self and place. anxious about being able to eat. [address] with cbi infusing. draining clear pink tinge.
[2024-10-26 15:00] VITALS: BP 90/49
--- NOTE | 2024-10-26 15:08 | CM ---
Alert awake oriented patient who lives with his Lida who lives in a town home with 2 step to enter.He is assisted in all activities of daily living.He was offered VN he declined need.
VN hx / No SNF history
Pharmacy [facility]
PCP DR Munguia
PLAN Home with VN
[2024-10-26 16:32] LABS: Glucose - Point of Care 285 mg/dl (70-99)
[2024-10-26] MEDS: ROCEPHIN 1000 MG IV (17:17)
[2024-10-26] MEDS: LIPITOR 80 MG PO (17:17)
[2024-10-26] MEDS: NOVOLOG FLEXPEN-LOW RESISTANCE 3 UNITS SC (17:18)
[2024-10-26] MEDS: STERILE WATER FOR INJECTION 10 ML IV (17:18)
[2024-10-26] MEDS: NOVOLOG FLEXPEN 15 UNITS SC (17:18)
[2024-10-26 21:22] LABS: Glucose - Point of Care 187 mg/dl (70-99)
[2024-10-26] MEDS: LANTUS 0.1 UNITS SC (21:26)
[2024-10-26 23:03] VITALS: BP 101/47
[2024-10-27 06:22] LABS: Hematocrit 24.7 % (39.0-52.0); Hemoglobin 8.2 g/dL (13.0-18.0); Mean Corp Hgb Conc. 33.2 g/dL (33.0-37.0); Mean Corpuscular Volume 89.2 fL (80.0-94.0); Platelet Count 201 10^3/uL (130-400); Red Cell Dist. Width 15.6 % (11.5-14.5)
[2024-10-27 06:42] LABS: Blood Urea Nitrogen 26 mg/dl (9-20); Calcium 7.8 mg/dl (8.4-10.2); Carbon Dioxide 26 mmol/L (22-30); Chloride 108 mmol/L (98-107); Estimated Creatinine Clearance 92 ml/min; Glucose 161 mg/dl (70-99); Potassium 4.1 mmol/L (3.5-5.1); Sodium 135 mmol/L (135-145); eGFR > 60.00
[2024-10-27 07:00] VITALS: BP 119/66
--- NOTE | 2024-10-27 07:37 | PTCARENOTE ---
For 182 CBI documentation previous RN asked this RN to take credit for entire bag of saline. Dayshift documented output of 2,800 mL. In order to ensure total urine output was not in the negative this RN added previous shift output. See 9340 CBI
documentation.
[2024-10-27 08:27] LABS: Glucose - Point of Care 187 mg/dl (70-99)
[2024-10-27] MEDS: NEURONTIN 300 MG PO ×3 (09:25→22:07)
[2024-10-27] MEDS: COZAAR 50 MG PO (09:25)
[2024-10-27] MEDS: PROSCAR 5 MG PO (09:25)
[2024-10-27] MEDS: TOPROL XL 12.5 MG PO (09:25)
[2024-10-27] MEDS: NOVOLOG FLEXPEN SC (09:42)
[2024-10-27] MEDS: NOVOLOG FLEXPEN-LOW RESISTANCE 1 UNITS SC (09:46)
[2024-10-27] MEDS: NOVOLOG FLEXPEN 10 UNITS SC ×3 (09:46→17:37)
--- NOTE | 2024-10-27 10:46 | PN.CDI ---
CDI
- -
CDI:
Physician Documentation Request
Admit Date: 10/25/24 18:45
Dear Doctor Mahesh,
Please review the following and provide your response in the progress notes.
Clinical Indicators:
- RN skin assessments indicate Stage 1 sacrum pressure injury, POA
Physician documentation of the type and location of wounds is required for compliant documentation. Based on the above clinical findings and your assessment, please provide the following in your progress note:
1. Location of the ulcer/wound, including laterality.
2. Type (etiology) of ulcer/wound:
- Diabetic ulcer
- Pressure (decubitus) ulcer
- Other
Use of terms such as suspected, likely, concern for, or probable (associated with a specific diagnosis that is being evaluated, monitored, or treated as if it exists) are acceptable and can be coded in the inpatient setting, when documented at the
time of discharge.
Thank you,
Brigida Freed RN
CDI Specialist
Please use your independent medical judgment in providing your response.
*Source: National Pressure Ulcer Advisory Panel (NPUAP)
--- NOTE | 2024-10-27 11:12 | W.PN.URO.CBU ---
Today's Communication / Plan
-
Will stop CBI at 1800 today
Will consider removing Cantor in AM 10/28/24
Assessment / Plan
-
Gross hematuria
History of prostate cancer s/p pelvic irradiation
Hemorrhagic cystitis: Proteus UTI
Diagnosis
-
Date of Service: October 27, 2024
-
Patient Diagnosis:
Gross hematuria
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
Subjective
-
Feels well
Little catheter bother
Tolerating diet
No CVAT
Objective
-
Vital Signs
Temp Pulse Resp BP Pulse Ox
98.2 F 88 16 119/66 98
10/27/24 07:00 10/27/24 07:00 10/27/24 07:00 10/27/24 07:00 10/27/24 07:00
Intake and Output
10/26/24 10/27/24 10/28/24
06:59 06:59 06:59
Intake Total 240 / 240 960 / 960
Output Total 3025 / 3025 0 / 0 1300 / 1300
Balance -2785 / -2785 960 / 960 -1300 / -1300
Intake:
Oral fluids 240 / 240 960 / 960
Output:
True Urine Output from CBI 3025 / 3025 0 / 0 1300 / 1300
Laboratory Results
10/27/24 06:00
10/27/24 06:00
Review of Systems
-
Constitutional: No Symptoms
Respiratory: No Symptoms
Cardiac: No Symptoms
Abdomen/GI: No Symptoms
Physical Exam
-
General - no acute distress, alert and oriented
Abdomen - soft, non-tender
Genitalia - normal with Cantor draining clear urine
Skin - warm & dry with no rash
Counseling
-
No straight forward oral antibiotics for this Proteus UTI (?cefdinir)
--- NOTE | 2024-10-27 11:17 | W.PN.HOSP.TC ---
Today's Communication/Plan
-
Overall hematuria improved.
Follow with urology recommendations
Assessment / Plan
Assessment / Plan
Impression:
patient is a 79-year-old male with past medical history significant for multiple sclerosis, hyperlipidemia, hypertension, type 2 diabetes, GERD, paroxysmal atrial fibrillation, depression and prostate cancer who presented to [facility] ED for evaluation
of hematuria and sensation of incomplete voiding. Patient reports hematuria started on Thursday and gradually got worse and last night he had blood everywhere when he woke this morning that was coming from urethra.
CBI placed by urology in the ER.
Assessment/plan:
Acute hematuria
hgb 10.0, hct 30.3
CBI placed by Urology in ED
Continue empiric antibiotic
PSA 0.09
Acute blood loss anemia
Continue monitoring hemoglobin
hyperlipidemia
- continue atorvastatin
type 2 diabetes uncontrolled
- AccuCheck AC & HS
- SSI
- continue Tresiba and insulin Lispro
#Hx prostate cancer
s/p TURP
CODE STATUS: DNR
DVT prophylaxis: SCDs
Diet: Diabetic diet
Disposition: Follow with urology recommendations
Total time spent on today's encounter was 65 minutes which included time spent in counseling the patient/family regarding diagnosis and treatment plan as listed above, goals of care, and symptom management. Case was discussed with nursing staff,
specialists, and care coordinators/case management. All labs and imaging personally reviewed by me. Remainder the time spent in detailed review of previous records, lab data, imaging, and other medical provider documentation.
Anticipated Discharge: Within 24 hours
Subjective/Interval History
-
Date of Service: October 27, 2024
Patient seen and examined at bedside, denies any chest pain or shortness of breath, no abdominal pain, no nausea, no vomiting, no diarrhea or constipation.
Objective Data
-
Labs:
Laboratory Results
10/27/24
06:00
WBC 6.3
Hgb 8.2 L
Hct 24.7 L
Plt Count 201 D
Sodium 135
Potassium 4.1
Chloride 108 H
Carbon Dioxide 26
BUN 26 H
Creatinine 0.8
Glucose 161 H
Calcium 7.8 L
Vital Signs:
Vital Signs
Temp Pulse Resp BP Pulse Ox
98.2 F 88 16 119/66 98
10/27/24 07:00 10/27/24 07:00 10/27/24 07:00 10/27/24 07:00 10/27/24 07:00
I&O
10/26/24 10/27/24 10/28/24
06:59 06:59 06:59
Intake Total 240 / 240 960 / 960
Output Total 3025 / 3025 0 / 0 1300 / 1300
Balance -2785 / -2785 960 / 960 -1300 / -1300
Physical Exam
-
General: Well Developed, Well Nourished, No Apparent Distress and Comfortable
HEENT: Normocephalic, Atraumatic, Moist Mucous Membranes, No Ptosis, PERRLA and Nose Appears Normal
Respiratory: Clear to Auscultation and Non Labored Respirations
Cardiac: Regular Rhythm and S1/S2
Breast: Deferred by me
GI: Soft, Nontender, Nondistended and Normal Bowel Sounds
Genito-urinary: No Costovertebral Tender
Musculoskeletal: No Clubbing, No Cyanosis and No Edema
Skin: Warm
Neuro: Awake, Alert, Oriented, AO x 3 and No Motor Deficits
Psych: Calm
Data Reviewed
-
Diagnostic Radiology: Image personally visualized and interpreted and Report Reviewed by me
CT Scan: Image personally visualized and interpreted and Report Reviewed by me
Ultrasound: Image personally visualized and interpreted and Report Reviewed by me
MRI: Image personally visualized and interpreted and Report Reviewed by me
Medical Tests (Nuc Med, Echo etc): Image personally visualized and interpreted and Report Reviewed by me
Labs: Labs Reviewed by me
Old Records: Reviewed
--- NOTE | 2024-10-27 11:27 | CM ---
Requested PT OT orders from MD.
Pt continues with CBI .
Pt requested [facility] Lida KOTHARI aware of referral.
will drive him home [place]
PLAN Home with VN
[2024-10-27 11:32] LABS: Glucose - Point of Care 293 mg/dl (70-99)
[2024-10-27] MEDS: NOVOLOG FLEXPEN-LOW RESISTANCE 3 UNITS SC (11:54)
[2024-10-27 15:26] VITALS: BP 114/59
[2024-10-27] MEDS: ROCEPHIN 1000 MG IV (15:44)
[2024-10-27] MEDS: STERILE WATER FOR INJECTION 10 ML IV (15:44)
[2024-10-27 16:46] LABS: Glucose - Point of Care 327 mg/dl (70-99)
[2024-10-27] MEDS: LIPITOR 80 MG PO (17:16)
[2024-10-27] MEDS: NOVOLOG FLEXPEN-LOW RESISTANCE 4 UNITS SC (17:37)
[2024-10-27 20:53] LABS: Glucose - Point of Care 330 mg/dl (70-99)
[2024-10-27] MEDS: LANTUS 0.1 UNITS SC (22:07)
[2024-10-27 23:00] VITALS: BP 136/59
[2024-10-28] VITALS: BP 137/66
[2024-10-28 07:46] VITALS: BP 135/78
[2024-10-28 07:59] LABS: Glucose - Point of Care 281 mg/dl (70-99)
[2024-10-28] MEDS: NEURONTIN 300 MG PO ×3 (08:22→22:41)
[2024-10-28] MEDS: PROSCAR 5 MG PO (08:22)
[2024-10-28] MEDS: COZAAR 50 MG PO (08:22)
[2024-10-28] MEDS: TOPROL XL 12.5 MG PO (08:22)
[2024-10-28] MEDS: NOVOLOG FLEXPEN-LOW RESISTANCE 3 UNITS SC (08:24)
[2024-10-28] MEDS: NOVOLOG FLEXPEN 10 UNITS SC ×2 (08:25→12:16)
--- NOTE | 2024-10-28 09:55 | W.PN.URO.CBU ---
Today's Communication / Plan
-
restart cbi
Assessment / Plan
-
Gross hematuria
History of prostate cancer s/p pelvic irradiation
Hemorrhagic cystitis: Proteus UTI
urine again became bloody- irrigated out old clot- cbi restarted- urine clear
reviewed with nursing and hospitalist- hopefully today represent lysing old clot
continue antibx
continue low rate cbi again today- stop at midnight if urine clear with plan for baker removal in am
Diagnosis
-
Date of Service: October 28, 2024
-
Patient Diagnosis:
Gross hematuria
xrt hemorrhagic cystitis: multi-drug resistant Proteus
Subjective
-
pt with no complaints
on augmentin for proteus
by report- urine was yellow yesterday- cbi stopped- this am schedule for baker removal- but nurses called saying urine was dark
on exam- old bloody urine- hand irrigated with 1 liter of sterline saline- moderate amount of clot returned- urine clear- cbi restarted
Objective
-
Vital Signs
Temp Pulse Resp BP Pulse Ox
97.9 F 92 16 135/78 99
10/28/24 07:46 10/28/24 07:46 10/28/24 07:46 10/28/24 07:46 10/28/24 07:46
Intake and Output
10/27/24 10/28/24 10/29/24
06:59 06:59 06:59
Intake Total 960 / 960 960 / 960
Output Total 0 / 0 2400 / 2400
Balance 960 / 960 -1440 / -1440
Intake:
Oral fluids 960 / 960 960 / 960
Output:
True Urine Output from CBI 0 / 0 2400 / 2400
Laboratory Results
10/27/24 06:00
10/27/24 06:00
Review of Systems
-
Constitutional: Fatigue
Respiratory: No Symptoms
Cardiac: No Symptoms
Abdomen/GI: No Symptoms
Physical Exam
-
General - no acute distress
Abdomen - soft, non-tender
Genitalia - [address]
--- NOTE | 2024-10-28 11:15 | CM ---
Pt continues with CBI .
PT OT will evaluate after CBI completed.
Pt requested [facility] Lida KOTHARI aware of referral.
will drive him home at [place].
PLAN Home with [facility]
[2024-10-28 11:29] LABS: Glucose - Point of Care 355 mg/dl (70-99)
[2024-10-28] MEDS: NOVOLOG FLEXPEN-LOW RESISTANCE 4 UNITS SC ×2 (12:16→18:11)
--- NOTE | 2024-10-28 13:55 | W.PN.HOSP.TC ---
Addendum entered and electronically signed by Miguel Aragon MD 10/28/24 16:41:
Stage 1 sacrum pressure injury, POA
1. Location of the ulcer/wound, sacrum
2. Type (etiology) of ulcer/wound:pressure
Original Note:
Today's Communication/Plan
-
Monitor for hematuria, possible discharge tomorrow if hematuria improved
Assessment / Plan
Assessment / Plan
Impression:
patient is a 79-year-old male with past medical history significant for multiple sclerosis, hyperlipidemia, hypertension, type 2 diabetes, GERD, paroxysmal atrial fibrillation, depression and prostate cancer who presented to [facility] ED for evaluation
of hematuria and sensation of incomplete voiding. Patient reports hematuria started on Thursday and gradually got worse and last night he had blood everywhere when he woke this morning that was coming from urethra.
CBI placed by urology in the ER.
Trial of holding CBI, patient developed dark urine.
Status post flushing at bedside.
Continue CBI and try again on Thursday 10/19
Assessment/plan:
Acute hematuria
hgb 10.0, hct 30.3
CBI placed by Urology in ED
Continue empiric antibiotic
Urine culture sensitive to Augmentin, will be discharged
PSA 0.09
Acute blood loss anemia
Continue monitoring hemoglobin
hyperlipidemia
- continue atorvastatin
type 2 diabetes uncontrolled
- AccuCheck AC & HS
- SSI
- continue Tresiba and insulin Lispro
#Hx prostate cancer
s/p TURP
CODE STATUS: DNR
DVT prophylaxis: SCDs
Diet: Diabetic diet
Disposition: Follow with urology recommendations
Total time spent on today's encounter was 65 minutes which included time spent in counseling the patient/family regarding diagnosis and treatment plan as listed above, goals of care, and symptom management. Case was discussed with nursing staff,
specialists, and care coordinators/case management. All labs and imaging personally reviewed by me. Remainder the time spent in detailed review of previous records, lab data, imaging, and other medical provider documentation.
Anticipated Discharge: Within 24 hours
Subjective/Interval History
-
Date of Service: October 28, 2024
Patient seen and examined at bedside, denies any chest pain or shortness of breath, no abdominal pain, no nausea, no vomiting, no diarrhea or constipation.
Still with hematuria after holding CBI
Objective Data
-
Vital Signs:
Vital Signs
Temp Pulse Resp BP Pulse Ox
97.9 F 92 16 135/78 99
10/28/24 07:46 10/28/24 07:46 10/28/24 07:46 10/28/24 07:46 10/28/24 07:46
I&O
10/27/24 10/28/24 10/29/24
06:59 06:59 06:59
Intake Total 960 / 960 960 / 960
Output Total 0 / 0 2400 / 2400
Balance 960 / 960 -1440 / -1440
Physical Exam
-
General: Well Developed, Well Nourished, No Apparent Distress and Comfortable
HEENT: Normocephalic, Atraumatic, Moist Mucous Membranes, No Ptosis, PERRLA and Nose Appears Normal
Respiratory: Clear to Auscultation and Non Labored Respirations
Cardiac: Regular Rhythm and S1/S2
Breast: Deferred by me
GI: Soft, Nontender, Nondistended and Normal Bowel Sounds
Genito-urinary: No Costovertebral Tender
Musculoskeletal: No Clubbing, No Cyanosis and No Edema
Skin: Warm
Neuro: Awake, Alert, Oriented, AO x 3 and No Motor Deficits
Psych: Calm
Data Reviewed
-
Diagnostic Radiology: Image personally visualized and interpreted and Report Reviewed by me
CT Scan: Image personally visualized and interpreted and Report Reviewed by me
Ultrasound: Image personally visualized and interpreted and Report Reviewed by me
MRI: Image personally visualized and interpreted and Report Reviewed by me
Medical Tests (Nuc Med, Echo etc): Image personally visualized and interpreted and Report Reviewed by me
Labs: Labs Reviewed by me
Old Records: Reviewed
[2024-10-28] MEDS: STERILE WATER FOR INJECTION 10 ML IV (15:23)
[2024-10-28] MEDS: ROCEPHIN 1000 MG IV (15:24)
[2024-10-28 15:49] VITALS: BP 134/67
[2024-10-28 16:15] LABS: Glucose - Point of Care 345 mg/dl (70-99)
[2024-10-28] MEDS: LIPITOR 80 MG PO (17:25)
[2024-10-28] MEDS: NOVOLOG FLEXPEN 12 UNITS SC (18:12)
[2024-10-28 21:16] LABS: Glucose - Point of Care 336 mg/dl (70-99)
[2024-10-28] MEDS: LANTUS 0.1 UNITS SC (22:41)
[2024-10-28 23:00] VITALS: BP 137/66
--- NOTE | 2024-10-29 07:35 | W.PN.URO.CBU ---
Today's Communication / Plan
-
PSA reviewed (undetectable @0.09)
D/c Cantor catheter this AM
Voiding trial today
Continue PO antibiotic course on discharge for Proteus cUTI
D/w patient.
D/w RN.
D/w Hospitalist.
Assessment / Plan
-
Gross hematuria
History of prostate cancer s/p pelvic XRT
Hemorrhagic cystitis - Proteus cUTI
Diagnosis
-
Date of Service: October 29, 2024
-
Patient Diagnosis:
Gross hematuria
Radiation-induced hemorrhagic cystitis
MDR Proteus cUTI
Subjective
-
CBI clamped at midnight.
Urine outflow oleg w/o hematuria or clots.
Objective
-
Vital Signs
Temp Pulse Resp BP Pulse Ox
97.7 F 77 16 131/61 98
10/29/24 07:37 10/29/24 07:37 10/29/24 07:37 10/29/24 07:37 10/29/24 07:37
Intake and Output
10/28/24 10/29/24 10/30/24
06:59 06:59 06:59
Intake Total 960 / 960 900 / 900
Output Total 2400 / 2400 1150 / 1150
Balance -1440 / -1440 -250 / -250
Intake:
Oral fluids 960 / 960 900 / 900
Output:
True Urine Output from CBI 2400 / 2400 1150 / 1150
Physical Exam
-
General - well developed, well nourished, no acute distress
Abdomen - soft, non-tender, non-distended
- 3-way catheter w/ oleg UOP, no clots
Skin - warm & dry with no rash
Care Review
Data Reviewed
Discussed with: Hospitalist and Nursing
Total Time Spent with Patient (in minutes): 30
[2024-10-29 07:37] VITALS: BP 131/61
[2024-10-29 07:50] LABS: Glucose - Point of Care 258 mg/dl (70-99)
[2024-10-29] MEDS: TYLENOL 650 MG PO (08:28)
[2024-10-29] MEDS: NEURONTIN 300 MG PO ×3 (08:28→21:54)
[2024-10-29] MEDS: PROSCAR 5 MG PO (08:29)
[2024-10-29] MEDS: TOPROL XL 12.5 MG PO (08:29)
[2024-10-29] MEDS: COZAAR 50 MG PO (08:29)
[2024-10-29 10:05] LABS: Blood Urea Nitrogen 15 mg/dl (9-20); Calcium 7.6 mg/dl (8.4-10.2); Carbon Dioxide 28 mmol/L (22-30); Chloride 104 mmol/L (98-107); Estimated Creatinine Clearance 92 ml/min; Glucose 357 mg/dl (70-99); Potassium 4.3 mmol/L (3.5-5.1); Sodium 132 mmol/L (135-145); eGFR > 60.00
[2024-10-29 10:06] LABS: Hematocrit 28.9 % (39.0-52.0); Hemoglobin 9.6 g/dL (13.0-18.0); Mean Corp Hgb Conc. 33.2 g/dL (33.0-37.0); Mean Corpuscular Volume 90.0 fL (80.0-94.0); Platelet Count 243 10^3/uL (130-400); Red Cell Dist. Width 15.3 % (11.5-14.5)
[2024-10-29] MEDS: NOVOLOG FLEXPEN 12 UNITS SC ×3 (10:20→17:27)
[2024-10-29] MEDS: NOVOLOG FLEXPEN-LOW RESISTANCE 3 UNITS SC ×2 (10:20→17:26)
--- NOTE | 2024-10-29 10:33 | PTCARENOTE ---
Cantor removed as per MD order at 1030, Pt given fresh water and diet soda encouraged to drink. I was going to get pt oob. he stated he gets out with one assist at home however when i was about to get him up i asked him how his does this, he
said she uses a porter. I decided that since he has not been up this stay, hx of MS and weak legs, i would hold off on getting him oob until seen by Physical therapy. I will let them know
--- NOTE | 2024-10-29 10:50 | W.PN.HOSP.TC ---
Today's Communication/Plan
-
Discharge home today if passes voiding trial.
Assessment / Plan
Assessment / Plan
Impression:
patient is a 79-year-old male with past medical history significant for multiple sclerosis, hyperlipidemia, hypertension, type 2 diabetes, GERD, paroxysmal atrial fibrillation, depression and prostate cancer who presented to [facility] ED for evaluation
of hematuria and sensation of incomplete voiding. Patient reports hematuria started on Thursday and gradually got worse and last night he had blood everywhere when he woke this morning that was coming from urethra.
CBI placed by urology in the ER.
Trial of holding CBI, patient developed dark urine.
Status post flushing at bedside.
Continue CBI and tried again on Sunday 10/29, hemoglobin remained stable.
Urology recommending DC Cantor and voiding trial.
Assessment/plan:
Acute hematuria
hgb 10.0, hct 30.3
CBI placed by Urology in ED
Continue empiric antibiotic
Urine culture sensitive to Augmentin, will be discharged
PSA 0.09
Urology recommending DC Cantor and voiding trial.
Acute blood loss anemia
Continue monitoring hemoglobin
Globin stable
hyperlipidemia
- continue atorvastatin
type 2 diabetes uncontrolled
- AccuCheck AC & HS
- SSI
- continue Tresiba and insulin Lispro
- Hemoglobin A1c 6.0
#Hx prostate cancer
s/p TURP
CODE STATUS: DNR
DVT prophylaxis: SCDs
Diet: Diabetic diet
Disposition: Discharge home today if passes voiding trial.
Total time spent on today's encounter was 65 minutes which included time spent in counseling the patient/family regarding diagnosis and treatment plan as listed above, goals of care, and symptom management. Case was discussed with nursing staff,
specialists, and care coordinators/case management. All labs and imaging personally reviewed by me. Remainder the time spent in detailed review of previous records, lab data, imaging, and other medical provider documentation.
Anticipated Discharge: Today
Subjective/Interval History
-
Date of Service: October 29, 2024
Patient seen and examined at bedside, denies any chest pain or shortness of breath, no abdominal pain, no nausea, no vomiting, no diarrhea or constipation.
Seen by urology, plan to DC Cantor and voiding trial, if pass to be discharged.
Objective Data
-
Labs:
Laboratory Results
10/29/24
09:33
WBC 5.5
Hgb 9.6 L
Hct 28.9 L
Plt Count 243 D
Sodium 132 L
Potassium 4.3
Chloride 104
Carbon Dioxide 28
BUN 15
Creatinine 0.8
Glucose 357 H
Calcium 7.6 L
Vital Signs:
Vital Signs
Temp Pulse Resp BP Pulse Ox
97.7 F 77 16 131/61 98
10/29/24 07:37 10/29/24 07:37 10/29/24 07:37 10/29/24 07:37 10/29/24 07:37
I&O
10/28/24 10/29/24 10/30/24
06:59 06:59 06:59
Intake Total 960 / 960 900 / 900
Output Total 2400 / 2400 1150 / 1150
Balance -1440 / -1440 -250 / -250
Physical Exam
-
General: Well Developed, Well Nourished, No Apparent Distress and Comfortable
HEENT: Normocephalic, Atraumatic, Moist Mucous Membranes, No Ptosis, PERRLA and Nose Appears Normal
Respiratory: Clear to Auscultation and Non Labored Respirations
Cardiac: Regular Rhythm and S1/S2
Breast: Deferred by me
GI: Soft, Nontender, Nondistended and Normal Bowel Sounds
Genito-urinary: No Costovertebral Tender
Musculoskeletal: No Clubbing, No Cyanosis and No Edema
Skin: Warm
Neuro: Awake, Alert, Oriented, AO x 3 and No Motor Deficits
Psych: Calm
Data Reviewed
-
Diagnostic Radiology: Image personally visualized and interpreted and Report Reviewed by me
CT Scan: Image personally visualized and interpreted and Report Reviewed by me
Ultrasound: Image personally visualized and interpreted and Report Reviewed by me
MRI: Image personally visualized and interpreted and Report Reviewed by me
Medical Tests (Nuc Med, Echo etc): Image personally visualized and interpreted and Report Reviewed by me
Labs: Labs Reviewed by me
Old Records: Reviewed
[2024-10-29 11:45] LABS: Glucose - Point of Care 364 mg/dl (70-99)
[2024-10-29] MEDS: NOVOLOG FLEXPEN-LOW RESISTANCE 5 UNITS SC (13:23)
--- NOTE | 2024-10-29 14:32 | CM ---
CM following to coordinate discharge planning needs. Pt has refused therapy the past 2 days; plan is for discharge to home with [facility].
[2024-10-29 15:00] VITALS: BP 116/64; PULSE 80; O2SAT 99
[2024-10-29 15:26] VITALS: BP 117/67
[2024-10-29 15:48] VITALS: BP 116/64; PULSE 80; O2SAT 99
--- NOTE | 2024-10-29 16:12 | PTCARENOTE ---
Pt incont of urine urine pink with mod to small blood clots. Post inc. bladder scan for 69 ml. MD alerted. Will re bladder scan next inc check
--- NOTE | 2024-10-29 16:13 | PTCARENOTE ---
MD alerted about the blood sugar levels no new orders
[2024-10-29 16:31] LABS: Glucose - Point of Care 271 mg/dl (70-99)
[2024-10-29] MEDS: STERILE WATER FOR INJECTION 10 ML IV (17:25)
[2024-10-29] MEDS: LIPITOR 80 MG PO (17:25)
[2024-10-29] MEDS: ROCEPHIN 1000 MG IV (17:26)
--- NOTE | 2024-10-29 19:00 | PTCARENOTE ---
Pt incont of clear yellow urine without any clots, moderate amount, TWO times, Bladder scanned for 110ml.l
[2024-10-29] MEDS: LANTUS 0.1 UNITS SC (21:54)
[2024-10-29 22:07] LABS: Glucose - Point of Care 141 mg/dl (70-99)
[2024-10-29 23:48] VITALS: BP 109/63
[2024-10-30 07:49] LABS: Glucose - Point of Care 164 mg/dl (70-99)
[2024-10-30 08:01] VITALS: BP 128/72
[2024-10-30] MEDS: NOVOLOG FLEXPEN-LOW RESISTANCE 1 UNITS SC ×2 (08:15→13:14)
[2024-10-30] MEDS: NEURONTIN 300 MG PO (08:16)
[2024-10-30] MEDS: NOVOLOG FLEXPEN 12 UNITS SC ×2 (08:16→13:14)
[2024-10-30] MEDS: TYLENOL 650 MG PO (08:16)
[2024-10-30] MEDS: TOPROL XL 12.5 MG PO (08:16)
[2024-10-30] MEDS: COZAAR 50 MG PO (08:16)
[2024-10-30] MEDS: PROSCAR 5 MG PO (08:17)
[2024-10-30 12:18] LABS: Glucose - Point of Care 158 mg/dl (70-99)
[2024-10-30 12:18] LABS: Glucose - Point of Care 197 mg/dl (70-99)
--- NOTE | 2024-10-30 12:33 | W.PN.HOSP.TC ---
Today's Communication/Plan
-
Discharge home today on Augmentin.
Assessment / Plan
Assessment / Plan
Impression:
patient is a 79-year-old male with past medical history significant for multiple sclerosis, hyperlipidemia, hypertension, type 2 diabetes, GERD, paroxysmal atrial fibrillation, depression and prostate cancer who presented to [facility] ED for evaluation
of hematuria and sensation of incomplete voiding. Patient reports hematuria started on Thursday and gradually got worse and last night he had blood everywhere when he woke this morning that was coming from urethra.
CBI placed by urology in the ER.
Trial of holding CBI, patient developed dark urine.
Status post flushing at bedside.
Continue CBI and tried again on Sunday 10/29, hemoglobin remained stable.
Urology recommending DC Cantor and voiding trial.
Will discharge home on Augmentin
Assessment/plan:
Acute hematuria
hgb 10.0, hct 30.3
CBI placed by Urology in ED
Continue empiric antibiotic
Urine culture sensitive to Augmentin, will be discharged
PSA 0.09
Urology recommending DC Cantor and voiding trial.
Passed voiding swallow, discharged home on Augmentin
Acute blood loss anemia
Continue monitoring hemoglobin
Globin stable
hyperlipidemia
- continue atorvastatin
type 2 diabetes uncontrolled
- AccuCheck AC & HS
- SSI
- continue Tresiba and insulin Lispro
- Hemoglobin A1c 6.0
#Hx prostate cancer
s/p TURP
CODE STATUS: DNR
DVT prophylaxis: SCDs
Diet: Diabetic diet
Disposition: Discharge home today on Augmentin.
Total time spent on today's encounter was 65 minutes which included time spent in counseling the patient/family regarding diagnosis and treatment plan as listed above, goals of care, and symptom management. Case was discussed with nursing staff,
specialists, and care coordinators/case management. All labs and imaging personally reviewed by me. Remainder the time spent in detailed review of previous records, lab data, imaging, and other medical provider documentation.
Anticipated Discharge: Today
Subjective/Interval History
-
Date of Service: October 30, 2024
Patient seen and examined at bedside, denies any chest pain or shortness of breath, no abdominal pain, no nausea, no vomiting, no diarrhea or constipation.
Objective Data
-
Vital Signs:
Vital Signs
Temp Pulse Resp BP Pulse Ox
97.9 F 87 16 128/72 96
10/30/24 08:01 10/30/24 08:01 10/30/24 08:01 10/30/24 08:01 10/30/24 08:01
I&O
10/29/24 10/30/24 10/31/24
06:59 06:59 06:59
Intake Total 900 / 900 1440 / 1440
Output Total 1150 / 1150
Balance -250 / -250 1440 / 1440
Physical Exam
-
General: Well Developed, Well Nourished, No Apparent Distress and Comfortable
HEENT: Normocephalic, Atraumatic, Moist Mucous Membranes, No Ptosis, PERRLA and Nose Appears Normal
Respiratory: Clear to Auscultation and Non Labored Respirations
Cardiac: Regular Rhythm and S1/S2
Breast: Deferred by me
GI: Soft, Nontender, Nondistended and Normal Bowel Sounds
Genito-urinary: No Costovertebral Tender
Musculoskeletal: No Clubbing, No Cyanosis and No Edema
Skin: Warm
Neuro: Awake, Alert, Oriented, AO x 3 and No Motor Deficits
Psych: Calm
--- NOTE | 2024-10-30 12:34 | W.DCSUMMARY ---
Discharge Summary
Discharge Data
Date of Admission: 10/25/24
Date of Discharge: 10/30/24
Total time spent discharging patient (in min): 40
-
Pending Results: No
Hospital Course
Hospital course
patient is a 79-year-old male with past medical history significant for multiple sclerosis, hyperlipidemia, hypertension, type 2 diabetes, GERD, paroxysmal atrial fibrillation, depression and prostate cancer who presented to [facility] ED for evaluation
of hematuria and sensation of incomplete voiding. Patient reports hematuria started on Thursday and gradually got worse and last night he had blood everywhere when he woke this morning that was coming from urethra.
CBI placed by urology in the ER.
Trial of holding CBI, patient developed dark urine.
Status post flushing at bedside.
Continue CBI and tried again on Sunday 10/29, hemoglobin remained stable.
Urology recommending DC Acntor and voiding trial.
Will discharge home on Augmentin
During hospitalization patient was treated from the following
Acute hematuria
hgb 10.0, hct 30.3
CBI placed by Urology in ED
Continue empiric antibiotic
Urine culture sensitive to Augmentin, will be discharged
PSA 0.09
Urology recommending DC Cantor and voiding trial.
Passed voiding swallow, discharged home on Augmentin
Acute blood loss anemia
Continue monitoring hemoglobin
Globin stable
hyperlipidemia
- continue atorvastatin
type 2 diabetes uncontrolled
- AccuCheck AC & HS
- SSI
- continue Tresiba and insulin Lispro
- Hemoglobin A1c 6.0
#Hx prostate cancer
s/p TURP
CODE STATUS: DNR
DVT prophylaxis: SCDs
Diet: Diabetic diet
Disposition: Discharge home today on Augmentin.
Total time spent on today's encounter was 40 minutes which included time spent in counseling the patient/family regarding diagnosis and treatment plan as listed above, goals of care, and symptom management. Case was discussed with nursing staff,
specialists, and care coordinators/case management. All labs and imaging personally reviewed by me. Remainder the time spent in detailed review of previous records, lab data, imaging, and other medical provider documentation.
Anticipated Discharge: Today
Discharge Plan
-
Patient Disposition: Home with Home Care
Discharge Diagnosis/Procedures: Acute hematuria
Diet: Diabetic, Carb Controlled
Activity: With assistance
Referrals:
Patrick Kc MD [Family Provider, Family Practice]
Grady Fields Jr., MD [Active, Urology] - in less than 1 week
Prescriptions:
New
amoxicillin-pot clavulanate 875-125 mg tablet
1 tab PO BID Qty: 14 0RF
Continued
finasteride 5 MG tablet
5 mg PO DAILY
atorvastatin 80 MG tablet
80 mg PO QPM
acetaminophen [Tylenol] 325 mg Tablet
650 mg PO Q4H PRN (Reason: PAIN)
gabapentin 300 mg capsule
300 mg PO TID
insulin lispro [Humalog U-100 Insulin] 100 unit/mL solution
10 unit SC TID Qty: 0 0RF
Patient Comments:
hold if glucose is less than 100
naproxen 250 mg Tablet
250 mg PO BID PRN (Reason: pain)
insulin degludec [Tresiba FlexTouch U-100] 100 unit/mL (3 mL) insulin pen
10 unit SC QHS
losartan 50 mg Tablet
50 mg PO DAILY
metoprolol succinate 25 mg Tablet Extended Release 24 Hr
12.5 mg PO DAILY
Discharge Orders:
Discharge Patient (As Directed); Ordered 10/30/24
Ordered By: Miguel Aragon
Discharge Date and Time
Print Language: GEORGIAN
[2024-10-30 13:12] VITALS: BP 130/70
--- NOTE | 2024-10-30 13:38 | CM ---
Pt cleared for discharge to home today. IMM reviewed and signed. Family to transport home via car.
Plan: Discharge to home via family transport. [facility] to follow
== END 2024-10-30 14:41 | disposition home health service (06) | DRG 699 ==
LOC: 3 WEST ACU 18:45
PROVIDERS: Nurse Practitioner Family; Student in an Organized Health Care Education/Training Program; ADMITTING PHYSICIAN Hospitalist; ATTENDING PHYSICIAN General Practice; CONSULT PHYSICIAN Specialist; EMERGENCY PHYSICIAN Emergency Medicine; FAMILY PHYSICIAN Family Medicine
DX: N30.41 Irradiation cystitis with hematuria (principal); D62 Acute posthemorrhagic anemia; R31.0 Gross hematuria; G35 Multiple sclerosis; I10 Essential (primary) hypertension; K21.9 Gastro-esophageal reflux disease without esophagitis; I48.0 Paroxysmal atrial fibrillation; F32.A Depression, unspecified; Z85.46 Personal history of malignant neoplasm of prostate; Z90.79 Acquired absence of other genital organ(s); E11.65 Type 2 diabetes mellitus with hyperglycemia; Z66 Do not resuscitate; G47.33 Obstructive sleep apnea (adult) (pediatric); J98.4 Other disorders of lung; I70.0 Atherosclerosis of aorta; K22.70 Barrett's esophagus without dysplasia; E78.00 Pure hypercholesterolemia, unspecified; J44.9 Chronic obstructive pulmonary disease, unspecified; Z79.4 Long term (current) use of insulin; Z79.899 Other long term (current) drug therapy; L89.156 Pressure-induced deep tissue damage of sacral region
CPT/HCPCS: 80048; 80053; 81003; 81015; 82962; 83036; 84153; 85025; 85027; 86850; 86900; 86901; 87086; 96374; 97163; 97167; 97530; 99285

== ENCOUNTER → 2025-01-23 17:07 | Outpatient (REF) | payer MEDICARE, SELFPAY ==
[2025-01-23 18:15] LABS: Urine Character Mucous (Clear)
[2025-01-23 18:41] LABS: Urine Red Blood Cell >100 /HPF (0-2); Urine White Cell >100 /HPF (0-5)
== END ==
LOC: REG 17:07
PROVIDERS: ATTENDING PHYSICIAN Specialist; FAMILY PHYSICIAN Family Medicine
DX: N39.0 Urinary tract infection, site not specified (principal)
CPT/HCPCS: 81003; 81015; 87086; 87088; 87186

== ENCOUNTER 2025-02-04 19:49 | Inpatient (IN) | payer MEDICARE, SELFPAY ==
[2025-02-04 15:49] VITALS: BP 162/95
--- NOTE | 2025-02-04 16:56 | ED.GENMED ---
History of Present Illness
<Xin Leonard NP - Last Filed: 02/05/25 21:12>
General
Chief Complaint: Male Genito-Urinary Symptoms
Source: patient and spouse
Exam Limitations: none
Time Seen by Provider: 02/04/25 16:30
Nursing documentation reviewed up to this point in time: agreed with
History of Present Illness
History of Present Illness:
Patient to the emergency department for evaluation of hematuria. According to spouse hematuria started approximately 10 days ago. Patient called urologist and was placed on amoxicillin for possible UTI. He is on day number 8 of the antibiotic and
reports the bleeding is worsening. He now reports passing blood clots. He was seen in the emergency department in October for similar event. He was admitted on CBI, diagnosed with hemorrhagic cystitis related to history of radiation for prostate
CA. He has had no issues since. Brought to the emergency department by spouse for evaluation. He denies any fever or chills. Reports bladder pain. History of A-fib however is not on any type of blood thinner
Past History
<Xin Leonard NP - Last Filed: 02/05/25 21:12>
Past History
ED Past Medical History: Arrthythmia (A-fib), GERD, Hypercholesterolemia, IDDM and Other (MS)
ED Past Surgical History: Appendectomy, Orthopedic and Urological
Social History
Tobacco: Non-smoker
Alcohol: Occasional
Drug: None
Personal:
Living: with family
Employment: Retired
Family History
Family History: Other (Noncontributory)
Review of Systems
<Xin Leonard NP - Last Filed: 02/05/25 21:12>
Review of Systems
Allergies reviewed?: Yes
All Other Systems: ROS reviewed and negative except as documented in HPI and ROS
Constitutional: Reports no symptoms
EENT: Reports no symptoms
Respiratory: Reports no symptoms
Cardiac: Reports no symptoms
ABD/GI: Reports no symptoms
: Reports bleeding (Hematuria with clots)
Musculoskeletal: Reports no symptoms
Skin: Reports no symptoms
Neurological: Reports no symptoms
Psychiatric: Reports no symptoms
Phy Exam
<Xin Leonard NP - Last Filed: 02/05/25 21:12>
General Physical Exam
General Presentation: moderate distress
General age: appears stated age
General Skin: warm and dry
General Habitus: normal
General Mental: alert
Cardiovascular Exam
Cardiovascular Exam: regular rate/rhythm and no edema
Pulmonary Exam
Pulmonary Exam: lungs clear and no respiratory distress
Gastrointestinal Exam
Gastrointestinal Exam: normal bowel sounds, non tender, soft, no organomegaly, no pulsatile mass and non distended
Genitourinary Exam Male
Exam Male: other (Urinary retention - >500cc on bladder scan. 3way catheter placed by RN,hematuria, flushed with removal of many clots. CBI infusing now without difficulty. )
Musculoskeletal Exam
Musculoskeletal Exam: full ROM and neuro vasc intact
Skin Exam
Skin Exam: normal color, warm/dry and no rash
Psychiatric Exam
Psychiatric Exam: normal mood/affect
Course
<Xin Leonard NP - Last Filed: 02/05/25 21:12>
Orders/Labs/Results
Orders:
Orders
02/04/25 Dinner
1800 calorie (15 carb) Diabetic
At Your Request: Full Participation
Does patient need a safe tray?: No
02/04/25 17:00
Complete Blood Count/With Diff Urgent
Comprehensive Metabolic Panel Urgent
02/04/25 17:19
HYDROmorphone [Dilaudid] 0.5 mg IV NOW STA
Ondansetron Injectable [Zofran] 4 mg IV NOW STA
02/04/25 17:21
HYDROmorphone [Dilaudid] 0.5 mg .ROUTE .STK-MED ONE
Ondansetron Injectable [Zofran] 4 mg .ROUTE .STK-MED ONE
02/04/25 17:52
Urinalysis Reflex To Culture Urgent
Date Specimen was Collected: 02/04/25
Time Specimen was Collected: 17:22
Urine Microscopic Reflex Cult Urgent
Urine Culture Urgent
YORDAN Source: U
Specimen Description:
Date Specimen was Collected: 02/04/25
Time Specimen was Collected: 17:22
02/04/25 19:33
Admit/Transfer Patient As Directed
Co-Sign Provider:
Level of Care: Inpatient admission
Assign to:: Medical/Surgical
Physician / Group: Ita
Diagnosis: Hematuria
Reason for Hospitalization: hematuria
Expected length of stay greater than two midnights?: Yes
ELOS- Estimated Length of Stay in days: 2
I certify the patient meets the requirements for IP care: Yes
PRN Pain Medication Management As Directed
May give lesser potent ordered pain med per pt: Yes
preference::
Protocol:: Medication orders for pain may be administered in a
manner that supports deferring to patient preference
when the pt is:
- Requesting an ordered lesser potent pain medication.
Least to most potent pain medications are defined
as: acetaminophen < NSAID < tramadol < opioids
(morphine, oxycodone, hydromorphone).
- Requesting a lesser dose of the same medication IF
ORDERED.
- Requesting a less intrusive route of administration
if both routes are prescribed by the provider (PO <
IV).
02/04/25 19:35
Code Status As Directed
Resuscitation Status: Do not resuscitate
Reached after discussion with pt or family/Healthcare POA: Yes
DNR Bracelet Application ONCE
02/04/25 20:40
Acetaminophen [Tylenol] 650 mg PO Q4HPRN PRN
Amoxicillin 875 mg/Clav 125 mg [Augmentin 875 mg/125 mg] 1 tablet PO BID
Bisacodyl [Dulcolax] 10 mg RECTAL [id number] PRN
Dextrose 50%-Water [Dextrose 50% Syringe] 12.5 grams IV [id number] PRN
Docusate W/Senna [Senokot-S] 1 tablet PO BIDPRN PRN
Glucagon [GlucaGen] 1 mg IM PRN PRN
Ondansetron Injectable [Zofran] 4 mg IV Q6HPRN PRN
Oxycodone [Roxicodone] 5 mg PO Q4HPRN PRN
Polyethylene Glycol Powder [Miralax] 17 grams PO DAILYPRN PRN
02/04/25 20:40
UROLOGY CONSULT Routine
Consulting Provider: José Luis Carrera
Was physician already notified: Yes
Activity As Directed
Activity Level: With Assistance
Bedside Glucose Monitoring As Directed
Frequency: AC&HS
Additional Instructions:: Change to q6h if pt on TPN, tube feeding or not eating
Continous Bladder Irrigation As Directed
Solution: normal saline
Intake/ Output As Directed
Frequency: Per unit guidelines
Pneumatic Compression Sleeves As Directed
Type: Knee high
Vital Signs As Directed
Frequency: Per unit guidelines
Pulse Ox/spot Check [RESP] Routine
Quantity: 1
DX Deep Vein Thrombosis Video Routine
02/04/25 22:00
Gabapentin [Neurontin] 300 mg PO TID
Insulin Glargine Lantus [Lantus] 8 units Subcutaneous Insulin Syringe [Syringe-Insulin] 0 unit SC HS
02/05/25 06:26
Basic Metabolic Panel IN AM
Magnesium IN AM
02/05/25 06:27
Complete Blood Count/No Diff IN AM
Glycohemoglobin (HgbA1c) IN AM
02/05/25 07:30
Insulin Aspart Corrective Low [Novolog Flexpen-Low Resistance] See Protocol SC AC
Insulin Aspart Pen [Novolog Flexpen] 6 units SC AC
02/05/25 08:00
Finasteride [Proscar] 5 mg PO DAILY
Losartan [Cozaar] 50 mg PO DAILY
02/05/25 18:00
Atorvastatin [Lipitor] 80 mg PO QPM
Abnormal Lab Results
02/04/25 02/04/25
17:00 17:52
WBC 10.9 H 10^3/uL
(4.8-10.8)
RBC 4.09 L 10^6/uL
(4.70-6.10)
Hgb 12.5 L g/dL
(13.0-18.0)
Hct 36.9 L %
(39.0-52.0)
RDW 15.7 H %
(11.5-14.5)
Abs Immat Gran (auto) 0.1 H 10^3/uL
(0-0.05)
Absolute Neuts (auto) 8.8 H 10^3/uL
(1.4-6.5)
Absolute Lymphs (auto) 1.1 L 10^3/uL
(1.2-3.4)
Absolute Monos (auto) 0.9 H 10^3/uL
(0.1-0.6)
Neutrophils % 81.2 H %
(42.2-75.2)
Lymphocytes % 9.7 L %
(20.5-51.1)
BUN 32 H mg/dl
(9-20)
Glucose 112 H mg/dl
(70-99)
Albumin 3.4 L g/dl
(3.5-5.0)
Urine Ketones 1+ A
(Negative)
Ur Occult Blood Reflex 4+ A
(Negative)
Leukocyte Esterase Rfl 1+ A
(Negative)
Urine RBC >100 A /HPF
(0-2)
Urine Bacteria (Reflex) Many A
(Negative)
Urine Glucose 1+ A
(Negative)
Urine Albumin (Reflex) 4+ A
(Neg - Trace)
02/04/25 17:00
02/04/25 17:00
Vital Signs
Initial and Last Documented VS:
Initial Vital Signs
Temp Pulse Resp BP Pulse Ox
98.2 F 65 16 162/95 92
02/04/25 15:49 02/04/25 15:49 02/04/25 15:49 02/04/25 15:49 02/04/25 15:49
Last Documented Vital Signs
Temp Pulse Resp BP Pulse Ox
98.1 F 90 16 122/66 97
02/05/25 15:44 02/05/25 15:44 02/05/25 15:44 02/05/25 15:44 02/05/25 15:44
<Arnoldo Velarde MD - Last Filed: 02/04/25 23:31>
Orders/Labs/Results
Orders:
Orders
02/04/25 Dinner
1800 calorie (15 carb) Diabetic
At Your Request: Full Participation
Does patient need a safe tray?: No
02/04/25 17:00
Complete Blood Count/With Diff Urgent
Comprehensive Metabolic Panel Urgent
02/04/25 17:19
HYDROmorphone [Dilaudid] 0.5 mg IV NOW STA
Ondansetron Injectable [Zofran] 4 mg IV NOW STA
02/04/25 17:21
HYDROmorphone [Dilaudid] 0.5 mg .ROUTE .STK-MED ONE
Ondansetron Injectable [Zofran] 4 mg .ROUTE .STK-MED ONE
02/04/25 17:52
Urinalysis Reflex To Culture Urgent
Date Specimen was Collected: 02/04/25
Time Specimen was Collected: 17:22
Urine Microscopic Reflex Cult Urgent
Urine Culture Urgent
YORDAN Source: U
Specimen Description:
Date Specimen was Collected: 02/04/25
Time Specimen was Collected: 17:22
02/04/25 19:33
Admit/Transfer Patient As Directed
Co-Sign Provider:
Level of Care: Inpatient admission
Assign to:: Medical/Surgical
Physician / Group: Ita
Diagnosis: Hematuria
Reason for Hospitalization: hematuria
Expected length of stay greater than two midnights?: Yes
ELOS- Estimated Length of Stay in days: 2
I certify the patient meets the requirements for IP care: Yes
PRN Pain Medication Management As Directed
May give lesser potent ordered pain med per pt: Yes
preference::
Protocol:: Medication orders for pain may be administered in a
manner that supports deferring to patient preference
when the pt is:
- Requesting an ordered lesser potent pain medication.
Least to most potent pain medications are defined
as: acetaminophen < NSAID < tramadol < opioids
(morphine, oxycodone, hydromorphone).
- Requesting a lesser dose of the same medication IF
ORDERED.
- Requesting a less intrusive route of administration
if both routes are prescribed by the provider (PO <
IV).
02/04/25 19:35
Code Status As Directed
Resuscitation Status: Do not resuscitate
Reached after discussion with pt or family/Healthcare POA: Yes
DNR Bracelet Application ONCE
02/04/25 20:40
Acetaminophen [Tylenol] 650 mg PO Q4HPRN PRN
Amoxicillin 875 mg/Clav 125 mg [Augmentin 875 mg/125 mg] 1 tablet PO BID
Bisacodyl [Dulcolax] 10 mg RECTAL [id number] PRN
Dextrose 50%-Water [Dextrose 50% Syringe] 12.5 grams IV [id number] PRN
Docusate W/Senna [Senokot-S] 1 tablet PO BIDPRN PRN
Glucagon [GlucaGen] 1 mg IM PRN PRN
Ondansetron Injectable [Zofran] 4 mg IV Q6HPRN PRN
Oxycodone [Roxicodone] 5 mg PO Q4HPRN PRN
Polyethylene Glycol Powder [Miralax] 17 grams PO DAILYPRN PRN
02/04/25 20:40
UROLOGY CONSULT Routine
Consulting Provider: José Luis Carrera
Was physician already notified: Yes
Activity As Directed
Activity Level: With Assistance
Bedside Glucose Monitoring As Directed
Frequency: AC&HS
Additional Instructions:: Change to q6h if pt on TPN, tube feeding or not eating
Continous Bladder Irrigation As Directed
Solution: normal saline
Intake/ Output As Directed
Frequency: Per unit guidelines
Pneumatic Compression Sleeves As Directed
Type: Knee high
Vital Signs As Directed
Frequency: Per unit guidelines
Pulse Ox/spot Check [RESP] Routine
Quantity: 1
DX Deep Vein Thrombosis Video Routine
02/04/25 22:00
Gabapentin [Neurontin] 300 mg PO TID
Insulin Glargine Lantus [Lantus] 8 units Subcutaneous Insulin Syringe [Syringe-Insulin] 0 unit SC HS
02/05/25 06:26
Basic Metabolic Panel IN AM
Magnesium IN AM
02/05/25 06:27
Complete Blood Count/No Diff IN AM
Glycohemoglobin (HgbA1c) IN AM
02/05/25 07:30
Insulin Aspart Corrective Low [Novolog Flexpen-Low Resistance] See Protocol SC AC
Insulin Aspart Pen [Novolog Flexpen] 6 units SC AC
02/05/25 08:00
Finasteride [Proscar] 5 mg PO DAILY
Losartan [Cozaar] 50 mg PO DAILY
02/05/25 18:00
Atorvastatin [Lipitor] 80 mg PO QPM
Abnormal Lab Results
02/04/25 02/04/25
17:00 17:52
WBC 10.9 H 10^3/uL
(4.8-10.8)
RBC 4.09 L 10^6/uL
(4.70-6.10)
Hgb 12.5 L g/dL
(13.0-18.0)
Hct 36.9 L %
(39.0-52.0)
RDW 15.7 H %
(11.5-14.5)
Abs Immat Gran (auto) 0.1 H 10^3/uL
(0-0.05)
Absolute Neuts (auto) 8.8 H 10^3/uL
(1.4-6.5)
Absolute Lymphs (auto) 1.1 L 10^3/uL
(1.2-3.4)
Absolute Monos (auto) 0.9 H 10^3/uL
(0.1-0.6)
Neutrophils % 81.2 H %
(42.2-75.2)
Lymphocytes % 9.7 L %
(20.5-51.1)
BUN 32 H mg/dl
(9-20)
Glucose 112 H mg/dl
(70-99)
Albumin 3.4 L g/dl
(3.5-5.0)
Urine Ketones 1+ A
(Negative)
Ur Occult Blood Reflex 4+ A
(Negative)
Leukocyte Esterase Rfl 1+ A
(Negative)
Urine RBC >100 A /HPF
(0-2)
Urine Bacteria (Reflex) Many A
(Negative)
Urine Glucose 1+ A
(Negative)
Urine Albumin (Reflex) 4+ A
(Neg - Trace)
02/04/25 17:00
02/04/25 17:00
Vital Signs
Initial and Last Documented VS:
Initial Vital Signs
Temp Pulse Resp BP Pulse Ox
98.2 F 65 16 162/95 92
02/04/25 15:49 02/04/25 15:49 02/04/25 15:49 02/04/25 15:49 02/04/25 15:49
Last Documented Vital Signs
Temp Pulse Resp BP Pulse Ox
98.1 F 90 16 122/66 97
02/05/25 15:44 02/05/25 15:44 02/05/25 15:44 02/05/25 15:44 02/05/25 15:44
<Xin Leonard NP - Last Filed: 02/05/25 21:12>
*Pulse Oximetry
SaO2: 92
Oxygen Mode of Delivery: Room air
Patient hypoxic: no
*Critical Care Note
Total Time (30-74mins, 75-104mins- exclusive of procedures): Not Applicable
<Xin Leonard NP - Last Filed: 02/05/25 21:12>
Update Note
Update Note:
Patient to ED with complaint of hematuria, pelvic pain. States 10 days ago he developed hematuria. States he called urology and was placed on a course of amoxicillin. He reports he is on day number 8 of antibiotic without any improvement. Today
he noted increasing pelvic pain. On arrival to ED bladder scan reveals greater than 500 cc in bladder. Three-way catheter was placed by RN. Catheter continuing to block. I was able to flush many clots out manually. CBI now infusing without
difficulty. Patient will be admitted to hospitalist. Dr. Carrera was consulted. He is agreeable with the current plan of CBI. Will see patient in AM.
ED Attending Note
<Xin Leonard NP - Last Filed: 02/05/25 21:12>
-
Portions of this chart may have been created with voice recognition software.� Occasional wrong word or��sound alike� substitutions may have occurred due to the inherent limitations of voice recognition software.
<Arnoldo Velarde MD - Last Filed: 02/04/25 23:31>
ED Attending Note
Patient seen and examined by attending physician: Yes
ED Attending Note:
Patient with history of prostate cancer, status post TURP, who presented to ED secondary to 2-day history of persistent bloody urine along with abdominal discomfort. Denies fever or chills. Denies nausea or vomiting. Denies trauma. Patient was
admitted to the hospital a few months ago with similar complaints, requiring Cantor catheter insertion. Denies dizziness or weakness. Denies shortness of breath. Denies taking blood thinning medications. Denies recent change in medications or diet
Physical Exam
General: no apparent distress, not acutely ill. afebrile
Head: nc/at. eomi
Neck: supple. normal range of motion
Abdomen: normal bowel sounds. not tender.
Neuro: alert and oriented x 3. no focal neurological deficits
Skin: no rash
Psychiatric: well kept. interactive and cooperative
Cantor catheter inserted and CBI started. Patient will be admitted for further evaluation and treatment.
Discharge Plan
Departure
Patient Disposition: Admit
Date of Disposition: 02/04/25
Time of Disposition: 18:21
Presentation/result/management discussed w/ accepting MD/DO: Hospitalist
Patient with high blood pressure during this ER visit?: No
Condition: Fair
Covid-19: Not Applicable
Discharge Problem:
Hematuria
Interventions
Interventions:
*Risk Screen - Suicide Last Done: 02/04/25 21:03
*General Assessment Last Done: 02/04/25 16:57
*Neglect/Abuse Screening Last Done: 02/04/25 15:49
*ED- Fall Risk Assessment Last Done: 02/04/25 16:57
*ED COVID-19 Vaccine History Last Done: 02/04/25 21:03
*ED Influenza Vaccine History Last Done: 02/04/25 16:57
*Nursing Disposition Last Done: 02/04/25 21:11
ED-Male Genitourinary Assessment Last Done: 02/04/25 19:00
Discharge Date and Time
Discharge Date/Time: 02/04/25 21:12
[2025-02-04 16:57] VITALS: BMI 25.3
[2025-02-04 17:00] VITALS: BP 175/85
[2025-02-04 17:16] LABS: Hematocrit 36.9 % (39.0-52.0); Hemoglobin 12.5 g/dL (13.0-18.0); Mean Corp Hgb Conc. 33.9 g/dL (33.0-37.0); Mean Corpuscular Volume 90.2 fL (80.0-94.0); Nucleated Red Blood Cells % 0 % (-); Platelet Count 292 10^3/uL (130-400); Red Cell Dist. Width 15.7 % (11.5-14.5)
[2025-02-04 17:23] LABS: ALT (SGPT) 15 U/L (0-50); AST (SGOT) 22 U/L (17-59); Albumin 3.4 g/dl (3.5-5.0); Alkaline Phosphatase 90 U/L (38-126); Blood Urea Nitrogen 32 mg/dl (9-20); Calcium 8.9 mg/dl (8.4-10.2); Carbon Dioxide 28 mmol/L (22-30); Chloride 105 mmol/L (98-107); Estimated Creatinine Clearance 56 ml/min; Glucose 112 mg/dl (70-99); Potassium 4.2 mmol/L (3.5-5.1); Sodium 135 mmol/L (135-145); Total Protein 6.6 g/dl (6.3-8.2); eGFR 55.88
[2025-02-04] MEDS: DILAUDID 0.5 MG IV (17:23)
[2025-02-04] MEDS: ZOFRAN 4 MG IV (17:23)
[2025-02-04 18:23] LABS: Urine Character Bloody (Clear)
[2025-02-04 18:44] LABS: Urine Red Blood Cell >100 /HPF (0-2); Urine Squamous Cell 0-2 /LPF (Few)
[2025-02-04 19:00] VITALS: BP 108/62
--- NOTE | 2025-02-04 19:18 | HPS.HSE ---
Family Physician
-
Family Physician: Patrick Kc
Chief Complaint
-
Hematuria
History of Present Illness
This is a 79-year-old with past medical history significant for atrial fibrillation not currently on anticoagulation, insulin-dependent diabetes, hypertension, hyperlipidemia, history of prostate cancer status post TURP and status post total
radiation who presents to the emergency department with approximately 2 days of ongoing hematuria.
Patient started having hematuria about 10 days ago. The had a conversation with her urologist was started on antibiotics and patient is on day 8. There was possible UTI at that time. Patient reports that the bleeding is still persistent and he
has been passing clots. He specifically reports that he has had more hematuria over the last 2 days and started having lower pelvic and bladder discomfort today. He denies having any flank pain. He has not had any fevers or chills. He denies any
dysuria urgency or frequency. He denies any nausea or vomiting.
Patient reports that he is now passing clots. Seen in the emergency department in October for similar and was thought to have hemorrhagic cystitis likely secondary to radiation for prostate cancer. He had CBI at the time and ultimately had a
voiding trial. He is not on any blood thinners. He denies any trauma. He has no recent instrumentation.
In the emergency department he was afebrile, blood pressure 162/95 with a pulse of 65 and he was satting 90% on room air.
CBC shows a white count of 10.9 hemoglobin 12.5 and platelet 292 which are at baseline. Electrolytes BUN/creatinine were unremarkable UA with blood 1+ leukocyte esterase and many bacteria.
Medical History
Past Medical History
Past Medical History: Reports Other
Additional Past Medical History:
multiple sclerosis
hyperlipidemia
hypertension
type 2 diabetes
atherosclerosis of aorta
GERD
Vergara's esophagus
prostate cancer
lumbar radiculopathy
obstructive sleep apnea
restrictive lung disease
paroxysmal atrial fibrillation
depression
Past Surgical History: Reports Other
Additional Past Surgical History:
Hernia repair
appendectomy
TURP
Left hip ORIF
Social History
Tobacco: Non-smoker
Alcohol: None
Drug: None
Personal:
Living: With Family
Employment: Retired
Family History
Family History: Not pertinent
Allergies / Home Medications
Allergies reflects when Allergies were last updated in [employer].
Home Medications with original date entered in [employer]
Allergy/Medication List:
Allergies
Allergy/AdvReac Type Severity Reaction Status Date / Time
pollen extracts Allergy RHINITIS-EN Verified 10/25/24 16:37
VIRONMENTAL
Home Medications
finasteride 5 mg tablet 5 mg PO DAILY prostate 06/25/17
atorvastatin 80 mg tablet 80 mg PO QPM High cholesterol 08/02/20
acetaminophen 325 mg tablet (Tylenol) 650 mg PO Q4H PRN PAIN 08/25/24
gabapentin 300 mg capsule 300 mg PO TID NEUROPATHIC PAIN 08/25/24
insulin lispro 100 unit/mL subcutaneous solution (Humalog U-100 Insulin) 10 unit (0.1 mL) SC TID Diabetes #0 mL 09/01/24
insulin degludec 100 unit/mL (3 mL) subcutaneous pen (Tresiba FlexTouch U-100 insulin) 10 unit SC QHS Diabetes 10/25/24
losartan 50 mg tablet 50 mg PO DAILY 10/25/24
metoprolol succinate 25 mg tablet,extended release 24 hr 12.5 mg PO DAILY 10/25/24
naproxen 250 mg tablet 250 mg PO BID PRN pain 10/25/24
Review of Systems
-
History Source: Patient
Constitutional: Reports No Symptoms
EENT: Reports No Symptoms
Respiratory: Reports No Symptoms
Cardiac: Reports No Symptoms
Abdomen/GI: Reports No Symptoms
: Reports Dysuria, Bleeding and Cantor
Musculoskeletal: Reports No Symptoms
Skin: Reports No Symptoms
Neurological: Reports No Symptoms
Endocrine: Reports No Symptoms
Hematologic/Lymphatic: Reports No Symptoms
Psych: Reports No Symptoms
Physical Exam
Vital Signs
Vital Signs
Temp Pulse Resp BP Pulse Ox
98.2 F 65 16 162/95 92
02/04/25 15:49 02/04/25 15:49 02/04/25 15:49 02/04/25 15:49 02/04/25 17:00
Physical Exam
General: Well Developed, No Apparent Distress and Conversant
HEENT: NormoCephalic, Moist mucous membranes and Atraumatic
Respiratory: Clear and Non Labored Respirations
Cardiac: S1/S2 and Regular Rhythm; No Murmur, Rub or Gallop
GI: Soft, Non Tender, Non Distended and Normal Bowel Sounds; No Organomegaly
Rectal: Deferred by Provider
Genito-urinary: Bloody Urine and Cantor (CBI in place )
Musculoskeletal: No Clubbing, No Cyanosis and No Edema
Skin: Warm and IV/Catheter Site
Neuro: Awake, AO x 3 and Nonfocal/grossly intact
Psych: Calm
Laboratory Results
-
02/04/25 17:00
02/04/25 17:00
Laboratory Results
Total Bilirubin 0.9 mg/dl (0.2-1.3) 02/04/25 17:00
AST 22 U/L (17-59) 02/04/25 17:00
ALT 15 U/L (0-50) 02/04/25 17:00
Alkaline Phosphatase 90 U/L (38-126) 02/04/25 17:00
Data Reviewed
-
Lab Data: Labs Reviewed by me
Old Records: Reviewed
Impression/Plan
-
IMPRESSION:
79-year-old with past medical history significant for prostate cancer status post TURP and radiation, insulin-dependent diabetes KIM, paroxysmal atrial fibrillation not on anticoagulation presents to the emergency department with ongoing hematuria
that started about 10 days ago and currently on antibiotic. Had a similar episode in October that to be secondary to radiation cystitis. Patient has not had follow-up cystoscopy. He does not appear to have any acute infectious symptoms at this
time. UA grew Pseudomonas which is sensitive to amoxicillin/clavulanate that he is on. Hemoglobin is stable. He is currently on CBI with clearing urine
PLAN:
Hematuria -suspect secondary to radiation cystitis and possible infection. Currently on antibiotic. Hemoglobin is stable.
-Admit to [facility]
- Complete course of Augmentin
- Continue CBI
- Urology consultation
- Outpatient workup by urology
- Continue finasteride
Diabetes
- Continue lispro 10 units 3 times daily AC
- Continue Lantus 8 units at bedtime
- Sliding scale insulin
Hypertension
-Continue losartan
� Continue metoprolol succinate
DVT prophy�SCDs for now
CODE STATUS�Full Code
[2025-02-04 20:51] VITALS: BP 118/69
[2025-02-04 20:52] VITALS: BMI 24.8
[2025-02-04 21:41] VITALS: BMI 24.8
[2025-02-04] MEDS: AUGMENTIN 875 MG/125 MG 1 TABLET PO (22:38)
[2025-02-04] MEDS: NEURONTIN 300 MG PO (22:38)
[2025-02-04 22:39] LABS: Glucose - Point of Care 139 mg/dl (70-99)
[2025-02-04] MEDS: LANTUS 0.08 UNITS SC (22:39)
[2025-02-05 00:10] VITALS: BP 109/65
--- NOTE | 2025-02-05 04:01 | PTCARENOTE ---
02/04/2025 - PT admitted to room 2126 from ED @2100. PT transferred from stretcher to bed with max assist. PT oriented to room, call yuan, plan of care,. PT AAOX3 and participates fully in admission questions. Placed bed alarm for PT safety.
Assessment as documented.
[2025-02-05 07:08] VITALS: BP 108/59
[2025-02-05 07:08] LABS: Glucose - Point of Care 158 mg/dl (70-99)
[2025-02-05 07:37] LABS: Blood Urea Nitrogen 32 mg/dl (9-20); Calcium 7.9 mg/dl (8.4-10.2); Carbon Dioxide 26 mmol/L (22-30); Chloride 108 mmol/L (98-107); Estimated Creatinine Clearance 56 ml/min; Glucose 134 mg/dl (70-99); Magnesium 1.9 mg/dl (1.6-2.3); Potassium 3.9 mmol/L (3.5-5.1); Sodium 137 mmol/L (135-145); eGFR 55.88
[2025-02-05 07:56] LABS: Hematocrit 29.6 % (39.0-52.0); Hemoglobin 9.9 g/dL (13.0-18.0); Mean Corp Hgb Conc. 33.4 g/dL (33.0-37.0); Mean Corpuscular Volume 89.4 fL (80.0-94.0); Platelet Count 236 10^3/uL (130-400); Red Cell Dist. Width 15.9 % (11.5-14.5)
--- NOTE | 2025-02-05 09:10 | CONS.URO ---
Consultation
-
Date/Time Consultation Requested: 02/04
Date/Time Consultation Performed: 02/04
Requesting Provider: Hospitalist
Performing Provider: Debi
Reason for Consultation: hemorrhagic radiation cystitis, h/o rUTIs
Medical History
History of Present Illness
79M w/ h/o prostate cancer s/p XRT (not currently on AC) presenting w/ 48 hrs of worsening hematuria.
Started having hematuria 10 days ago - started on Amoxicillin by Dr. Zapata based on prior UCx sensitivities.
Called answering service yesterday noting persistent hematuria but additional voiding symptoms.
After noting new pelvic and bladder pain w/ passage of clots last night, he presented to [facility] ED.
Past Medical History
Past Medical History: Arrhythmia (pAF), Cancer (prostate cancer s/p XRT), HTN, NIDDM and Other (MS, atherosclerosis, Vergara's esophagus, lumbar radiculopathy, KIM, restrictive lung disease, depression)
Past Surgical History: Appendectomy, Orthopedic (left hip ORIF) and Other (hernia repair, TURP)
Social History
Unable to obtain full social history at this time due to: Dementia
Tobacco: Non-smoker
Alcohol: None
Drug: None
Personal:
Living: With Family
Employment: Retired
Family History
Family History: Reviewed & Not Pertinent
Allergies/Home Medications
Allergies
Allergy/AdvReac Type Severity Reaction Status Date / Time
pollen extracts Allergy RHINITIS-EN Verified 02/04/25 15:49
VIRONMENTAL
Home Medications
�Medication �Instructions �Recorded �Confirmed �Type
finasteride 5 mg tablet 5 mg PO DAILY prostate 06/25/17 02/04/25 History
atorvastatin 80 mg tablet 80 mg PO QPM High cholesterol 08/02/20 02/04/25 History
insulin lispro 100 unit/mL 10 unit (0.1 mL) SC TID Diabetes 09/01/24 02/04/25 Rx
subcutaneous solution (Humalog #0 mL
U-100 Insulin)
insulin degludec 100 unit/mL (3 10 unit SC QHS Diabetes 10/25/24 02/04/25 History
mL) subcutaneous pen (Tresiba
FlexTouch U-100 insulin)
losartan 50 mg tablet 50 mg PO DAILY Blood Pressure 10/25/24 02/04/25 History
metoprolol succinate 25 mg 12.5 mg PO DAILY Heart 10/25/24 02/04/25 History
tablet,extended release 24 hr Disease/Condition
amoxicillin 875 mg-potassium 1 tab PO BID #14 tabs 10/29/24 02/04/25 Rx
clavulanate 125 mg tablet
Review of Systems
-
History Source: Patient
A 12 point Review of Systems was completed except as noted: Yes
Physical Exam
Vital Signs
Vital Signs
Temp Pulse Resp BP Pulse Ox
97.5 F 98 18 118/69 98
02/04/25 20:51 02/04/25 20:51 02/04/25 20:51 02/04/25 20:51 02/04/25 20:51
Lab / Testing Results
Laboratory Results
02/04/25 17:00
02/04/25 17:00
Physical Exam
General: Well Nourished and No Apparent Distress
HEENT: Normocephalic and Anicteric
Respiratory: Non Labored Respirations
Cardiac: Regular Rhythm
Breast: N/A
GI: Soft, Non Tender and Non Distended
Rectal: Deferred by Provider
Genito-urinary: No Costovertebral Tend, Bloody Urine and Cantor Catheter
Musculoskeletal: No Edema
Skin: Warm and Dry
Neuro: AO x 3, No Motor Deficits and Nonfocal/Grossly Intact
Hematologic/Lymphatic: No Lymphadenopathy
Psych: Calm and Intact Judgement
Assessment / Plan
-
Hematuria with urinary retention
Hemorrhagic radiation cystitis
H/o prostate cancer s/p XRT
H/o rUTIs (most recently Proteus mirabilis)
- UCx S/S pending
- Wean CBI today as tolerated (light pink in tubing this AM)
- Clamp CBI @0600 on 02/06
- Possible VT before discharge - will d/w Dr. Zapata
D/w patient.
D/w RN.
Data Reviewed
-
Total Time Spent with Patient (in minutes): 25
Lab Data: Labs Reviewed, Discussed with Physician, Discussed with Nurse and Discussed with Patient
Old Records: Reviewed
[2025-02-05 09:32] LABS: Glycohemoglobin (HgbA1c) 5.9 % (4.0-5.9)
[2025-02-05] MEDS: NOVOLOG FLEXPEN 6 UNITS SC ×3 (09:51→18:23)
[2025-02-05] MEDS: NOVOLOG FLEXPEN-LOW RESISTANCE 1 UNITS SC ×2 (09:52→18:24)
[2025-02-05] MEDS: PROSCAR 5 MG PO (09:53)
[2025-02-05] MEDS: NEURONTIN 300 MG PO (09:53)
[2025-02-05] MEDS: AUGMENTIN 875 MG/125 MG 1 TABLET PO (09:54)
[2025-02-05] MEDS: TOPROL XL PO (10:00)
[2025-02-05] MEDS: COZAAR PO (10:00)
[2025-02-05 10:10] VITALS: BP 100/64
[2025-02-05 10:27] LABS: Hepatitis C Antibody Negative (Negative)
--- NOTE | 2025-02-05 11:56 | W.PN.HOSP.TC ---
Addendum entered and electronically signed by Anil Bansal MD 02/05/25 12:35:
Correction:
Tachycardia and not bradycardia
- f/u EKG
Original Note:
Today's Communication/Plan
-
see note
Assessment / Plan
Assessment / Plan
1. Hematuria
History of recurrent hematuria with radiation cystitis
Rule out urinary tract infection
- Patient commenced with recurrence of hematuria, known to have postradiation cystitis and hemorrhages from
- Patient was on CBI, which urology has recommended to be clamped and patient to be monitored
- UA reviewed and patient had significant bacteriuria, unable to assess for pyuria due to obscured field from RBC, urine culture pending
- Patient have a history of Proteus mirabilis urinary tract infection based on previous urine culture report, based on susceptibility patient switched to Rocephin
- Monitor hemoglobin
2. Venous stasis dermatitis
Venous stasis ulcer
- Patient have bilateral lower extremity venous insufficiency and related stasis dermatitis
- Left mcnamara has superficial venous ulceration as well
- No signs of active cellulitis
- Local wound care/Juancho wrapping recommended
3. Type 2 diabetes mellitus
- Maintain on home regimen of degludec/lispro
4. Essential hypertension
- Blood pressure soft in the morning, holding parameter added to Toprol/losartan
5. Acute kidney injury
- Baseline creatinine of 0.8, with admission creatinine of 1.3
- Losartan on hold due to soft blood pressure
- Will provide small dose of IV fluid bolus, will avoid excessive IV hydration in light of lower extremity edema
- Follow-up renal function
- Already have indwelling Cantor catheter
6. Bradycardia
- EKG ordered
- Add on TSH free T4 to morning lab
DVT prophylaxis -SCD
Full code
Total time spent ; 54 mins
Anticipated Discharge: > 48 hours
Subjective/Interval History
-
Date of Service: February 05, 2025
Denies any abdominal discomfort
Bilateral lower extremity swelling, which is chronic
Afebrile in the night
Catheter in place with blood containing urine
Objective Data
-
Labs:
Laboratory Results
02/05/25 02/05/25
06:26 06:27
WBC 8.4
Hgb 9.9 L D
Hct 29.6 L
Plt Count 236
Sodium 137
Potassium 3.9
Chloride 108 H
Carbon Dioxide 26
BUN 32 H
Creatinine 1.3
Glucose 134 H
Calcium 7.9 L
Vital Signs:
Vital Signs
Temp Pulse Resp BP Pulse Ox
98.4 F 98 18 100/64 98
02/05/25 07:08 02/05/25 10:10 02/05/25 07:08 02/05/25 10:10 02/05/25 07:08
I&O
02/04/25 02/05/25 02/06/25
06:59 06:59 06:59
Intake Total 720 / 720
Output Total 5400 / 5400
Balance -4680 / -4680
Review of Systems
-
Respiratory: Reports No Symptoms
Cardiac: Reports No Symptoms
Abdomen/GI: Reports No Symptoms
Physical Exam
-
General: Comfortable; Negative Respiratory Distress
HEENT: Negative Oxygen
GI: Nontender and Nondistended
Musculoskeletal: Edema, Right Lower Extrem and Edema, Left Lower Extrem (Superficial venous stasis ulcer on left mcnamara)
Neuro: Awake, Alert, Oriented and No Motor Deficits
--- NOTE | 2025-02-05 12:12 | CM ---
CM reviewed chart and met with pt at bedside. Explained role and discussed anticipated dc plan/options.
IA completed. Pt currently with baker in place- unclear if pt will dc with this or not. Discussed SN and PT at dc.
Pt expressed interested-no preference in agency.
Discussed OOB to the chair for meals and whenever possible with assist from Nursing.
DIE [facility]IPPER pt was Iw/RW and Iw/ADLs.
will transport at dc.
[facility]
[address] [facility]
[place]
[phone]
CM/SW will continue to follow to ensure a safe and timely discharge.
[2025-02-05] MEDS: NOVOLOG FLEXPEN-LOW RESISTANCE 4 UNITS SC (12:27)
[2025-02-05] MEDS: STERILE WATER FOR INJECTION 10 ML IV (12:28)
[2025-02-05] MEDS: NSS 500 IV (12:29)
[2025-02-05] MEDS: ROCEPHIN 1000 MG IV (12:29)
[2025-02-05 12:40] LABS: Glucose - Point of Care 318 mg/dl (70-99)
[2025-02-05 15:44] VITALS: BP 122/66
[2025-02-05] MEDS: NEURONTIN PO ×2 (15:55→16:45)
[2025-02-05] MEDS: ROXICODONE 5 MG PO ×2 (15:56→20:10)
[2025-02-05] MEDS: LIPITOR 80 MG PO (18:16)
[2025-02-05] MEDS: TYLENOL 650 MG PO (18:17)
[2025-02-05 18:32] LABS: Glucose - Point of Care 175 mg/dl (70-99)
--- NOTE | 2025-02-05 20:35 | PTCARENOTE ---
Pt bed saturated with urine, urine leaking around catheter with CBI infusing. Pt with increased discomfort, decreased urine output in drainage bag, and dark red urine. CBI paused. Dr. Carrera notified and aware. Obtained order to hand irrigate
catheter. Hand irrigated with 60cc of NSS, 120cc of dark red clots removed. Drainage bag hooked back up and CBI restarted at a low to medium rate. Pt more comfortable. Draining clear pink urine with clots. Dr. Carrera notified and aware.
[2025-02-05 21:37] LABS: Glucose - Point of Care 211 mg/dl (70-99)
[2025-02-05] MEDS: LANTUS 0.08 UNITS SC (21:44)
[2025-02-05 23:36] VITALS: BP 110/63
--- NOTE | 2025-02-06 03:30 | PTCARENOTE ---
Addendum entered by Angela Thorpe RN 02/06/25 05:39:
22fr 3-way baker removed. 24fr 3-way baker placed @ 0430 per verbal order. Pt tolerated well. Irrigated with 120cc NSS and got 125cc of dark red urine with clots out. Attached gravity drainage bag with immediate bright red urine output. Bladder scan
for 0cc. Restarted cbi at moderate rate. Urine pink tinged. Tranexamic acid administered at 0503. Pt c/o of bladder spasms. Dr. Carrera verbal order for 2mg iv valium. Administered at 0531. Care ongoing.
Original Note:
Noticed pt urine getting increasingly darker, paused cbi, irrigated with 60cc NSS and got 80cc of bright red urine out with clots. Irrigated again with 40cc NSS and got 40cc out. Second RN irrigated with 50cc NSS and got 60cc out meeting resistance.
Secretary bag reattached but with no urine output. Irrigated again with 60cc NSS and got 80cc out meeting a lot of resistance. Drainage bag hooked back up and cbi restarted slow. No visable drainage within ~45seconds. CBI remains clamped. Called
Debi and ordered to remove current baker, replace with a 24fr 3-way catheter, manually irrigate, rehook up cbi at a moderate rate and give tranexamic acid IV. Pt comfortable. Care ongoing.
[2025-02-06] MEDS: TRANEXAMIC ACID 100 IV (05:03)
[2025-02-06] MEDS: VALIUM INJECTION 2 MG IV ×2 (05:31→13:57)
--- NOTE | 2025-02-06 06:55 | W.PN.URO.CBU ---
Addendum entered and electronically signed by José Luis Carrera MD 02/06/25 09:16:
If urine remains clear w/o recurrent bleeding today => plan for VT in AM tomorrow
Cantor catheter removal ordered for 0600 on 02/07.
D/w Dr. Zapata.
Original Note:
Today's Communication / Plan
-
- Continue empiric IV Ceftriaxone
- UCx S/S pending
- Trend H/H from recent hemorrhagic cystitis
- Advise low rate CBI through day today
- Clamp CBI @2400 tonight
D/w patient.
D/w RN.
Will d/w Dr. Zapata
Assessment / Plan
-
Hematuria with clot urinary retention
Hemorrhagic radiation cystitis
H/o prostate cancer s/p XRT (diagnosed s/p TURP 2013)
H/o rUTIs (Proteus mirabilis)
48 hrs of CBI required since admission to clear significant hematuria and intravesical clot burden.
02/05 overnight: intermittent catheter obstruction requiring upsizing to 24Fr and manual irrigation.
02/06: IV tranexamic acid x1
02/06 AM: CRYSTAL CLEAR outflow on low rate CBI.
UCx pending
Diagnosis
-
Date of Service: February 06, 2025
-
Patient Diagnosis:
Hematuria with clot urinary retention
Hemorrhagic radiation cystitis
H/o prostate cancer s/p XRT (diagnosed s/p TURP 2013)
H/o rUTIs (Proteus mirabilis)
Subjective
-
Comfortable this AM - sleeping.
Urine crystal clear outflow on low rate CBI.
Newly exchanged 24Fr 3-way o/n.
Objective
-
Vital Signs
Temp Pulse Resp BP Pulse Ox
98.3 F 81 16 110/63 93
02/05/25 23:36 02/05/25 23:36 02/05/25 23:36 02/05/25 23:36 02/05/25 23:36
Intake and Output
02/04/25 02/05/25 02/06/25
06:59 06:59 06:59
Intake Total 720 / 720 2360 / 2360
Output Total 5400 / 5400 500 / 500
Balance -4680 / -4680 1860 / 1860
Intake:
Oral fluids 720 / 720 1760 / 1760
IV fluids (Total) 500 / 500
IV piggybacks 100 / 100
Output:
Urine, Cantor 5400 / 5400
True Urine Output from CBI -925 / -925
True urine output from hand 1425 / 1425
irrigation
Physical Exam
-
General - well developed, well nourished, no acute distress
Abdomen - soft, non-tender, non-distended
- 24Fr 3-way catheter w/ crystal clear outflow
Skin - warm & dry with no rash
Care Review
Data Reviewed
Discussed with: Hospitalist and Nursing
Total Time Spent with Patient (in minutes): 20
[2025-02-06 07:32] LABS: Blood Urea Nitrogen 30 mg/dl (9-20); Calcium 7.8 mg/dl (8.4-10.2); Carbon Dioxide 27 mmol/L (22-30); Chloride 107 mmol/L (98-107); Estimated Creatinine Clearance 66 ml/min; Glucose 186 mg/dl (70-99); Potassium 4.1 mmol/L (3.5-5.1); Sodium 136 mmol/L (135-145); eGFR > 60.00
[2025-02-06 07:37] LABS: Glucose - Point of Care 216 mg/dl (70-99)
[2025-02-06] MEDS: NEURONTIN 300 MG PO ×3 (07:58→21:03)
[2025-02-06] MEDS: ROXICODONE 5 MG PO ×2 (07:58→13:57)
[2025-02-06] MEDS: TOPROL XL PO (07:59)
[2025-02-06] MEDS: COZAAR PO (07:59)
[2025-02-06] MEDS: PROSCAR 5 MG PO (07:59)
[2025-02-06] MEDS: NOVOLOG FLEXPEN 6 UNITS SC ×2 (07:59→12:08)
[2025-02-06] MEDS: NOVOLOG FLEXPEN-LOW RESISTANCE 2 UNITS SC (08:00)
[2025-02-06 08:13] VITALS: BP 107/74
[2025-02-06 08:23] LABS: Hematocrit 29.2 % (39.0-52.0); Hemoglobin 9.6 g/dL (13.0-18.0); Mean Corp Hgb Conc. 32.9 g/dL (33.0-37.0); Mean Corpuscular Volume 95.1 fL (80.0-94.0); Platelet Count 187 10^3/uL (130-400); Red Cell Dist. Width 16.3 % (11.5-14.5)
[2025-02-06] MEDS: DETROL LA 2 MG PO (12:07)
--- NOTE | 2025-02-06 12:09 | WOUNDNOTE ---
L LOWER ANTERIOR LEG
--- NOTE | 2025-02-06 12:10 | WOUNDNOTE ---
WON RN note: Patient admitted with hematuria.
See H&P for complete history. Lives with at home.
PMH:ED Past Medical History: Arrthythmia (A-fib), GERD, Hypercholesterolemia, IDDM and Other (MS)
ED Past Surgical History: Appendectomy, Orthopedic and Urological
Wound Location and type/assessment: Patient known to service, last seen 08/26/24. Now admitted with same redness on buttocks, reviewed past pictures, appears similar. Patient reports he sits mostly in a wheelchair during the day, suspect chronic
redness. Ambulates to chair using a walker. L lower mcnamara with small pink venous ulcer. R leg with dry patches of skin, no open ulcers. Scabs on toes patient states are from banging into things while in w/c. Does not use compression stockings at home
he reports, too difficult to apply. Heels are blanchable pink.
Appetite: Good. Encouraged protein in diet.
Pressure redistribution devices in place: On [facility] air bed, pillow placed under calves. Foams applied to heels. Pressure ulcer prevention measures reviewed with patient, states he understands.
Plan: L mcnamara applied adaptic, alginate and silicone foam. Juancho wraps knee high already on order and in use.
Will confirm orders with hospitalist and updated nurse. Updated care plan and will follow as needed.
Note to case management of equipment requested for discharge: VN if patient can't do on own.
Recommend follow up at wound care center upon discharge.
[2025-02-06] MEDS: NOVOLOG FLEXPEN-LOW RESISTANCE 3 UNITS SC ×2 (12:12→17:36)
[2025-02-06] MEDS: STERILE WATER FOR INJECTION 10 ML IV (12:14)
[2025-02-06] MEDS: ROCEPHIN 1000 MG IV (12:14)
--- NOTE | 2025-02-06 12:27 | W.PN.HOSP.TC ---
Addendum entered and electronically signed by Anil Bansal MD 02/07/25 13:31:
Acute blood loss anemia
no indication for blood transfusion
Original Note:
Today's Communication/Plan
-
see note
Assessment / Plan
Assessment / Plan
1. Hematuria
History of recurrent hematuria with radiation cystitis
History prostate cancer / TURP
Rule out urinary tract infection
- Patient commenced with recurrence of hematuria, known to have postradiation cystitis and hemorrhages from
- UA reviewed and patient had significant bacteriuria, unable to assess for pyuria due to obscured field from RBC, urine culture pending
- Patient have a history of Proteus mirabilis urinary tract infection based on previous urine culture report, based on susceptibility patient switched to Rocephin
- Hbg remains stable
- Hematuria has resolved now and urology planning to remove three way cath and TOV tomorrow
2. Venous stasis dermatitis
Venous stasis ulcer
- Patient have bilateral lower extremity venous insufficiency and related stasis dermatitis
- Left mcnamara has superficial venous ulceration as well
- No signs of active cellulitis
- Local wound care/Juancho wrapping recommended
3. Type 2 diabetes mellitus - Uncontrolled
- Increased dose of lantus and premeal novolog
4. Essential hypertension
- maintain on Toprol/losartan
5. Acute kidney injury - improving
- Baseline creatinine of 0.8, with admission creatinine of 1.3
- Losartan on hold due to soft blood pressure
- Provided small fluid bolus to address any volume depletion, no signs of overt depletion.
- Follow-up renal function
- Already have indwelling Cantor catheter
6. Paroxysmal atrial fibrillation
- not on anticoagulation
- EKG reviewed showing atrial fibrillation
DVT prophylaxis -SCD
Full code
Anticipated Discharge: Within 24 hours
Subjective/Interval History
-
Date of Service: February 06, 2025
no new issues overnight
complaining of some bladder spasm / lower abd discomfort
no nausea / vomiting
three way cath in place - draining clear urine
Objective Data
-
Labs:
Laboratory Results
02/06/25
06:08
WBC 6.1
Hgb 9.6 L
Hct 29.2 L
Plt Count 187 D
Sodium 136
Potassium 4.1
Chloride 107
Carbon Dioxide 27
BUN 30 H
Creatinine 1.1
Glucose 186 H
Calcium 7.8 L
Vital Signs:
Vital Signs
Temp Pulse Resp BP Pulse Ox
97.6 F 94 18 107/74 100
02/06/25 08:13 02/06/25 08:13 02/06/25 08:13 02/06/25 08:13 02/06/25 10:46
I&O
02/05/25 02/06/25 02/07/25
06:59 06:59 06:59
Intake Total 720 / 720 2360 / 2360
Output Total 5400 / 5400 500 / 500
Balance -4680 / -4680 1860 / 1860
Review of Systems
-
Respiratory: Reports No Symptoms
Cardiac: Reports No Symptoms
Abdomen/GI: Reports No Symptoms
Physical Exam
-
General: Comfortable; Negative Respiratory Distress
HEENT: Negative Oxygen
GI: Nontender and Nondistended
Genito-urinary: Cantor (clear urine)
Musculoskeletal: Edema, Right Lower Extrem and Edema, Left Lower Extrem (Superficial venous stasis ulcer on left mcnamara)
Neuro: Awake, Alert, Oriented and No Motor Deficits
[2025-02-06 12:40] LABS: Glucose - Point of Care 262 mg/dl (70-99)
--- NOTE | 2025-02-06 13:11 | PN.CDI ---
CDI
- -
CDI:
Physician Documentation Request
Admit Date: 02/04/25 19:49
Dear Doctor,
Patient admitted with hematuria.
H&P: 'Patient started having hematuria about 10 days ago...Patient reports that the bleeding is still persistent and he has been passing clots. He specifically reports that he has had more hematuria over the last 2 days'
02/06 PCN: 'irrigated with 60cc NSS and got 80cc of bright red urine out with clots...Irrigated with 120cc NSS and got 125cc of dark red urine with clots out. Attached gravity drainage bag with immediate bright red urine output. Bladder scan for
0cc. Restarted cbi at moderate rate. Urine pink tinged. Tranexamic acid administered at 0503.'
02/06 Hospitalist PN: 'Patient commenced with recurrence of hematuria, known to have postradiation cystitis and hemorrhages from...- Hbg remains stable - Hematuria has resolved now and urology planning to remove three way cath and TOV tomorrow'
Laboratory Tests
02/04/25 02/05/25 02/06/25
17:00 06:27 06:08
Hgb 12.5 L 9.9 L D 9.6 L
Hct 36.9 L 29.6 L 29.2 L
Based on the above, could you clarify in the progress notes, the appropriate diagnosis, if significant, that supports the above abnormalities and additional evaluation, monitoring and/or treatment rendered:
Acute blood loss anemia
Drop in hemoglobin
Other
Use of terms such as suspected, likely, concern for, or probable (associated with a specific diagnosis that is being evaluated, monitored, or treated as if it exists) are acceptable and can be coded in the inpatient setting, when documented at the
time of discharge.
Thank you,
Verenice Lerner RN, BSN
CDI Specialist
Available via [place] text
Please use your independent medical judgment in providing your response.
[2025-02-06 15:00] VITALS: BP 112/65
--- NOTE | 2025-02-06 15:09 | CM ---
CM following re: discharge planning.
Reviewed pt's chart, met with pt.
Per chart review, plan for VT in AM tomorrow 02/07/25, continue supportive care. Urology following.
D/c plan: home with no needs anticipated vs VN if recommended.
CM will follow with discharge plan updates as hospitalization progresses
[2025-02-06] MEDS: LIPITOR 80 MG PO (17:35)
[2025-02-06] MEDS: NOVOLOG FLEXPEN 8 UNITS SC (17:36)
[2025-02-06 17:52] LABS: Glucose - Point of Care 270 mg/dl (70-99)
[2025-02-06] MEDS: LANTUS 0.1 UNITS SC (21:06)
[2025-02-06 21:08] LABS: Glucose - Point of Care 207 mg/dl (70-99)
[2025-02-06 23:00] VITALS: BP 130/63
[2025-02-07] MEDS: TYLENOL 650 MG PO (04:14)
[2025-02-07 06:20] LABS: Hematocrit 28.4 % (39.0-52.0); Hemoglobin 9.7 g/dL (13.0-18.0); Mean Corp Hgb Conc. 34.2 g/dL (33.0-37.0); Mean Corpuscular Volume 91.3 fL (80.0-94.0); Platelet Count 196 10^3/uL (130-400); Red Cell Dist. Width 15.8 % (11.5-14.5)
[2025-02-07 07:00] VITALS: BP 123/72
[2025-02-07 07:07] LABS: Blood Urea Nitrogen 26 mg/dl (9-20); Calcium 8.1 mg/dl (8.4-10.2); Carbon Dioxide 27 mmol/L (22-30); Chloride 106 mmol/L (98-107); Estimated Creatinine Clearance 81 ml/min; Glucose 236 mg/dl (70-99); Potassium 4.3 mmol/L (3.5-5.1); Sodium 134 mmol/L (135-145); eGFR > 60.00
[2025-02-07 07:17] LABS: Glucose - Point of Care 256 mg/dl (70-99)
[2025-02-07] MEDS: NOVOLOG FLEXPEN-LOW RESISTANCE 3 UNITS SC (07:59)
[2025-02-07] MEDS: NOVOLOG FLEXPEN 8 UNITS SC ×2 (08:00→11:54)
[2025-02-07] MEDS: NEURONTIN 300 MG PO (08:01)
[2025-02-07] MEDS: TOPROL XL 12.5 MG PO (08:02)
[2025-02-07] MEDS: COZAAR 50 MG PO (08:02)
[2025-02-07] MEDS: PROSCAR 5 MG PO (08:02)
[2025-02-07] MEDS: DETROL LA 2 MG PO (08:02)
--- NOTE | 2025-02-07 09:36 | W.PN.URO.CBU ---
Today's Communication / Plan
-
Home today with or w/o Cantor pending voiding trial
Assessment / Plan
-
Hematuria with clot urinary retention
Hemorrhagic radiation cystitis
H/o prostate cancer s/p XRT (diagnosed s/p TURP 2013)
H/o rUTIs (Proteus mirabilis)
48 hrs of CBI required since admission to clear significant hematuria and intravesical clot burden.
02/05 overnight: intermittent catheter obstruction requiring upsizing to 24Fr and manual irrigation.
02/06: IV tranexamic acid x1
02/06 AM: CRYSTAL CLEAR outflow on low rate CBI.
UCx: No growth
Diagnosis
-
Date of Service: February 07, 2025
-
Patient Diagnosis:
Hematuria with clot urinary retention
Hemorrhagic radiation cystitis
H/o prostate cancer s/p XRT (diagnosed s/p TURP 2013)
H/o rUTIs (Proteus mirabilis)
Subjective
-
Comfortable
Catheter removed this AM
Objective
-
Vital Signs
Temp Pulse Resp BP Pulse Ox
98.0 F 88 18 123/72 96
02/07/25 07:00 02/07/25 08:02 02/07/25 07:00 02/07/25 08:02 02/07/25 07:00
Intake and Output
02/06/25 02/07/25 02/08/25
06:59 06:59 06:59
Intake Total 2360 / 2360 1120 / 1120
Output Total 500 / 500 1640 / 1640
Balance 1860 / 1860 -520 / -520
Intake:
Oral fluids 1760 / 1760 1120 / 1120
IV fluids (Total) 500 / 500
IV piggybacks 100 / 100
Output:
True Urine Output from CBI -925 / -925 1640 / 1640
True urine output from hand 1425 / 1425
irrigation
Laboratory Results
02/07/25 05:37
02/07/25 05:37
Review of Systems
-
Constitutional: Fatigue
Respiratory: No Symptoms
Cardiac: No Symptoms
Abdomen/GI: No Symptoms
Physical Exam
-
General - no acute distress
Abdomen - soft, non-tender, no CVAT
Genitalia - normal
Counseling
-
Home today
[2025-02-07] MEDS: HYDROPHOR 1 APPLIC TOPICAL (10:42)
[2025-02-07 11:36] LABS: Glucose - Point of Care 329 mg/dl (70-99)
[2025-02-07] MEDS: NOVOLOG FLEXPEN-LOW RESISTANCE 4 UNITS SC (11:53)
[2025-02-07] MEDS: ROCEPHIN 1000 MG IV (11:54)
[2025-02-07] MEDS: STERILE WATER FOR INJECTION 10 ML IV (11:54)
--- NOTE | 2025-02-07 13:00 | CM ---
Patient seen at bedside on [address]. Patient confirmed that he has no needs at this time. IMM completed and signed form placed on chart. Patient for family transportation . CM will continue to follow for discharge planning needs.
Plan; home with no needs.
[2025-02-07 15:16] VITALS: BP 124/59
--- NOTE | 2025-02-07 15:23 | PTCARENOTE ---
Patient voiding small amounts (unmeasurable d/t incontinence); bladder scan shows 352 ml; Dr. Zapata notified; ok for d/c with residual volumes less than 400 per MD.
--- NOTE | 2025-02-07 16:54 | PTCARENOTE ---
Patient had difficulty standing with assistance x2; he was an assist x3 to get into wheelchair; this RN asked patient's how she was going to get him into car and home; patient's insisted that she would manage and was taking him home
despite staff's concerns.
--- NOTE | 2025-02-07 17:39 | W.DCSUMMARY ---
Discharge Summary
Discharge Data
Date of Admission: 02/04/25
Date of Discharge: 02/07/25
-
Pending Results: No
Hospital Course
Discharging Physician : Dr Anil Bansal
Disposition : To home
Primary care physician : Dr Patrick Kc
Principal Discharge diagnosis :
Hematuria
History of recurrent hematuria with radiation cystitis
venous stasis dermatitis and ulcer
Acute kidney injury
Chronic Discharge diagnosis :
Type 2 diabetes mellitus
Essential hypertension
Paroxysmal atrial fibrillation
Physical examination:
General: Comfortable; Negative Respiratory Distress
HEENT: Negative Oxygen
Chest : clear to auscultation
Heart : n s1/s2, rrr, no murmur
GI: Nontender and Nondistended
Musculoskeletal: Edema, Right Lower Extrem and Edema, Left Lower Extrem (Superficial venous stasis ulcer on left mcnamara)
Neuro: Awake, Alert, Oriented and No Motor Deficits
Hospital Course :
Patient is a 79-year-old male with above-mentioned past medical history came to ER with new onset of hematuria. Patient have history of prostate cancer/TURP and radiation and known to having hemorrhagic cystitis in the past. Patient was recently
treated on outpatient basis for possible urinary tract infection. In ER patient was started on continuous bladder irrigation and urology was involved in care. In light of patient known hemorrhagic cystitis history urology recommended for
conservative management with patient to be maintained on CBI. Patient did improvement of hematuria in next 48 hours and was able to be taken off of CBI. Cantor catheter was removed before discharge. Patient had minimal anemia from bleeding, did
not require any blood transfusion this admission.
Of note patient UA was also showing pyuria and bacteriuria although no overt signs of dysuria. In light of need of CBI/catheterization patient was maintained on empiric antibiotics. Urine culture later reported to be negative for any growth.
Patient was taken off of antibiotic at discharge
Patient also had acute kidney injury and likely combination from MARIA EUGENIA and soft blood pressure. Patient was provided IV fluid bolus and had slow improvement in renal function.
Patient is planned to follow-up with urology in the office postdischarge.
Important imaging findings :
None
Procedure findings :
None
Discharge Plan
-
Patient Disposition: Home (Routine Discharge)
Discharge Diagnosis/Procedures: Hematuria from hemorrhagic cystitis, urinary tract infection
Condition: Fair
Diet: Diabetic, Carb Controlled
Activity: As tolerated
Driving Restrictions: No driving
Bathing Restrictions: OK to Shower
Activity Restrictions/Additional Instructions:
Wound Care Instructions
L leg: clean with soap and water, adaptic, alginate(for increased drainage) and dry dressing. Change q other day and prn drainage.
Mineral oil to legs daily
leg elevation when sitting
offloading cushion when sitting
Legs: compression with maria eugenia wraps knee high daily until can obtain compression stockings.
Follow up at wound care center call for an appointment.
Referrals:
Patrick Kc MD [Family Provider, [facility]] - in one week
Prescriptions:
Continued
finasteride 5 MG tablet
5 mg PO DAILY
atorvastatin 80 MG tablet
80 mg PO QPM
insulin lispro [Humalog U-100 Insulin] 100 unit/mL solution
10 unit SC TID Qty: 0 0RF
Patient Comments:
hold if glucose is less than 100
insulin degludec [Tresiba FlexTouch U-100] 100 unit/mL (3 mL) insulin pen
10 unit SC QHS
losartan 50 mg Tablet
50 mg PO DAILY
metoprolol succinate 25 mg Tablet Extended Release 24 Hr
12.5 mg PO DAILY
Discontinued
amoxicillin-pot clavulanate 875-125 mg tablet
1 tab PO BID Qty: 14 0RF
Discharge Orders:
Discharge Patient (As Directed); Ordered 02/07/25
Ordered By: Anil Bansal
Discharge Date and Time
Discharge Date/Time: 02/07/25 16:30
Print Language: PORTUGUESE
== END 2025-02-07 16:30 | disposition home or self-care (01) | DRG 699 ==
LOC: 2 NORTH 19:49
PROVIDERS: Nurse Practitioner; ADMITTING PHYSICIAN Internal Medicine; ATTENDING PHYSICIAN Hospitalist; CONSULT PHYSICIAN Surgery; EMERGENCY PHYSICIAN Emergency Medicine; FAMILY PHYSICIAN Family Medicine
DX: N30.41 Irradiation cystitis with hematuria (principal); F03.93 Unspecified dementia, unspecified severity, with mood disturbance; N17.9 Acute kidney failure, unspecified; Y84.2 Radiological procedure and radiotherapy as the cause of abnormal reaction of the patient, or of later complication, without mention of misadventure at the time of the procedure; E11.9 Type 2 diabetes mellitus without complications; I10 Essential (primary) hypertension; I48.0 Paroxysmal atrial fibrillation; Z85.46 Personal history of malignant neoplasm of prostate; Z90.79 Acquired absence of other genital organ(s); K21.9 Gastro-esophageal reflux disease without esophagitis; G35.D Multiple sclerosis, unspecified; K22.70 Barrett's esophagus without dysplasia; M54.16 Radiculopathy, lumbar region; G47.33 Obstructive sleep apnea (adult) (pediatric); J98.4 Other disorders of lung; F32.A Depression, unspecified; E78.00 Pure hypercholesterolemia, unspecified; Z79.4 Long term (current) use of insulin; Z92.3 Personal history of irradiation; Z79.899 Other long term (current) drug therapy
CPT/HCPCS: 51702; 51798; 80048; 80053; 81003; 81015; 82962; 83036; 83735; 84443; 85025; 85027; 86803; 87070; 87086; 87147; 93005; 96374; 96375; 99285